=== PATIENT | male | born 1955 | race Two or more races ===

== ENCOUNTER 2020-02-12 15:06 | Emergency (ER) | payer MEDICAID, SELFPAY ==
[2020-02-12 15:34] VITALS: BP 163/100; PULSE 93; RESP 16; TEMP 37.1; O2SAT 95; BMI 31.6
[2020-02-12 16:14] VITALS: BP 134/88; PULSE 84; RESP 18; TEMP 36.9; O2SAT 94
--- NOTE | 2020-02-12 16:22 | PC.NURSE ---
pt alert and oriented, skin appropriate for ethnicity, pt reports about 4 days ago having this rash on his right side of head/face/eye since then reports feeling dizzy with a headache. blisters are dry no visible draining at this time
[2020-02-12] MEDS: Fluorescein Sodium STRIP 1 STRIP EYE-BOTH (16:25)
[2020-02-12] MEDS: Tetracaine HCl/PF 0.5% Oph Sol 4 ML DROPS 1 DROP EYE-BOTH (16:25)
--- NOTE | 2020-02-12 16:46 | ED_ITS ---
HPI - General Adult General Chief complaint: Dizziness Stated complaint: DIZZYNESS Source: patient Mode of arrival: ambulatory Limitations: no limitations History of Present Illness HPI narrative: patient presents to ED for right-sided headache/facial pain. Patient states 4 days ago he woke up with painful rash on the right side of his face. Patient describes pain as burning sensation. Patient denies any recent head trauma, nausea, vomiting, fever, or chills. Patient describes right-sided headache as burning sensation on face due to rash. Patient states never having this before. Onset (ago): day(s) (4 days) Related Data Previous Rx's Medication Instructions Recorded naproxen 500 mg PO BID PRN #20 tab 02/12/20 valacyclovir 1,000 mg PO TID #21 tab 02/12/20 Allergies Allergy/AdvReac Type Severity Reaction Status Date / Time blueberry [BLUEBERRY] Allergy Severe ANAPHYLAXIS Unverified 01/11/20 15:36 acetaminophen [Tylenol] Allergy Unknown Verified 12/11/15 00:00 hydrocodone [Vicodin] Allergy Unknown Verified 12/11/15 00:00 From VICODIN Allergy Unknown ANAPHYLAXIS Uncoded 01/11/20 15:36 Review of Systems Review of Systems: Right-sided facial rash Yes all other systems are reviewed and are negative Eyes: Eyes: Reports as per HPI, Reports no additional eye complaints, Denies blurry vision, Denies change in vision and Denies decreased night vision ENT: Reports system reviewed and no additional complaints, except as documented Cardiovascular: Cardiovascular: Reports as per HPI and Reports no additional cardiovascular complaints Respiratory: Respiratory: Reports as per HPI and Reports no additional respiratory complaints Gastrointestinal: Gastrointestinal: Reports as per HPI and Reports no additional gastrointestinal complaints Genitourinary: Genitourinary: Reports no additional male genitourinary complaints Musculoskeletal: Musculoskeletal: Reports no additional musculoskeletal complaints and Reports as per HPI Neurologic: Reports system reviewed and no additional complaints, except as documented and Reports as per HPI [facility] Social History Social History Alcohol intake: never Smoking Status: Light tobacco smoker Advance Directives: No Advance Directives Information Provided: Yes Physical Exam Vital Signs: Vital Signs: Vital Signs Temp Pulse Resp BP Pulse Ox 02/12/20 16:14 98.4 F 84 18 134/88 94 02/12/20 15:34 98.8 F 93 16 163/100 H 95 Body Mass Index 31.6 Const: General: cooperative, healthy appearing, comfortable and no acute distress Orientation/consciousness: oriented to person, oriented to place, oriented to time and patient oriented x3 HENMT: Other: positive for vesicular crusting erythematous rash on the right side of face. Rashes on right side forehead frontal, parietal, and right nares with vesicular lesions. ears bilaterally negative for any vesicular lesions to indicate Willett colon syndrome. Eyes: Other: Right eye negative for any dendrites to indicate herpes shingles in the eye. Negative for any corneal abrasion. Right eye to tonometry pressure is 10. Left eye 10 tonometry pressure is 10. Neck: Neck: Yes normal visual inspection, Yes full ROM, Yes no meningeal signs, Yes lymphadenopathy ( positive for right small cervical lymphadenopathy due to shingles on face), No positive Brudzinski's sign, No positive Kernig's sign, No tracheal deviation and No prominent dorsocervical fat pad Chest: Chest palpation & inspection: normal inspection of the chest and normal palpation of entire chest wall Resp: Effort & Inspection: normal respiratory effort, able to speak in complete sentences, no audible wheezes, no cough, no grunting, no nasal flaring, no paradoxical thoraco-abdom movements and no pursed lip breathing Auscultation: clear to auscultation bilaterally Percussion: percussion normal Cardio: Jugular venous distension: no JVD Heart sounds: S1 normal heart sound present and S2 normal heart sound present GI: Inspection: Yes normal to inspection, No abdominal wall ecchymosis, No Abdominal wall edema, No distended and No incision Palpation (GI): not soft, not firm, nontender, no guarding and not rigid Percussion: Yes normal to percussion Auscultation: normal bowel sounds : General: No CVA tenderness and Yes no CVA tenderness Back/Spine/Pelvis: Back: no CVA tenderness, No CVA tenderness and No back tenderness Skin: Other: Positive for shingles Neuro: General: oriented to person, oriented to place, oriented to time, patient oriented x3, gait normal, no meningeal signs and CN's II-XI intact bilaterally Cranial nerves: Yes CN's II-XII intact bilaterally Extrem: General: Yes normal to inspection and Yes full ROM Psych: Appearance: grossly normal and well ket Course Course Course Narrative: history physical exam indicate shingles. History and physical exam does not indicate ophthalmic shingles. Visual acuity in left eye is 20/30. Right visual acuity is 20/20. Patient had reading glasses on. Patient denies any eye pain, blurry vision, or eye itchiness. Reevaluation(s) Reevaluation #1: Patient will be discharged with antiviral medication to treat shingles. Patient informed to follow-up with PCP an [employer] [facility] [employer]. Time: 16:55 Medical Decision Making MDM Narrative Medical decision making narrative: Facial shingles. Negative for dendrites in eye with examination was lamp to indicate shingles in the eye. Visual acuity is intact. Patient denies any eye pain or blurry vision Discharge Plan Discharge Clinical Impression: Herpes zoster Patient Disposition: Home, Self-Care Instructions: Shingles (ED) Additional Instructions: return to the ED for eye pain, blurry vision, change in vision, loss of vision, severe headache, nausea, vomiting, fever, chills, neck stiffness, altered mental status, or any other concerning symptoms. Please follow up with your PCP Prescriptions: New valacyclovir 1 gram tablet 1,000 mg PO TID Qty: 21 RF: 0 naproxen 500 mg tablet 500 mg PO BID PRN (Reason: pain) Qty: 20 RF: 0 Referrals: Duglas Murphy [Physician] - 2 days (Right sided facial shingles. ED evaluation for negative dendrites in eye. Follow up for re-evaluation) Interventions: ED Discharge Assessment Last Done: 02/12/20 17:12 Discharge Date/Time: 02/12/20 17:20
== END 2020-02-12 17:20 | disposition home or self-care (01) ==
PROVIDERS: Emergency Provider Emergency Medicine
DX: B02.9 Zoster without complications (principal); R51.9 Headache, unspecified; F17.200 Nicotine dependence, unspecified, uncomplicated; Z71.6 Tobacco abuse counseling; Z79.899 Other long term (current) drug therapy
CPT/HCPCS: 99283; 99284

== ENCOUNTER 2020-03-22 06:32 | Outpatient (REF) | payer MEDICAID, SELFPAY | END 2020-03-22 06:33 | disposition home or self-care (01) | LOC: HO.LAB 06:32 | PROVIDERS: Visit Provider Internal Medicine | DX: Z20.828 Contact with and (suspected) exposure to other viral communicable diseases (principal) | CPT/HCPCS: C9803; U0003 ==

== ENCOUNTER 2020-04-25 13:54 | Outpatient (REF) | payer MEDICAID, SELFPAY | END 2020-04-25 13:55 | disposition home or self-care (01) | LOC: HO.LAB 13:54 | PROVIDERS: Visit Provider Internal Medicine | DX: Z20.828 Contact with and (suspected) exposure to other viral communicable diseases (principal) | CPT/HCPCS: C9803; U0003 ==

== ENCOUNTER 2020-08-06 07:36 | Outpatient (REF) | payer OTHER, SELFPAY ==
[2020-08-06 08:52] LABS: MANUAL DIFF FLAG NO
[2020-08-06 09:10] LABS: Basophils Percent Auto 0.7 % (0-2); Eosinophils Absolute Auto 0.2 X10*3/uL (0.0-0.4); Eosinophils Percent Auto 4.5 % (0-4); Hematocrit 40.6 % (42-52); Imm Gran Abs Auto 0.01 X10*3/uL (0.00-0.03); Imm Gran Pct Auto 0.2 % (0.0-0.4); Lymphocytes Absolute Auto 1.4 X10*3/uL (1.2-4.9); Lymphocytes Percent Auto 30.6 % (20-40); Mean Corpuscular Hemoglobin 26.2 pg (27.0-33.0); Mean Corpuscular Volume 81.9 fL (80-98); Mean Platelet Volume 12.6 fL (9.4-12.4); Monocytes Absolute Auto 0.3 X10*3/uL (0.1-1.2); Monocytes Percent Auto 7.4 % (2-11); Neutrophils Absolute Auto 2.5 X10*3/uL (2.0-8.3); Neutrophils Percent Auto 56.6 % (45-73); Platelet Count 104 X10*3/uL (160-400); Red Blood Count 4.96 X10*6/uL (4.60-5.80); White Blood Count 4.4 X10*3/uL (4.8-10.8)
[2020-08-06 09:15] LABS: Alanine Aminotransferase 30 U/L (0-40); Albumin Level 3.6 g/dL (3.5-5.0); Alkaline Phosphatase 74 U/L (39-117); Anion Gap 11 (12-20); Aspartate Amino Transferase 35 U/L (5-37); Bilirubin Total 0.4 mg/dL (0.0-1.0); Blood Urea Nitrogen 10 mg/dL (9-16); Calcium 8.5 mg/dL (8.4-10.2); Carbon Dioxide 29 mmol/L (22-29); Chloride 104 mmol/L (96-108); Cholesterol 130 mg/dL; Estimated Glomerular Filt Rate > 60; Glucose Fasting 103 mg/dL (60-99); HDL Cholesterol 39 mg/dL; LDL Cholesterol Calculated 77 mg/dl; Potassium 4.6 mmol/L (3.3-5.1); Sodium 139 mmol/L (135-145); Total Protein 7.7 g/dL (6.5-8.0); Triglycerides 74 mg/dL
== END 2020-08-06 07:37 | disposition home or self-care (01) ==
LOC: HO.LAB 07:36
PROVIDERS: PCP Internal Medicine; Visit Provider Internal Medicine
DX: Z00.00 Encounter for general adult medical examination without abnormal findings (principal); E03.9 Hypothyroidism, unspecified; E11.9 Type 2 diabetes mellitus without complications
CPT/HCPCS: 36415; 80053; 80061; 84443; 85025

== ENCOUNTER 2020-08-23 10:10 | Outpatient (REF) | payer OTHER, SELFPAY ==
--- NOTE | ~2020-08-23 | XR_ITS ---
EXAMINATION: BILATERAL KNEE X-RAY CLINICAL INFORMATION: Pain COMPARISON: Previous right knee x-ray July 2018 and left knee x-ray July 2015 TECHNIQUE: 2 views of each knee FINDINGS: Right: Bone alignment is normal. No fracture or dislocation is seen. There are postoperative changes from ACL repair. There is arthritis at the medial femoral tibial and patellofemoral joints with joint space narrowing and osteophyte formation. There is a osteophyte at the quadriceps tendon insertion to the patella and patellar tendon insertion to the tibial tubercle. There is a small joint effusion. Left knee: There is mild varus angulation at the knee joint. No fracture or dislocation is seen. There is marked joint space narrowing at the medial femoral tibial joint. There are small osteophytes at the patellofemoral joint. There is no joint effusion. XR/XR knee LT 2V IMPRESSION: Bilateral arthritis. Post right ACL repair.
--- NOTE | ~2020-08-23 | XR_ITS ---
EXAMINATION: BILATERAL KNEE X-RAY CLINICAL INFORMATION: Pain COMPARISON: Previous right knee x-ray July 2018 and left knee x-ray July 2015 TECHNIQUE: 2 views of each knee FINDINGS: Right: Bone alignment is normal. No fracture or dislocation is seen. There are postoperative changes from ACL repair. There is arthritis at the medial femoral tibial and patellofemoral joints with joint space narrowing and osteophyte formation. There is a osteophyte at the quadriceps tendon insertion to the patella and patellar tendon insertion to the tibial tubercle. There is a small joint effusion. Left knee: There is mild varus angulation at the knee joint. No fracture or dislocation is seen. There is marked joint space narrowing at the medial femoral tibial joint. There are small osteophytes at the patellofemoral joint. There is no joint effusion. XR/XR knee RT 2V IMPRESSION: Bilateral arthritis. Post right ACL repair.
== END 2020-08-23 10:11 | disposition home or self-care (01) ==
LOC: HO.XRAY 10:10
PROVIDERS: PCP Internal Medicine; Visit Provider Internal Medicine
DX: M25.561 Pain in right knee (principal); M25.562 Pain in left knee
CPT/HCPCS: 73560

== ENCOUNTER → 2020-08-28 10:43 | Outpatient (BNVA) | payer OTHER, SELFPAY | PROVIDERS: PCP Internal Medicine; Visit Provider Orthopaedic Surgery | DX: M17.0 Bilateral primary osteoarthritis of knee (principal) | CPT/HCPCS: 20610; 99202; J1040 ==

== ENCOUNTER 2020-09-16 20:06 | Inpatient (IN) | payer OTHER, SELFPAY ==
--- NOTE | ~2020-09-16 | XR_ITS ---
EXAMINATION: XR HAND, RIGHT CLINICAL INFORMATION: metal to right hand with swelling COMPARISON: None TECHNIQUE: PA, lateral, and oblique views of the right hand. FINDINGS: No radiopaque foreign bodies are seen. Mild degenerative changes present at the DIP joints. Evidence of an old healed fracture involving the fifth metacarpal. No acute fracture is seen. XR/XR hand RT 2V IMPRESSION: No evidence of an acute injury or foreign body.
--- NOTE | ~2020-09-16 | US_ITS ---
EXAMINATION: ULTRASOUND EXTREMITY NONVASCULAR CLINICAL INFORMATION: Question single versus multiple abscesses at the dorsal aspect of the right hand. Swelling. Injury. COMPARISON: None TECHNIQUE: Targeted sonographic evaluation of the dorsal right hand. FINDINGS: Diffuse edema is present. Increased Doppler vascularity noted. There is a focal area of low echogenicity in the soft tissues of the dorsal hand at the level of the metacarpals adjacent to the fourth ray. This measures 1.2 x 0.4 x 1.2 cm. This is somewhat heterogeneous. More proximally, at the dorsal interspace between the fourth and fifth metacarpals there is a second area of heterogeneously low echogenicity measuring 1.4 x 0.9 x 0.8 cm. There is surrounding increased vascularity. US/US extremity nonvascular IMPRESSION: Prominent soft tissue swelling of the hand with 2 separate small fluid collections identified in the dorsal hand at the level of the distal and mid metacarpals.
[2020-09-16 20:08] VITALS: BP 160/95; PULSE 100; RESP 18; TEMP 37.6; O2SAT 96; BMI 38.0
[2020-09-16 21:37] LABS: MANUAL DIFF FLAG NO
[2020-09-16 21:38] LABS: Basophils Percent Auto 0.3 % (0-2); Eosinophils Absolute Auto 0.1 X10*3/uL (0.0-0.4); Eosinophils Percent Auto 1.5 % (0-4); Hematocrit 37.2 % (42-52); Hemoglobin 12.2 g/dl (14.0-18.0); Imm Gran Abs Auto 0.01 X10*3/uL (0.00-0.03); Imm Gran Pct Auto 0.1 % (0.0-0.4); Lymphocytes Absolute Auto 1.8 X10*3/uL (1.2-4.9); Lymphocytes Percent Auto 24.1 % (20-40); Mean Corpuscular HGB Conc 32.8 g/dl (31.0-36.0); Mean Corpuscular Hemoglobin 26.2 pg (27.0-33.0); Mean Corpuscular Volume 79.8 fL (80-98); Mean Platelet Volume 11.9 fL (9.4-12.4); Monocytes Absolute Auto 0.7 X10*3/uL (0.1-1.2); Monocytes Percent Auto 9.9 % (2-11); Neutrophils Absolute Auto 4.8 X10*3/uL (2.0-8.3); Neutrophils Percent Auto 64.1 % (45-73); Platelet Count 114 X10*3/uL (160-400); Red Blood Count 4.66 X10*6/uL (4.60-5.80); Red Cell Distribution Width 15.6 % (11.0-16.0); White Blood Count 7.4 X10*3/uL (4.8-10.8)
[2020-09-16 21:57] LABS: Alanine Aminotransferase 32 U/L (0-40); Albumin Level 3.5 g/dL (3.5-5.0); Alkaline Phosphatase 77 U/L (39-117); Anion Gap 13 (12-20); Aspartate Amino Transferase 27 U/L (5-37); Bilirubin Total 0.7 mg/dL (0.0-1.0); Blood Urea Nitrogen 13 mg/dL (9-16); Calcium 8.3 mg/dL (8.4-10.2); Carbon Dioxide 24 mmol/L (22-29); Chloride 104 mmol/L (96-108); Creatinine Clr Calc Pharmacy 130.6; Estimated Glomerular Filt Rate > 60; Glucose Random 116 mg/dL (60-115); Potassium 3.7 mmol/L (3.3-5.1); Sodium 137 mmol/L (135-145); Total Protein 7.5 g/dL (6.5-8.0)
--- NOTE | 2020-09-16 22:15 | ED_ITS ---
HPI - Skin/Abscess/Foreign Bdy General Chief complaint: Skin/Abscess/Foreign Body Stated complaint: metal in arm Time Seen by Provider: 09/16/20 21:45 Source: patient Mode of arrival: ambulatory History of Present Illness HPI narrative: 65-year-old male presents with swollen dorsum of right hand after he states he got some metal lodged into his hand and removed it himself. He states that it was all fine until yesterday when it began becoming more red and swollen. Otherwise, he denies fever, chills and states he is able to fully range of motion his hand although it is uncomfortable. Related Data Previous Rx's Medication Instructions Recorded naproxen 500 mg PO BID PRN #20 tab 02/12/20 valacyclovir 1,000 mg PO TID #21 tab 02/12/20 Allergies Allergy/AdvReac Type Severity Reaction Status Date / Time blueberry [BLUEBERRY] Allergy Severe ANAPHYLAXIS Verified 08/28/20 10:53 acetaminophen [Tylenol] Allergy Unknown Unknown Verified 08/28/20 10:53 hydrocodone [Vicodin] Allergy Unknown Unknown Verified 08/28/20 10:53 From VICODIN Allergy Unknown ANAPHYLAXIS Uncoded 08/28/20 10:53 Review of Systems Review of Systems: Pertinent positives and negatives as stated in HPI 10 point review of systems is otherwise negative. [facility] Past Medical History Source: nursing notes reviewed Medical History Knee pain Seizure Surgical History History of right knee surgery History of right shoulder replacement Family History Family History Father No problems noted. Mother No problems noted. Social History Social History Alcohol intake: never Smoking Status: Light tobacco smoker Cigarettes Per Day: 4 Advance Directives: No Physical Exam Vital Signs: Vital Signs: Last Vital Signs Temp 99.6 F 09/16/20 20:08 Pulse 100 09/16/20 20:08 Resp 18 09/16/20 20:08 BP 160/95 H 09/16/20 20:08 Pulse Ox 96 09/16/20 20:08 Body Mass Index 38.0 VITAL SIGNS: Reviewed. GENERAL: Well developed, well nourished, in no acute distress. HEAD: Normocephalic/atraumatic EYES: PERRLA, EOMI NOSE: Nares patent bilateral OROPHARYNX: no oral lesions noted, posterior pharynx clear NECK: Supple, no adenopathy LUNGS: Normal breath sounds. No adventitious sounds or accessory muscle use. SpO2<96> CARDIOVASCULAR: Regular rate and rhythm without noted murmurs ABDOMEN: Obese, Soft, non-tender, non-distended with bowel sounds. RIGHT HAND: Significant swelling noted to the dorsum hand without appreciable fluctuance, capillary refill less than 3 seconds, sensation is intact, palpable radial and ulnar pulses and full range of motion noted at the wrist NEUROLOGIC: Alert and oriented x 4. Course Course Course Narrative: This is a 65-year-old male with history and clinical presentation consistent with right hand abscess versus cellulitis. Patient will receive Augmentin here but states his Tdap is current. Review of all investigations findings and formal ultrasound showing very small fluid collection but significant amount of hypervascularity of the soft tissue. Patient received initial antibiotics of Augmentin, however due to limited range of motion in appearance of hand decision was made to admit the patient. This was discussed with inpatient hospitalist who was agreeable for admission and will consult with Hand surgery in the morning. MDM - Skin/Abscess/Foreign Bdy Lab Data Result diagrams: 09/16/20 21:32 09/16/20 21:32 Labs: Lab Results 09/16/20 09/16/20 Range/Units 21:32 21:32 WBC 7.4 (4.8-10.8) X10*3/uL RBC 4.66 (4.60-5.80) X10*6/uL Hgb 12.2 L (14.0-18.0) g/dl Hct 37.2 L (42-52) % MCV 79.8 L (80-98) fL MCH 26.2 L (27.0-33.0) pg MCHC 32.8 (31.0-36.0) g/dl RDW 15.6 (11.0-16.0) % Plt Count 114 L (160-400) X10*3/uL MPV 11.9 (9.4-12.4) fL Immature Gran % (Auto) 0.1 (0.0-0.4) % Neut % (Auto) 64.1 (45-73) % Lymph % (Auto) 24.1 (20-40) % [place] % (Auto) 9.9 (2-11) % Eos % (Auto) 1.5 (0-4) % Baso % (Auto) 0.3 (0-2) % Lymph # (Auto) 1.8 (1.2-4.9) X10*3/uL [place] # (Auto) 0.7 (0.1-1.2) X10*3/uL Eos # (Auto) 0.1 (0.0-0.4) X10*3/uL Baso # (Auto) 0.0 (0.0-0.2) X10*3/uL Abs Immat Gran (auto) 0.01 (0.00-0.03) X10*3/uL Absolute Neuts (auto) 4.8 (2.0-8.3) X10*3/uL Absolute Nucleated RBC 0.000 (0.0-0.012) X10*3/uL Nucleated RBC % (auto) 0.0 (0.0-0.2) /100WBC Sodium 137 (135-145) mmol/L Potassium 3.7 (3.3-5.1) mmol/L Chloride 104 (96-108) mmol/L Carbon Dioxide 24 (22-29) mmol/L Anion Gap 13 (12-20) BUN 13 (9-16) mg/dL Creatinine 0.82 (0.5-1.4) mg/dL Estim Creat Clear Calc 130.6 Estimated GFR > 60 Random Glucose 116 H (60-115) mg/dL Calcium 8.3 L (8.4-10.2) mg/dL Total Bilirubin 0.7 (0.0-1.0) mg/dL AST 27 (5-37) U/L ALT 32 (0-40) U/L Alkaline Phosphatase 77 (39-117) U/L Total Protein 7.5 (6.5-8.0) g/dL Albumin 3.5 (3.5-5.0) g/dL Discharge Plan Discharge Clinical Impression: Cellulitis and abscess of hand Patient Disposition: Admitted As Inpatient Prescriptions: No Action valacyclovir 1 gram tablet 1,000 mg PO TID Qty: 21 RF: 0 naproxen 500 mg tablet 500 mg PO BID PRN (Reason: pain) Qty: 20 RF: 0
[2020-09-16] MEDS: Amoxicillin/Potassium Clav 875 MG TABLET PO (23:55)
[2020-09-17] VITALS (7 sets, daily range): BP systolic 140–170; BP diastolic 76–99; PULSE 66–73; RESP 17–18; TEMP 36.3–36.6; O2SAT 95–98
[2020-09-17] MEDS: Ketorolac Tromethamine 15 MG/ML VIAL IM (00:35)
[2020-09-17] MEDS: Lidocaine HCl 1 % MPF 5 ML VIAL SUBCUT (01:40)
--- NOTE | 2020-09-17 02:10 | P.HPHOSP_ITS ---
History of Present Illness Date of Service: 09/17/20 Chief Complaint: Right hand pain redness and swelling 65-year-old male with no significant past medical history presented to the hospital with a chief complaint of right hand pain redness and swelling. Patient mentioned that about 4 days ago he had metal stuck in his dorsum of his right hand and tried to remove it; finally got the metal piece out but later on noted to have increased pain redness and swelling on the dorsum of the hand and unable to extend the fingers. Denies any fever chills. Denies any cough. Denies any chest pain palpitations. Denies any lightheadedness dizziness. Review of all other systems is negative except mentioned above ER course: Per ER team patient noted to have any pain redness and swelling on the dorsum of the right hand and a unable to extend the fingers but able to flex partially. Ultrasound showed small abscess but unable to drain. Given antibiotics. Admitted to the hospital for further management. [facility] Medical History Knee pain Seizure Family History Father No problems noted. Mother No problems noted. Surgical History History of right knee surgery History of right shoulder replacement Social History Household Members: Family Housing: House Do you presently have visiting nurse or other home services: No Alcohol intake: never Smoking Status: Light tobacco smoker Tobacco Type: Cigarette Cigarettes Per Day: 3 Smoked in Last 30 Days: No Patient Interested in Nicotine Replacement: No Patient Given Instructions on How to Stop Smoking: No Second Hand Smoke Exposure: No Use of substances other than those prescribed or required for medical reasons: Yes Substance Use Type: Heroin Substance Use Frequency: Occasionally Last Used Substance: Days (ago) Last Used Substance Other:: 09/15/20 Currently Displaying Signs/Symptoms of Drug Intoxication Withdrawal: No Any prior treatment program specific to substance use: Yes (treatment in the past, suboxone program) Have you been hit, kicked, punched, or otherwise hurt by someone within the past year? If so, by whom?: No Do you feel safe in your current relationship?: Yes Is there a partner from a previous relationship who is making you feel unsafe now?: No Are you made to feel afraid or neglected: No Advance Directives: No Do you have thoughts of harming others: None Do you have a plan to hurt others: No Plan Recently lost weight without trying: No Nutrition Risks: No Nutritional Risk Poor oral hygiene: No service: No Current occupational status: disabled Meds Allergies Allergy/AdvReac Type Severity Reaction Status Date / Time blueberry [BLUEBERRY] Allergy Severe ANAPHYLAXIS Verified 09/17/20 03:37 hydrocodone [Vicodin] Allergy Severe Anaphylaxis Verified 09/17/20 03:37 acetaminophen [Tylenol] Allergy Intermediate Rash Verified 09/17/20 03:37 From VICODIN Allergy Severe ANAPHYLAXIS Uncoded 09/17/20 03:37 Active Medications: Current Medications Generic Name Dose Route Start Last Admin Trade Name Freq PRN Reason Stop Dose Admin Acetaminophen 650 mg 09/17/20 02:03 Acetaminophen 325 Mg Tablet PO Q6H PRN Pain, Mild (Pain Scale 1-3) Sodium Chloride 1,000 mls @ 100 mls/hr 09/17/20 02:15 Ns IVCONT .Q10H MARTIN Vancomycin HCl 1,000 mg/ 270 mls @ 270 mls/hr 09/17/20 02:15 Sodium Chloride IV Q12H MARTIN Piperacillin Sod/Tazobactam 50 mls @ 100 mls/hr 09/17/20 02:15 Sod 3.375 gm/ Sodium Chloride IV Q6H MARTIN Ketorolac Tromethamine 15 mg 09/17/20 02:08 Ketorolac Tromethamine 15 Mg/Ml Vial IVPUSH Q6H PRN [facility] Consult 1 each 09/17/20 02:03 Consult Rx Vancomycin Dosing MISCELLANE DAILY PRN Consult order Senna 17.2 mg 09/17/20 02:03 Sennosides 8.6 Mg Tablet PO BEDTIME PRN Constipation Sodium Chloride 3 ml 09/17/20 08:00 0.9 % Sodium Chloride Flush 3 Ml Syringe IVFLUSH QSHIFT [facility] Home Medications Medication Instructions Recorded Confirmed Last Taken Type No Known Home Meds 09/17/20 09/17/20 Unknown History Physical Exam Vital Signs and Narrative: Vital Signs: Last Vital Signs Temp 99.6 F 09/16/20 20:08 Pulse 100 09/16/20 20:08 Resp 18 09/16/20 20:08 BP 160/95 H 09/16/20 20:08 Pulse Ox 96 09/16/20 20:08 Body Mass Index 38.0 Gen: Appears be in no acute distress HEENT: NCAT, Moist mucosa. Pulmonary: Vesicular breath sounds, fair air entry CVS: Normal S1-S2 Abdomen: BS+, Soft, Nontender Extremities: Warm well perfused; right hand dorsum mom hyperemic and swollen; right hand fingers decreased range of extension, limited by pain. Neuro: Alert and awake. Results Labs CBC and Chem 7: 09/17/20 08:31 09/17/20 08:31 Labs: Laboratory Results - last 24 hr 09/16/20 09/16/20 21:32 21:32 MCV 79.8 L MCH 26.2 L MCHC 32.8 RDW 15.6 Plt Count 114 L MPV 11.9 Immature Gran % (Auto) 0.1 Neut % (Auto) 64.1 Lymph % (Auto) 24.1 [place] % (Auto) 9.9 Eos % (Auto) 1.5 Baso % (Auto) 0.3 Lymph # (Auto) 1.8 [place] # (Auto) 0.7 Eos # (Auto) 0.1 Baso # (Auto) 0.0 Abs Immat Gran (auto) 0.01 Absolute Neuts (auto) 4.8 Absolute Nucleated RBC 0.000 Nucleated RBC % (auto) 0.0 Anion Gap 13 Estim Creat Clear Calc 130.6 Estimated GFR > 60 Random Glucose 116 H Calcium 8.3 L Total Bilirubin 0.7 AST 27 ALT 32 Alkaline Phosphatase 77 Total Protein 7.5 Albumin 3.5 Imaging Radiologist's Impressions: Impressions Hand X-Ray 09/16/20 20:23 IMPRESSION: No evidence of an acute injury or foreign body. Extremity Ultrasound 09/17/20 00:00 IMPRESSION: Prominent soft tissue swelling of the hand with 2 separate small fluid collections identified in the dorsal hand at the level of the distal and mid metacarpals. Assessment and Plan (1) Cellulitis: Status: Acute 65-year-old male with no significant past medical history presented to the hospital with a chief complaint of right hand pain redness and swelling after having a metal stuck in the hand. Noted to have cellulitis. Admitted for further management. Right hand cellulitis: Question tenosynovitis. Will consult surgery for further recommendations. Will keep the patient on vanc and Zosyn. Blood cultures have been sent. Pain control Pt reports that he got tetanus shot 1yr ago. ID consult DVT prophylaxis: SCD boots Code status: Full code
[2020-09-17 03:33] LABS: Lactic Acid 0.7 mmol/L (0.5-2.0)
[2020-09-17] MEDS: 0.9 % Sodium Chloride 1,000 ML 100 ML IVCONT ×3 (03:36→22:12)
[2020-09-17] MEDS: Piperacillin Sodium/Tazobactam 3.375 GM in 0.9 % Sodium Chloride 50 ML IV ×4 (03:36→21:36)
[2020-09-17 03:53] LABS: COVID-19 Test Negative (Negative)
--- NOTE | 2020-09-17 05:06 | PC.NURSE ---
hospitalist called due to duplicate orders for vancomycin with 2 different doses. pharmacy called and pt should be on 2 grams not 1 gram. this was relayed onto the hospitalist and waiting correct order.
--- NOTE | 2020-09-17 05:58 | PC.NURSE ---
over night pharmacy called waiting for vancomycin order to be entered into the [facility].
--- NOTE | 2020-09-17 06:41 | PC.NURSE ---
called to give report and the rn will call back for report.
[2020-09-17 08:53] LABS: MANUAL DIFF FLAG NO
[2020-09-17] MEDS: 0.9 % Sodium Chloride Flush 3 ML SYRINGE IVFLUSH (08:57)
[2020-09-17 09:01] LABS: Basophils Percent Auto 0.2 % (0-2); Eosinophils Absolute Auto 0.2 X10*3/uL (0.0-0.4); Eosinophils Percent Auto 3.3 % (0-4); Hematocrit 36.3 % (42-52); Hemoglobin 11.6 g/dl (14.0-18.0); Imm Gran Abs Auto 0.01 X10*3/uL (0.00-0.03); Imm Gran Pct Auto 0.2 % (0.0-0.4); Lymphocytes Absolute Auto 1.5 X10*3/uL (1.2-4.9); Lymphocytes Percent Auto 28.3 % (20-40); Mean Corpuscular Hemoglobin 25.8 pg (27.0-33.0); Mean Corpuscular Volume 80.7 fL (80-98); Mean Platelet Volume 12.4 fL (9.4-12.4); Monocytes Absolute Auto 0.5 X10*3/uL (0.1-1.2); Monocytes Percent Auto 8.9 % (2-11); Neutrophils Absolute Auto 3.1 X10*3/uL (2.0-8.3); Neutrophils Percent Auto 59.1 % (45-73); Red Cell Distribution Width 15.6 % (11.0-16.0); White Blood Count 5.2 X10*3/uL (4.8-10.8)
[2020-09-17] MEDS: Ketorolac Tromethamine 15 MG/ML VIAL IVPUSH ×3 (09:02→21:45)
[2020-09-17 09:07] LABS: Platelet Count 99 X10*3/uL (160-400)
--- NOTE | 2020-09-17 09:19 | PM.EVENT ---
Event Note Date of Service: 09/18/20 Event Note: Patient seen and examined-came to the hospital because of right hand cellulitis. Patient says that his hand is little bit better movement patton otherwise still has pain Denies any chest pain or shortness of breath or abdominal pain or fever chills. Physical exam: Please see H&P accept right hand: dorsal area swelling /no drainage able to make soft fist Assessment and plan coordinated in H&P note Continue antibiotics Marilyn id eval Ortho Hand Surgeon evaluation?
[2020-09-17 09:24] LABS: Anion Gap 11 (12-20); Blood Urea Nitrogen 13 mg/dL (9-16); Carbon Dioxide 24 mmol/L (22-29); Chloride 105 mmol/L (96-108); Creatinine Clr Calc Pharmacy 133.9; Estimated Glomerular Filt Rate > 60; Glucose Random 149 mg/dL (60-115); Potassium 3.7 mmol/L (3.3-5.1); Sodium 136 mmol/L (135-145)
--- NOTE | 2020-09-17 12:12 | W.PM.IDCN ---
History of Present Illness Data of Consult Service Date: 09/17/20 Requesting physician: Valeri De Anda Primary Care Provider: Unknown Physician HPI Reason for consult: right hand cellulitis He presents to hospital with hand pain,right. He had car part slam on right hand and then metal pierced area through hand one week ago He has no fever or chills. He wrapped hand and few days later hand was itchy and he pulled metal shard out of it 3 days later he had pain and swelling 3 years ago he had fishing hook injury in same hand Review of Systems Review of Systems: Yes all other systems are reviewed and are negative FOR[facility]LY [facility], [facility] Past Medical History Medical History Knee pain Seizure Family History Family History Father No problems noted. Mother No problems noted. Surgical History Surgical History History of right knee surgery History of right shoulder replacement Social History Social History Household Members: Family Housing: House Do you presently have visiting nurse or other home services: No Alcohol intake: never Smoking Status: Light tobacco smoker Tobacco Type: Cigarette Cigarettes Per Day: 3 Smoked in Last 30 Days: No Patient Interested in Nicotine Replacement: No Patient Given Instructions on How to Stop Smoking: No Second Hand Smoke Exposure: No Use of substances other than those prescribed or required for medical reasons: Yes Substance Use Type: Heroin Substance Use Frequency: Occasionally Last Used Substance: Days (ago) Last Used Substance Other:: 09/15/20 Currently Displaying Signs/Symptoms of Drug Intoxication Withdrawal: No Any prior treatment program specific to substance use: Yes (treatment in the past, suboxone program) Have you been hit, kicked, punched, or otherwise hurt by someone within the past year? If so, by whom?: No Do you feel safe in your current relationship?: Yes Is there a partner from a previous relationship who is making you feel unsafe now?: No Are you made to feel afraid or neglected: No Advance Directives: No Do you have thoughts of harming others: None Recently lost weight without trying: No Nutrition Risks: No Nutritional Risk Poor oral hygiene: No Meds Allergies Allergy/AdvReac Type Severity Reaction Status Date / Time blueberry [BLUEBERRY] Allergy Severe ANAPHYLAXIS Verified 09/17/20 03:37 hydrocodone [Vicodin] Allergy Severe Anaphylaxis Verified 09/17/20 03:37 acetaminophen [Tylenol] Allergy Intermediate Rash Verified 09/17/20 03:37 From VICODIN Allergy Severe ANAPHYLAXIS Uncoded 09/17/20 03:37 Active Medications: Current Medications Generic Name Dose Route Start Last Admin Trade Name Freq PRN Reason Stop Dose Admin Sodium Chloride 1,000 mls @ 100 mls/hr 09/17/20 02:15 09/17/20 08:56 Ns IVCONT 100 mls/hr .Q10H MARTIN Administration Piperacillin Sod/Tazobactam 50 mls @ 100 mls/hr 09/17/20 03:00 09/17/20 09:40 Sod 3.375 gm/ Sodium Chloride IV Infused Q6H MARTIN Infusion Vancomycin HCl 1,500 mg/ 500 mls @ 333.333 mls/hr 09/17/20 18:00 Sodium Chloride IV Q12H MARTIN Ketorolac Tromethamine 15 mg 09/17/20 02:08 09/17/20 09:02 Ketorolac Tromethamine 15 Mg/Ml Vial IVPUSH 15 mg Q6H PRN Administration [facility] Consult 1 each 09/17/20 02:03 Consult Rx Vancomycin Dosing MISCELLANE DAILY PRN Consult order Pharmacy Consult 1 each 09/17/20 09:17 Consult Rx Vancomycin Dosing MISCELLANE DAILY PRN Consult order Senna 17.2 mg 09/17/20 02:03 Sennosides 8.6 Mg Tablet PO BEDTIME PRN Constipation Sodium Chloride 3 ml 09/17/20 08:00 09/17/20 08:57 0.9 % Sodium Chloride Flush 3 Ml Syringe IVFLUSH 3 ml QSHIFT MARTIN Administration Home Medications Medication Instructions Recorded Confirmed Last Taken Type No Known Home Meds 09/17/20 09/17/20 Unknown History Physical Exam Vital Signs: Vital Signs: Last Vital Signs Temp 97.6 F 09/17/20 11:35 Pulse 73 09/17/20 11:35 Resp 18 09/17/20 11:35 BP 149/77 H 09/17/20 11:35 Pulse Ox 97 09/17/20 11:35 Body Mass Index 38.0 Const: General: cooperative HENMT: Head: Yes normal to inspection Mouth: Normal oral and palatal mucosa present Resp: Effort & Inspection: normal respiratory effort Cardio: Rate: regular rate Rhythm: regular rhythm GI: Palpation (GI): Soft to palpation and nontender Skin: General skin exam: no rashes or lesions noted Extrem: Other: right hand swelling,can move fingers and strength and sensation intact Results Labs CBC & Chem 7: 09/17/20 08:31 09/17/20 08:31 Labs: Short CBC 09/16/20 09/17/20 Range/Units 21:32 08:31 WBC 7.4 5.2 (4.8-10.8) X10*3/uL Hgb 12.2 L 11.6 L (14.0-18.0) g/dl Hct 37.2 L 36.3 L (42-52) % Plt Count 114 L 99 L (160-400) X10*3/uL BMP 09/16/20 09/17/20 21:32 08:31 Sodium 137 136 Potassium 3.7 3.7 Chloride 104 105 Carbon Dioxide 24 24 BUN 13 13 Creatinine 0.82 0.80 Calcium 8.3 L 8.0 L Liver Function 09/16/20 Range/Units 21:32 Total Bilirubin 0.7 (0.0-1.0) mg/dL AST 27 (5-37) U/L ALT 32 (0-40) U/L Alkaline Phosphatase 77 (39-117) U/L Albumin 3.5 (3.5-5.0) g/dL Assessment and Plan (1) Cellulitis and abscess of hand: Status: Acute There are possible gram negative and gram positive infection such as staph or anerobes Less likely fungal infection (one of pieces of metal pulled out was dark in color) Zosyn and Vancomycin Would await Orthopedic evaluation (2) Cellulitis: Status: Acute
--- NOTE | 2020-09-17 13:15 | MHC.CM.PN ---
nurse health care / medical job titles note electronic medical RECORD REVIEWED ALONG WITH CASE DISCUSSED WITH STAFF NURSE AND ON MULTIPLE DISCIPLINARY ROUNDS MET WITH PATIENT HE REPORTED THAT HE IS ON DISABILITY, HE CARES FOR HIS BROTHER WHO IS BLIND, HE I ACTIVE ,INDEPENDENT IN HIS ADLS AND MOBILITY AND SOMETIME USES A cane , he has seen the orthopedic surgeon for bilaterAL OSTEO ARTHRITIS IN HIS KNEES AND HOPES TO HAVE KNEE REPLACEMENT , HE REPORTED THAT HE HAS A HISTORY OF SUBSTANCE ABUSE AND WAS FOLLOWED BY A SUBOXONE CLINIC , BUT WITH HIS FORMER JOB HE WAS [place] OF THE [place] FOR 5 YEARS , HE USES IV HEROIN WHEN HE CAN FOR PAIN MANAGEMENT FOR HIS KNEES , I INFORMED HIM THAT WE HAVE A SUBOXONE CLINIC HERE AT [facility] BUT HE IS NOT INTERESTED AT THIS TIME IN MEETING WITH ANYONE OR STARTING ON SUBOXONE . INFORMED HIM I WOULD DRIP OFF A WES ANMICHAEL PLAN RADIO ANNOUNCER TO CONTINUE TO FOLLOW FOR DISCHARGE NEEDS PCP AT [address] [place] [address] MANAGEEMNT OFFICE TO CHECK AND SEE WHO HE WILL BE SEEING
--- NOTE | 2020-09-17 15:43 | PM.CNOR ---
History of Present Illness HPI Consult date: 09/18/20 Chief complaint: Hand cellulitis Narrative: This is a 65-year-old gentleman who presented to the emergency department with increased pain and swelling of the right hand. He states about 4 days ago he had pieces of metal stuck in his hand from working on his car. He states he was able to get those pieces of metal out but noticed worsening symptoms which prompted him to come to the emergency department. While in the emergency department he was started on IV antibiotics and the hospitalist admitted him for further evaluation. Orthopedics was consulted for further recommendations. Review of Systems Review of Systems: Yes all other systems are reviewed and are negative PMFSH Past Medical History Medical History Knee pain Seizure Family History Family History Father No problems noted. Mother No problems noted. Surgical History Surgical History History of right knee surgery History of right shoulder replacement Social History Social History Household Members: Family Housing: House Do you presently have visiting nurse or other home services: No Alcohol intake: never Cigarettes Per Day: 3 Smoked in Last 30 Days: No Patient Interested in Nicotine Replacement: No Patient Given Instructions on How to Stop Smoking: No Second Hand Smoke Exposure: No Use of substances other than those prescribed or required for medical reasons: Yes Substance Use Type: Heroin Substance Use Frequency: Occasionally Last Used Substance: Days (ago) Last Used Substance Other:: 09/15/20 Currently Displaying Signs/Symptoms of Drug Intoxication Withdrawal: No Any prior treatment program specific to substance use: Yes (treatment in the past, suboxone program) Have you been hit, kicked, punched, or otherwise hurt by someone within the past year? If so, by whom?: No Do you feel safe in your current relationship?: Yes Is there a partner from a previous relationship who is making you feel unsafe now?: No Are you made to feel afraid or neglected: No Advance Directives: No Do you have thoughts of harming others: None Do you have a plan to hurt others: No Plan Recently lost weight without trying: No Nutrition Risks: No Nutritional Risk Poor oral hygiene: No service: No Current occupational status: disabled Meds Allergies Allergy/AdvReac Type Severity Reaction Status Date / Time blueberry [BLUEBERRY] Allergy Severe ANAPHYLAXIS Verified 09/17/20 03:37 hydrocodone [Vicodin] Allergy Severe Anaphylaxis Verified 09/17/20 03:37 acetaminophen [Tylenol] Allergy Intermediate Rash Verified 09/17/20 03:37 From VICODIN Allergy Severe ANAPHYLAXIS Uncoded 09/17/20 03:37 Active Medications: Current Medications Generic Name Dose Route Start Last Admin Trade Name Freq PRN Reason Stop Dose Admin Sodium Chloride 1,000 mls @ 100 mls/hr 09/17/20 02:15 09/17/20 08:56 Ns IVCONT 100 mls/hr .Q10H MARTIN Administration Piperacillin Sod/Tazobactam 50 mls @ 100 mls/hr 09/17/20 03:00 09/17/20 09:40 Sod 3.375 gm/ Sodium Chloride IV Infused Q6H MARTIN Infusion Vancomycin HCl 1,500 mg/ 500 mls @ 333.333 mls/hr 09/17/20 18:00 Sodium Chloride IV Q12H MARTIN Ketorolac Tromethamine 15 mg 09/17/20 02:08 09/17/20 09:02 Ketorolac Tromethamine 15 Mg/Ml Vial IVPUSH 15 mg Q6H PRN Administration [facility] Consult 1 each 09/17/20 02:03 Consult Rx Vancomycin Dosing MISCELLANE DAILY PRN Consult order Pharmacy Consult 1 each 09/17/20 09:17 Consult Rx Vancomycin Dosing MISCELLANE DAILY PRN Consult order Senna 17.2 mg 09/17/20 02:03 Sennosides 8.6 Mg Tablet PO BEDTIME PRN Constipation Sodium Chloride 3 ml 09/17/20 08:00 09/17/20 08:57 0.9 % Sodium Chloride Flush 3 Ml Syringe IVFLUSH 3 ml QSHIFT MARTIN Administration Home Medications Medication Instructions Recorded Confirmed Last Taken Type No Known Home Meds 09/17/20 09/17/20 Unknown History Physical Exam Vital Signs: Vital Signs: Last Vital Signs Temp 97.5 F 09/17/20 15:09 Pulse 68 09/17/20 15:09 Resp 18 09/17/20 15:09 BP 159/99 H 09/17/20 15:09 Pulse Ox 97 09/17/20 15:09 Body Mass Index 38.0 Const: General: cooperative, healthy appearing, comfortable and no acute distress Extrem: Other: Right hand skin intact. There are 2 pinpoint areas where he states he got metal out. The skin is tense. Swelling with fluctuance. Mild tenderness to palpation. He is able to flex and extend all digits without pain. No wrist pain with axial loading. Neurovascularly intact. xrays of the right hand: Negative for acute fracture or foreign bodies. Soft tissue swelling present. Results Labs Result Diagrams: 09/17/20 08:31 09/17/20 08:31 Labs: Abnormal lab results 09/16/20 09/16/20 09/17/20 Range/Units 21:32 21:32 08:31 RBC 4.50 L (4.60-5.80) X10*6/uL Hgb 12.2 L 11.6 L (14.0-18.0) g/dl Hct 37.2 L 36.3 L (42-52) % MCV 79.8 L (80-98) fL MCH 26.2 L 25.8 L (27.0-33.0) pg Plt Count 114 L 99 L (160-400) X10*3/uL Anion Gap (12-20) Random Glucose 116 H (60-115) mg/dL Calcium 8.3 L (8.4-10.2) mg/dL 09/17/20 Range/Units 08:31 RBC (4.60-5.80) X10*6/uL Hgb (14.0-18.0) g/dl Hct (42-52) % MCV (80-98) fL MCH (27.0-33.0) pg Plt Count (160-400) X10*3/uL Anion Gap 11 L (12-20) Random Glucose 149 H (60-115) mg/dL Calcium 8.0 L (8.4-10.2) mg/dL H & H 09/16/20 09/17/20 Range/Units 21:32 08:31 Hgb 12.2 L 11.6 L (14.0-18.0) g/dl Hct 37.2 L 36.3 L (42-52) % All other labs normal. Assessment and Plan (1) Abscess of right hand: Status: Acute Mr. Ayoub is a 65 yo male who was admitted to the hospital service and started on IV abx for right hand abscess. I would recommend at this time continuing the abx and perform warm compress q.i.d. We will re-eval him tomorrow to determine if surgical intervention warranted. Procedures Date of Service Date of Service: 09/18/20
[2020-09-17] MEDS: vancomycin HCL 1,500 MG in 0.9 % Sodium Chloride 500 ML 333.33 MG IV (18:29)
[2020-09-18] VITALS (15 sets, daily range): BP systolic 107–170; BP diastolic 63–90; PULSE 55–80; RESP 15–20; TEMP 35.6–36.9; O2SAT 94–97
[2020-09-18] MEDS: Piperacillin Sodium/Tazobactam 3.375 GM in 0.9 % Sodium Chloride 50 ML IV ×4 (04:14→22:20)
[2020-09-18] MEDS: vancomycin HCL 1,500 MG in 0.9 % Sodium Chloride 500 ML 333.3 MG IV ×2 (05:55→20:44)
--- NOTE | 2020-09-18 06:06 | PC.NURSE ---
patient refusing labwork this morning
--- NOTE | 2020-09-18 07:54 | PM.EVENT ---
Event Note Date of Service: 09/18/20 Event Note: Patient seen and examined with Dr Sood this morning. Plan is to take him to OR for I&D patient is NPO
[2020-09-18] MEDS: Ketorolac Tromethamine 15 MG/ML VIAL IVPUSH ×3 (08:28→22:09)
--- NOTE | 2020-09-18 10:15 | HO.ANESPROP2 ---
HPI - Anesthesia Eval Consult details Narrative: 65 yo male patient for I&D of right hand PMFSH Active Problems Active Problems: All Active Problems (Updated 09/18/20 @ 08:04 by Esperanza Velasquez PA-C) Abscess of right hand (Acute) Cellulitis and abscess of hand (Acute) Cellulitis (Acute) Primary osteoarthritis of knees, bilateral (Acute) Seizure (Acute) Knee pain (Acute) Past Medical History Medical History (Updated 09/18/20 @ 12:39 by Nitza Matthews) Hypertension Knee pain Seizure Family History Family History Father No problems noted. Mother No problems noted. Family history of problems with anesthesia: No Surgical History Surgical History History of right knee surgery History of right shoulder replacement History of Problems with Anesthesia: No Social History Social History Household Members: Family Housing: House Do you presently have visiting nurse or other home services: No Alcohol intake: never Patient Tobacco Use Status: Current someday Tobacco user Tobacco use type: Cigarette Cigarettes Per Day: 3 Smoked in Last 30 Days: Yes Patient Interested in Nicotine Replacement: No Patient Given Instructions on How to Stop Smoking: No Second Hand Smoke Exposure: No Use of substances other than those prescribed or required for medical reasons: No Substance Use Type: Heroin Substance Use Frequency: Occasionally Last Used Substance: Days (ago) Last Used Substance Other:: 09/15/20 Currently Displaying Signs/Symptoms of Drug Intoxication Withdrawal: No Any prior treatment program specific to substance use: Yes (treatment in the past, suboxone program) Have you been hit, kicked, punched, or otherwise hurt by someone within the past year? If so, by whom?: No Do you feel safe in your current relationship?: Yes Is there a partner from a previous relationship who is making you feel unsafe now?: No Are you made to feel afraid or neglected: No Are you DNR?: No Advance Directives: No Do you have thoughts of harming others: None Do you have a plan to hurt others: No Plan Recently lost weight without trying: No Nutrition Risks: No Nutritional Risk Poor oral hygiene: No service: No Current occupational status: disabled Meds Allergies Allergy/AdvReac Type Severity Reaction Status Date / Time blueberry [BLUEBERRY] Allergy Severe ANAPHYLAXIS Verified 09/17/20 03:37 hydrocodone [Vicodin] Allergy Severe Anaphylaxis Verified 09/17/20 03:37 acetaminophen [Tylenol] Allergy Intermediate Rash Verified 09/17/20 03:37 From VICODIN Allergy Severe ANAPHYLAXIS Uncoded 09/17/20 03:37 Active Medications: Current Medications Generic Name Dose Route Start Last Admin Trade Name Freq PRN Reason Stop Dose Admin Sodium Chloride 1,000 mls @ 100 mls/hr 09/17/20 02:15 09/17/20 22:12 Ns IVCONT 100 mls/hr .Q10H MARTIN Administration Piperacillin Sod/Tazobactam 50 mls @ 100 mls/hr 09/17/20 03:00 09/18/20 08:20 Sod 3.375 gm/ Sodium Chloride IV 100 mls/hr Q6H MARTIN Administration Vancomycin HCl 1,500 mg/ 500 mls @ 333.333 mls/hr 09/17/20 18:00 09/18/20 08:20 Sodium Chloride IV Infused Q12H MARTIN Infusion Ketorolac Tromethamine 15 mg 09/17/20 02:08 09/18/20 08:28 Ketorolac Tromethamine 15 Mg/Ml Vial IVPUSH 15 mg Q6H PRN Administration [facility] Consult 1 each 09/17/20 02:03 Consult Rx Vancomycin Dosing MISCELLANE DAILY PRN Consult order Pharmacy Consult 1 each 09/17/20 09:17 Consult Rx Vancomycin Dosing MISCELLANE DAILY PRN Consult order Senna 17.2 mg 09/17/20 02:03 Sennosides 8.6 Mg Tablet PO BEDTIME PRN Constipation Sodium Chloride 3 ml 09/17/20 08:00 09/18/20 08:20 0.9 % Sodium Chloride Flush 3 Ml Syringe IVFLUSH Not Given QSHIFT [facility] Home Medications Medication Instructions Recorded Confirmed Last Taken Type No Known Home Meds 09/17/20 09/17/20 Unknown History Exam Exam Date and Time: September 18, 2020 1015 Height,Weight and Vital Signs: Height 6 ft 1 in Weight 130.635 kg Vital Signs Temp Pulse Resp BP Pulse Ox 09/18/20 11:09 96.0 F L 62 18 170/87 H 97 09/18/20 07:55 97.1 F 65 15 168/90 H 97 09/18/20 01:40 80 145/80 H 09/18/20 00:00 98.0 F 61 18 157/85 H 97 09/17/20 19:15 97.8 F 69 18 150/81 H 98 09/17/20 15:09 97.5 F 68 18 159/99 H 97 Pertinent Lab Results Pertinent Lab Results: Laboratory Tests 09/16/20 09/16/20 09/17/20 21:32 21:32 03:07 WBC 7.4 RBC 4.66 Hgb 12.2 L Hct 37.2 L MCV 79.8 L MCH 26.2 L MCHC 32.8 RDW 15.6 Plt Count 114 L MPV 11.9 Immature Gran % (Auto) 0.1 Neut % (Auto) 64.1 Lymph % (Auto) 24.1 [place] % (Auto) 9.9 Eos % (Auto) 1.5 Baso % (Auto) 0.3 Lymph # (Auto) 1.8 [place] # (Auto) 0.7 Eos # (Auto) 0.1 Baso # (Auto) 0.0 Abs Immat Gran (auto) 0.01 Absolute Neuts (auto) 4.8 Absolute Nucleated RBC 0.000 Nucleated RBC % (auto) 0.0 Sodium 137 Potassium 3.7 Chloride 104 Carbon Dioxide 24 Anion Gap 13 BUN 13 Creatinine 0.82 Estim Creat Clear Calc 130.6 Estimated GFR > 60 Random Glucose 116 H Lactic Acid 0.7 Calcium 8.3 L Magnesium Total Bilirubin 0.7 AST 27 ALT 32 Alkaline Phosphatase 77 Total Protein 7.5 Albumin 3.5 COVID-19 ([facility]) COVID-19 Clin Com 09/17/20 09/17/20 09/17/20 03:20 08:31 08:31 WBC 5.2 RBC 4.50 L Hgb 11.6 L Hct 36.3 L MCV 80.7 MCH 25.8 L MCHC 32.0 RDW 15.6 Plt Count 99 L MPV 12.4 Immature Gran % (Auto) 0.2 Neut % (Auto) 59.1 Lymph % (Auto) 28.3 [place] % (Auto) 8.9 Eos % (Auto) 3.3 Baso % (Auto) 0.2 Lymph # (Auto) 1.5 [place] # (Auto) 0.5 Eos # (Auto) 0.2 Baso # (Auto) 0.0 Abs Immat Gran (auto) 0.01 Absolute Neuts (auto) 3.1 Absolute Nucleated RBC 0.000 Nucleated RBC % (auto) 0.0 Sodium 136 Potassium 3.7 Chloride 105 Carbon Dioxide 24 Anion Gap 11 L BUN 13 Creatinine 0.80 Estim Creat Clear Calc 133.9 Estimated GFR > 60 Random Glucose 149 H Lactic Acid Calcium 8.0 L Magnesium 2.0 Total Bilirubin AST ALT Alkaline Phosphatase Total Protein Albumin COVID-19 ([facility]) Negative COVID-19 Clin Com See Note Airway Mallampati Class: II TM Dist: >3cm Neck ROM: Full Loose/Missing/Broken Teeth: Yes (Some missing, some broken) Heart: RRR Lungs: CTAB Assessment and Plan Assessment Anesthesia Assessment: Anesthesia Plan Discussed and Chart Reviewed Final Anesthetic Review NPO: Yes ASA Class: III and Emergency Final Preanesthetic Review: No Changes in Pt Med Stat, Meds/Allgs Chart Reviewed, Consent Obtained/Reviewed and Anes Risks/Benef Reviewed Patient Risk: Intermediate Procedure Risk: Low Assessment/Block/Sedation in SS: Assess/Block/Sedation-SS Anesthetic Plan Anesthetic Plan: GA Disposition: Inp. Admit - Standard Bed
--- NOTE | 2020-09-18 11:36 | P.PNIM_ITS ---
Subjective Subjective Date of Service: 09/18/20 Interval History: hand cellulitis Review of Systems Still has had soreness and pain, swelling present. Denies any chest pain or shortness of breath or abdominal pain or fever chills or cough or phlegm Physical Exam Vital Signs: Vital Signs: Last Vital Signs Temp 96.0 F L 09/18/20 11:09 Pulse 62 09/18/20 11:09 Resp 18 09/18/20 11:09 BP 170/87 H 09/18/20 11:09 Pulse Ox 97 09/18/20 11:09 Body Mass Index 38.0 Objective Data Current Medications Generic Name Dose Route Start Last Admin Trade Name Freq PRN Reason Stop Dose Admin Piperacillin Sod/Tazobactam 50 mls @ 100 mls/hr 09/17/20 03:00 09/18/20 10:42 Sod 3.375 gm/ Sodium Chloride IV Infused Q6H MARTIN Infusion Vancomycin HCl 1,500 mg/ 500 mls @ 333.333 mls/hr 09/17/20 18:00 09/18/20 08:20 Sodium Chloride IV Infused Q12H MARTIN Infusion Lactated Ringer's 500 mls @ 80 mls/hr 09/18/20 11:45 Lr IV 09/18/20 17:59 .Q6H15M MARTIN Ketorolac Tromethamine 15 mg 09/17/20 02:08 09/18/20 08:28 Ketorolac Tromethamine 15 Mg/Ml Vial IVPUSH 15 mg Q6H PRN Administration [facility] Consult 1 each 09/17/20 02:03 Consult Rx Vancomycin Dosing MISCELLANE DAILY PRN Consult order Pharmacy Consult 1 each 09/17/20 09:17 Consult Rx Vancomycin Dosing MISCELLANE DAILY PRN Consult order Senna 17.2 mg 09/17/20 02:03 Sennosides 8.6 Mg Tablet PO BEDTIME PRN Constipation Sodium Chloride 3 ml 09/17/20 08:00 09/18/20 08:20 0.9 % Sodium Chloride Flush 3 Ml Syringe IVFLUSH Not Given QSHIFT [facility] Labs CBC & Chem 7: 09/17/20 08:31 09/17/20 08:31 Microbiology Microbiology Results: Microbiology 09/17/20 03:29 Blood - Venous Blood Culture - Preliminary No growth after 24 hours. 09/17/20 03:29 Blood - Venous Blood Culture - Preliminary No growth after 24 hours. Assessment and Plan (1) Abscess of right hand: Status: Acute (2) Cellulitis: Status: Acute Assessment and Plan: Hosptal day#2 65-year-old male with no significant past medical history presented to the hospital with a chief complaint of right hand pain redness and swelling after having a metal stuck in the hand. Noted to have cellulitis. Admitted for further management. 1.Right hand cellulitis: no fevers or leucocytosis on vanc and Zosyn.,Blood cultures pending Pain control Pt reports that he got tetanus shot 1yr ago. ID consult-continue antibiotics , going for I&D today. 2. Mild hyperglycemia: will check Hba1c levels 3. dvt prophaylx : on scd due to thrombocytopenia
--- NOTE | 2020-09-18 11:37 | MHC.SHP ---
Pre-Procedural Eval Section A The patient is an INPATIENT: Yes Changes since office visit: Yes Patient answered all questions; No Cold of Flu in the past 2 weeks, No New Medical Problems and No Changes in Medication The History & Physical has been completed within 30 days and I have reviewed it.: Yes Section B Chief Complaint: Hand cellulitis Allergies: Allergies Allergy/AdvReac Type Severity Reaction Status Date / Time blueberry [BLUEBERRY] Allergy Severe ANAPHYLAXIS Verified 09/17/20 03:37 hydrocodone [Vicodin] Allergy Severe Anaphylaxis Verified 09/17/20 03:37 acetaminophen [Tylenol] Allergy Intermediate Rash Verified 09/17/20 03:37 From VICODIN Allergy Severe ANAPHYLAXIS Uncoded 09/17/20 03:37 Plan I have reviewed the history and physical and performed a pertinent physical examination on my patient. No changes have occurred unless specified.
--- NOTE | 2020-09-18 11:38 | PM.OP ---
Brief Operative Note Date of Service: 09/18/20 Pre-op diagnosis: right hand abcess Post-op diagnosis: same Procedure: I&D right hand Implants: none Surgeon: Edmar Sood MD Anesthesia: GETA Was an Medical Practice Assistant used for this Procedure?: Yes Medical Practice Assistant: Pauly Mohr Estimated blood loss (mL): 5 Tourniquet time (min): 10 IV fluids (mL): 500 Pathology: none sent Condition: stable Disposition: PACU
--- NOTE | 2020-09-18 13:03 | MHC.CM.PN ---
NURSE VETERINARIAN HELPER NOTE PATIENT IS SCHEDULED TO GO TO THE OR TODAY FOR UINCISION AND DRAINAGE OF HIS HAND CELLULITIS, . I SPOKE WITH THE HOSPITLAIST AND HE WANTED ME TO PLAN ON PATIENT NEEDEING VNA AT DISCHARGE , BUT WILL BE HERE FOR TWO MORE DAYS ON IV ABX AND THEN TRANSITIONED TO ORAL . I METW ITH PATIENT AND HE REPORTED HE DID NOT WANT TGHE VNA and that he was capable of doing his dressing, also follow up with discussion of yesterday regarding suboxon clinic information this was given to him case sealer to continue to follow for discharge needs
[2020-09-18] MEDS: Lactated Ringers 500 ML 80 ML IV (15:25)
[2020-09-18 19:17] LABS: Hematocrit 35.8 % (42-52); Hemoglobin 11.5 g/dl (14.0-18.0); Mean Corpuscular HGB Conc 32.1 g/dl (31.0-36.0); Mean Corpuscular Hemoglobin 26.1 pg (27.0-33.0); Mean Corpuscular Volume 81.2 fL (80-98); Mean Platelet Volume 12.2 fL (9.4-12.4); Red Blood Count 4.41 X10*6/uL (4.60-5.80); Red Cell Distribution Width 15.5 % (11.0-16.0); White Blood Count 3.6 X10*3/uL (4.8-10.8)
[2020-09-18 19:20] LABS: Platelet Count 93 X10*3/uL (160-400)
[2020-09-18 20:03] LABS: Anion Gap 14 (12-20); Blood Urea Nitrogen 18 mg/dL (9-16); Calcium 8.1 mg/dL (8.4-10.2); Carbon Dioxide 20 mmol/L (22-29); Chloride 111 mmol/L (96-108); Creatinine Clr Calc Pharmacy 135.6; Estimated Glomerular Filt Rate > 60; Glucose Random 91 mg/dL (60-115); Sodium 141 mmol/L (135-145)
[2020-09-19] VITALS (7 sets, daily range): BP systolic 133–187; BP diastolic 70–103; PULSE 58–74; RESP 12–20; TEMP 36–36.8; O2SAT 93–97
[2020-09-19] MEDS: Piperacillin Sodium/Tazobactam 3.375 GM in 0.9 % Sodium Chloride 50 ML IV ×4 (02:48→22:03)
[2020-09-19] MEDS: vancomycin HCL 1,500 MG in 0.9 % Sodium Chloride 500 ML 333.3 MG IV ×2 (05:57→18:04)
--- NOTE | 2020-09-19 08:21 | MHC.CM.NN ---
NURSE SERVICE SUPERVISOR NOTE ELECTRONIC MEDICAL RECORD REVIEWED ., CONSULTED WITH ORTHOPEDIC SURGICAL PA TYREL WILL BE DISCHARGED HOME TODAY AND WILL HAVE THE [facility] FOR HOME PT TO START TOMORROW AND GO TO HIS DAUGHTERS ADDRESS STATED IN PREVIOUS NOTE TRANSPORTATION FAMILY PCP DR HERNANDEZ
--- NOTE | 2020-09-19 08:39 | PM.PNORT ---
Subjective Subjective Date of Service: 09/19/20 Interval history: POD1 s/p right hand I+D with Dr. Sood. Packing removed at bedside. Splint is clean, dry, and intact. Pain is less since yesterday. No overnight events. No additional complaints. Physical Exam Vital Signs: Vital Signs: Last Vital Signs Temp 98.3 F 09/19/20 07:00 Pulse 65 09/19/20 07:00 Resp 17 09/19/20 07:00 BP 187/91 H 09/19/20 07:00 Pulse Ox 94 09/19/20 07:00 Body Mass Index 38.0 Const: General: cooperative, healthy appearing and no acute distress Resp: Effort & Inspection: normal respiratory effort and able to speak in complete sentences Cardio: Rate: regular rate Peripheral pulses: Peripheral pulses 2+ throughout GI: Palpation (GI): Soft to palpation Skin: Lesions: no lesions Rashes: no rashes Extrem: Other: Right hand packing removed at bedside. Edema has decreased since yesterday. Patient is able to flex and extend all digits without pain. Splint and bandages clean, dry, and intact. Sutures intact. Radial pulse intact. Sensation intact. Progress Note: A&P Assessment and plan (1) Abscess of right hand: Status: Acute Assessment and Plan: Right hand POD1 s/p I+D with Dr. Sood Packing removed at bedside Bandages changed Splint reapplied - Keep clean, dry, and intact Work on gentle finger ROM Abx per ID recommendation Dispo planning pending medicine and ID evaluation for D/C (2) Cellulitis and abscess of hand: Status: Acute (3) Cellulitis: Status: Acute Fall Risk Details Current Medications: Current Medications Generic Name Dose Route Start Last Admin Trade Name Freq PRN Reason Stop Dose Admin Piperacillin Sod/Tazobactam 50 mls @ 100 mls/hr 09/17/20 03:00 09/19/20 03:41 Sod 3.375 gm/ Sodium Chloride IV Infused Q6H MARTIN Infusion Vancomycin HCl 1,500 mg/ 500 mls @ 333.333 mls/hr 09/17/20 18:00 09/19/20 08:28 Sodium Chloride IV Infused Q12H MARTIN Infusion Lactated Ringer's 500 mls @ 80 mls/hr 09/19/20 07:30 Lr IV 09/19/20 13:44 .Q6H15M MARTIN Omeprazole 20 mg 09/19/20 08:15 Omeprazole 20 Mg Capsule. PO DAILY@0630 [facility] Pharmacy Consult 1 each 09/17/20 02:03 Consult Rx Vancomycin Dosing MISCELLANE DAILY PRN Consult order Pharmacy Consult 1 each 09/17/20 09:17 Consult Rx Vancomycin Dosing MISCELLANE DAILY PRN Consult order Senna 17.2 mg 09/17/20 02:03 Sennosides 8.6 Mg Tablet PO BEDTIME PRN Constipation Sodium Chloride 3 ml 09/17/20 08:00 09/18/20 22:33 0.9 % Sodium Chloride Flush 3 Ml Syringe IVFLUSH Not Given QSHIFT [facility] Time Spent With Patient Time: Total time spent is greater than 50% in coordination of care (as documented) at patient's floor/unit and/or counseling patient: Time with patient: less than 15 minutes Procedures Date of Service Date of Service: 09/19/20
[2020-09-19] MEDS: 0.9 % Sodium Chloride Flush 3 ML SYRINGE IVFLUSH (09:05)
[2020-09-19] MEDS: Omeprazole 20 MG CAPSULE.DR PO (09:05)
[2020-09-19 10:44] LABS: Estimated Average Glucose 108 mg/dL; Hemoglobin A1c % 5.4 %
[2020-09-19 10:58] LABS: Anion Gap 10 (12-20); Blood Urea Nitrogen 15 mg/dL (9-16); Calcium 7.9 mg/dL (8.4-10.2); Carbon Dioxide 25 mmol/L (22-29); Chloride 110 mmol/L (96-108); Creatinine Clr Calc Pharmacy 120.3; Estimated Glomerular Filt Rate > 60; Glucose Random 133 mg/dL (60-115); Potassium 4.1 mmol/L (3.3-5.1); Sodium 141 mmol/L (135-145)
[2020-09-19] MEDS: Lactated Ringers 1,000 ML 80 ML IV (12:47)
--- NOTE | 2020-09-19 12:55 | HO.POSTANES ---
Post Anesthesia Evaluation Post Anesthesia Evaluation Vital Signs: Vital Signs Temp Pulse Resp BP Pulse Ox 09/19/20 12:26 94 09/19/20 11:00 97.2 F 66 17 151/74 H 94 09/19/20 07:00 98.3 F 65 17 187/91 H 94 09/19/20 03:00 97.1 F 74 16 133/70 97 Anesthesia: General Mental Status: Awake Pain Control: Satisfactory Nausea/Vomiting: None Hydration: Adequate Anesthesia-Related Issues: No Anes. Related Issues
--- NOTE | 2020-09-19 13:32 | HO.PM.IMPN ---
Subjective Subjective Date of Service: 09/20/20 Interval History: hand clelulitis Review of Systems Patient had I&D done yesterday-his hand seems to be improving, and movement is also improving slowly. Denies any chest pain or abdominal pain or fever or chills or nausea or vomiting or any new weakness or numbness. Physical Exam Vital Signs: Vital Signs: Last Vital Signs Temp 97.2 F 09/19/20 11:00 Pulse 66 09/19/20 11:00 Resp 17 09/19/20 11:00 BP 151/74 H 09/19/20 11:00 Pulse Ox 94 09/19/20 12:26 Body Mass Index 38.0 Physical exam: Cvs: rrr, [id number] , no murmur res: clear to auscultation ,no rhonchii or wheezing abd: no rebound or guarding ,nt, bs present. ext pulses present , no cyanosis right hand -seems wrapped but swelling seems to be better, and movement is also better. neuro: axo3 , nonfocal. Objective Data Current Medications Generic Name Dose Route Start Last Admin Trade Name Freq PRN Reason Stop Dose Admin Piperacillin Sod/Tazobactam 50 mls @ 100 mls/hr 09/17/20 03:00 09/19/20 10:27 Sod 3.375 gm/ Sodium Chloride IV Infused Q6H MARTIN Infusion Vancomycin HCl 1,500 mg/ 500 mls @ 333.333 mls/hr 09/17/20 18:00 09/19/20 08:28 Sodium Chloride IV Infused Q12H MARTIN Infusion Lactated Ringer's 1,000 mls @ 80 mls/hr 09/19/20 12:30 09/19/20 12:47 Lr IV 09/20/20 00:59 80 mls/hr .[id number] MARTIN Administration Omeprazole 20 mg 09/19/20 08:15 09/19/20 09:05 Omeprazole 20 Mg Capsule. PO 20 mg DAILY@0630 [facility] Administration Pharmacy Consult 1 each 09/17/20 02:03 Consult Rx Vancomycin Dosing MISCELLANE DAILY PRN Consult order Pharmacy Consult 1 each 09/17/20 09:17 Consult Rx Vancomycin Dosing MISCELLANE DAILY PRN Consult order Senna 17.2 mg 09/17/20 02:03 Sennosides 8.6 Mg Tablet PO BEDTIME PRN Constipation Sodium Chloride 3 ml 09/17/20 08:00 09/19/20 09:05 0.9 % Sodium Chloride Flush 3 Ml Syringe IVFLUSH 3 ml QSHIFT [facility] Administration Labs CBC & Chem 7: 09/18/20 19:04 09/19/20 10:09 Microbiology Microbiology Results: Microbiology 09/17/20 03:29 Blood - Venous Blood Culture - Preliminary No growth after 48 hours. 09/17/20 03:29 Blood - Venous Blood Culture - Preliminary No growth after 48 hours. Assessment and Plan (1) Abscess of right hand: Status: Acute (2) Cellulitis: Status: Acute Assessment and Plan: Hosptal day#2 65-year-old male with no significant past medical history presented to the hospital with a chief complaint of right hand pain redness and swelling after having a metal stuck in the hand. Noted to have cellulitis. Admitted for further management. 1.Right hand cellulitis: no fevers or leucocytosis on vanc and Zosyn.,Blood cultures pending Pain control Pt reports that he got tetanus shot 1yr ago. ID consult-continue antibiotics , going for I&D yesterday -seems improving. 2. Mild hyperglycemia: Hba1c levels : 5.4 no dm 3. dvt prophaylx : on scd due to thrombocytopenia
[2020-09-19] MEDS: Ketorolac Tromethamine 15 MG/ML VIAL IVPUSH (18:05)
--- NOTE | 2020-09-19 22:03 | PM.EVENT ---
Event Note Date of Service: 09/19/20 Event Note: would give po Doxycycline and Augmentin for a week
[2020-09-20] MEDS: Piperacillin Sodium/Tazobactam 3.375 GM in 0.9 % Sodium Chloride 50 ML IV (02:33)
[2020-09-20 03:00] VITALS: BP 174/99; PULSE 66; RESP 17; TEMP 36.8; O2SAT 94
[2020-09-20 06:54] LABS: Vancomycin Trough 16.3 mcg/mL (10.0-20.0)
[2020-09-20] MEDS: Ketorolac Tromethamine 15 MG/ML VIAL IVPUSH (07:57)
[2020-09-20] MEDS: vancomycin HCL 1,500 MG in 0.9 % Sodium Chloride 500 ML 333.3 MG IV (07:57)
[2020-09-20] MEDS: amLODIPine Besylate 2.5 MG TABLET PO (07:58)
[2020-09-20] MEDS: 0.9 % Sodium Chloride Flush 3 ML SYRINGE IVFLUSH (07:58)
[2020-09-20] MEDS: Omeprazole 20 MG CAPSULE.DR PO (07:58)
[2020-09-20 08:27] VITALS: BP 189/96; PULSE 63; RESP 18; TEMP 36.5; O2SAT 96
--- NOTE | 2020-09-20 09:13 | P.DS_ITS ---
DS: Providers Provider Date of Service: 09/20/20 Date of admission: 09/17/20 02:04 Primary care physician: Cristian Cardoza MD Consults: 09/17/20 02:03 Consult to General Surgery Routine Consulting Provider: Selvin Lake Reason for consultation: Hand cellulitis/?Tenosinuvitis 09/17/20 03:03 Consult to Infectious Diseases Routine Consulting Provider: Tamara Garcia Reason for consultation: hand cellulitis; hx Metal injury 09/17/20 09:14 Consult to Orthopedics Routine Consulting Provider: Karyn Lemos Reason for consultation: HAND CELLULITIS/tynosynvitis/fluid collections after metal injury to right DS: Diagnosis Discharge Diagnosis (1) Abscess of right hand: Status: Acute (2) Cellulitis: Status: Acute DS: Medications Discharge Medications Home Medications: Home Medications Medication Instructions Recorded Confirmed No Known Home Meds 09/17/20 09/17/20 DS: Summary Hospital Course Hospital Course: 65-year-old male with no significant past medical history presented to the hospital with a chief complaint of right hand pain redness and swelling. Patient mentioned that about 4 days ago he had metal stuck in his dorsum of his right hand and tried to remove it; finally got the metal piece out but later on noted to have increased pain redness and swelling on the dorsum of the hand and unable to extend the fingers. Denies any fever chills. Denies any cough. Denies any chest pain palpitations. Denies any lightheadedness dizziness. Review of all other systems is negative except mentioned above ER course: Per ER team patient noted to have any pain redness and swelling on the dorsum of the right hand and a unable to extend the fingers but able to flex partially. Ultrasound showed small abscess but unable to drain. Given antibiotics. Admitted to the hospital for further management. Hospital Course problem patton section: 65-year-old male with no significant past medical history presented to the hospital with a chief complaint of right hand pain redness and swelling after having a metal stuck in the hand. Noted to have cellulitis. Admitted for further management. 1.Right hand cellulitis: Started on IV antibiotic including Vanco and Zosyn in the beginning subsequently blood cultures were sent which is negative so far. Patient does not have any leukocytosis or fever Patient already had an I&D done, and range of motion of all fingers of the hands are intact now. Swelling around the hand is also improving. Patient has limited options of pain medications since is allergic to most of them, we will add ibuprofen limited supply and advised to the patient to take it were with meals as well as hydrate himself well. Further management outpatient as per PCP. daily dressing 2. Mild hyperglycemia: Hba1c levels : 5.4 less likely dm. 3. htn: was on htn medication 1 year back, he stopped on his own. The blood pressure is also slightly elevated because of the pain. We will give him amlodipine upon discharge, patient was advised lifestyle modification, diet modification. Follow-up with PCP for further management. Above management discussed with the patient in detail length he understand and in agreement with the above plan, time spent 50 minutes and 50% time spent on counseling. Significant findings: As above. Procedures performed: None. Treatment and response: As above. Complications: None. Time Spent with Patient Time attestation: Total time spent providing and/or coordinating discharge services: Discharge coordination time: Greater than 30 minutes Quality: Stroke Does the patient have a stroke diagnosis?: No Physical Exam Vital Signs: Vital Signs: Last Vital Signs Temp 97.7 F 09/20/20 08:27 Pulse 63 09/20/20 08:27 Resp 18 09/20/20 08:27 BP 189/96 H 09/20/20 08:27 Pulse Ox 96 09/20/20 08:27 Body Mass Index 38.0 Physical exam: Cvs: rrr, [id number] , no murmur res: clear to auscultation ,no rhonchii or wheezing abd: no rebound or guarding ,nt, bs present. ext -pulses present , no cyanosis right hand -seems wrapped but swelling seems to improved , and movement is also better neuro: axo3 , nonfocal. DS: Data Data Completed and Pending Labs on day of discharge: Laboratory Results - last 24 hr 09/19/20 09/19/20 09/20/20 10:09 10:09 06:00 Sodium 141 Potassium 4.1 Chloride 110 H Carbon Dioxide 25 Anion Gap 10 L BUN 15 Creatinine 0.89 Estim Creat Clear Calc 120.3 Estimated GFR > 60 Random Glucose 133 H D Estimat Average Glucose 108 Hemoglobin A1c % 5.4 Calcium 7.9 L Vancomycin Trough 16.3 Preliminary micro results at discharge 09/17/20 03:29 Blood Culture - Preliminary Blood - Venous No growth after 48 hours. 09/17/20 03:29 Blood Culture - Preliminary Blood - Venous No growth after 48 hours. Discharge Plan Discharge Patient Disposition: Home, Self-Care Discharge Diagnosis: hand cellulitis /abcess Referrals: Cristian Cardoza MD [Primary Care Provider] - 1 Week (follow up with your pcp , call the office and make an appointment.) Esperanza Velasquez PA-C [Physician Dispensing Optician] - 2 Weeks (WednesdayOctober 02, @ 11:30 am) Discharge Medications: New doxycycline hyclate 100 mg tablet 100 mg PO BID 7 Days Qty: 14 RF: 0 amoxicillin-pot clavulanate [Augmentin] 500-125 mg tablet 1 tab PO BID 7 Days Qty: 14 RF: 0 ibuprofen 400 mg tablet 400 mg PO Q8H PRN (Reason: pain) Qty: 7 RF: 0 omeprazole 20 mg capsule,delayed release(DR/EC) 20 mg PO DAILY Qty: 10 RF: 0 amlodipine 5 mg tablet 5 mg PO DAILY Qty: 30 RF: 0 Discharge Orders: Discharge Order (Routine); Ordered 09/20/20 Ordered By: Valeri De Anda Diet: advance to usual diet, low fat, low cholesterol, low salt diet and regular diet Activity on Discharge: As tolerated Stand Alone Forms: Patient Portal Discharge page Care Plan Goals: Restore function of joint Health Concerns: none Plan of Treatment: Antibiotics and wound healing Assessment: Doxycycline and Augmentin for a week
[2020-09-20] MEDS: Amoxicillin/Potassium Clav 875 MG TABLET PO (10:15)
[2020-09-20 10:17] VITALS: BP 176/98
--- NOTE | 2020-09-20 10:19 | MHC.CM.PN ---
NURSE ASSISTANT CLINICAL NURSE MANAGER NOTE ELECTRONIC MEDICAL RECORD REVIEWED ALONG WITH CASE DISCUSSED WITH STAFF NURSE AND HOSPITALIST AND PATIENT HE WILL BE DISCHAGRE [facility] TODAY . NO SERVICES (OFFERED [facility] AND HE DECLINED) DISCHARGED HOME NO SERVICES PCP PATIENT TO CALL FOR APPOINTMENT WITH HIS PHYSICIANS TRANSPORTATION FAMILY
--- NOTE | 2020-09-27 13:29 | P.OP_ITS ---
Operative Note Operative Note Date of Service: 09/18/20 Narrative: Date of Service: 09/18/20 Pre-op diagnosis: right hand abcess Post-op diagnosis: same Procedure: I&D right hand Implants: none Surgeon: Edmar Sood MD Anesthesia: STEVIEA Was an Electrification Adviser used for this Procedure?: Yes Electrification Adviser: Pauly Mohr Estimated blood loss (mL): 5 Tourniquet time (min): 10 IV fluids (mL): 500 Pathology: none sent Condition: stable Disposition: PACU Procedure in detail: Patient was brought to the operating room and placed supine on the surgical table. He was prepped and draped in standard sterile fashion and a time out was called to indentify proper site, proper procedure and IV antibiotics per weight were administered. I began by making a dorsal based 1 cm incision over the area of induration and erythema. This was over the 3/4 intermetacarpal space. There was scant serous fluid and thick fibrous tissue without any obvious pocket of purulence. Care was taken to avoid the tendons and I used a mosquito clamp to spread and subcutaneous fibrous tissue. Once I felt confident that there was no unexpressed purulence I irrigiated copiously and placed one nylon stitch and packed with 1/4 packing strips. Sterile dressing and a volar based splint was applied and the patient was awakened from anesthesia and brought top the recovery room in stable condition. There were no known complications.
== END 2020-09-20 12:08 | disposition home or self-care (01) | DRG 364 ==
LOC: HO.ED 09-17 02:15 → HO.EDOVER 09-17 02:20 → HO.S3 09-17 06:11
PROVIDERS: Orthopaedic Surgery; Admitting Provider Hospitalist; Emergency Provider Student in an Organized Health Care Education/Training Program; PCP Internal Medicine; Visit Provider Internal Medicine
PROC: 0J9J0ZZ Drainage of Right Hand Subcutaneous Tissue and Fascia, Open Approach (ICD-10-PCS; principal; 2020-09-18 11:50)
DX: L03.113 Cellulitis of right upper limb (principal); D69.6 Thrombocytopenia, unspecified; F17.210 Nicotine dependence, cigarettes, uncomplicated; R73.9 Hyperglycemia, unspecified; L02.511 Cutaneous abscess of right hand; Z20.822 Contact with and (suspected) exposure to COVID-19; Z71.6 Tobacco abuse counseling; Z96.611 Presence of right artificial shoulder joint; Z88.0 Allergy status to penicillin
CPT/HCPCS: 36415; 73120; 76882; 80048; 80053; 80202; 83036; 83605; 83735; 85025; 85027; 87040; 87635; 96372; 99285; J1885; J2250; J2405; J2543; J3010; J3370

== ENCOUNTER → 2020-10-02 11:20 | Outpatient (BNVA) | payer OTHER, SELFPAY | PROVIDERS: PCP Internal Medicine; Visit Provider Physician Assistant | DX: L02.511 Cutaneous abscess of right hand (principal) | CPT/HCPCS: 99202 ==

== ENCOUNTER → 2020-11-27 11:07 | Outpatient (BNVA) | payer OTHER, SELFPAY | PROVIDERS: Visit Provider Orthopaedic Surgery | DX: M17.0 Bilateral primary osteoarthritis of knee (principal) | CPT/HCPCS: 99212 ==

== ENCOUNTER 2021-03-17 12:25 | Outpatient (REF) | payer OTHER, SELFPAY ==
--- NOTE | ~2021-03-17 | XR_ITS ---
EXAMINATION: XR knee standing BI CLINICAL INFORMATION: Reason for Exam M25.569 - Pain in unspecified knee COMPARISON: July 2020 TECHNIQUE: frontal, lateral, tunnel and patella sunrise views FINDINGS: BONES: No fracture or dislocation is present. There is a screw in the proximal tibia unchanged. JOINTS: Narrowing of joint spaces and developed osteophytes from the edges of articular surfaces suggest degenerative osteoarthritis. SOFT TISSUE: Normal XR/XR knee standing BI IMPRESSION: Redemonstration of moderate degenerative osteoarthritis involving medial more than lateral compartments. Postsurgical changes ACL repair. Hardware in place unchanged.
== END 2021-03-17 12:26 | disposition home or self-care (01) ==
LOC: HO.HOSX 12:25
PROVIDERS: Visit Provider Orthopaedic Surgery
DX: M17.31 Unilateral post-traumatic osteoarthritis, right knee (principal); M17.12 Unilateral primary osteoarthritis, left knee; F17.210 Nicotine dependence, cigarettes, uncomplicated; F11.90 Opioid use, unspecified, uncomplicated
CPT/HCPCS: 73565; 99212

== ENCOUNTER → 2021-05-27 13:46 | Outpatient (BNVA) | payer OTHER, SELFPAY | PROVIDERS: Visit Provider Orthopaedic Surgery ==

== ENCOUNTER → 2021-06-19 09:38 | Outpatient (BNVA) | payer OTHER, MEDICAID, SELFPAY | PROVIDERS: Visit Provider Physician Assistant | DX: Z01.818 Encounter for other preprocedural examination (principal); M17.11 Unilateral primary osteoarthritis, right knee | CPT/HCPCS: 99212 ==

== ENCOUNTER 2021-06-25 | Outpatient (REF) | payer OTHER, MEDICAID, SELFPAY ==
[2021-05-29 08:38] LABS: MANUAL DIFF FLAG NO
[2021-05-29 09:01] LABS: Basophils Percent Auto 0.5 % (0-2); Eosinophils Absolute Auto 0.2 X10*3/uL (0.0-0.4); Eosinophils Percent Auto 4.3 % (0-4); Hematocrit 40.1 % (42.0-52.0); Hemoglobin 12.8 g/dl (14.0-18.0); Imm Gran Abs Auto 0.01 X10*3/uL (0.00-0.03); Imm Gran Pct Auto 0.3 % (0.0-0.4); Lymphocytes Absolute Auto 1.3 X10*3/uL (1.2-4.9); Lymphocytes Percent Auto 31.9 % (20-40); Mean Corpuscular HGB Conc 31.9 g/dl (31.0-36.0); Mean Corpuscular Hemoglobin 25.8 pg (27.0-33.0); Mean Corpuscular Volume 80.7 fL (80.0-98.0); Mean Platelet Volume 11.7 fL (9.4-12.4); Monocytes Absolute Auto 0.3 X10*3/uL (0.1-1.2); Monocytes Percent Auto 8.2 % (2-11); Neutrophils Absolute Auto 2.2 x10*3/uL (2.0-8.3); Neutrophils Percent Auto 54.8 % (45-73); Platelet Count 100 X10*3/uL (160-400); Red Blood Count 4.97 X10*6/uL (4.60-5.80); Red Cell Distribution Width 16.6 % (11.0-16.0); White Blood Count 3.9 X10*3/uL (4.8-10.8)
[2021-05-29 09:23] LABS: Anion Gap 9 (12-20); Blood Urea Nitrogen 18 mg/dL (9-16); Carbon Dioxide 26 mmol/L (22-29); Chloride 110 mmol/L (96-108); Estimated Glomerular Filt Rate > 60; Glucose Random 128 mg/dL (60-115); Potassium 4.3 mmol/L (3.3-5.1); Sodium 141 mmol/L (135-145)
[2021-06-17 11:51] VITALS: BP 166/84; PULSE 72; RESP 16; O2SAT 97; BMI 41.3
--- NOTE | 2021-06-17 12:35 | P.CONAN_ITS ---
HPI - Anesthesia Eval Consult details Narrative: Cx'd 06/24/21 DOS d/t +COVID 65yo M for Right Knee Replacement Total PCP cleared after BP recheck and review of EKG Heme cleared (referred for chronic, mild pancytopenia) PMFSH Active Problems Active Problems: All Active Problems (Updated 06/17/21 @ 12:24 by Ling Ascencio, DANA) Primary osteoarthritis of knees, bilateral (Acute) Abscess of right hand (Acute) Post-traumatic osteoarthritis of right knee (Acute) Preop exam for internal medicine (Acute) Morbid obesity (Acute) Hypertension (Acute) Seizure (Acute) Knee pain (Acute) Past Medical History Medical History (Updated 06/29/21 @ 17:33 by Reta Jain MD) Cellulitis and abscess of hand Convulsion, non-epileptic Hx MRSA infection Hx of hepatitis C Hypertension Knee pain Morbid obesity Osteoarthritis of left knee Pancytopenia Family History Family History Father No problems noted. Mother No problems noted. Family history of problems with anesthesia: No Surgical History Surgical History History of right knee surgery History of right shoulder replacement History of surgery History of Problems with Anesthesia: No Social History Social History (Updated 06/19/21 @ 14:31 by Shruti Cardenas RN) Household Members: Family Housing: House Are you a primary patient care associate to a significant other at home: No Do you presently have visiting nurse or other home services: No Alcohol intake: never Patient Tobacco Use Status: Current everyday Tobacco user Tobacco use type: Cigarette Years Smoked: 20 Smoked in Last 30 Days: Yes e-Cigarette/Vaping Use: Never Used Patient Interested in Nicotine Replacement: No Patient Given Instructions on How to Stop Smoking: No Second Hand Smoke Exposure: No Use of substances other than those prescribed or required for medical reasons: No Substance Use Type: Heroin Have you been hit, kicked, punched, or otherwise hurt by someone within the past year? If so, by whom?: No Spiritual Healthcare Practices: none Anabaptist Healthcare Practices: none Cultural Healthcare Practices: none Are you DNR?: No Advance Directives: No Advance Directives Information Provided: Yes Advance Directives on File: No Recently lost weight without trying: No Nutrition Risks: No Nutritional Risk Poor oral hygiene: Yes (cracked teeth, nothing loose) service: No Current occupational status: disabled Cognitive needs: No Hearing needs: No Vision needs: No Narrative Narrative: No recent illness No CP/SOB. Activity limited to pain Meds Allergies Allergy/AdvReac Type Severity Reaction Status Date / Time blueberry [BLUEBERRY] Allergy Severe ANAPHYLAXIS Verified 06/24/21 12:45 hydrocodone [Vicodin] Allergy Severe Anaphylaxis Verified 06/24/21 12:45 acetaminophen [Tylenol] Allergy Intermediate told to Verified 06/24/21 12:45 avoid Home Medications Medication Instructions Recorded Confirmed Last Taken Type amlodipine 10 mg tablet 20 mg PO DAILY 06/19/21 06/19/21 Unknown History Exam Exam Date and Time: June 17, 2021 1235 Height,Weight and Vital Signs: Height 6 ft 1.5 in Weight 144.242 kg Last Vital Signs Pulse 72 06/17/21 11:51 Resp 16 06/17/21 11:51 BP 166/84 H 06/17/21 11:51 Pulse Ox 97 06/17/21 11:51 Pertinent Lab Results Pertinent Lab Results: Laboratory Tests 05/29/21 05/29/21 08:36 08:36 WBC 3.9 L RBC 4.97 Hgb 12.8 L Hct 40.1 L MCV 80.7 MCH 25.8 L MCHC 31.9 RDW 16.6 H Plt Count 100 L MPV 11.7 Immature Gran % (Auto) 0.3 Neut % (Auto) 54.8 Lymph % (Auto) 31.9 [place] % (Auto) 8.2 Eos % (Auto) 4.3 H Baso % (Auto) 0.5 Lymph # (Auto) 1.3 [place] # (Auto) 0.3 Eos # (Auto) 0.2 Baso # (Auto) 0.0 Abs Immat Gran (auto) 0.01 Absolute Neuts (auto) 2.2 Absolute Nucleated RBC 0.000 Nucleated RBC % (auto) 0.0 Sodium 141 Potassium 4.3 Chloride 110 H Carbon Dioxide 26 Anion Gap 9 L BUN 18 H Creatinine 0.83 Estim Creat Clear Calc TNP Estimated GFR > 60 Random Glucose 128 H Calcium 9.0 D Narrative Narrative: EKG 05/2021 Vent. Rate : 068 BPM ? ? Atrial Rate : 068 BPM ?? P-R Int : 152 ms? QRS Dur : 106 ms ? ? QT Int : 442 ms ? ? ? P-R-T Axes : 050 -57 024 degrees ?? QTc Int : 469 ms ? Normal sinus rhythm Left anterior fascicular block Minimal voltage criteria for LVH, may be normal variant ( Luis Felipe product ) Abnormal ECG When compared with ECG of 18-NOV-2018 07:59, T wave inversion no longer evident in Inferior leads Airway Mallampati Class: II TM Dist: >3cm Neck ROM: Full Loose/Missing/Broken Teeth: Yes (Multiple missing/broken. Kicked in jaw by horse as teen. No loose presently) Heart: RRR Lungs: CTAB Assessment and Plan Assessment Anesthesia Assessment: Anesthesia Plan Discussed, Smoking Cess. Discussed and PAT Visit Final Anesthetic Review Family History of Problems with Anesthesia: No History of Problems with Anesthesia: No
--- NOTE | 2021-06-17 12:59 | ECG_ITS ---
Test Reason : PREOP Blood Pressure : / mmHG Vent. Rate : 068 BPM Atrial Rate : 068 BPM P-R Int : 152 ms QRS Dur : 106 ms QT Int : 442 ms P-R-T Axes : 050 -57 024 degrees QTc Int : 469 ms Normal sinus rhythm Left anterior fascicular block Minimal voltage criteria for LVH, may be normal variant ( Luis Felipe product ) Abnormal ECG When compared with ECG of 18-NOV-2018 07:59, T wave inversion no longer evident in Inferior leads Referred By: Edmar Sood Electronically Signed By:JOHN CORREIA
[2021-06-17 14:00] LABS: Hematocrit 41.7 % (42.0-52.0); Hemoglobin 13.2 g/dl (14.0-18.0); Mean Corpuscular HGB Conc 31.7 g/dl (31.0-36.0); Mean Corpuscular Hemoglobin 25.6 pg (27.0-33.0); Mean Platelet Volume 12.7 fL (9.4-12.4); Platelet Count 91 X10*3/uL (160-400); Red Blood Count 5.15 X10*6/uL (4.60-5.80); Red Cell Distribution Width 16.2 % (11.0-16.0); White Blood Count 5.1 X10*3/uL (4.8-10.8)
[2021-06-17 14:11] LABS: MRSA Nasal PCR NEGATIVE (Negative); SA Nasal PCR POSITIVE (Negative)
--- NOTE | 2021-06-24 07:50 | MHC.SHP ---
Pre-Procedural Eval Section A Date of Service: 06/24/21 The patient is an INPATIENT: No Changes since office visit: Yes Patient answered all questions; No Cold of Flu in the past 2 weeks, No New Medical Problems and No Changes in Medication The History & Physical has been completed within 30 days and I have reviewed it.: Yes Section B Chief Complaint: Osteoarthritis Right Knee Allergies: Allergies Allergy/AdvReac Type Severity Reaction Status Date / Time blueberry [BLUEBERRY] Allergy Severe ANAPHYLAXIS Verified 06/17/21 12:19 hydrocodone [Vicodin] Allergy Severe Anaphylaxis Verified 06/17/21 12:19 acetaminophen [Tylenol] Allergy Intermediate told to Verified 06/17/21 12:19 avoid Plan I have reviewed the history and physical and performed a pertinent physical examination on my patient. No changes have occurred unless specified.
[2021-06-24 12:53] LABS: COVID-19 Test Positive (Negative); IDNOW Serial# 16C4AD1C
== END 2021-06-25 00:01 ==
LOC: HO.PAT
PROVIDERS: Nurse Practitioner; Physician Assistant; Visit Provider Orthopaedic Surgery
DX: Z01.818 Encounter for other preprocedural examination (principal); M17.11 Unilateral primary osteoarthritis, right knee; Z20.822 Contact with and (suspected) exposure to COVID-19
CPT/HCPCS: 36415; 80048; 85025; 85027; 86850; 86900; 86901; 87635; 87640; 87641; 93005

== ENCOUNTER → 2021-07-24 11:08 | Outpatient (BNVA) | payer OTHER, MEDICAID, SELFPAY | PROVIDERS: PCP Internal Medicine; Visit Provider Physician Assistant | DX: M17.11 Unilateral primary osteoarthritis, right knee (principal) | CPT/HCPCS: 99212 ==

== ENCOUNTER → 2021-08-07 11:16 | Outpatient (BNVA) | payer OTHER, MEDICAID, SELFPAY | PROVIDERS: PCP Internal Medicine; Visit Provider Physician Assistant | DX: M17.11 Unilateral primary osteoarthritis, right knee (principal) | CPT/HCPCS: 99212 ==

== ENCOUNTER 2021-08-12 07:24 | Inpatient (IN) | payer OTHER, SELFPAY ==
[2021-07-25 11:46] LABS: MANUAL DIFF FLAG NO
[2021-07-25 11:57] LABS: Basophils Percent Auto 0.4 % (0-2); Eosinophils Absolute Auto 0.1 X10*3/uL (0.0-0.4); Eosinophils Percent Auto 1.1 % (0-4); Hematocrit 42.4 % (42.0-52.0); Hemoglobin 13.5 g/dl (14.0-18.0); Imm Gran Abs Auto 0.01 X10*3/uL (0.00-0.03); Imm Gran Pct Auto 0.2 % (0.0-0.4); Lymphocytes Percent Auto 19.3 % (20-40); Mean Corpuscular HGB Conc 31.8 g/dl (31.0-36.0); Mean Corpuscular Hemoglobin 26.4 pg (27.0-33.0); Mean Platelet Volume 11.6 fL (9.4-12.4); Monocytes Absolute Auto 0.3 X10*3/uL (0.1-1.2); Monocytes Percent Auto 5.9 % (2-11); Neutrophils Absolute Auto 3.8 x10*3/uL (2.0-8.3); Neutrophils Percent Auto 73.1 % (45-73); Platelet Count 114 X10*3/uL (160-400); Red Blood Count 5.11 X10*6/uL (4.60-5.80); Red Cell Distribution Width 15.9 % (11.0-16.0); White Blood Count 5.2 X10*3/uL (4.8-10.8)
[2021-07-25 12:20] LABS: Anion Gap 13 (12-20); Blood Urea Nitrogen 12 mg/dL (9-16); Calcium 9.3 mg/dL (8.4-10.2); Carbon Dioxide 29 mmol/L (22-29); Chloride 105 mmol/L (96-108); Estimated Glomerular Filt Rate > 60; Glucose Random 124 mg/dL (60-115); Potassium 4.4 mmol/L (3.3-5.1); Sodium 143 mmol/L (135-145)
--- NOTE | 2021-07-28 09:04 | HO.ANESPROP2 ---
Documented by User: Olena Anguiano NP 08/08/21 08:34 HPI - Anesthesia Eval Consult details Narrative: 66yo M for Right Knee Replacement Total PCP cleared after BP recheck and review of EKG Heme cleared (referred for chronic, mild pancytopenia) (Previously cx'd DOS for Covid + result) PMFSH Active Problems Active Problems: All Active Problems (Updated 06/29/21 @ 17:33 by Reta Jain MD) Osteoarthritis of right knee (Acute) Osteoarthritis of left knee (Acute) Pancytopenia (Acute) Primary osteoarthritis of knees, bilateral (Acute) Abscess of right hand (Acute) Post-traumatic osteoarthritis of right knee (Acute) Preop exam for internal medicine (Acute) Morbid obesity (Acute) Hypertension (Acute) Seizure (Acute) Knee pain (Acute) Past Medical History Medical History Cellulitis and abscess of hand Convulsion, non-epileptic Hx MRSA infection Hx of hepatitis C Hypertension Knee pain Morbid obesity Osteoarthritis of left knee Pancytopenia Family History Family History Father No problems noted. Mother No problems noted. Family history of problems with anesthesia: No Surgical History Surgical History History of right knee surgery History of right shoulder replacement History of surgery History of Problems with Anesthesia: No Social History Social History Household Members: Family Housing: House Are you a primary physician primary care sports medicine to a significant other at home: No Do you presently have visiting nurse or other home services: No Alcohol intake: never Patient Tobacco Use Status: Current someday Tobacco user Tobacco use type: Cigarette Cigarettes Per Day: 2 Years Smoked: 20 e-Cigarette/Vaping Use: Never Used Second Hand Smoke Exposure: No Use of substances other than those prescribed or required for medical reasons: No Substance Use Type: Heroin Are you DNR?: No Advance Directives: No Advance Directives Information Provided: No service: No Current occupational status: disabled Cognitive needs: No Hearing needs: No Vision needs: No Meds Allergies Allergy/AdvReac Type Severity Reaction Status Date / Time blueberry [BLUEBERRY] Allergy Severe ANAPHYLAXIS Verified 08/07/21 11:25 hydrocodone [Vicodin] Allergy Severe Anaphylaxis Verified 08/07/21 11:25 acetaminophen [Tylenol] Allergy Intermediate told to Verified 08/07/21 11:25 avoid Home Medications Medication Instructions Recorded Confirmed Last Taken Type amlodipine 10 mg tablet 20 mg PO DAILY 06/19/21 08/07/21 08/12/21 History Exam Exam Date and Time: July 28, 2021 0904 Pertinent Lab Results Pertinent Lab Results: Laboratory Tests 07/25/21 07/25/21 07/25/21 11:42 11:44 11:44 WBC 5.2 RBC 5.11 Hgb 13.5 L Hct 42.4 MCV 83.0 MCH 26.4 L MCHC 31.8 RDW 15.9 Plt Count 114 L MPV 11.6 Immature Gran % (Auto) 0.2 Neut % (Auto) 73.1 H Lymph % (Auto) 19.3 L [place] % (Auto) 5.9 Eos % (Auto) 1.1 Baso % (Auto) 0.4 Lymph # (Auto) 1.0 L [place] # (Auto) 0.3 Eos # (Auto) 0.1 Baso # (Auto) 0.0 Abs Immat Gran (auto) 0.01 Absolute Neuts (auto) 3.8 Absolute Nucleated RBC 0.000 Nucleated RBC % (auto) 0.0 Sodium 143 Potassium 4.4 Chloride 105 Carbon Dioxide 29 Anion Gap 13 BUN 12 Creatinine 0.99 Estim Creat Clear Calc TNP Estimated GFR > 60 Random Glucose 124 H Calcium 9.3 Blood Type B Positive Antibody Screen NEGATIVE Narrative Narrative: EKG 05/2021 Vent. Rate : 068 BPM ? ? Atrial Rate : 068 BPM ?? P-R Int : 152 ms? QRS Dur : 106 ms ? ? QT Int : 442 ms ? ? ? P-R-T Axes : 050 -57 024 degrees ?? QTc Int : 469 ms ? Normal sinus rhythm Left anterior fascicular block Minimal voltage criteria for LVH, may be normal variant ( Luis Felipe product ) Abnormal ECG When compared with ECG of 18-NOV-2018 07:59, T wave inversion no longer evident in Inferior leads Airway Mallampati Class: II TM Dist: >3cm Neck ROM: Full Loose/Missing/Broken Teeth: Yes (Multiple missing/broken. Kicked in jaw by horse as teen. No loose presently) Heart: RRR Lungs: CTAB Assessment and Plan Assessment Anesthesia Assessment: Anesthesia Plan Discussed, Smoking Cess. Discussed and PAT Visit (06/17/21) Final Anesthetic Review Family History of Problems with Anesthesia: No History of Problems with Anesthesia: No Documented by User: Levon Huang MD 08/12/21 14:10 HPI - Anesthesia Eval Consult details Narrative: 66yo M for Right Knee Replacement Total PCP cleared after BP recheck and review of EKG Heme cleared (referred for chronic, mild pancytopenia) As per patient while at work he had a metal sheet hit left forearm on inspection it appears swollen , discussed with the surgeon, inspected by surgeon , surgeon would like to proceed with surgery . (Previously cx'd DOS for Covid + result) PMFSH Past Medical History Medical History Cellulitis and abscess of hand Convulsion, non-epileptic Hx MRSA infection Hx of hepatitis C Hypertension Knee pain Morbid obesity Osteoarthritis of left knee Pancytopenia Family History Family History Father No problems noted. Mother No problems noted. Surgical History Surgical History History of right knee surgery History of right shoulder replacement History of surgery Social History Social History Household Members: Family Housing: House Are you a primary physician primary care sports medicine to a significant other at home: No Do you presently have visiting nurse or other home services: No Alcohol intake: never Patient Tobacco Use Status: Current someday Tobacco user Tobacco use type: Cigarette Cigarettes Per Day: 2 Years Smoked: 20 e-Cigarette/Vaping Use: Never Used Second Hand Smoke Exposure: No Use of substances other than those prescribed or required for medical reasons: No Substance Use Type: Heroin Are you DNR?: No Advance Directives: No Advance Directives Information Provided: No service: No Current occupational status: disabled Cognitive needs: No Hearing needs: No Vision needs: No Meds Allergies Allergy/AdvReac Type Severity Reaction Status Date / Time blueberry [BLUEBERRY] Allergy Severe ANAPHYLAXIS Verified 08/07/21 11:25 hydrocodone [Vicodin] Allergy Severe Anaphylaxis Verified 08/07/21 11:25 acetaminophen [Tylenol] Allergy Intermediate told to Verified 08/07/21 11:25 avoid Home Medications Medication Instructions Recorded Confirmed Last Taken Type amlodipine 10 mg tablet 20 mg PO DAILY 06/19/21 08/07/21 08/12/21 History Exam Airway Mallampati Class: III Loose/Missing/Broken Teeth: Yes (Multiple missing/broken. Kicked in jaw by horse as teen.Poor dentition overall ) Assessment and Plan Final Anesthetic Review NPO: Yes ASA Class: III Final Preanesthetic Review: No Changes in Pt Med Stat, Meds/Allgs Chart Reviewed, Consent Obtained/Reviewed and Anes Risks/Benef Reviewed Patient Risk: Intermediate Procedure Risk: Intermediate Anesthetic Plan Anesthetic Plan: GA and Regional Block Disposition: Inp. Admit - Standard Bed
[2021-08-12] VITALS (31 sets, daily range): BP systolic 120–234; BP diastolic 66–121; PULSE 76–95; RESP 11–28; TEMP 36.3–36.8; O2SAT 94–98; BMI 37.7
--- NOTE | ~2021-08-12 | XR_ITS ---
EXAMINATION: XR KNEE, RIGHT CLINICAL INFORMATION: Status post right knee arthroplasty. COMPARISON: Radiographs right knee 03/17/2021, 08/23/2020 TECHNIQUE: Three views of the right knee. FINDINGS: Status post total knee arthroplasty. Hardware intact. No acute fracture or dislocation. No destructive process or osteolysis. There is subcutaneous emphysema and inferior capsular gas as expected. Overlying skin madie present. Corticated ossicle at the anterior tibial tuberosity again seen is chronic finding. There is old screw in the proximal tibia and small metallic disc distal anterior femur, related to prior ACL repair. XR/XR knee RT 2V IMPRESSION: Status post right total knee arthroplasty. Hardware intact and normal alignment.
[2021-08-12 08:19] LABS: COVID-19 Test Negative (Negative); IDNOW Serial# 16C4AD1C
--- NOTE | 2021-08-12 08:22 | PC.NURSE ---
Left arm warmed or IV insertion, RN observed mass on left forearm. Mass approx quarter sized, raised, hard, red & warm. Patient states that happened last week when I was working, I picked up some metal and a bolt imbedded in there Dr Sood notified through [employer] to DANA Coleman in room. Per Epsetin, can proceed forward.
[2021-08-12] MEDS: Lactated Ringers 1,000 ML 100 ML IVCONT (08:45)
--- NOTE | 2021-08-12 09:18 | PC.NURSE ---
Dr Indigo romero arm at bedside, officially okay to proceed with R TKA
--- NOTE | 2021-08-12 09:25 | MHC.SHP ---
Pre-Procedural Eval Section A Date of Service: 08/12/21 The patient is an INPATIENT: No Changes since office visit: Yes Patient answered all questions; No Cold of Flu in the past 2 weeks, No New Medical Problems and No Changes in Medication The History & Physical has been completed within 30 days and I have reviewed it.: Yes Section B Chief Complaint: RT TKA Allergies: Allergies Allergy/AdvReac Type Severity Reaction Status Date / Time blueberry [BLUEBERRY] Allergy Severe ANAPHYLAXIS Verified 08/07/21 11:25 hydrocodone [Vicodin] Allergy Severe Anaphylaxis Verified 08/07/21 11:25 acetaminophen [Tylenol] Allergy Intermediate told to Verified 08/07/21 11:25 avoid Plan I have reviewed the history and physical and performed a pertinent physical examination on my patient. No changes have occurred unless specified.
--- NOTE | 2021-08-12 12:00 | P.BOP_ITS ---
Brief Operative Note Date of Service: 08/12/21 Pre-op diagnosis: Right knee OA Post-op diagnosis: same Procedure: Right TKA Implants: [place] Tri[employer]on cruciate retaining press fit 08/28/12/ Surgeon: Edmar Sood MD Anesthesia: GETA and regional Was an Digital Account Supervisor used for this Procedure?: Yes Digital Account Supervisor: Pauly Mohr Estimated blood loss (mL): 200 IV fluids (mL): 1,000 Pathology: other Condition: stable Disposition: PACU
--- NOTE | 2021-08-12 12:05 | P.OP_ITS ---
Operative Note Operative Note Date of Service: 08/12/21 Narrative: Date of Service: 08/12/21 Pre-op diagnosis: Right knee OA Post-op diagnosis: same Procedure: Right TKA Implants: [place] Triathalon cruciate retaining press fit 08/28/13CR/38a Surgeon: Edmar Sood MD Anesthesia: GETA and regional Was an Product Introduction Manager used for this Procedure?: Yes Product Introduction Manager: Pauly Mohr Estimated blood loss (mL): 200 IV fluids (mL): 1,000 Pathology: other Condition: stable Disposition: PACU Procedure in detail: The patient was brought to the operating room and prepped and draped in standard sterile fashion. A time-out was called to identify proper site proper procedure proper surgeon and IV antibiotics were administered. 1 g of IV tranexamic acid was administered. I began by making a midline incision to the retinaculum and performed a medial parapatellar arthrotomy. The patella was translated laterally and the knee was flexed up. The medial compartment was eburnated . I performed a small medial peel and resected the infrapatellar fat pad. [place]'s line was used to drill my intramedullary femoral guide and my distal femur cut of 12mm (10deg flexion contracture) was made in 5 degrees of valgus while protecting the soft tissues. I then measured a # 5 femur and placed my cutting guide and made my anterior posterior and chamfer cuts protecting the soft tissues at all times. The Iintramedullary drill hole was plugged and once I was satisfied with my cuts, I turned my attention to the tibia. I removed the meniscus medially and laterally and , using an external cutting guide, in line with the tibial crest and the third ray, I made my distal tibial cut in 3 deg slope of while protecting the PCL the posterior soft tissues at all times. An extension block was used to confirm appropriate amount of bony resection. I then sized a #5 tibia and once I was satisfied that there was complete tibial coverage I placed my trial and with the trial femur in place took the knee through range of motion. I was satisfied with the extension and flexion as well as the stability at 0, 30 and 90 degrees when using a 13 mm spacer. I then turned my attention to the patella where I removed 1 cm from the undersurface of the patella and then trialed a 38a patellar button. Again the knee was taken through range of motion I was satisfied with the tracking. I then returned to the femur and drilled my femoral lug holes and prepared the tibia. A femoral bone plug was placed and the knee was irrigated copiously. I then press fit the patella, tibia and femur in standard fashion. I trialed different inserts until I selected a #13 insert. The final insert was placed and a 3 minutes iodine soak with local TXA was performed. A Werewolf cautery wand was used to maintain hemostasis over the capsule and meniscal beds, the gutters and peripatellar soft tissues. The knee was then closed with a running Quill suture, a 3 0 Vicryl and madie on the skin. Patient was then placed in sterile dressing and brought to recovery room in stable condition there were no known complications.
[2021-08-12] MEDS: fentaNYL citrate/PF 100 MCG/2 ML VIAL 50 MCG IVPUSH ×4 (12:27→13:00)
[2021-08-12] MEDS: hydrALAZINE HCl 20 MG/ML VIAL 5 MG IVPUSH ×2 (13:07→13:55)
[2021-08-12] MEDS: Labetalol HCL 100 MG/20 ML VIAL 10 MG IVPUSH ×5 (13:53→15:00)
[2021-08-12] MEDS: LORazepam 2 MG/ML VIAL 1 MG IVPUSH (14:12)
[2021-08-12] MEDS: Morphine Sulfate 10 MG/ML CARTRIDGE 6 MG IVPUSH (15:32)
[2021-08-12] MEDS: Morphine Sulfate 4 MG/ML CARTRIDGE IVPUSH (16:25)
--- NOTE | 2021-08-12 16:28 | P.CONCC_ITS ---
History of Present Illness Data of Consult Service Date: 08/12/21 Requesting physician: Levon Huang Primary Care Provider: Edmar GARCIA Reason for consult: Accelerated uncontrolled HTN Dr. Huang called me to the PACU to see Mr. Ayoub because of accelerated hypertension and uncontrolled pain. The patient is a 66-year-old male with a past medical history of hypertension, on amlodipine 20 mg daily, which he took this morning.? The patient presented today to the operating room for elective right total knee replacement w Dr. Sood.? Preop BP was 150?s systolic.? Preop he had a block, and intraoperatively he was given general anesthesia, with fentanyl and ketamine for analgesia. Postop in the PACU he had severe pain.? Was treated with fentanyl and small doses of morphine.? BP in PACU was running 210-230/90-120. I went to see the patient in the PACU.? On my first exam, the patient was breathing easy, with sat 97% on room air.? Respiratory rate was mid 20s-30.? ETCO2 was about 37.? The patient was easily arousable and complaining of severe pain. IMPRESSION: 1. Severe acute post op pain. 2. ?Accelerated uncontrolled hypertension, with no end-organ manifestations.? Likely 2? uncontrolled pain on top of baseline HTN that is not well controlled.? Given lack of end-organ manifestations, the management of accelerated/uncontrolled hypertension in this setting is similar to ED management of same.? I.e. avoid intravenous medications and use only oral meds. My initial rec was for 10 mg morphine IVP and 10 mg ketamine IVP The patient was given three 2 mg doses of morphine, and no ketamine.? Blood pressure when I went back to see the patient was still > 210 systolic.? Respiratory rate was about 30, with sat of 94% on room air.? The patient was breathing easy with a non obstructed airway, and seemed to be sleeping.? End-tid al CO2 was still about 37. I recommended 1.25 mg enalapril IVP q5min x 2 doses.? Half hour after that, the BP was still elevated. Recommendation now is labetolol 20mg IVP and labetolol 200mg po bora.? The patient needs a hospitalist consult for medical mx.? I put the order in. ADDENDUM at 18:00: After the oral and IV labetalol in the PACU, blood pressure is down to 140s. But I am not satisfied with the patient's pain control and I am not confident that adequate, safe pain control will be possible on the floors. Therefore we'll admit him to ICU overnight for pain management. Discussed with Dr. Huang and PACU nurses and pharmacy. Plan morphine SOFTWARE INSTALLER and ketamine drip. Time: 80+ min (including at least 5 visits to PACU, mult d/w Dr. Huang, Reece, PACU nurses, and pharmacy). [facility] Past Medical History Medical History Cellulitis and abscess of hand Convulsion, non-epileptic Hx MRSA infection Hx of hepatitis C Hypertension Knee pain Morbid obesity Osteoarthritis of left knee Pancytopenia Family History Family History Father No problems noted. Mother No problems noted. Surgical History Surgical History History of right knee surgery History of right shoulder replacement History of surgery Social History Social History Household Members: Family Housing: House Are you a primary health care sanitary technician to a significant other at home: No Do you presently have visiting nurse or other home services: No Alcohol intake: never Patient Tobacco Use Status: Current someday Tobacco user Tobacco use type: Cigarette Cigarettes Per Day: 2 Years Smoked: 20 e-Cigarette/Vaping Use: Never Used Second Hand Smoke Exposure: No Use of substances other than those prescribed or required for medical reasons: No Substance Use Type: Heroin Are you DNR?: No Advance Directives: No Advance Directives Information Provided: No service: No Current occupational status: disabled Cognitive needs: No Hearing needs: No Vision needs: No Meds Allergies Allergy/AdvReac Type Severity Reaction Status Date / Time blueberry [BLUEBERRY] Allergy Severe ANAPHYLAXIS Verified 08/07/21 11:25 hydrocodone [Vicodin] Allergy Severe Anaphylaxis Verified 08/07/21 11:25 acetaminophen [Tylenol] Allergy Intermediate told to Verified 08/07/21 11:25 avoid Active Medications: Current Medications Lactated Ringer's (Lr) 1,000 mls @ 100 mls/hr IVCONT .Q10H MARTIN Last Admin: 08/12/21 08:45 Dose: 100 mls/hr Documented by: Labetalol HCl (Labetalol Hcl 100 Mg/20 Ml Vial) 10 mg IVPUSH Q20M PRN PRN Reason: Sbp greater than 180 Last Admin: 08/12/21 15:00 Dose: 10 mg Documented by: Home Medications Medication Instructions Recorded Confirmed Last Taken Type amlodipine 10 mg tablet 20 mg PO DAILY 06/19/21 08/07/21 08/12/21 History Physical Exam Vital Signs: Vital Signs: Last Vital Signs Temp 97.4 F 08/12/21 12:18 Pulse 77 08/12/21 15:51 Resp 20 08/12/21 15:51 BP 214/120 H 08/12/21 15:51 Pulse Ox 95 08/12/21 15:51 BMI result Body Mass Index 37.7 Results Labs CBC & Chem 7: 07/25/21 11:44 07/25/21 11:44
[2021-08-12] MEDS: ceFAZolin Sodium/Dextrose,Iso 2 GM/50 ML PIGGYBACK IV ×2 (17:07→17:15)
[2021-08-12] MEDS: Labetalol HCL 100 MG/20 ML VIAL 20 MG IVPUSH ×2 (17:16→18:13)
[2021-08-12] MEDS: Labetalol HCL 200 MG TABLET PO (17:21)
--- NOTE | 2021-08-12 18:03 | PM.EVENT ---
Event Note Date of Service: 08/12/21 Event Note: 66 y/o male with h/o HTN , s/p right total knee replacement . Patient is on amlodipine 20 mg daily which he took this AM . Preop BP was 150?s systolic.? Postop in the PACU patient was severely hypertensive with systolic BP in 180-200s and also elevated diastolic BP . For post-op pain control patient was treated with IV fentanyl and IV morphine . For hypertension we treated with multiple doses of IV labetelol and IV hydralazine . As we were unable to control his BP with multiple medications , I consulted Dr Sesay the trouble dispatcher for uncontrolled hypertension . As per his recommendation we gave him IV Enalaprit follwed by oral labetalol and a dose of IV labetelol . I discussed the case with him and he will be transferred to ICU for pain control with a STEAMER OPERATOR and better blood pressure control .
[2021-08-12] MEDS: Morphine Sulfate/NS 100 MG/100 ML PLAST..BAG 10 MG IVCONT (19:03)
--- NOTE | 2021-08-12 20:34 | PHA.MEDREC ---
Pharmacy Consult ? Medication Reconciliation Pharmacy has completed the medication reconciliation. Pt states that he takes his blood pressure medication from [facility] hows its written every day. I called [facility] in [place] ([phone]) and spoke to Robb Quan, she states he has not picked up his amlodipine 5mg tablet since August 2020, and also told me that he was written a prescription for amlodipine 10mg QD in May of 2021 but he never picked it up. Nina Reich, TonD
[2021-08-13] VITALS (17 sets, daily range): BP systolic 129–195; BP diastolic 70–105; PULSE 73–85; RESP 9–30; TEMP 36.3–37.2; O2SAT 90–97; BMI 40.4
[2021-08-13] MEDS: Labetalol HCL 100 MG/20 ML VIAL 20 MG IVPUSH (03:01)
[2021-08-13] MEDS: Lactated Ringers 1,000 ML 100 ML IVCONT (04:09)
[2021-08-13] MEDS: oxyCODONE HCl Immed Release 5 MG TABLET PO ×4 (07:30→23:22)
[2021-08-13] MEDS: Labetalol HCL 100 MG TABLET PO (07:30)
[2021-08-13] MEDS: oxyCODONE HCl ER 10 MG TAB.ER.12H PO ×2 (07:31→19:34)
[2021-08-13] MEDS: amLODIPine Besylate 10 MG TABLET PO (07:31)
--- NOTE | 2021-08-13 07:33 | PM.PNORT ---
Subjective Subjective Date of Service: 08/13/21 Interval history: POD1 s/p RTKA. Patient was transferred to ICU after surgery for hypertension. Patient states that his pain is well controlled. Felling dizzy this morning. No additional complaints. Physical Exam Vital Signs: Vital Signs: Last Vital Signs Temp 99.0 F 08/13/21 03:00 Pulse 75 08/13/21 07:00 Resp 19 08/13/21 07:04 BP 169/93 H 08/13/21 07:00 Pulse Ox 93 08/13/21 07:00 BMI result Body Mass Index 40.4 Const: General: cooperative, healthy appearing and no acute distress Resp: Effort & Inspection: normal respiratory effort and able to speak in complete sentences Cardio: Rate: regular rate Peripheral pulses: Peripheral pulses 2+ throughout GI: Palpation (GI): Soft to palpation Skin: Lesions: no lesions Rashes: no rashes Extrem: Other: Right knee aquacel is clean, dry, and intact. NVI. Procedures Date of Service Date of Service: 08/13/21 Progress Note: A&P Assessment and plan (1) S/P total knee arthroplasty: Status: Acute Assessment and Plan: Continue pain mgmnt Transfer to med surg Begin ASA for dvt ppx begin PT for RTKA Dispo planning-Pending PT eval, pain mgmnt Fall Risk Details Current Medications: Current Medications Amlodipine Besylate (Amlodipine Besylate 10 Mg Tablet) 10 mg PO DAILY MARTIN; Protocol Last Admin: 08/13/21 07:31 Dose: 10 mg Documented by: Lactated Ringer's (Lr) 1,000 mls @ 100 mls/hr IVCONT .Q10H MARTIN Last Admin: 08/13/21 04:09 Dose: 100 mls/hr Documented by: Cefazolin Sodium/Dextrose (Ancef) 2 gm in 50 mls @ 100 mls/hr IV POSTOP MARTIN Last Infusion: 08/12/21 18:40 Dose: Infused Documented by: Morphine Sulfate (Morphine Sulfate 4 Mg/Ml Cartridge) 4 mg IVPUSH Q2H PRN PRN Reason: Pain, Severe (Pain Scale 7-10) Naloxone HCl (Naloxone Hcl 0.4 Mg/Ml Vial) 0.2 mg IVPUSH Q2M PRN PRN Reason: Excessive sedation or RR < 8 Oxycodone HCl (Oxycodone Hcl Er 10 Mg Tab.Er.12h) 10 mg PO Q12H MARTIN Last Admin: 08/13/21 07:31 Dose: 10 mg Documented by: Oxycodone HCl (Oxycodone Hcl Immed Release 5 Mg Tablet) 5 mg PO Q4H PRN PRN Reason: Pain, Moderate (Pain Scale 4-6 Last Admin: 08/13/21 07:30 Dose: 5 mg Documented by: Time Spent With Patient Time: Total time spent is greater than 50% in coordination of care (as documented) at patient's floor/unit and/or counseling patient: Quality Stroke Does the patient have a stroke diagnosis?: No VTE Prior VTE?: No VTE Risk Level:: Surgical - very high VTE Device Contraindication: N/A - Device Ordered VTE Drug Contraindication: N/A - Med Ordered
[2021-08-13 07:42] LABS: Basophils Percent Auto 0.2 % (0-2); Hemoglobin 12.7 g/dl (14.0-18.0); Imm Gran Abs Auto 0.05 X10*3/uL (0.00-0.03); Imm Gran Pct Auto 0.4 % (0.0-0.4); Lymphocytes Percent Auto 16.9 % (20-40); MANUAL DIFF FLAG SCAN; Mean Corpuscular HGB Conc 33.4 g/dl (31.0-36.0); Mean Corpuscular Hemoglobin 26.1 pg (27.0-33.0); Monocytes Percent Auto 8.6 % (2-11); Neutrophils Absolute Auto 8.6 x10*3/uL (2.0-8.3); Neutrophils Percent Auto 73.9 % (45-73); PLT CLUMP 1; Red Blood Count 4.87 X10*6/uL (4.60-5.80); Red Cell Distribution Width 15.4 % (11.0-16.0); SCAN SMEAR FLAG 1
[2021-08-13 07:54] LABS: Alanine Aminotransferase 42 U/L (0-40); Albumin Level 3.2 g/dL (3.5-5.0); Alkaline Phosphatase 87 U/L (39-117); Anion Gap 14 (12-20); Aspartate Amino Transferase 45 U/L (5-37); Bilirubin Total 0.8 mg/dL (0.0-1.0); Blood Urea Nitrogen 12 mg/dL (9-16); Calcium 8.7 mg/dL (8.4-10.2); Carbon Dioxide 20 mmol/L (22-29); Chloride 103 mmol/L (96-108); Creatinine Clr Calc Pharmacy 148.2; Estimated Glomerular Filt Rate > 60; Glucose Random 133 mg/dL (60-115); Potassium 4.9 mmol/L (3.3-5.1); Sodium 132 mmol/L (135-145); Total Protein 7.2 g/dL (6.5-8.0)
[2021-08-13 08:25] LABS: White Blood Count 11.7 X10*3/uL (4.8-10.8)
[2021-08-13 08:26] LABS: Platelet Count 84 X10*3/uL (160-400); SLIDE REVIEW VERIFIED
--- NOTE | 2021-08-13 09:20 | HO.POSTANES ---
Post Anesthesia Evaluation Post Anesthesia Evaluation Vital Signs: Vital Signs Temp Pulse Resp BP Pulse Ox 08/13/21 09:00 83 16 140/76 H 93 08/13/21 08:00 74 26 H 172/88 H 91 L 08/13/21 07:04 19 08/13/21 07:00 75 9 L 169/93 H 93 08/13/21 06:00 85 23 H 176/99 H 97 08/13/21 05:00 74 23 H 155/70 H 95 08/13/21 04:00 77 24 H 172/85 H 95 08/13/21 03:00 99.0 F 78 23 H 145/72 H 93 08/13/21 02:00 81 23 H 195/100 H 93 08/13/21 01:00 83 30 H 186/105 H 95 08/13/21 00:00 98.3 F 81 27 H 93 08/12/21 23:00 98.3 F 19 184/100 H 08/12/21 21:49 83 11 L 167/102 H 96 Anesthesia: Nerve Block and General Mental Status: Awake Pain Control: Satisfactory Nausea/Vomiting: None Hydration: Adequate Anesthesia-Related Issues: No Anes. Related Issues
--- NOTE | 2021-08-13 09:44 | MHC.CM.PN ---
Addendum entered by Diane Woodall 08/13/21 14:22: Pt [facility] by [facility]. Added [facility] to D/C instructions Addendum entered by Diane Woodall 08/13/21 10:06: Call placed to Rahel who confirmed that pt resides with her after he was evicted from his previous address. Pt's PCP is Dr. Cardoza and he was seen 5 weeks ago. Rahel will transport pt to home and is requesting skilled RN and PT visits for pt. Will refer to area agencies. Rahel acknowledges the personality difficulties with pt and states she can assist with further d/c planning needs. Will arrange VNA services Original Note: Met with pt to review d/c planning: pt very uncooperative with assessment, opting not to answer questions and choosing offensive language to respond. Pt cannot recall his new address, phone number or the name of his PCP. He states the (expletive) lady I live with knows all this (expletive) information Pt would not give the name of this person: CM asked if the call or contact centre team leader listed in the EMR, Rahel was the lady but he refused to answer. Pt states he has no services or adaptive equipment, declined a HCP and referred to the lady as his transportation home. Pt stated he received 3 COVID vaccines. No services are anticipated at this time. CM to call his next of contact Rahel to assist with assessment.
--- NOTE | 2021-08-13 11:14 | PC.NURSE ---
TRANSPORTATION MODELER TURNED OFF AT 0721. CHANGED TO PO PAIN MEDICATION - SEE EMAR.
[2021-08-13] MEDS: Celecoxib 200 MG CAPSULE PO ×2 (12:23→19:35)
[2021-08-13] MEDS: Enoxaparin Sodium 40 MG/0.4 ML SYRINGE SUBCUT (12:24)
--- NOTE | 2021-08-13 13:55 | PM.EVENT ---
Event Note Date of Service: 08/13/21 Event Note: 66-year-old male with history of hypertension, status post right knee replacement yesterday-afterwards blood pressure was in 200 range consistently for which patient received multiple hypertension medication doses(IV labetalol, hydralazine) and also received IV pain medications for pain control: Subsequently his blood pressure improved to 150s range. So ICU transfer the patient to the floor. Patient seen and examined. Denies any new complaint except has knee pain. Physical exam: Appearance: Alert.? Oriented X3.? not in distress.? cvs: [id number], [id number] , no murmur res: clear to auscultation ,no rhonchii or wheezing abd: no rebound or guarding ,nt, bs present. ext pulses present , no cyanosis. MS: right knee -Right knee aquacel is clean, dry, and intact. neuro: axo3 , nonfocal. Assessment and plan: Hypertension: Blood pressure is seems to be better controlled now mostly in 130-140 range. Continue patient's home amlodipine Osteoarthritis, status post right knee replacement: Pain controlled as per patient Continue oxycodone, celecoxib, morphine Bowel regimen Incentive spirometry, chest physio DVT prophylaxis: SCD as per primary team.
[2021-08-13] MEDS: polyethylene glycoL 3350 17 GM POWD.PACK PO (15:42)
[2021-08-13] MEDS: Omeprazole 20 MG CAPSULE.DR PO (17:29)
[2021-08-13] MEDS: Morphine Sulfate 4 MG/ML CARTRIDGE IVPUSH (19:34)
[2021-08-14] VITALS (7 sets, daily range): BP systolic 113–150; BP diastolic 61–81; PULSE 84–108; RESP 14–18; TEMP 36.1–37.1; O2SAT 94–98
[2021-08-14] MEDS: Morphine Sulfate 4 MG/ML CARTRIDGE IVPUSH ×5 (02:56→21:24)
[2021-08-14] MEDS: oxyCODONE HCl Immed Release 5 MG TABLET PO ×6 (03:50→23:34)
[2021-08-14] MEDS: Omeprazole 20 MG CAPSULE.DR PO (06:26)
[2021-08-14] MEDS: oxyCODONE HCl ER 10 MG TAB.ER.12H PO ×2 (06:26→18:15)
[2021-08-14] MEDS: Celecoxib 200 MG CAPSULE PO ×2 (07:46→19:42)
[2021-08-14] MEDS: amLODIPine Besylate 10 MG TABLET PO (07:47)
[2021-08-14] MEDS: polyethylene glycoL 3350 17 GM POWD.PACK PO (07:47)
--- NOTE | 2021-08-14 08:13 | P.DS_ITS ---
DS: Providers Provider Date of Service: 08/15/21 Date of admission: 08/12/21 07:24 Primary care physician: Unknown Physician DS: Diagnosis Discharge Diagnosis (1) S/P total knee arthroplasty: Status: Acute DS: Summary Hospital Course Hospital Course: The patient underwent a successful right total knee arthroplasty, they were transferred to ICU due to HTN and then to the floor to recover the following day after blood pressure stqabilized. During their stay, their vitals were stable, afebrile at 97.4. Labs were unremarkable, H/H 11.4/35.7. POD 1 they were started on Lovenox for DVT ppx, they also received Physical Therapy services twice a day. Prior to discharge, their dressing was changed, incision clean dry and intact, new Aquacel dressing applied and the plan was to be discharged home with VNA services. Time Spent with Patient Time attestation: Total time spent providing and/or coordinating discharge services: Discharge coordination time: Less than 30 minutes Quality: Safe Use of Opioids Does Pt have an Active Cancer Diagnosis on the Problem List?: No Quality: Stroke Does the patient have a stroke diagnosis?: No Physical Exam Vital Signs: Vital Signs: Last Vital Signs Temp 97.4 F 08/14/21 07:39 Pulse 92 08/14/21 07:39 Resp 16 08/14/21 07:39 BP 148/72 H 08/14/21 07:39 Pulse Ox 98 08/14/21 07:39 BMI result Body Mass Index 40.4 Const: General: cooperative, healthy appearing and no acute distress Resp: Effort & Inspection: normal respiratory effort and able to speak in complete sentences Cardio: Rate: regular rate Peripheral pulses: Peripheral pulses 2+ throughout GI: Palpation (GI): Soft to palpation Skin: Lesions: no lesions Rashes: no rashes Extrem: Other: Right knee incision is clean, dry, and intact. Eleazar intact. No erythema or drainage. New Aquacel applied. NVI. DS: Data Data Completed and Pending Completed studies during hospitalization [Text1]: Procedures Drainage of Right Hand Subcutaneous Tissue and Fascia, Open Approach (09/17/20) Pending studies at discharge: Pending at discharge 08/12/21 11:27 Surgical [PTH] Routine Labs on day of discharge: Laboratory Results - last 24 hr 08/13/21 07:22 WBC 11.7 H RBC 4.87 Hgb 12.7 L Hct 38.0 L MCV 78.0 L MCH 26.1 L MCHC 33.4 RDW 15.4 Plt Count 84 L D Immature Gran % (Auto) 0.4 Neut % (Auto) 73.9 H Lymph % (Auto) 16.9 L [place] % (Auto) 8.6 Eos % (Auto) 0.0 Baso % (Auto) 0.2 Lymph # (Auto) 2.0 [place] # (Auto) 1.0 Eos # (Auto) 0.0 Baso # (Auto) 0.0 Abs Immat Gran (auto) 0.05 H Absolute Neuts (auto) 8.6 H Absolute Nucleated RBC 0.000 Nucleated RBC % (auto) 0.0 Smear Tech's Comments VERIFIED Discharge Plan Discharge Patient Disposition: Home Health Service Discharge Diagnosis: s/p RTKA Referrals: Lisandra RODRIGUEZ [Other] - 1 Week Cristian Cardoza MD [Primary Care Provider] - 1 Week Esperanza Velasquez PA-C [Physician Hematologist Oncologist] - 08/28/21 11:30 am Discharge Medications: New celecoxib 200 mg Capsule 200 mg PO BID 30 Days Qty: 60 0RF docusate sodium 100 mg Capsule 100 mg PO BID PRN (Reason: Constipation) 30 Days Qty: 60 0RF oxycodone 5 mg Tablet 5 mg PO Q4H PRN (Reason: Pain, Moderate (Pain Scale 4-6) 7 Days Qty: 42 0RF enoxaparin 40 mg/0.4 mL Syringe 40 mg subcut Q24H 42 Days Qty: 16.8 0RF [facility]ued [facility] See Rx Instructions .MEDSUPPLY Qty: 1 0RF Rx Instructions: Folding Front wheeled walker -extra large Changed amlodipine 5 mg tablet 10 mg PO DAILY Qty: 60 0RF Discharge Orders: Discharge Order (Routine); Ordered 08/15/21 Ordered By: Pauly Mohr Diet: regular diet Activity on Discharge: Use cane or walker Stand Alone Forms: Patient Portal Discharge page Care Plan Goals: restore fxn to right knee Health Concerns: HTN and mild elevated lft's - please f/u with PCP in 1 week. Plan of Treatment: Physical Therapy for ROM 0-120, quad strength, gait training. Use walker for ambulation Limit stair climbing, No shower, No tub bath, No driving Continue anticoagulant Keep Aquacel dressing clean, dry and intact. Follow up with orthopedics in 2 weeks Assessment: stable for d/c
--- NOTE | 2021-08-14 08:17 | P.F2F_ITS ---
Service Date Service Date: 08/14/21 Encounter Date of encounter: 08/14/21 Reasons for Services Signs and symptoms assessed: Pt. is considered homebound due to recent surgery. Unable to drive, poor balance, poor gait mechanics. Reason for senior living: administration of IV, SQ, or IM injection Reason for physical therapy: home safety and mobility, therapeutic exercises, restore joint function, gait/transfer training, assess need for DME and ADL training Reason for occupational therapy: home safety and mobility, therapeutic exercises, restore joint function, gait/transfer training, assess need for DME and ADL training Homebound: Leaving the home is medically contraindicated at this time without the asist of a device and/or another person due th the listed conditions above and below. Reason homebound: unsteady gait / fall risk, leg weakness, pain with ambulation, pain with transfers, poor balance / fall risk and unable to drive Homebound supporting statement: Pt. is considered homebound due to recent surgery. Unable to drive, poor balance, poor gait mechanics. Certification: Based on the above findings, I certify that this patient is confined to the home and needs intermittent senior living care, physical therapy and/or speech therapy, or continues to need occupational therapy. The patient is under my care, and I have initiated the establishment of the plan of care. The patient will be followed by a physician who will periodically review the plan of care.
--- NOTE | 2021-08-14 08:30 | P.PNIM_ITS ---
Subjective Subjective Date of Service: 08/14/21 Interval History: htn,right knee surgery Review of Systems Denies any new complaint of chest pain or shortness of breath or abdominal pain or fever or chills or nausea or vomiting Denies any cough Denies any weakness or numbness. has right knee soreness Physical Exam Vital Signs: Vital Signs: Last Vital Signs Temp 97.4 F 08/14/21 07:39 Pulse 92 08/14/21 07:39 Resp 16 08/14/21 07:39 BP 148/72 H 08/14/21 07:39 Pulse Ox 98 08/14/21 07:39 BMI result Body Mass Index 40.4 Appearance: Alert.? Oriented X3.? not in distress.? cvs: [id number], [id number] , no murmur res: clear to auscultation ,no rhonchii or wheezing abd: no rebound or guarding ,nt, bs present. ext pulses present , no cyanosis. MS: right knee -Right knee aquacel is clean, dry, and intact. neuro: axo3 , nonfocal. Objective Data Active Medications Amlodipine Besylate (Amlodipine Besylate 10 Mg Tablet) 10 mg PO DAILY [facility]; Protocol Last Admin: 08/14/21 07:47 Dose: 10 mg Documented by: RAY Celecoxib (Celecoxib 200 Mg Capsule) 200 mg PO BID [facility] Last Admin: 08/14/21 07:46 Dose: 200 mg Documented by: RAY Docusate Sodium (Docusate Sodium 100 Mg Capsule) 100 mg PO BID PRN PRN Reason: Constipation Enoxaparin Sodium (Enoxaparin Sodium 40 Mg/0.4 Ml Syringe) 40 mg SUBCUT Q24H [facility] Last Admin: 08/13/21 12:24 Dose: 40 mg Documented by: RAY Morphine Sulfate (Morphine Sulfate 4 Mg/Ml Cartridge) 4 mg IVPUSH Q4H PRN; Protocol PRN Reason: Pain, Severe (Pain Scale 7-10) Last Admin: 08/14/21 02:56 Dose: 4 mg Documented by: KEANU Naloxone HCl (Naloxone Hcl 0.4 Mg/Ml Vial) 0.2 mg IVPUSH Q2M PRN PRN Reason: Excessive sedation or RR < 8 Omeprazole (Omeprazole 20 Mg Alexander.) 20 mg PO DAILY@0630 [facility] Last Admin: 08/14/21 06:26 Dose: 20 mg Documented by: KEANU Oxycodone HCl (Oxycodone Hcl Er 10 Mg Tab.Er.12h) 10 mg PO Q12H [facility] Last Admin: 08/14/21 06:26 Dose: 10 mg Documented by: KEANU Oxycodone HCl (Oxycodone Hcl Immed Release 5 Mg Tablet) 5 mg PO Q4H PRN PRN Reason: Pain, Moderate (Pain Scale 4-6 Last Admin: 08/14/21 07:47 Dose: 5 mg Documented by: RAY Polyethylene Glycol (Polyethylene Glycol 3350 17 Gm Powd.Pack) 17 gm PO DAILY [facility] Last Admin: 08/14/21 07:47 Dose: 17 gm Documented by: RAY Labs CBC & Chem 7: 08/13/21 07:22 08/13/21 07:22 Assessment and Plan (1) Hypertension: Status: Acute Plan 1.Hypertension:? Blood pressure is seems to be better controlled now mostly in 130-140 range. Continue patient's home amlodipine 2.Osteoarthritis, status post right knee replacement: Pain controlled as per patient Continue oxycodone, celecoxib, morphine Bowel regimen Incentive spirometry, chest physio 3. mild elevated lfts's : mild elevation,hx of haptitis C which is treated as per patient. Monitor LFTs outpatient with PCP, further workup out patiently with PCP. 4. Leukocytosis: Reactive Patient denies any shortness of breath cough or phlegm or any urinary complaints or any new symptoms. Above management discussed with the patient and primary team in detail. Quality Stroke Does the patient have a stroke diagnosis?: No VTE Prior VTE?: No VTE Risk Level:: Surgical - very high VTE Device Contraindication: N/A - Device Ordered VTE Drug Contraindication: N/A - Med Ordered
[2021-08-14] MEDS: Enoxaparin Sodium 40 MG/0.4 ML SYRINGE SUBCUT (12:55)
[2021-08-15 03:16] VITALS: BP 136/68; PULSE 88; RESP 16; TEMP 36.1; O2SAT 95
[2021-08-15] MEDS: oxyCODONE HCl Immed Release 5 MG TABLET PO ×2 (06:26→11:54)
[2021-08-15] MEDS: oxyCODONE HCl ER 10 MG TAB.ER.12H PO (06:26)
[2021-08-15] MEDS: Omeprazole 20 MG CAPSULE.DR PO (06:26)
--- NOTE | 2021-08-15 07:43 | PM.PNORT ---
Subjective Subjective Date of Service: 08/15/21 Interval history: POD3 status post right TKA. Patient is resting in the bed comfortably. No overnight events. Pain is well managed. Patient would like to go home today. No additional complaints. Physical Exam Vital Signs: Vital Signs: Last Vital Signs Temp 97.0 F 08/15/21 03:16 Pulse 88 08/15/21 03:16 Resp 16 08/15/21 03:16 BP 136/68 08/15/21 03:16 Pulse Ox 95 08/15/21 03:16 BMI result Body Mass Index 40.4 Extrem: Other: Right knee incision intact. Eleazar intact. No erythema or drainage. New Aquacel dressing applied. NVI. Procedures Date of Service Date of Service: 08/15/21 Progress Note: A&P Assessment and plan (1) S/P total knee arthroplasty: Status: Acute Plan Continue pain mgmnt Continue Lovenox for dvt ppx Continue PT for right TKA- WBAT Dispo planning-Pending PT this morning, pain mgmnt. Discharge likely later today Fall Risk Details Current Medications: Current Medications Amlodipine Besylate (Amlodipine Besylate 10 Mg Tablet) 10 mg PO DAILY [facility]; Protocol Last Admin: 08/14/21 07:47 Dose: 10 mg Documented by: Celecoxib (Celecoxib 200 Mg Capsule) 200 mg PO BID [facility] Last Admin: 08/14/21 19:42 Dose: 200 mg Documented by: Docusate Sodium (Docusate Sodium 100 Mg Capsule) 100 mg PO BID PRN PRN Reason: Constipation Enoxaparin Sodium (Enoxaparin Sodium 40 Mg/0.4 Ml Syringe) 40 mg SUBCUT Q24H [facility] Last Admin: 08/14/21 12:55 Dose: 40 mg Documented by: Morphine Sulfate (Morphine Sulfate 4 Mg/Ml Cartridge) 4 mg IVPUSH Q4H PRN; Protocol PRN Reason: Pain, Severe (Pain Scale 7-10) Last Admin: 08/14/21 21:24 Dose: 4 mg Documented by: Naloxone HCl (Naloxone Hcl 0.4 Mg/Ml Vial) 0.2 mg IVPUSH Q2M PRN PRN Reason: Excessive sedation or RR < 8 Omeprazole (Omeprazole 20 Mg Capsule.) 20 mg PO DAILY@0630 [facility] Last Admin: 08/15/21 06:26 Dose: 20 mg Documented by: Oxycodone HCl (Oxycodone Hcl Er 10 Mg Tab.Er.12h) 10 mg PO Q12H [facility] Last Admin: 08/15/21 06:26 Dose: 10 mg Documented by: Oxycodone HCl (Oxycodone Hcl Immed Release 5 Mg Tablet) 5 mg PO Q4H PRN PRN Reason: Pain, Moderate (Pain Scale 4-6 Last Admin: 08/15/21 06:26 Dose: 5 mg Documented by: Polyethylene Glycol (Polyethylene Glycol 3350 17 Gm Powd.Pack) 17 gm PO DAILY [facility] Last Admin: 08/14/21 07:47 Dose: 17 gm Documented by: Time Spent With Patient Time: Total time spent is greater than 50% in coordination of care (as documented) at patient's floor/unit and/or counseling patient: Quality Stroke Does the patient have a stroke diagnosis?: No VTE Prior VTE?: No VTE Risk Level:: Surgical - very high VTE Device Contraindication: N/A - Device Ordered VTE Drug Contraindication: N/A - Med Ordered
[2021-08-15 08:00] VITALS: BP 143/72; PULSE 86; RESP 18; TEMP 36.1; O2SAT 97
--- NOTE | 2021-08-15 08:03 | HO.PM.IMPN ---
Subjective Subjective Date of Service: 08/15/21 Interval History: htn ,elevated lft's Physical Exam Vital Signs: Vital Signs: Last Vital Signs Temp 97.0 F 08/15/21 03:16 Pulse 88 08/15/21 03:16 Resp 16 08/15/21 03:16 BP 136/68 08/15/21 03:16 Pulse Ox 95 08/15/21 03:16 BMI result Body Mass Index 40.4 Objective Data Active Medications Amlodipine Besylate (Amlodipine Besylate 10 Mg Tablet) 10 mg PO DAILY [facility]; Protocol Last Admin: 08/14/21 07:47 Dose: 10 mg Documented by: RAY Celecoxib (Celecoxib 200 Mg Capsule) 200 mg PO BID [facility] Last Admin: 08/14/21 19:42 Dose: 200 mg Documented by: KEANU Docusate Sodium (Docusate Sodium 100 Mg Capsule) 100 mg PO BID PRN PRN Reason: Constipation Enoxaparin Sodium (Enoxaparin Sodium 40 Mg/0.4 Ml Syringe) 40 mg SUBCUT Q24H [facility] Last Admin: 08/14/21 12:55 Dose: 40 mg Documented by: RAY Morphine Sulfate (Morphine Sulfate 4 Mg/Ml Cartridge) 4 mg IVPUSH Q4H PRN; Protocol PRN Reason: Pain, Severe (Pain Scale 7-10) Last Admin: 08/14/21 21:24 Dose: 4 mg Documented by: KEANU Naloxone HCl (Naloxone Hcl 0.4 Mg/Ml Vial) 0.2 mg IVPUSH Q2M PRN PRN Reason: Excessive sedation or RR < 8 Omeprazole (Omeprazole 20 Mg Capsule.) 20 mg PO DAILY@0630 [facility] Last Admin: 08/15/21 06:26 Dose: 20 mg Documented by: KEANU Oxycodone HCl (Oxycodone Hcl Er 10 Mg Tab.Er.12h) 10 mg PO Q12H [facility] Last Admin: 08/15/21 06:26 Dose: 10 mg Documented by: KEANU Oxycodone HCl (Oxycodone Hcl Immed Release 5 Mg Tablet) 5 mg PO Q4H PRN PRN Reason: Pain, Moderate (Pain Scale 4-6 Last Admin: 08/15/21 06:26 Dose: 5 mg Documented by: HO.BOURQC Polyethylene Glycol (Polyethylene Glycol 3350 17 Gm Powd.Pack) 17 gm PO DAILY [facility] Last Admin: 08/14/21 07:47 Dose: 17 gm Documented by: RAY Labs CBC & Chem 7: 08/15/21 10:26 08/15/21 10:26 Assessment and Plan (1) Hypertension: Status: Acute Plan 1.Hypertension:? Blood pressure is seems to be better controlled now mostly in 130-140 range. Continue patient's home amlodipine 2.Osteoarthritis, status post right knee replacement: Pain controlled as per patient Continue oxycodone, celecoxib, morphine Bowel regimen Incentive spirometry, chest physio 3. mild elevated lfts's : mild elevation,hx of haptitis C which is treated as per patient,also obesity. Monitor LFTs outpatient with PCP, further workup out patiently with PCP. 4. Leukocytosis: Reactive Patient denies any shortness of breath cough or phlegm or any urinary complaints or any new symptoms. 5. Morbid obesity: Encouraged to cut down calories and encouraged for weight loss. Above management discussed with the patient and primary team in detail. Will sign off now, please call us for any questions. Quality Stroke Does the patient have a stroke diagnosis?: No VTE Prior VTE?: No VTE Risk Level:: Surgical - very high VTE Device Contraindication: N/A - Device Ordered VTE Drug Contraindication: N/A - Med Ordered
[2021-08-15 09:54] VITALS: BP 143/72; PULSE 86; O2SAT 97
[2021-08-15] MEDS: Morphine Sulfate 4 MG/ML CARTRIDGE IVPUSH (09:59)
[2021-08-15] MEDS: Celecoxib 200 MG CAPSULE PO (09:59)
[2021-08-15] MEDS: amLODIPine Besylate 10 MG TABLET PO (09:59)
[2021-08-15 10:31] LABS: MANUAL DIFF FLAG NO
[2021-08-15 10:39] LABS: Basophils Percent Auto 0.4 % (0-2); Eosinophils Absolute Auto 0.1 X10*3/uL (0.0-0.4); Eosinophils Percent Auto 1.8 % (0-4); Hematocrit 35.7 % (42.0-52.0); Hemoglobin 11.4 g/dl (14.0-18.0); Imm Gran Abs Auto 0.02 X10*3/uL (0.00-0.03); Imm Gran Pct Auto 0.3 % (0.0-0.4); Lymphocytes Absolute Auto 1.7 X10*3/uL (1.2-4.9); Lymphocytes Percent Auto 22.7 % (20-40); Mean Corpuscular HGB Conc 31.9 g/dl (31.0-36.0); Mean Corpuscular Hemoglobin 25.7 pg (27.0-33.0); Mean Corpuscular Volume 80.6 fL (80.0-98.0); Mean Platelet Volume 12.1 fL (9.4-12.4); Monocytes Absolute Auto 0.7 X10*3/uL (0.1-1.2); Monocytes Percent Auto 8.6 % (2-11); Neutrophils Percent Auto 66.2 % (45-73); Platelet Count 150 X10*3/uL (160-400); Red Blood Count 4.43 X10*6/uL (4.60-5.80); Red Cell Distribution Width 15.4 % (11.0-16.0); White Blood Count 7.6 X10*3/uL (4.8-10.8)
[2021-08-15 10:57] LABS: Anion Gap 9 (12-20); Blood Urea Nitrogen 16 mg/dL (9-16); Calcium 8.7 mg/dL (8.4-10.2); Carbon Dioxide 27 mmol/L (22-29); Chloride 105 mmol/L (96-108); Estimated Glomerular Filt Rate > 60; Glucose Random 152 mg/dL (60-115); Potassium 4.1 mmol/L (3.3-5.1); Sodium 137 mmol/L (135-145)
--- NOTE | 2021-08-15 11:20 | MHC.CM.PN ---
PATIENT TO RETURN HOME TODAY WITH [facility] P.T. RN AWARE OF PLAN.
[2021-08-15] MEDS: Enoxaparin Sodium 40 MG/0.4 ML SYRINGE SUBCUT (11:54)
== END 2021-08-15 14:06 | disposition home health service (06) | DRG 326 ==
LOC: HO.SSSA 07:36 → HO.S3 14:42 → HO.ICU 18:06 → HO.S3 08-13 11:03
PROVIDERS: Physician Assistant; Physician Assistant Medical; Admitting Provider Orthopaedic Surgery; PCP Internal Medicine; Visit Provider Orthopaedic Surgery
PROC: 0SRC0JA Replacement of Right Knee Joint with Synthetic Substitute, Uncemented, Open Approach (ICD-10-PCS; CPT 27447; principal; 2021-08-12 09:40)
DX: M17.11 Unilateral primary osteoarthritis, right knee (principal); D69.6 Thrombocytopenia, unspecified; E87.1 Hypo-osmolality and hyponatremia; F17.210 Nicotine dependence, cigarettes, uncomplicated; G89.18 Other acute postprocedural pain; I97.3 Postprocedural hypertension; Z86.14 Personal history of Methicillin resistant Staphylococcus aureus infection; D64.9 Anemia, unspecified; E66.01 Morbid (severe) obesity due to excess calories; D72.829 Elevated white blood cell count, unspecified; Z68.41 Body mass index [BMI] 40.0-44.9, adult; Z96.611 Presence of right artificial shoulder joint; Z20.822 Contact with and (suspected) exposure to COVID-19; Z86.19 Personal history of other infectious and parasitic diseases; Z71.6 Tobacco abuse counseling; Z88.5 Allergy status to narcotic agent; Z88.6 Allergy status to analgesic agent; Z79.899 Other long term (current) drug therapy
CPT/HCPCS: 36415; 73560; 80048; 80053; 85025; 86850; 86900; 86901; 87635; 88305; 88311; 97110; 97116; 97162; 97530; 99499; C1776; J0690; J1100; J1170; J1650; J2060; J2250; J2270; J2405; J2550; J2795; J3010

== ENCOUNTER → 2021-08-18 09:01 | Outpatient (BNVA) | payer OTHER, SELFPAY | PROVIDERS: PCP Internal Medicine; Visit Provider Physician Assistant | DX: Z47.1 Aftercare following joint replacement surgery (principal); Z48.01 Encounter for change or removal of surgical wound dressing; Z96.651 Presence of right artificial knee joint | CPT/HCPCS: 99212 ==

== ENCOUNTER → 2021-08-28 11:16 | Outpatient (BNVA) | payer OTHER, SELFPAY | PROVIDERS: PCP Internal Medicine; Visit Provider Physician Assistant | DX: Z47.1 Aftercare following joint replacement surgery (principal); Z96.651 Presence of right artificial knee joint | CPT/HCPCS: 99212 ==

== ENCOUNTER 2021-09-02 07:00 | Outpatient (RCR) | payer OTHER, SELFPAY ==
--- NOTE | 2021-09-02 10:03 | MHC.PT.EP ---
[facility] [place] Office [place] Office [place] Office [address] Garfield Aguirre [address] [phone] F: [phone] F: [phone] F: [phone] F: [phone] Physical Therapy Plan of Care Date of Evaluation: Date of Surgery: 08/12/21 Diagnosis: S/P Rt TKR Assessment: 66 YO MALE REF TO PT S/P Rt TKA 08/12/21- HE IS CURRENTLY BEING TREATED W ANTIBIOTICS AND DRESSING CHANGES Rt KNEE, (+) DRAINAGE. Pt IS AMB W A CANE, ALTERED MECHANICS W DECR STANCE Rt LE AND ABSENT TOE OFF Rt. Pt HAS DECR ROM Rt KNEE, TIGHT CALF AND PSOAS MM, HEALING AND DRAINING Rt ANT KNEE INCISION, (+) EDEMA IN Rt DISTAL LE, RESIDUAL WEAKNESS IN Rt LE, AND FLUCTUATING PAIN. FUNCTIONALLY, Pt HAS DIFFIC W STAIR MGMT, INCR GAIT/ STANDING, AND BENDING. Pt IS A GREAT PT CANDIDATE TO MONITOR Rt ANT KNEE INCISION, PAIN MGMT, ROM/ STRENGTH, FUNCTIONAL INDEPENDENCE ,AND GUIDE HIM IN HIS POST OP COURSE. Frequency and Duration: The patient will be seen 2 x WK x 10 WKS Short Term Goals: Pt DEMON PROPER QUAD SET IN 1 WK Pt'S Rt KNEE PAIN DECREASED TO 2-3/10 IN 2 WKS Pt DEMON WFL AROM HIP EXT AND ANKLE DF/PF AND AROM RIGHT KNEE 0* TO 120* IN 3 WKS Pt DEMO IMPROVED GAIT MECH W LEAST RESTRICTIVE AD ON LEVEL GROUND AND STAIRS IN 2 WKS ONCE HIS INCISION IS HEALED, Pt INDEP W SCAR MOBILITY Rt ANT KNEE IN 3 WKS [facility] Goals: Pt INDEP W HEP PROGRESSION AND SELF-SX MGMT STRATEGIES IN 10 WKS Pt RESUME REG ADLs EVIDENT W IMPROVED LEFI SCORE BY 8-10 POINTS IN 10 WKS Pt INCR LE STRENGTH BY 1 GRADE IN 10 WKS Treatment Plan: Modalities to reduce pain, spasms and effusion. Manual therapy to restore motion and function. Therapeutic exercise to improve strength and flexibility. Neuromuscular re-education for posture and balance. Therapeutic activities to return to functional activities of daily living. Electronically signed by: Ana Maria Sanchez PT Please sign and return to therapist. Thank you for your referral.
--- NOTE | 2021-09-12 10:50 | MHC.PT.DC ---
[facility] [place] Office [place] Office [place] Office [address] Garfield Aguirre [address] [phone] F: [phone] F: [phone] F: [phone] F: [phone] Physical Therapy Discharge Report Diagnosis: S/P Rt TKR Date of Surgery: 08/12/21 Date of Evaluation: 09/02/21 Date of Discharge: 09/12/21 Treatments to Date: 1 Cancellations to Date: 2 No Shows to Date: Discharge Status: Physician Discontinued Tx Discharge Summary: Pt IS DISCHARGED FROM OUT-Pt DUE TO HOSPITAL ADM FOR MEDICAL MANAGEMENT. HE HAS NOT MET HIS PT GOALS AT THIS TIME. Electronically signed by: Ana Maria Sanchez,PT Please sign and return to therapist. Thank you for your referral.
== END 2021-09-12 10:50 | disposition home or self-care (01) ==
LOC: HO.PT 07:00
PROVIDERS: Visit Provider Physician Assistant
DX: Z96.652 Presence of left artificial knee joint (principal)
CPT/HCPCS: 97162; 97530

== ENCOUNTER → 2021-09-02 08:13 | Outpatient (BNVA) | payer OTHER, SELFPAY | PROVIDERS: PCP Internal Medicine; Visit Provider Physician Assistant | DX: Z13.89 Encounter for screening for other disorder (principal) ==

== ENCOUNTER → 2021-09-04 09:06 | Outpatient (BNVA) | payer OTHER, SELFPAY | PROVIDERS: PCP Internal Medicine; Visit Provider Orthopaedic Surgery | DX: Z47.1 Aftercare following joint replacement surgery (principal); Z96.651 Presence of right artificial knee joint | CPT/HCPCS: 99212 ==

== ENCOUNTER 2021-09-04 11:57 | Inpatient (IN) | payer OTHER, SELFPAY ==
[2021-09-04 13:12] LABS: COVID-19 Test Negative (Negative); IDNOW Serial# 16C4AD1C
--- NOTE | 2021-09-04 14:14 | PHA.MEDREC ---
Pharmacy Consult ? Medication Reconciliation Pharmacy has completed the medication reconciliation. There are no remarkable issues for provider's attention. Stefania Browning, TonD
[2021-09-04] MEDS: Lactated Ringers 1,000 ML 100 ML IVCONT (14:40)
[2021-09-04 14:44] VITALS: BP 133/81; PULSE 103; RESP 18; TEMP 36.2; O2SAT 98
--- NOTE | 2021-09-04 15:08 | HO.PM.IMCN ---
History of Present Illness Data of Consult Service Date: 09/04/21 Primary Care Provider: Cristian Cardoza MD HPI Reason for consult: medical evaluation 66-year-old male with hypertension, obesity the, who underwent right knee arthroplasty back in July of this year. He was seen in follow-up in the clinic today and there was concern that he may have infection of the operated knee and therefore was sent to the hospital to given IV antibiotics and the possible exploration of the knee. He reports no fever at this time and no other medical complaint at this time. Review of Systems Review of Systems: No fever no shortness of no chest some pain and drainage from the right knee all other system review and negative. [facility] Medical History (Updated 09/05/21 @ 11:41 by Alfredo Cifuentes MD) Cellulitis and abscess of hand Convulsion, non-epileptic Hx MRSA infection Hx of hepatitis C Hypertension Knee pain Morbid obesity Osteoarthritis of left knee Pancytopenia Family History Father No problems noted. Mother No problems noted. Surgical History History of right knee surgery History of right shoulder replacement History of surgery Social History Household Members: Significant Other [facility] Are you a primary career services director to a significant other at home: No Do you presently have visiting nurse or other home services: Yes Unable to assess alcohol history related to: Unknown Alcohol intake: never Patient Tobacco Use Status: Tobacco use Unknown Tobacco use type: Cigarette Cigarettes Per Day: 2 Years Smoked: 20 Smoked in Last 30 Days: No e-Cigarette/Vaping Use: Currently Using Patient Interested in Nicotine Replacement: No Patient Given Instructions on How to Stop Smoking: No Second Hand Smoke Exposure: No Use of substances other than those prescribed or required for medical reasons: No Substance Use Type: Heroin Currently Displaying Signs/Symptoms of Drug Intoxication Withdrawal: No Do you feel safe in your current relationship?: Yes Is there a partner from a previous relationship who is making you feel unsafe now?: No Are you made to feel afraid or neglected: No Advance Directives: No Advance Directives Information Provided: No Do you have thoughts of harming others: None Do you have a plan to hurt others: No Plan Recently lost weight without trying: No Nutrition Risks: No Nutritional Risk Poor oral hygiene: No service: No Current occupational status: disabled Cognitive needs: No Hearing needs: No Vision needs: No Meds Allergies Allergy/AdvReac Type Severity Reaction Status Date / Time blueberry [BLUEBERRY] Allergy Severe ANAPHYLAXIS Verified 09/04/21 09:18 hydrocodone [Vicodin] Allergy Severe Anaphylaxis Verified 09/04/21 09:18 acetaminophen [Tylenol] Allergy Intermediate told to Verified 09/04/21 09:18 avoid Active Medications: Current Medications Docusate Sodium (Docusate Sodium 100 Mg Capsule) 100 mg PO BID [facility] Lactated Ringer's (Lr) 1,000 mls @ 100 mls/hr IVCONT .Q10H [facility] Last Admin: 09/04/21 14:40 Dose: 100 mls/hr Documented by: Vancomycin HCl 2,000 mg/ (Sodium Chloride) 540 mls @ 270 mls/hr IV ONCE ONE Stop: 09/04/21 15:59 Last Admin: 09/04/21 14:40 Dose: 270 mls/hr Documented by: Oxycodone HCl (Oxycodone Hcl Immed Release 5 Mg Tablet) 5 mg PO Q4H PRN PRN Reason: Pain, Moderate (Pain Scale 4-6 Pharmacy Consult (Consult Rx Vancomycin Dosing) 1 each MISCELLANE DAILY PRN PRN Reason: Consult order Pharmacy Consult (Consult Rx Perform Med Rec) 1 each MISCELLANE ONCE PRN PRN Reason: Consult order Sodium Chloride (0.9 % Sodium Chloride Flush 3 Ml Syringe) 3 ml IVFLUSH QSHIFT [facility] Last Admin: 09/04/21 14:40 Dose: Not Given Documented by: Physical Exam Vital Signs and Narrative: Vital Signs: Last Vital Signs Temp 97.2 F 09/04/21 14:44 Pulse 103 H 09/04/21 14:44 Resp 18 09/04/21 14:44 BP 133/81 09/04/21 14:44 Pulse Ox 98 09/04/21 14:44 Const: Other: Constitutional: Alert, in no distress, overweight. Mental Status: Oriented to person, place and time. Eyes: Pupils are equal, round and reactive to light. Ear, Nose and Throat: Oropharynx clear, mucous membranes moist. Ears and nose without eformities. Trachea midline. Respiratory: Clear to auscultation. No wheezing, rales or rhonchi. Cardiovascular: S1 S2 regular. No murmurs, rubs or gallops. Gastrointestinal: Abdomen soft, non-tender, non-distended. Normal bowel sounds.? Neurologic: Cranial nerves II-XII grossly intact. No focal neurological deficits. Moves all extremities spontaneously.? Skin: No rashes or lesions.? Musculoskeletal: No cyanosis or clubbing. Psychiatric: Normal mood and affect? Results Labs CBC and Chem 7: 09/05/21 05:15 09/05/21 05:15 Labs: Laboratory Results - last 24 hr 09/04/21 12:52 COVID-19 ([facility]) Negative COVID-19 Clin Com See Note Assessment and Plan (1) Hypertension: Status: Acute Plan Possiple infected--IV Vanco, culture, and exploration by surgery 1.Hypertension: Continue home med, amlodipine 2. Obese weight loss advised
[2021-09-04 15:20] LABS: Anion Gap 14 (12-20); Blood Urea Nitrogen 15 mg/dL (9-16); Calcium 9.3 mg/dL (8.4-10.2); Carbon Dioxide 21 mmol/L (22-29); Chloride 105 mmol/L (96-108); Creatinine Clr Calc Pharmacy 111.8; Estimated Glomerular Filt Rate > 60; Glucose Random 162 mg/dL (60-115); Potassium 4.2 mmol/L (3.3-5.1); Sodium 136 mmol/L (135-145)
[2021-09-04 15:40] LABS: Vancomycin Trough < 3.0 mcg/mL (10.0-20.0)
[2021-09-04 16:00] VITALS: BP 160/79; PULSE 87; RESP 14; TEMP 36.9; O2SAT 100
--- NOTE | 2021-09-04 16:32 | PHA.PROG ---
Admission Date/Time: September 04, 2021 11:57 Indication: Cellulitis Weight in k.15 kg Adjusted body weight in K kg Susan body weight in Kg: Obesity Dosing Indication % IBW: Serum Creatinine - Last 168 Hours 09/04/21 14:48 Creatinine 1.00 Estimated CrCl and GFR - Last 168 Hours 09/04/21 14:48 Estim Creat Clear Calc 111.8 Estimated GFR > 60 Vancomycin Loading Dose: 2000 mg Current Vancomycin Dosing Regimen: 1000 mg q12 Vancomycin Monitoring using AUC goal of 400 - 600 range with trough as surrogate marker: predicted trough 13.5, auc 477 Date and Time for next Vancomycin Level to be drawn:09/06@0100 Vancomycin Trough < 3.0 mcg/mL (10.0-20.0) L 09/04/21 14:48 Pharmacist Comments on Vancomycin Plan: Vancomycin dosing will take advantage of [employer] as a clinical decision support tool that uses Bayesian modeling to calculate individual patient's pharmacokinetic parameters and forecast the patient's drug concentration time course with the target goal AUC 24 range of 400 - 600 mg/L/hr.
[2021-09-04] MEDS: oxyCODONE HCl Immed Release 5 MG TABLET PO (18:07)
[2021-09-04 18:42] VITALS: BP 139/68; PULSE 92; RESP 16; TEMP 37.9; O2SAT 95
[2021-09-04 20:46] VITALS: TEMP 37.3
[2021-09-04] MEDS: Docusate Sodium 100 MG CAPSULE PO (20:46)
[2021-09-04 23:44] VITALS: BP 157/68; PULSE 88; RESP 17; TEMP 36.4; O2SAT 95
[2021-09-05] VITALS (13 sets, daily range): BP systolic 126–152; BP diastolic 62–86; PULSE 70–85; RESP 16–18; TEMP 36.1–37.2; O2SAT 93–100
[2021-09-05] MEDS: Lactated Ringers 1,000 ML 100 ML IVCONT ×4 (00:19→22:02)
[2021-09-05] MEDS: oxyCODONE HCl Immed Release 5 MG TABLET PO ×4 (00:19→22:01)
[2021-09-05] MEDS: vancomycin HCL 1,000 MG in 0.9 % Sodium Chloride 250 ML 270 MG IV ×2 (02:54→14:22)
[2021-09-05 05:27] LABS: MANUAL DIFF FLAG NO
[2021-09-05 05:34] LABS: Basophils Percent Auto 0.4 % (0-2); Eosinophils Absolute Auto 0.1 X10*3/uL (0.0-0.4); Eosinophils Percent Auto 2.4 % (0-4); Hematocrit 32.1 % (42.0-52.0); Hemoglobin 10.2 g/dl (14.0-18.0); Imm Gran Abs Auto 0.02 X10*3/uL (0.00-0.03); Imm Gran Pct Auto 0.4 % (0.0-0.4); Lymphocytes Absolute Auto 1.5 X10*3/uL (1.2-4.9); Mean Corpuscular HGB Conc 31.8 g/dl (31.0-36.0); Mean Corpuscular Volume 78.7 fL (80.0-98.0); Mean Platelet Volume 12.6 fL (9.4-12.4); Monocytes Absolute Auto 0.6 X10*3/uL (0.1-1.2); Monocytes Percent Auto 11.9 % (2-11); Neutrophils Absolute Auto 3.1 x10*3/uL (2.0-8.3); Neutrophils Percent Auto 57.9 % (45-73); Platelet Count 149 X10*3/uL (160-400); Red Blood Count 4.08 X10*6/uL (4.60-5.80); White Blood Count 5.4 X10*3/uL (4.8-10.8)
[2021-09-05 06:12] LABS: Anion Gap 14 (12-20); Blood Urea Nitrogen 12 mg/dL (9-16); Calcium 8.4 mg/dL (8.4-10.2); Carbon Dioxide 21 mmol/L (22-29); Chloride 105 mmol/L (96-108); Creatinine Clr Calc Pharmacy 141.6; Estimated Glomerular Filt Rate > 60; Glucose Fasting 106 mg/dL (60-99); Potassium 4.3 mmol/L (3.3-5.1); Sodium 136 mmol/L (135-145)
[2021-09-05] MEDS: amLODIPine Besylate 10 MG TABLET PO (08:34)
--- NOTE | 2021-09-05 09:52 | HE.PHANOTE ---
RE SHABANA CONTINUE CURREN DOSE, NEXT TROUGH 0100 ON 09/06
--- NOTE | 2021-09-05 11:50 | P.CONAN_ITS ---
[facility] Active Problems Active Problems: All Active Problems (Updated 09/05/21 @ 11:41 by Alfredo Cifuentes MD) Hypertension (Acute) S/P total knee arthroplasty (Acute) Osteoarthritis of right knee (Acute) Osteoarthritis of left knee (Acute) Pancytopenia (Acute) Primary osteoarthritis of knees, bilateral (Acute) Abscess of right hand (Acute) Post-traumatic osteoarthritis of right knee (Acute) Preop exam for internal medicine (Acute) Morbid obesity (Acute) Seizure (Acute) Knee pain (Acute) Past Medical History Medical History (Updated 09/05/21 @ 11:41 by Alfredo Cifuentes MD) Cellulitis and abscess of hand Convulsion, non-epileptic Hx MRSA infection Hx of hepatitis C Hypertension Knee pain Morbid obesity Osteoarthritis of left knee Pancytopenia Family History Family History Father No problems noted. Mother No problems noted. Family history of problems with anesthesia: No Surgical History Surgical History History of right knee surgery History of right shoulder replacement History of surgery History of Problems with Anesthesia: No Social History Social History Household Members: Significant [facility] Are you a primary critical care cns to a significant other at home: No Do you presently have visiting nurse or other home services: Yes Unable to assess alcohol history related to: Unknown Alcohol intake: never Patient Tobacco Use Status: Current someday Tobacco user Tobacco use type: Cigarette Cigarettes Per Day: 4 Years Smoked: 20 Smoked in Last 30 Days: No e-Cigarette/Vaping Use: Currently Using Patient Interested in Nicotine Replacement: No Patient Given Instructions on How to Stop Smoking: No Second Hand Smoke Exposure: No Use of substances other than those prescribed or required for medical reasons: No Substance Use Type: Heroin Currently Displaying Signs/Symptoms of Drug Intoxication Withdrawal: No Do you feel safe in your current relationship?: Yes Is there a partner from a previous relationship who is making you feel unsafe now?: No Are you made to feel afraid or neglected: No Are you DNR?: No Advance Directives: No Advance Directives Information Provided: No Do you have thoughts of harming others: None Do you have a plan to hurt others: No Plan Recently lost weight without trying: No Nutrition Risks: No Nutritional Risk Poor oral hygiene: No service: No Current occupational status: disabled Cognitive needs: No Hearing needs: No Vision needs: No Meds Allergies Allergy/AdvReac Type Severity Reaction Status Date / Time blueberry [BLUEBERRY] Allergy Severe ANAPHYLAXIS Verified 09/04/21 09:18 hydrocodone [Vicodin] Allergy Severe Anaphylaxis Verified 09/04/21 09:18 acetaminophen [Tylenol] Allergy Intermediate told to Verified 09/04/21 09:18 avoid Active Medications: Current Medications Amlodipine Besylate (Amlodipine Besylate 10 Mg Tablet) 10 mg PO DAILY [facility]; Protocol Last Admin: 09/05/21 08:34 Dose: 10 mg Documented by: Docusate Sodium (Docusate Sodium 100 Mg Capsule) 100 mg PO BID [facility] Last Admin: 09/05/21 08:39 Dose: Not Given Documented by: Lactated Ringer's (Lr) 1,000 mls @ 100 mls/hr IVCONT .Q10H [facility] Last Admin: 09/05/21 11:02 Dose: 100 mls/hr Documented by: Vancomycin HCl 1,000 mg/ (Sodium Chloride) 270 mls @ 270 mls/hr IV Q12H [facility] Last Infusion: 09/05/21 04:04 Dose: Infused Documented by: Oxycodone HCl (Oxycodone Hcl Immed Release 5 Mg Tablet) 5 mg PO Q4H PRN PRN Reason: Pain, Moderate (Pain Scale 4-6 Last Admin: 09/05/21 08:34 Dose: 5 mg Documented by: Pharmacy Consult (Consult Rx Vancomycin Dosing) 1 each MISCELLANE DAILY PRN PRN Reason: Consult order Pharmacy Consult (Consult Rx Perform Med Rec) 1 each MISCELLANE ONCE PRN PRN Reason: Consult order Sodium Chloride (0.9 % Sodium Chloride Flush 3 Ml Syringe) 3 ml IVFLUSH QSHIFT [facility] Last Admin: 09/05/21 08:31 Dose: Not Given Documented by: Exam Exam Date and Time: September 05, 2021 1150 Height,Weight and Vital Signs: Height 6 ft 1 in Weight 145.15 kg Last Vital Signs Temp 98.2 F 09/05/21 11:13 Pulse 70 09/05/21 11:13 Resp 18 09/05/21 11:13 BP 137/67 09/05/21 11:13 Pulse Ox 94 09/05/21 11:13 Pertinent Lab Results Pertinent Lab Results: Laboratory Tests 09/04/21 09/04/21 09/04/21 12:52 14:48 14:48 WBC RBC Hgb Hct MCV MCH MCHC RDW Plt Count MPV Immature Gran % (Auto) Neut % (Auto) Lymph % (Auto) Robeson % (Auto) Eos % (Auto) Baso % (Auto) Lymph # (Auto) Robeson # (Auto) Eos # (Auto) Baso # (Auto) Abs Immat Gran (auto) Absolute Neuts (auto) Absolute Nucleated RBC Nucleated RBC % (auto) Sodium 136 Potassium 4.2 Chloride 105 Carbon Dioxide 21 L Anion Gap 14 BUN 15 Creatinine 1.00 Estim Creat Clear Calc 111.8 Estimated GFR > 60 Random Glucose 162 H Fasting Glucose Calcium 9.3 D Vancomycin Trough < 3.0 L COVID-19 ([facility]) Negative COVID-19 Clin Com See Note 09/05/21 09/05/21 05:15 05:15 WBC 5.4 RBC 4.08 L Hgb 10.2 L Hct 32.1 L MCV 78.7 L MCH 25.0 L MCHC 31.8 RDW 15.0 Plt Count 149 L MPV 12.6 H Immature Gran % (Auto) 0.4 Neut % (Auto) 57.9 Lymph % (Auto) 27.0 Robeson % (Auto) 11.9 H Eos % (Auto) 2.4 Baso % (Auto) 0.4 Lymph # (Auto) 1.5 Robeson # (Auto) 0.6 Eos # (Auto) 0.1 Baso # (Auto) 0.0 Abs Immat Gran (auto) 0.02 Absolute Neuts (auto) 3.1 Absolute Nucleated RBC 0.000 Nucleated RBC % (auto) 0.0 Sodium 136 Potassium 4.3 Chloride 105 Carbon Dioxide 21 L Anion Gap 14 BUN 12 Creatinine 0.79 Estim Creat Clear Calc 141.6 Estimated GFR > 60 Random Glucose Fasting Glucose 106 H Calcium 8.4 D Vancomycin Trough COVID-19 ([facility]) COVID-19 Clin Com Airway Mallampati Class: III TM Dist: >3cm Neck ROM: Full Loose/Missing/Broken Teeth: Upper Assessment and Plan Assessment Anesthesia Assessment: Anesthesia Plan Discussed and Chart Reviewed Final Anesthetic Review Family History of Problems with Anesthesia: No History of Problems with Anesthesia: No NPO: Yes ASA Class: III Final Preanesthetic Review: No Changes in Pt Med Stat, Meds/Allgs Chart Reviewed, Consent Obtained/Reviewed and Anes Risks/Benef Reviewed Patient Risk: Intermediate Procedure Risk: Low Anesthetic Plan Anesthetic Plan: GA Disposition: Standard PACU
--- NOTE | 2021-09-05 13:04 | P.CNID_ITS ---
History of Present Illness Data of Consult Service Date: 09/05/21 Requesting physician: Edmar Sood Primary Care Provider: Cristian Cardoza MD HPI Reason for consult: knee swelling He presents with right knee swelling for postop check at orthopedic office. He noted being very active with knee postop with TKR done 08/12/2021. He also had some serous drainage from area. He has temperature to 100.3 and no elevated WBC. Culture is negative so far from wound Review of Systems Review of Systems: Yes all other systems are reviewed and are negative [facility] Past Medical History Medical History (Updated 09/05/21 @ 13:10 by Tamara Garcia MD) Cellulitis and abscess of hand Convulsion, non-epileptic Hx MRSA infection Hx of hepatitis C Hypertension Knee pain Morbid obesity Osteoarthritis of left knee Pancytopenia Family History Family History Father No problems noted. Mother No problems noted. Family history: reviewed and not pertinent Surgical History Surgical History History of right knee surgery History of right shoulder replacement History of surgery Social History Social History Household Members: Significant Other Housing: [facility] Are you a primary acute care registered nurse to a significant other at home: No Do you presently have visiting nurse or other home services: Yes Unable to assess alcohol history related to: Unknown Alcohol intake: never Patient Tobacco Use Status: Current someday Tobacco user Tobacco use type: Cigarette Cigarettes Per Day: 4 Years Smoked: 20 Smoked in Last 30 Days: No e-Cigarette/Vaping Use: Currently Using Patient Interested in Nicotine Replacement: No Patient Given Instructions on How to Stop Smoking: No Second Hand Smoke Exposure: No Use of substances other than those prescribed or required for medical reasons: No Substance Use Type: Heroin Currently Displaying Signs/Symptoms of Drug Intoxication Withdrawal: No Do you feel safe in your current relationship?: Yes Is there a partner from a previous relationship who is making you feel unsafe now?: No Are you made to feel afraid or neglected: No Are you DNR?: No Advance Directives: No Advance Directives Information Provided: No Do you have thoughts of harming others: None Do you have a plan to hurt others: No Plan Recently lost weight without trying: No Nutrition Risks: No Nutritional Risk Poor oral hygiene: No service: No Current occupational status: disabled Cognitive needs: No Hearing needs: No Vision needs: No Meds Allergies Allergy/AdvReac Type Severity Reaction Status Date / Time blueberry [BLUEBERRY] Allergy Severe ANAPHYLAXIS Verified 09/04/21 09:18 hydrocodone [Vicodin] Allergy Severe Anaphylaxis Verified 09/04/21 09:18 acetaminophen [Tylenol] Allergy Intermediate told to Verified 09/04/21 09:18 avoid Active Medications: Current Medications Amlodipine Besylate (Amlodipine Besylate 10 Mg Tablet) 10 mg PO DAILY [facility]; Protocol Last Admin: 09/05/21 08:34 Dose: 10 mg Documented by: Docusate Sodium (Docusate Sodium 100 Mg Capsule) 100 mg PO BID [facility] Last Admin: 09/05/21 08:39 Dose: Not Given Documented by: Fentanyl (Fentanyl Citrate/Pf 100 Mcg/2 Ml Vial) 50 mcg IVPUSH Q5M PRN; Protocol PRN Reason: Pain, Severe (Pain Scale 7-10) Lactated Ringer's (Lr) 1,000 mls @ 100 mls/hr IVCONT .Q10H [facility] Last Admin: 09/05/21 11:02 Dose: 100 mls/hr Documented by: Vancomycin HCl 1,000 mg/ (Sodium Chloride) 270 mls @ 270 mls/hr IV Q12H [facility] Last Infusion: 09/05/21 04:04 Dose: Infused Documented by: Lactated Ringer's (Lr) 1,000 mls @ 100 mls/hr IVCONT .Q10H [facility] Last Admin: 09/05/21 11:52 Dose: 100 mls/hr Documented by: Ondansetron HCl (Ondansetron Hcl 4 Mg/2 Ml Vial) 4 mg IVPUSH ONCE PRN PRN Reason: Nausea and Vomiting Oxycodone HCl (Oxycodone Hcl Immed Release 5 Mg Tablet) 5 mg PO Q4H PRN PRN Reason: Pain, Moderate (Pain Scale 4-6 Last Admin: 09/05/21 08:34 Dose: 5 mg Documented by: Oxycodone HCl (Oxycodone Hcl Immed Release 5 Mg Tablet) 10 mg PO ONCE PRN PRN Reason: Pain, Severe (Pain Scale 7-10) Pharmacy Consult (Consult Rx Vancomycin Dosing) 1 each MISCELLANE DAILY PRN PRN Reason: Consult order Pharmacy Consult (Consult Rx Perform Med Rec) 1 each MISCELLANE ONCE PRN PRN Reason: Consult order Sodium Chloride (0.9 % Sodium Chloride Flush 3 Ml Syringe) 3 ml IVFLUSH QSHIFT [facility] Last Admin: 09/05/21 08:31 Dose: Not Given Documented by: Physical Exam Vital Signs: Vital Signs: Last Vital Signs Temp 99.0 F 09/05/21 12:57 Pulse 71 09/05/21 13:02 Resp 16 09/05/21 13:02 BP 142/80 H 09/05/21 13:02 Pulse Ox 100 09/05/21 13:02 Const: General: cooperative HEENT: Head: Yes normal to inspection Mouth: Normal oral and palatal mucosa present Resp: Effort & Inspection: normal respiratory effort Cardio: Rate: regular rate Rhythm: regular rhythm GI: Palpation (GI): Soft to palpation and nontender Skin: Other: extensive scarring upper legs for which patient [place] and seeing blisters on legs after Wounds: no wounds (right knee slight swelling) Results Labs CBC & Chem 7: 09/05/21 05:15 09/05/21 05:15 Labs: Short CBC 09/05/21 Range/Units 05:15 WBC 5.4 (4.8-10.8) X10*3/uL Hgb 10.2 L (14.0-18.0) g/dl Hct 32.1 L (42.0-52.0) % Plt Count 149 L (160-400) X10*3/uL BMP 09/04/21 09/05/21 14:48 05:15 Sodium 136 136 Potassium 4.2 4.3 Chloride 105 105 Carbon Dioxide 21 L 21 L BUN 15 12 Creatinine 1.00 0.79 Calcium 9.3 D 8.4 D Assessment and Plan (1) S/P total knee arthroplasty: Status: Acute Dont see any signs of infection with normal WBC and only slight elevated temperature. Possible hematoma On Vancomycin now Can give po Doxycycline for superficial skin complaints of erythema/drainage for a week (2) Osteoarthritis of right knee: Status: Acute (3) Hx of hepatitis C: Status: Acute HIV negative Slight elevated LFT Check Hepatitis C viral load
[2021-09-05] MEDS: fentaNYL citrate/PF 100 MCG/2 ML VIAL 50 MCG IVPUSH (13:10)
[2021-09-05] MEDS: oxyCODONE HCl Immed Release 5 MG TABLET 10 MG PO (13:11)
[2021-09-05] MEDS: Enoxaparin Sodium 40 MG/0.4 ML SYRINGE SUBCUT (14:21)
--- NOTE | 2021-09-05 15:14 | PC.NURSE ---
Pt returned from I+D right knee. Has wound vac in place, draining serosanguinous. Pt denies pain at this time.Voided in urinal
[2021-09-05 15:45] LABS: C Reactive Protein 7.03 mg/dL (< or = 0.50)
--- NOTE | 2021-09-05 16:39 | MHC.CM.PN ---
IMM 09/05/21, EMR REVIEWED, PT ADMITTED W/POST=-OP INFECTION OF R TK, CM MET W/PT WHO REPORTS HE LIVES W/S.O., PT IS INDEP W/CARE, HAS A [facility] AND [facility] FOR HOME PT/OT SINCE SURGERY, PT REPORTS HE WILL RESUME W/THEM UPON D/C, PCP ON FILE VERIFIED, PT EDUCATED ON HCP'S AND CURRENTLY DECLINES, COVID VACCINE X3 AND DOESN'T RECALL WHICH ONE. D/C PLAN: HOME W/[facility]UMP OF [facility] [address] TRANSPORT
[2021-09-05 16:54] LABS: Erythrocyte Sedimentation Rate 58 MM/HR (0-15)
--- NOTE | 2021-09-05 17:45 | P.BOP_ITS ---
Brief Operative Note Date of Service: 09/05/21 Pre-op diagnosis: right knee hematoma with wound dehiscence Post-op diagnosis: same Procedure: irrigation and drainage with wound vac placement Surgeon: Edmar Sood MD Anesthesia: GETA Was an [employer] used for this Procedure?: Yes [employer]: Pauly Mohr Estimated blood loss (mL): 100 IV fluids (mL): 300 Pathology: none sent Condition: stable Disposition: PACU
[2021-09-05] MEDS: Docusate Sodium 100 MG CAPSULE PO (20:14)
[2021-09-05] MEDS: Celecoxib 200 MG CAPSULE PO (20:14)
[2021-09-06] MEDS: vancomycin HCL 1,000 MG in 0.9 % Sodium Chloride 250 ML 270 MG IV (03:45)
[2021-09-06 06:11] LABS: MANUAL DIFF FLAG NO
[2021-09-06 06:21] LABS: Basophils Percent Auto 0.1 % (0-2); Hematocrit 32.3 % (42.0-52.0); Hemoglobin 10.3 g/dl (14.0-18.0); Imm Gran Abs Auto 0.03 X10*3/uL (0.00-0.03); Imm Gran Pct Auto 0.4 % (0.0-0.4); Lymphocytes Absolute Auto 1.2 X10*3/uL (1.2-4.9); Lymphocytes Percent Auto 17.7 % (20-40); Mean Corpuscular HGB Conc 31.9 g/dl (31.0-36.0); Mean Corpuscular Hemoglobin 25.1 pg (27.0-33.0); Mean Corpuscular Volume 78.8 fL (80.0-98.0); Mean Platelet Volume 12.1 fL (9.4-12.4); Monocytes Absolute Auto 0.4 X10*3/uL (0.1-1.2); Monocytes Percent Auto 6.1 % (2-11); Neutrophils Absolute Auto 5.2 x10*3/uL (2.0-8.3); Neutrophils Percent Auto 75.7 % (45-73); Platelet Count 194 X10*3/uL (160-400); Red Cell Distribution Width 14.8 % (11.0-16.0); White Blood Count 6.9 X10*3/uL (4.8-10.8)
[2021-09-06 06:30] LABS: Anion Gap 14 (12-20); Blood Urea Nitrogen 15 mg/dL (9-16); Calcium 8.6 mg/dL (8.4-10.2); Carbon Dioxide 24 mmol/L (22-29); Chloride 106 mmol/L (96-108); Creatinine Clr Calc Pharmacy 139.8; Estimated Glomerular Filt Rate > 60; Glucose Fasting 136 mg/dL (60-99); Potassium 4.8 mmol/L (3.3-5.1); Sodium 139 mmol/L (135-145)
[2021-09-06 08:00] VITALS: BP 158/83; PULSE 67; RESP 19; TEMP 36.7; O2SAT 99
[2021-09-06] MEDS: oxyCODONE HCl Immed Release 5 MG TABLET PO ×3 (08:43→20:47)
[2021-09-06] MEDS: Docusate Sodium 100 MG CAPSULE PO ×2 (08:43→19:44)
[2021-09-06] MEDS: amLODIPine Besylate 10 MG TABLET PO (08:43)
[2021-09-06] MEDS: Celecoxib 200 MG CAPSULE PO ×2 (08:43→19:44)
[2021-09-06] MEDS: Lactated Ringers 1,000 ML 100 ML IVCONT (08:44)
--- NOTE | 2021-09-06 09:15 | P.PNOP_ITS ---
Subjective Subjective Date of Service: 09/06/21 Interval history: POD1 s/p right knee I+D s/p TKA with Dr. Sood. Patient is resting in bed comfortably. No overnight evetns. Patient appears to be in minimal-no pain. No additional complaints. Physical Exam Vital Signs: Vital Signs: Last Vital Signs Temp 97.0 F 09/05/21 20:24 Pulse 84 09/05/21 20:24 Resp 17 09/05/21 20:24 BP 152/62 H 09/05/21 20:24 Pulse Ox 96 09/05/21 20:24 Const: General: cooperative, healthy appearing and no acute distress Resp: Effort & Inspection: normal respiratory effort and able to speak in comp lete sentences Cardio: Rate: regular rate Peripheral pulses: Peripheral pulses 2+ throughout GI: Palpation (GI): Soft to palpation Skin: Lesions: no lesions Rashes: no rashes Extrem: Other: Right knee wound vac is intact and functioning. Erythema is decreasing since prior to surgery. Patient is able to dorsiflex and plantarflex. Sensation is intact. Pedal pulse intact. Procedures Date of Service Date of Service: 09/06/21 Progress Note: A&P Assessment and plan (1) S/P total knee arthroplasty: Status: Acute Assessment and Plan: Continue pain mgmnt Plan to reassess for likely second I+D on Wednesday in the OR Dispo planning-Pain mgmnt Time Spent With Patient Time: Total time spent is greater than 50% in coordination of care (as documented) at patient's floor/unit and/or counseling patient: Quality Stroke Does the patient have a stroke diagnosis?: No VTE Prior VTE?: No VTE Risk Level:: Surgical - very high VTE Device Contraindication: N/A - Device Ordered VTE Drug Contraindication: N/A - Med Ordered
--- NOTE | 2021-09-06 09:39 | P.PNIM_ITS ---
Subjective Subjective Date of Service: 09/06/21 Review of Systems f/u on HTN management, in for right knee hematoma with wound dehiscence Interval history: had surgery yesterday, pain in the knee. BP slighty high Physical Exam Vital Signs: Vital Signs: Last Vital Signs Temp 97.0 F 09/05/21 20:24 Pulse 84 09/05/21 20:24 Resp 17 09/05/21 20:24 BP 152/62 H 09/05/21 20:24 Pulse Ox 96 09/05/21 20:24 Const: Other: General: AO X 3, no acute distress Resp: CTA bilateral CVS: S1,S2,RRR GI: +BS, NT, no distention Skin: No rash Neuro: motor grossly intact right lower ex generally swollen wound vac on knee Psych: appropriate affect Objective Data Active Medications Amlodipine Besylate (Amlodipine Besylate 10 Mg Tablet) 10 mg PO DAILY [facility]; Protocol Last Admin: 09/06/21 08:43 Dose: 10 mg Documented by: YOVANNY Celecoxib (Celecoxib 200 Mg Capsule) 200 mg PO BID [facility] Last Admin: 09/06/21 08:43 Dose: 200 mg Documented by: YOVANNY Docusate Sodium (Docusate Sodium 100 Mg Capsule) 100 mg PO BID [facility] Last Admin: 09/06/21 08:43 Dose: 100 mg Documented by: YOVANNY Enoxaparin Sodium (Enoxaparin Sodium 40 Mg/0.4 Ml Syringe) 40 mg SUBCUT Q24H [facility] Last Admin: 09/05/21 14:21 Dose: 40 mg Documented by: RENATE Lactated Ringer's (Lr) 1,000 mls @ 100 mls/hr IVCONT .Q10H [facility] Last Admin: 09/06/21 08:44 Dose: 100 mls/hr Documented by: YOVANNY Vancomycin HCl 1,000 mg/ (Sodium Chloride) 270 mls @ 270 mls/hr IV Q12H [facility] Last Infusion: 09/06/21 05:35 Dose: 0 mls/hr Documented by: REINALDO Oxycodone HCl (Oxycodone Hcl Immed Release 5 Mg Tablet) 5 mg PO Q4H PRN PRN Reason: Pain, Moderate (Pain Scale 4-6 Last Admin: 09/06/21 08:43 Dose: 5 mg Documented by: YOVANNY Pharmacy Consult (Consult Rx Vancomycin Dosing) 1 each MISCELLANE DAILY PRN PRN Reason: Consult order Pharmacy Consult (Consult Rx Perform Med Rec) 1 each MISCELLANE ONCE PRN PRN Reason: Consult order Sodium Chloride (0.9 % Sodium Chloride Flush 3 Ml Syringe) 3 ml IVFLUSH QSHIFT [facility] Last Admin: 09/06/21 08:43 Dose: Not Given Documented by: YOVANNY Non-Admin Reason: IV Running Labs CBC & Chem 7: 09/06/21 05:50 09/06/21 05:51 Labs: Laboratory Results - last 24 hr 09/05/21 09/05/21 09/06/21 15:22 15:22 05:50 MCV 78.8 L MCH 25.1 L MCHC 31.9 RDW 14.8 Plt Count 194 D MPV 12.1 Immature Gran % (Auto) 0.4 Neut % (Auto) 75.7 H Lymph % (Auto) 17.7 L [place] % (Auto) 6.1 Eos % (Auto) 0.0 Baso % (Auto) 0.1 Lymph # (Auto) 1.2 [place] # (Auto) 0.4 Eos # (Auto) 0.0 Baso # (Auto) 0.0 Abs Immat Gran (auto) 0.03 Absolute Neuts (auto) 5.2 Absolute Nucleated RBC 0.000 Nucleated RBC % (auto) 0.0 ESR 58 H Anion Gap Estim Creat Clear Calc Estimated GFR Fasting Glucose Calcium C-Reactive Protein 7.03 H 09/06/21 05:51 MCV MCH MCHC RDW Plt Count MPV Immature Gran % (Auto) Neut % (Auto) Lymph % (Auto) [place] % (Auto) Eos % (Auto) Baso % (Auto) Lymph # (Auto) [place] # (Auto) Eos # (Auto) Baso # (Auto) Abs Immat Gran (auto) Absolute Neuts (auto) Absolute Nucleated RBC Nucleated RBC % (auto) ESR Anion Gap 14 Estim Creat Clear Calc 139.8 Estimated GFR > 60 Fasting Glucose 136 H Calcium 8.6 C-Reactive Protein Assessment and Plan (1) Hypertension: Status: Acute Plan Possiple infected--IV Vanco, culture, and exploration by surgery 1.Hypertension: Continue amlodipine 2. Obese weight loss advised 3. right knee hematoma with wound dehiscence--management by ortho 4. Anemia--monitor h/h, no indication for transfusion a this time DVT prophylaxis lovenox Quality Stroke Does the patient have a stroke diagnosis?: No VTE Prior VTE?: No VTE Risk Level:: Surgical - very high VTE Device Contraindication: N/A - Device Ordered VTE Drug Contraindication: N/A - Med Ordered
[2021-09-06 13:57] LABS: Vancomycin Trough 8.4 mcg/mL (10.0-20.0)
[2021-09-06 14:40] VITALS: BP 150/80; PULSE 68; RESP 18; TEMP 36.1; O2SAT 97
[2021-09-06 15:02] VITALS: BP 119/60; PULSE 65; RESP 18; TEMP 21.2; O2SAT 96
[2021-09-06] MEDS: vancomycin HCL 1,250 MG in 0.9 % Sodium Chloride 250 ML 166.67 MG IV (15:06)
[2021-09-06] MEDS: Enoxaparin Sodium 40 MG/0.4 ML SYRINGE SUBCUT (15:07)
[2021-09-06 19:08] VITALS: BP 114/61; PULSE 71; RESP 18; TEMP 36.2; O2SAT 96
[2021-09-06] MEDS: 0.9 % Sodium Chloride Flush 3 ML SYRINGE IVFLUSH (19:44)
[2021-09-07] VITALS (7 sets, daily range): BP systolic 118–147; BP diastolic 56–80; PULSE 61–77; RESP 14–18; TEMP 36.1–36.8; O2SAT 93–98
[2021-09-07] MEDS: vancomycin HCL 1,250 MG in 0.9 % Sodium Chloride 250 ML 166.67 MG IV (02:51)
[2021-09-07 06:43] LABS: MANUAL DIFF FLAG NO
[2021-09-07 06:59] LABS: Basophils Percent Auto 0.9 % (0-2); Eosinophils Absolute Auto 0.1 X10*3/uL (0.0-0.4); Eosinophils Percent Auto 2.1 % (0-4); Hematocrit 31.4 % (42.0-52.0); Imm Gran Abs Auto 0.01 X10*3/uL (0.00-0.03); Imm Gran Pct Auto 0.2 % (0.0-0.4); Lymphocytes Absolute Auto 1.5 X10*3/uL (1.2-4.9); Lymphocytes Percent Auto 32.4 % (20-40); Mean Corpuscular HGB Conc 31.8 g/dl (31.0-36.0); Mean Corpuscular Hemoglobin 25.2 pg (27.0-33.0); Mean Corpuscular Volume 79.1 fL (80.0-98.0); Monocytes Absolute Auto 0.4 X10*3/uL (0.1-1.2); Monocytes Percent Auto 7.7 % (2-11); Neutrophils Absolute Auto 2.7 x10*3/uL (2.0-8.3); Neutrophils Percent Auto 56.7 % (45-73); Platelet Count 175 X10*3/uL (160-400); Red Blood Count 3.97 X10*6/uL (4.60-5.80); White Blood Count 4.7 X10*3/uL (4.8-10.8)
[2021-09-07 07:19] LABS: Anion Gap 9 (12-20); Blood Urea Nitrogen 15 mg/dL (9-16); Calcium 8.5 mg/dL (8.4-10.2); Carbon Dioxide 27 mmol/L (22-29); Chloride 107 mmol/L (96-108); Creatinine Clr Calc Pharmacy 145.3; Estimated Glomerular Filt Rate > 60; Glucose Fasting 107 mg/dL (60-99); Potassium 4.2 mmol/L (3.3-5.1); Sodium 139 mmol/L (135-145)
--- NOTE | 2021-09-07 09:18 | PM.PNORT ---
Subjective Subjective Date of Service: 09/07/21 Interval history: POD2 s/p right knee I+D s/p TKA with Dr. Sood. Patient is resting in bed comfortably. No overnight evetns. Patient appears to be in minimal-no pain. No additional complaints Physical Exam Vital Signs: Vital Signs: Last Vital Signs Temp 98.2 F 09/07/21 08:00 Pulse 67 09/07/21 08:00 Resp 17 09/07/21 08:00 BP 132/71 09/07/21 08:00 Pulse Ox 95 09/07/21 08:00 Const: General: cooperative, healthy appearing and no acute distress Resp: Effort & Inspection: normal respiratory effort and able to speak in complete sentences Cardio: Rate: regular rate Peripheral pulses: Peripheral pulses 2+ throughout GI: Palpation (GI): Soft to palpation Skin: Lesions: no lesions Rashes: no rashes Extrem: Other: Right knee wound vac is intact and functioning. Erythema is decreasing since prior to surgery. Patient is able to dorsiflex and plantarflex. Sensation is intact. Pedal pulse intact. Procedures Date of Service Date of Service: 09/07/21 Progress Note: A&P Assessment and plan (1) S/P total knee arthroplasty: Status: Acute Plan Continue pain mgmnt Plan to reassess for likely second I+D on Wednesday in the OR Dispo planning-Pain mgmnt Time Spent With Patient Time: Total time spent is greater than 50% in coordination of care (as documented) at patient's floor/unit and/or counseling patient: Quality Stroke Does the patient have a stroke diagnosis?: No VTE Prior VTE?: No VTE Risk Level:: Surgical - very high VTE Device Contraindication: N/A - Device Ordered VTE Drug Contraindication: N/A - Med Ordered
--- NOTE | 2021-09-07 09:47 | HO.PM.IMPN ---
Subjective Subjective Date of Service: 09/07/21 Review of Systems f/u on HTN management, in for right knee hematoma with wound dehiscence Interval history: had surgery yesterday, pain in the knee. BP is well controlled. Physical Exam Vital Signs: Vital Signs: Last Vital Signs Temp 98.2 F 09/07/21 08:00 Pulse 67 09/07/21 08:00 Resp 17 09/07/21 08:00 BP 132/71 09/07/21 08:00 Pulse Ox 95 09/07/21 08:00 Const: Other: General: AO X 3, no acute distress Resp: CTA bilateral CVS: S1,S2,RRR GI: +BS, NT, no distention Skin: No rash Neuro: motor grossly intact right lower ex generally swollen wound vac on knee Psych: appropriate affect Objective Data Active Medications Amlodipine Besylate (Amlodipine Besylate 10 Mg Tablet) 10 mg PO DAILY [facility]; Protocol Last Admin: 09/06/21 08:43 Dose: 10 mg Documented by: YOVANNY Celecoxib (Celecoxib 200 Mg Capsule) 200 mg PO BID [facility] Last Admin: 09/06/21 19:44 Dose: 200 mg Documented by: BERENICE Docusate Sodium (Docusate Sodium 100 Mg Capsule) 100 mg PO BID [facility] Last Admin: 09/06/21 19:44 Dose: 100 mg Documented by: BERENICE Enoxaparin Sodium (Enoxaparin Sodium 40 Mg/0.4 Ml Syringe) 40 mg SUBCUT Q24H [facility] Last Admin: 09/06/21 15:07 Dose: 40 mg Documented by: YOVANNY Vancomycin HCl 1,250 mg/ (Sodium Chloride) 250 mls @ 166.667 mls/hr IV Q12H [facility] Last Infusion: 09/07/21 04:39 Dose: 0 mls/hr Documented by: BERENICE Oxycodone HCl (Oxycodone Hcl Immed Release 5 Mg Tablet) 5 mg PO Q4H PRN PRN Reason: Pain, Moderate (Pain Scale 4-6 Last Admin: 09/06/21 20:47 Dose: 5 mg Documented by: BERENICE Pharmacy Consult (Consult Rx Vancomycin Dosing) 1 each MISCELLANE DAILY PRN PRN Reason: Consult order Pharmacy Consult (Consult Rx Perform Med Rec) 1 each MISCELLANE ONCE PRN PRN Reason: Consult order Sodium Chloride (0.9 % Sodium Chloride Flush 3 Ml Syringe) 3 ml IVFLUSH QSHIFT [facility] Last Admin: 09/06/21 19:44 Dose: 3 ml Documented by: BERENICE Labs CBC & Chem 7: 09/07/21 06:24 09/07/21 06:24 Labs: Laboratory Results - last 24 hr 09/06/21 09/07/21 09/07/21 13:25 06:24 06:24 MCV 79.1 L MCH 25.2 L MCHC 31.8 RDW 15.0 Plt Count 175 MPV 12.0 Immature Gran % (Auto) 0.2 Neut % (Auto) 56.7 Lymph % (Auto) 32.4 [place] % (Auto) 7.7 Eos % (Auto) 2.1 Baso % (Auto) 0.9 Lymph # (Auto) 1.5 [place] # (Auto) 0.4 Eos # (Auto) 0.1 Baso # (Auto) 0.0 Abs Immat Gran (auto) 0.01 Absolute Neuts (auto) 2.7 Absolute Nucleated RBC 0.000 Nucleated RBC % (auto) 0.0 Anion Gap 9 L Estim Creat Clear Calc 145.3 Estimated GFR > 60 Fasting Glucose 107 H Calcium 8.5 Vancomycin Trough 8.4 L Assessment and Plan (1) S/P total knee arthroplasty: Status: Acute Plan 1.Hypertension: Continue amlodipine 2. Obese weight loss advised 3. right knee hematoma with wound dehiscence s/p surgery and now ith wound vac--management by ortho 4. Anemia--monitor h/h, no indication for transfusion a this time DVT prophylaxis lovenox Quality Stroke Does the patient have a stroke diagnosis?: No VTE Prior VTE?: No VTE Risk Level:: Surgical - very high VTE Device Contraindication: N/A - Device Ordered VTE Drug Contraindication: N/A - Med Ordered
[2021-09-07] MEDS: Docusate Sodium 100 MG CAPSULE PO ×2 (11:12→20:22)
[2021-09-07] MEDS: amLODIPine Besylate 10 MG TABLET PO (11:12)
[2021-09-07] MEDS: Celecoxib 200 MG CAPSULE PO ×2 (11:12→20:22)
[2021-09-07 15:49] LABS: Vancomycin Trough 5.3 mcg/mL (10.0-20.0)
--- NOTE | 2021-09-07 15:58 | HE.PHANOTE ---
VANCOMYCIN DOSING: Trough came back at 5.3. Based on obese model, the current regimen of 1250 mg q12h predicts a therapeutic AUC of 580 with a trough of 6.0. Will continue to monitor renal function and adjust regimen as needed. Next trough is set for 09/09 @ 0100.
[2021-09-07] MEDS: oxyCODONE HCl Immed Release 5 MG TABLET PO (17:22)
[2021-09-07] MEDS: vancomycin HCL 1,250 MG in 0.9 % Sodium Chloride 250 ML 166.66 MG IV (17:22)
[2021-09-07] MEDS: Enoxaparin Sodium 40 MG/0.4 ML SYRINGE SUBCUT (17:23)
[2021-09-07] MEDS: 0.9 % Sodium Chloride Flush 3 ML SYRINGE IVFLUSH ×2 (17:24→20:23)
[2021-09-07] MEDS: HYDROmorphone HCl 2 MG TABLET 1 MG PO (21:02)
[2021-09-08] VITALS (13 sets, daily range): BP systolic 139–179; BP diastolic 78–93; PULSE 71–84; RESP 15–20; TEMP 36.1–36.8; O2SAT 94–99
[2021-09-08] MEDS: vancomycin HCL 1,250 MG in 0.9 % Sodium Chloride 250 ML 166.67 MG IV ×2 (02:20→17:29)
[2021-09-08] MEDS: oxyCODONE HCl Immed Release 5 MG TABLET PO ×2 (03:25→20:49)
[2021-09-08 08:41] LABS: Creatinine Clr Calc Pharmacy 145.3; Estimated Glomerular Filt Rate > 60
--- NOTE | 2021-09-08 09:20 | HO.PM.IMPN ---
Subjective Subjective Date of Service: 09/08/21 Review of Systems f/u on HTN management, in for right knee hematoma with wound dehiscence Interval history: Pain is control, for surgical exploration today/ Physical Exam Vital Signs: Vital Signs: Last Vital Signs Temp 97.0 F 09/08/21 08:00 Pulse 83 09/08/21 08:00 Resp 18 09/08/21 08:00 BP 179/93 H 09/08/21 08:00 Pulse Ox 97 09/08/21 08:00 Const: Other: General: AO X 3, no acute distress Resp: CTA bilateral CVS: S1,S2,RRR GI: +BS, NT, no distention Skin: No rash Neuro: motor grossly intact right lower ex generally swollen wound vac on knee Psych: appropriate affect Objective Data Active Medications Amlodipine Besylate (Amlodipine Besylate 10 Mg Tablet) 10 mg PO DAILY [facility]; Protocol Last Admin: 09/07/21 11:12 Dose: 10 mg Documented by: YOVANNY Celecoxib (Celecoxib 200 Mg Capsule) 200 mg PO BID [facility] Last Admin: 09/07/21 20:22 Dose: 200 mg Documented by: CARLITOS Docusate Sodium (Docusate Sodium 100 Mg Capsule) 100 mg PO BID [facility] Last Admin: 09/07/21 20:22 Dose: 100 mg Documented by: CARLITOS Enoxaparin Sodium (Enoxaparin Sodium 40 Mg/0.4 Ml Syringe) 40 mg SUBCUT Q24H [facility] Last Admin: 09/07/21 17:23 Dose: 40 mg Documented by: YOVANNY Vancomycin HCl 1,250 mg/ (Sodium Chloride) 250 mls @ 166.667 mls/hr IV Q12H [facility] Oxycodone HCl (Oxycodone Hcl Immed Release 5 Mg Tablet) 5 mg PO Q4H PRN PRN Reason: Pain, Moderate (Pain Scale 4-6 Last Admin: 09/08/21 03:25 Dose: 5 mg Documented by: CARLITOS Pharmacy Consult (Consult Rx Vancomycin Dosing) 1 each MISCELLANE DAILY PRN PRN Reason: Consult order Pharmacy Consult (Consult Rx Perform Med Rec) 1 each MISCELLANE ONCE PRN PRN Reason: Consult order Sodium Chloride (0.9 % Sodium Chloride Flush 3 Ml Syringe) 3 ml IVFLUSH QSHIFT [facility] Last Admin: 09/07/21 20:23 Dose: 3 ml Documented by: CARLITOS Labs CBC & Chem 7: 09/07/21 06:24 09/08/21 08:09 Labs: Laboratory Results - last 24 hr 09/07/21 09/08/21 14:50 08:09 Estim Creat Clear Calc 145.3 Estimated GFR > 60 Vancomycin Trough 5.3 L Assessment and Plan (1) S/P total knee arthroplasty: Status: Acute (2) Osteoarthritis of right knee: Status: Acute (3) Hypertension: Status: Acute Plan 1.Hypertension: BP is high this morning, but mostly have been on lower side. continue Norvasc 10 and if persistently high add Lisinopril 2. Obese weight loss advised 3. right knee hematoma with wound dehiscence s/p surgery and now ith wound vac, for I and D today --further management by ortho.. No further testing needed 4. Anemia--monitor h/h, no indication for transfusion a this time DVT prophylaxis to be determned after surgey Quality Stroke Does the patient have a stroke diagnosis?: No VTE Prior VTE?: No VTE Risk Level:: Surgical - very high VTE Device Contraindication: N/A - Device Ordered VTE Drug Contraindication: N/A - Med Ordered
[2021-09-08] MEDS: 0.9 % Sodium Chloride Flush 3 ML SYRINGE IVFLUSH ×3 (10:43→20:52)
--- NOTE | 2021-09-08 12:15 | HO.ANESPROP2 ---
HPI - Anesthesia Eval Consult details Narrative: 66 yo male patient for I&D with liner exchange s/p Right TKR PMFSH Active Problems Active Problems: All Active Problems (Updated 09/05/21 @ 13:10 by Tamara Garcia MD) S/P total knee arthroplasty (Acute) Osteoarthritis of right knee (Acute) Hx of hepatitis C (Acute) Hypertension (Acute) Osteoarthritis of left knee (Acute) Pancytopenia (Acute) Primary osteoarthritis of knees, bilateral (Acute) Abscess of right hand (Acute) Post-traumatic osteoarthritis of right knee (Acute) Preop exam for internal medicine (Acute) Morbid obesity (Acute) Seizure (Acute) Knee pain (Acute) Denies heroin use for at least 6 months Denies LIONEL States 'light smoker'. No cigarettes since admission Past Medical History Medical History (Updated 09/05/21 @ 13:10 by Tmaara Garcia MD) Cellulitis and abscess of hand Convulsion, non-epileptic Hx MRSA infection Hx of hepatitis C Hypertension Knee pain Morbid obesity Osteoarthritis of left knee Pancytopenia Family History Family History Father No problems noted. Mother No problems noted. Family history of problems with anesthesia: No Surgical History Surgical History History of right knee surgery History of right shoulder replacement History of surgery History of Problems with Anesthesia: No Social History Social History Household Members: Significant Other [facility]: [facility] Are you a primary client care representative to a significant other at home: No Do you presently have visiting nurse or other home services: Yes Unable to assess alcohol history related to: Unknown Alcohol intake: never Patient Tobacco Use Status: Current someday Tobacco user Tobacco use type: Cigarette Cigarettes Per Day: 4 Years Smoked: 20 Smoked in Last 30 Days: No e-Cigarette/Vaping Use: Currently Using Patient Interested in Nicotine Replacement: No Patient Given Instructions on How to Stop Smoking: No Second Hand Smoke Exposure: No Use of substances other than those prescribed or required for medical reasons: No Substance Use Type: Heroin Currently Displaying Signs/Symptoms of Drug Intoxication Withdrawal: No Do you feel safe in your current relationship?: Yes Is there a partner from a previous relationship who is making you feel unsafe now?: No Are you made to feel afraid or neglected: No Are you DNR?: No Advance Directives: No Advance Directives Information Provided: No Do you have thoughts of harming others: None Do you have a plan to hurt others: No Plan Recently lost weight without trying: No Nutrition Risks: No Nutritional Risk Poor oral hygiene: No service: No Current occupational status: disabled Cognitive needs: No Hearing needs: No Vision needs: No Meds Allergies Allergy/AdvReac Type Severity Reaction Status Date / Time blueberry [BLUEBERRY] Allergy Severe ANAPHYLAXIS Verified 09/04/21 09:18 hydrocodone [Vicodin] Allergy Severe Anaphylaxis Verified 09/04/21 09:18 acetaminophen [Tylenol] Allergy Intermediate told to Verified 09/04/21 09:18 avoid Active Medications: Current Medications Amlodipine Besylate (Amlodipine Besylate 10 Mg Tablet) 10 mg PO DAILY [facility]; Protocol Last Admin: 09/07/21 11:12 Dose: 10 mg Documented by: Celecoxib (Celecoxib 200 Mg Capsule) 200 mg PO BID [facility] Last Admin: 09/07/21 20:22 Dose: 200 mg Documented by: Docusate Sodium (Docusate Sodium 100 Mg Capsule) 100 mg PO BID [facility] Last Admin: 09/07/21 20:22 Dose: 100 mg Documented by: Enoxaparin Sodium (Enoxaparin Sodium 40 Mg/0.4 Ml Syringe) 40 mg SUBCUT Q24H [facility] Last Admin: 09/07/21 17:23 Dose: 40 mg Documented by: Vancomycin HCl 1,250 mg/ (Sodium Chloride) 250 mls @ 166.667 mls/hr IV Q12H [facility] Lactated Ringer's (Lr) 1,000 mls @ 100 mls/hr IVCONT .Q10H [facility] Oxycodone HCl (Oxycodone Hcl Immed Release 5 Mg Tablet) 5 mg PO Q4H PRN PRN Reason: Pain, Moderate (Pain Scale 4-6 Last Admin: 09/08/21 03:25 Dose: 5 mg Documented by: Pharmacy Consult (Consult Rx Vancomycin Dosing) 1 each MISCELLANE DAILY PRN PRN Reason: Consult order Pharmacy Consult (Consult Rx Perform Med Rec) 1 each MISCELLANE ONCE PRN PRN Reason: Consult order Sodium Chloride (0.9 % Sodium Chloride Flush 3 Ml Syringe) 3 ml IVFLUSH QSHIFT [facility] Last Admin: 09/08/21 10:43 Dose: 3 ml Documented by: Exam Exam Date and Time: September 08, 2021 1215 Height,Weight and Vital Signs: Height 6 ft 1 in Weight 145.15 kg Last Vital Signs Temp 97.7 F 09/08/21 11:38 Pulse 84 09/08/21 11:38 Resp 20 09/08/21 11:38 BP 175/88 H 09/08/21 11:38 Pulse Ox 98 09/08/21 11:38 Pertinent Lab Results Pertinent Lab Results: Laboratory Tests 09/04/21 09/04/21 09/04/21 12:52 14:48 14:48 WBC RBC Hgb Hct MCV MCH MCHC RDW Plt Count MPV Immature Gran % (Auto) Neut % (Auto) Lymph % (Auto) [place] % (Auto) Eos % (Auto) Baso % (Auto) Lymph # (Auto) [place] # (Auto) Eos # (Auto) Baso # (Auto) Abs Immat Gran (auto) Absolute Neuts (auto) Absolute Nucleated RBC Nucleated RBC % (auto) ESR Sodium 136 Potassium 4.2 Chloride 105 Carbon Dioxide 21 L Anion Gap 14 BUN 15 Creatinine 1.00 Estim Creat Clear Calc 111.8 Estimated GFR > 60 Random Glucose 162 H Fasting Glucose Calcium 9.3 D C-Reactive Protein Vancomycin Trough < 3.0 L COVID-19 ([facility]) Negative COVID-19 Clin Com See Note 09/05/21 09/05/21 09/05/21 05:15 05:15 15:22 WBC 5.4 RBC 4.08 L Hgb 10.2 L Hct 32.1 L MCV 78.7 L MCH 25.0 L MCHC 31.8 RDW 15.0 Plt Count 149 L MPV 12.6 H Immature Gran % (Auto) 0.4 Neut % (Auto) 57.9 Lymph % (Auto) 27.0 [place] % (Auto) 11.9 H Eos % (Auto) 2.4 Baso % (Auto) 0.4 Lymph # (Auto) 1.5 [place] # (Auto) 0.6 Eos # (Auto) 0.1 Baso # (Auto) 0.0 Abs Immat Gran (auto) 0.02 Absolute Neuts (auto) 3.1 Absolute Nucleated RBC 0.000 Nucleated RBC % (auto) 0.0 ESR 58 H Sodium 136 Potassium 4.3 Chloride 105 Carbon Dioxide 21 L Anion Gap 14 BUN 12 Creatinine 0.79 Estim Creat Clear Calc 141.6 Estimated GFR > 60 Random Glucose Fasting Glucose 106 H Calcium 8.4 D C-Reactive Protein Vancomycin Trough COVID-19 ([facility]) COVID-19 [employer] 09/05/21 09/06/21 09/06/21 15:22 05:50 05:51 WBC 6.9 RBC 4.10 L Hgb 10.3 L Hct 32.3 L MCV 78.8 L MCH 25.1 L MCHC 31.9 RDW 14.8 Plt Count 194 D MPV 12.1 Immature Gran % (Auto) 0.4 Neut % (Auto) 75.7 H Lymph % (Auto) 17.7 L [place] % (Auto) 6.1 Eos % (Auto) 0.0 Baso % (Auto) 0.1 Lymph # (Auto) 1.2 [place] # (Auto) 0.4 Eos # (Auto) 0.0 Baso # (Auto) 0.0 Abs Immat Gran (auto) 0.03 Absolute Neuts (auto) 5.2 Absolute Nucleated RBC 0.000 Nucleated RBC % (auto) 0.0 ESR Sodium 139 Potassium 4.8 Chloride 106 Carbon Dioxide 24 Anion Gap 14 BUN 15 Creatinine 0.80 Estim Creat Clear Calc 139.8 Estimated GFR > 60 Random Glucose Fasting Glucose 136 H Calcium 8.6 C-Reactive Protein 7.03 H Vancomycin Trough COVID-19 ([facility]) COVID-19 [facility] 09/06/21 09/07/21 09/07/21 13:25 06:24 06:24 WBC 4.7 L RBC 3.97 L Hgb 10.0 L Hct 31.4 L MCV 79.1 L MCH 25.2 L MCHC 31.8 RDW 15.0 Plt Count 175 MPV 12.0 Immature Gran % (Auto) 0.2 Neut % (Auto) 56.7 Lymph % (Auto) 32.4 [place] % (Auto) 7.7 Eos % (Auto) 2.1 Baso % (Auto) 0.9 Lymph # (Auto) 1.5 [place] # (Auto) 0.4 Eos # (Auto) 0.1 Baso # (Auto) 0.0 Abs Immat Gran (auto) 0.01 Absolute Neuts (auto) 2.7 Absolute Nucleated RBC 0.000 Nucleated RBC % (auto) 0.0 ESR Sodium 139 Potassium 4.2 Chloride 107 Carbon Dioxide 27 Anion Gap 9 L BUN 15 Creatinine 0.77 Estim Creat Clear Calc 145.3 Estimated GFR > 60 Random Glucose Fasting Glucose 107 H Calcium 8.5 C-Reactive Protein Vancomycin Trough 8.4 L COVID-19 ([facility]) COVID-19 Clin Com 09/07/21 09/08/21 14:50 08:09 WBC RBC Hgb Hct MCV MCH MCHC RDW Plt Count MPV Immature Gran % (Auto) Neut % (Auto) Lymph % (Auto) [place] % (Auto) Eos % (Auto) Baso % (Auto) Lymph # (Auto) [place] # (Auto) Eos # (Auto) Baso # (Auto) Abs Immat Gran (auto) Absolute Neuts (auto) Absolute Nucleated RBC Nucleated RBC % (auto) ESR Sodium Potassium Chloride Carbon Dioxide Anion Gap BUN Creatinine 0.77 Estim Creat Clear Calc 145.3 Estimated GFR > 60 Random Glucose Fasting Glucose Calcium C-Reactive Protein Vancomycin Trough 5.3 L COVID-19 ([facility]) COVID-19 Clin Com Airway Mallampati Class: III TM Dist: >3cm Neck ROM: Full Loose/Missing/Broken Teeth: Yes (Poor-Many broken, many missing) Heart: RRR Lungs: CTAB Assessment and Plan Assessment Anesthesia Assessment: Anesthesia Plan Discussed and Chart Reviewed Final Anesthetic Review Family History of Problems with Anesthesia: No History of Problems with Anesthesia: No NPO: Yes ASA Class: III Final Preanesthetic Review: No Changes in Pt Med Stat, Meds/Allgs Chart Reviewed, Consent Obtained/Reviewed and Anes Risks/Benef Reviewed Patient Risk: Intermediate Procedure Risk: Intermediate Assessment/Block/Sedation in SS: Assess/Block/Sedation-SS Anesthetic Plan Anesthetic Plan: GA Disposition: Standard PACU and Inp. Admit - Standard Bed
--- NOTE | 2021-09-08 12:19 | MHC.CM.PN ---
EMR REVIEWED, PT /P I&D 09/05 W/PLAN TO RETURN TO OR TODAY FOR 2ND I&D, PLAN REMAINS TO BE HOME W/RESUMP OF [facility] & PT ARRANGING HIS OWN TRANSPORT. [facility] UPDATED AND CM WILL CONT TO FOLLOW D/C NEEDS.
--- NOTE | 2021-09-08 13:46 | HE.PHANOTE ---
Spoke to julian Porrasinally we discussed a trough today @1300 to ensure pt would be within range of auc, patient is currently in surgery and surgeon wants patient to get abx, I let Chiquita know and scheduled a level for 09/09@0100
[2021-09-08] MEDS: HYDROmorphone HCl 0.5 MG/0.5 ML SYRINGE IVPUSH (15:11)
--- NOTE | 2021-09-08 15:23 | PM.OP ---
Brief Operative Note Date of Service: 09/08/21 Pre-op diagnosis: right knee hematoma and wound breakdown s/p TKA Procedure: Right knee irrigation and deridement with polyethylene liner exchange and partial DPC with placement of wound vac Surgeon: Edmar Sood MD Anesthesia: GETA Was an Safety And Security Manager used for this Procedure?: No Estimated blood loss (mL): 150 Pathology: other Condition: stable Disposition: PACU
[2021-09-08] MEDS: Enoxaparin Sodium 40 MG/0.4 ML SYRINGE SUBCUT (17:29)
[2021-09-08] MEDS: Docusate Sodium 100 MG CAPSULE PO (20:50)
[2021-09-08] MEDS: Celecoxib 200 MG CAPSULE PO (20:50)
[2021-09-09] MEDS: oxyCODONE HCl Immed Release 5 MG TABLET PO ×3 (01:27→08:50)
[2021-09-09 03:31] VITALS: BP 160/78; PULSE 82; RESP 17; TEMP 36.7; O2SAT 94
--- NOTE | 2021-09-09 05:19 | PC.NURSE ---
pt refuse blood drawn vanco through before his 3 am dose he was explained importance of this test and before antibiotic is given but didnt want to listen he said he wants to sleep leave him alone. dr Raymond asked the agency appointments supervisor to talk to pt but he told her to get out of the room and he didnt get his 3 am vanomycin.
--- NOTE | 2021-09-09 06:54 | HO.POSTANES ---
Post Anesthesia Evaluation Post Anesthesia Evaluation Vital Signs: Vital Signs Temp Pulse Resp BP Pulse Ox 09/09/21 03:31 98.0 F 82 17 160/78 H 94 09/08/21 23:39 97.0 F 83 17 139/82 95 Anesthesia: General Mental Status: Awake Pain Control: Satisfactory (pain not controlled throughout the night ) Nausea/Vomiting: Mild Hydration: Adequate Anesthesia-Related Issues: No Anes. Related Issues
--- NOTE | 2021-09-09 07:33 | PM.PNORT ---
Subjective Subjective Date of Service: 09/09/21 Interval history: POD1 s/p second I+D right total knee arthroplasty. Patient is resting in bed. No overnight events. Patient complains of pain. No additional complaints. Physical Exam Vital Signs: Vital Signs: Last Vital Signs Temp 98.0 F 09/09/21 03:31 Pulse 82 09/09/21 03:31 Resp 17 09/09/21 03:31 BP 160/78 H 09/09/21 03:31 Pulse Ox 94 09/09/21 03:31 Const: General: cooperative, healthy appearing and no acute distress Resp: Effort & Inspection: normal respiratory effort and able to speak in complete sentences Cardio: Rate: regular rate Peripheral pulses: Peripheral pulses 2+ throughout GI: Palpation (GI): Soft to palpation Skin: Lesions: no lesions Rashes: no rashes Extrem: Other: Right knee wound vac is intact and functioning. Patient is able to dorsiflex and plantarflex. Sensation is intact. Pedal pulse intact. Procedures Date of Service Date of Service: 09/09/21 Progress Note: A&P Assessment and plan (1) S/P total knee arthroplasty: Status: Acute Assessment and Plan: Continue pain mgmnt continue wound vac PICC line to be placed today - Important to note that the patient is not a current IVDA. Patient has a history if IVDA. Dispo planning-Pending PT eval, pain mgmnt Time Spent With Patient Time: Total time spent is greater than 50% in coordination of care (as documented) at patient's floor/unit and/or counseling patient: Quality Stroke Does the patient have a stroke diagnosis?: No VTE Prior VTE?: No VTE Risk Level:: Surgical - very high VTE Device Contraindication: N/A - Device Ordered VTE Drug Contraindication: N/A - Med Ordered
[2021-09-09 08:37] VITALS: BP 158/80; PULSE 84; RESP 17; TEMP 36.4; O2SAT 95
--- NOTE | 2021-09-09 08:43 | HO.PM.IMPN ---
Subjective Subjective Date of Service: 09/09/21 Review of Systems f/u on HTN management, in for right knee hematoma with wound dehiscence Interval history: Pain is control, s/p Right knee irrigation and deridement with polyethylene liner exchange and partial DPC with placement of wound vac 09/18, doing well this morning Physical Exam Vital Signs: Vital Signs: Last Vital Signs Temp 97.5 F 09/09/21 08:37 Pulse 84 09/09/21 08:37 Resp 17 09/09/21 08:37 BP 158/80 H 09/09/21 08:37 Pulse Ox 95 09/09/21 08:37 Const: Other: General: AO X 3, no acute distress Resp: CTA bilateral CVS: S1,S2,RRR GI: +BS, NT, no distention Skin: No rash Neuro: motor grossly intact right lower ex generally swollen wound vac on knee Psych: appropriate affect Objective Data Active Medications Amlodipine Besylate (Amlodipine Besylate 10 Mg Tablet) 10 mg PO DAILY [facility]; Protocol Last Admin: 09/08/21 15:04 Dose: Not Given Documented by: LIANG Non-Admin Reason: NPO Celecoxib (Celecoxib 200 Mg Capsule) 200 mg PO BID [facility] Last Admin: 09/08/21 20:50 Dose: 200 mg Documented by: PRESLEY Docusate Sodium (Docusate Sodium 100 Mg Capsule) 100 mg PO BID [facility] Last Admin: 09/08/21 20:50 Dose: 100 mg Documented by: PRESLEY Enoxaparin Sodium (Enoxaparin Sodium 40 Mg/0.4 Ml Syringe) 40 mg SUBCUT Q24H [facility] Last Admin: 09/08/21 17:29 Dose: 40 mg Documented by: BRUNO Vancomycin HCl 1,250 mg/ (Sodium Chloride) 250 mls @ 166.667 mls/hr IV Q12H [facility] Last Admin: 09/09/21 07:43 Dose: Not Given Documented by: RENATE Non-Admin Reason: previous shift Oxycodone HCl (Oxycodone Hcl Immed Release 5 Mg Tablet) 5 mg PO Q4H PRN PRN Reason: Pain, Moderate (Pain Scale 4-6 Last Admin: 09/09/21 05:13 Dose: 5 mg Documented by: PRESLEY Pharmacy Consult (Consult Rx Vancomycin Dosing) 1 each MISCELLANE DAILY PRN PRN Reason: Consult order Pharmacy Consult (Consult Rx Perform Med Rec) 1 each MISCELLANE ONCE PRN PRN Reason: Consult order Sodium Chloride (0.9 % Sodium Chloride Flush 3 Ml Syringe) 3 ml IVFLUSH QSHIFT [facility] Last Admin: 09/08/21 20:52 Dose: 3 ml Documented by: PRESLEY Labs CBC & Chem 7: 09/07/21 06:24 09/08/21 08:09 Microbiology Microbiology Results: Microbiology 09/08/21 Unknown Gram Stain - Final Knee,Right Assessment and Plan (1) S/P total knee arthroplasty: Status: Acute (2) Hypertension: Status: Acute (3) Osteoarthritis of right knee: Status: Acute Plan 1.Hypertension: BP is high this morning, but mostly have been on lower side. continue Norvasc 10 and is persistently high add Lisinopril 5 2. Obese weight loss advised 3. right knee hematoma with wound dehiscence s/p surgery and now ith wound vac, for I and D today --further management by ortho.. No further testing needed 4. Anemia--monitor h/h, no indication for transfusion a this time DVT prophylaxis to be determned after surgey Quality Stroke Does the patient have a stroke diagnosis?: No VTE Prior VTE?: No VTE Risk Level:: Surgical - very high VTE Device Contraindication: N/A - Device Ordered VTE Drug Contraindication: N/A - Med Ordered
[2021-09-09] MEDS: amLODIPine Besylate 10 MG TABLET PO (08:50)
[2021-09-09] MEDS: Celecoxib 200 MG CAPSULE PO ×2 (08:50→22:00)
[2021-09-09] MEDS: Docusate Sodium 100 MG CAPSULE PO ×2 (08:50→22:00)
--- NOTE | 2021-09-09 13:05 | P.PICC_ITS ---
PICC Line Insertion NPICC Diagnosis: [right knee infection] Indication: [bed bug exterminator antibiotics needed] Pertinent Labs: [reviewed] Technique: Following informed consent including risks, benefits and alternatives and using sterile technique including cap and mask, sterile gown, glove and drape, the [right] arm was prepped and draped in the usual sterile fashion of full barrier technique with CHG. Following completion of Rice Protocol the skin and soft tissues were anesthetized with 1% Lidocaine plain. Using ultrasound guidance, [right basilic] vein access was obtained twice by Margareth Thapa RN, but unable to advance guidewire. The right basilic vein was then attempted once by Francesca Robertson RN, but patient had a cramp in his right elbow and broke the sterile field when he bent his right arm. Entire sterile field was broken down and disposed of (including gown and gloves) and we started over using the left arm. Skin and soft tissues of left arm were anesthetized with 1% Lidocaine plain. Using ultrasound guidance, left basilic vein access was obtained on first attempt by Francesca Robertson RN. Over an 0.018 wire through peel-away sheath, a [5FR] PICC line was positioned. Catheter length is [46 CM] internal length, [0 CM] external length, for a total trimmed length of [46 CM]. The procedure was performed in [S272]. Tip verification was performed by Stanton Vuong with Jerson 3CG. Tip located in SVC. Ultrasound was used to document vein patency and for needle entry. A formal ultrasound picture and cardiac rhythm strip was recorded. Vascular Wildlife Technician has released the line for use and it is currently dressed with a StatLock, Tegaderm, and CHG disc. Verification has been performed for blood return and line patency. Arm Circumference: [39.5 CM] Equipment: [[employer] Power PICC SOLO] Catheter Type: [5FR Double lumen PICC] Lot #: [[id number]]
[2021-09-09] MEDS: oxyCODONE HCl Immed Release 5 MG TABLET 10 MG PO ×3 (13:08→22:00)
[2021-09-09] MEDS: lisinopriL 5 MG TABLET PO (13:08)
--- NOTE | 2021-09-09 14:16 | HE.PHANOTE ---
Pt refused lab draws as well as 09/09/21 0300 dose of vancomycin; reached out to phlebotomy multiple times for a follow up to establish renal function today. Reached out to Dr. Cifuentes who referred me to ortho on how to proceed; Dr. Sood did not respond. Contacted patient's nurse Zuly to see if patient is still refusing draws or if phlebotomy had been up to try but was told no idea. Will see if patient refuses today's dose at 1500 and will continue to monitor. May need to find alternative therapy.
[2021-09-09 14:57] LABS: Creatinine Clr Calc Pharmacy 128.6; Estimated Glomerular Filt Rate > 60
[2021-09-09 15:30] LABS: Delay - Chemistry DELAY
[2021-09-09 16:05] VITALS: BP 138/78; PULSE 103; RESP 18; TEMP 35.9; O2SAT 96
--- NOTE | 2021-09-09 16:17 | MHC.CM.PN ---
CM MET W/PT TO DISCUSS DCP, PT AWARE HE WILL NEED 6WKS IV ABX AT HOME VS AT SNF, PT REPORTS HE HAS NO PREFERENCE OF VNA/HI AND PT PREFERS TO GO HOME HOWEVER THAT WILL BE DETERMINED AFTER HIS 3RD I&D THAT IS PLANNED FOR TOMORROW AND PT EVAL IS COMPLETED, PT REPORTS HE HAS NO PREFERENCE ON SNF HOWEVER PREFERS TO STAY IN OR CLOSE TO [place], REFERRALS TO BE PLACED.
[2021-09-09] MEDS: vancomycin HCL 1,250 MG in 0.9 % Sodium Chloride 250 ML 166.67 MG IV ×2 (16:26→22:07)
[2021-09-09] MEDS: Enoxaparin Sodium 40 MG/0.4 ML SYRINGE SUBCUT (16:26)
[2021-09-09] MEDS: 0.9 % Sodium Chloride Flush 10 ML SYRINGE 5 ML IVFLUSH (16:30)
[2021-09-09 19:52] VITALS: BP 155/88; PULSE 112; RESP 18; TEMP 36.9; O2SAT 97
--- NOTE | 2021-09-09 20:41 | HE.PHANOTE ---
vanco trough delayed at time 15:00 dose was due, decision was made to cont current dose. Result called in from [facility] @20:30, dose re adjusted to 1250 q8h
[2021-09-10] VITALS (13 sets, daily range): BP systolic 104–181; BP diastolic 57–98; PULSE 78–93; RESP 14–18; TEMP 36.1–37.1; O2SAT 92–100
[2021-09-10] MEDS: oxyCODONE HCl Immed Release 5 MG TABLET 10 MG PO ×3 (02:18→20:56)
[2021-09-10 05:41] LABS: Vancomycin Trough 6.5 mcg/mL (10.0-20.0)
[2021-09-10 06:25] LABS: MANUAL DIFF FLAG NO
[2021-09-10] MEDS: vancomycin HCL 1,250 MG in 0.9 % Sodium Chloride 250 ML 166.67 MG IV (06:36)
[2021-09-10 06:38] LABS: Basophils Percent Auto 0.5 % (0-2); Eosinophils Absolute Auto 0.3 X10*3/uL (0.0-0.4); Eosinophils Percent Auto 3.5 % (0-4); Hematocrit 31.8 % (42.0-52.0); Hemoglobin 10.1 g/dl (14.0-18.0); Imm Gran Abs Auto 0.03 X10*3/uL (0.00-0.03); Imm Gran Pct Auto 0.4 % (0.0-0.4); Lymphocytes Absolute Auto 1.7 X10*3/uL (1.2-4.9); Lymphocytes Percent Auto 22.8 % (20-40); Mean Corpuscular HGB Conc 31.8 g/dl (31.0-36.0); Mean Corpuscular Hemoglobin 25.1 pg (27.0-33.0); Mean Corpuscular Volume 78.9 fL (80.0-98.0); Mean Platelet Volume 12.8 fL (9.4-12.4); Monocytes Absolute Auto 0.7 X10*3/uL (0.1-1.2); Neutrophils Absolute Auto 4.6 x10*3/uL (2.0-8.3); Neutrophils Percent Auto 62.8 % (45-73); Platelet Count 177 X10*3/uL (160-400); Red Blood Count 4.03 X10*6/uL (4.60-5.80); Red Cell Distribution Width 14.9 % (11.0-16.0); White Blood Count 7.4 X10*3/uL (4.8-10.8)
[2021-09-10 07:03] LABS: Alanine Aminotransferase 30 U/L (0-40); Albumin Level 2.8 g/dL (3.5-5.0); Alkaline Phosphatase 111 U/L (39-117); Anion Gap 10 (12-20); Aspartate Amino Transferase 28 U/L (5-37); Bilirubin Total 0.5 mg/dL (0.0-1.0); Blood Urea Nitrogen 18 mg/dL (9-16); Calcium 8.6 mg/dL (8.4-10.2); Carbon Dioxide 25 mmol/L (22-29); Chloride 105 mmol/L (96-108); Creatinine Clr Calc Pharmacy 136.4; Estimated Glomerular Filt Rate > 60; Glucose Random 113 mg/dL (60-115); Sodium 136 mmol/L (135-145); Total Protein 6.5 g/dL (6.5-8.0)
--- NOTE | 2021-09-10 07:32 | HO.ANESPROP2 ---
HPI - Anesthesia Eval Consult details Narrative: 66 M for I and D of right knee Patient with h/o of right knee hematoma and wound breakdown s/p right TKA PMFSH Active Problems Active Problems: All Active Problems (Updated 09/05/21 @ 13:10 by Tamara Garcia MD) S/P total knee arthroplasty (Acute) Osteoarthritis of right knee (Acute) Hx of hepatitis C (Acute) Hypertension (Acute) Osteoarthritis of left knee (Acute) Pancytopenia (Acute) Primary osteoarthritis of knees, bilateral (Acute) Abscess of right hand (Acute) Post-traumatic osteoarthritis of right knee (Acute) Preop exam for internal medicine (Acute) Morbid obesity (Acute) Seizure (Acute) Knee pain (Acute) Past Medical History Medical History (Updated 09/05/21 @ 13:10 by Tamara Garcia MD) Cellulitis and abscess of hand Convulsion, non-epileptic Hx MRSA infection Hx of hepatitis C Hypertension Knee pain Morbid obesity Osteoarthritis of left knee Pancytopenia Family History Family History Father No problems noted. Mother No problems noted. Family history of problems with anesthesia: No Surgical History Surgical History History of right knee surgery History of right shoulder replacement History of surgery History of Problems with Anesthesia: No Social History Social History Household Members: Significant Other [facility]: [facility] Are you a primary career services coordinator to a significant other at home: No Do you presently have visiting nurse or other home services: Yes Unable to assess alcohol history related to: Unknown Alcohol intake: never Patient Tobacco Use Status: Current someday Tobacco user Tobacco use type: Cigarette Cigarettes Per Day: 4 Years Smoked: 20 Smoked in Last 30 Days: No e-Cigarette/Vaping Use: Currently Using Patient Interested in Nicotine Replacement: No Patient Given Instructions on How to Stop Smoking: No Second Hand Smoke Exposure: No Use of substances other than those prescribed or required for medical reasons: No Substance Use Type: Heroin Currently Displaying Signs/Symptoms of Drug Intoxication Withdrawal: No Do you feel safe in your current relationship?: Yes Is there a partner from a previous relationship who is making you feel unsafe now?: No Are you made to feel afraid or neglected: No Are you DNR?: No Advance Directives: No Advance Directives Information Provided: No Do you have thoughts of harming others: None Do you have a plan to hurt others: No Plan Recently lost weight without trying: No Nutrition Risks: No Nutritional Risk Poor oral hygiene: No service: No Current occupational status: disabled Cognitive needs: No Hearing needs: No Vision needs: No Meds Allergies Allergy/AdvReac Type Severity Reaction Status Date / Time blueberry [BLUEBERRY] Allergy Severe ANAPHYLAXIS Verified 09/04/21 09:18 hydrocodone [Vicodin] Allergy Severe Anaphylaxis Verified 09/04/21 09:18 acetaminophen [Tylenol] Allergy Intermediate told to Verified 09/04/21 09:18 avoid Active Medications: Current Medications Amlodipine Besylate (Amlodipine Besylate 10 Mg Tablet) 10 mg PO DAILY [facility]; Protocol Last Admin: 09/09/21 08:50 Dose: 10 mg Documented by: Celecoxib (Celecoxib 200 Mg Capsule) 200 mg PO BID [facility] Last Admin: 09/09/21 22:00 Dose: 200 mg Documented by: Docusate Sodium (Docusate Sodium 100 Mg Capsule) 100 mg PO BID [facility] Last Admin: 09/09/21 22:00 Dose: 100 mg Documented by: Enoxaparin Sodium (Enoxaparin Sodium 40 Mg/0.4 Ml Syringe) 40 mg SUBCUT Q24H [facility] Last Admin: 09/09/21 16:26 Dose: 40 mg Documented by: Vancomycin HCl 1,250 mg/ (Sodium Chloride) 250 mls @ 166.667 mls/hr IV Q8H [facility] Last Admin: 09/10/21 06:36 Dose: 166.67 mls/hr Documented by: Lisinopril (Lisinopril 5 Mg Tablet) 5 mg PO DAILY [facility]; Protocol Last Admin: 09/09/21 13:08 Dose: 5 mg Documented by: Oxycodone HCl (Oxycodone Hcl Immed Release 5 Mg Tablet) 10 mg PO Q4H PRN PRN Reason: Pain, Moderate (Pain Scale 4-6 Last Admin: 09/10/21 02:18 Dose: 10 mg Documented by: Pharmacy Consult (Consult Rx Vancomycin Dosing) 1 each MISCELLANE DAILY PRN PRN Reason: Consult order Pharmacy Consult (Consult Rx Perform Med Rec) 1 each MISCELLANE ONCE PRN PRN Reason: Consult order Sodium Chloride (0.9 % Sodium Chloride Flush 3 Ml Syringe) 3 ml IVFLUSH QSHIFT MARTIN Last Admin: 09/10/21 07:19 Dose: Not Given Documented by: Exam Exam Date and Time: September 10, 2021 0732 Height,Weight and Vital Signs: Height 6 ft 1 in Weight 145.15 kg Last Vital Signs Temp 98.5 F 09/09/21 19:52 Pulse 112 H 09/09/21 19:52 Resp 18 09/09/21 19:52 BP 155/88 H 09/09/21 19:52 Pulse Ox 97 09/09/21 19:52 Pertinent Lab Results Pertinent Lab Results: Laboratory Tests 09/04/21 09/04/21 09/04/21 12:52 14:48 14:48 WBC RBC Hgb Hct MCV MCH MCHC RDW Plt Count MPV Immature Gran % (Auto) Neut % (Auto) Lymph % (Auto) Lee % (Auto) Eos % (Auto) Baso % (Auto) Lymph # (Auto) Lee # (Auto) Eos # (Auto) Baso # (Auto) Abs Immat Gran (auto) Absolute Neuts (auto) Absolute Nucleated RBC Nucleated RBC % (auto) ESR Sodium 136 Potassium 4.2 Chloride 105 Carbon Dioxide 21 L Anion Gap 14 BUN 15 Creatinine 1.00 Estim Creat Clear Calc 111.8 Estimated GFR > 60 Random Glucose 162 H Fasting Glucose Calcium 9.3 D Total Bilirubin AST ALT Alkaline Phosphatase C-Reactive Protein Total Protein Albumin Specimen Comment Vancomycin Trough < 3.0 L COVID-19 ([facility]) Negative COVID-19 Clin Com See Note 09/05/21 09/05/21 09/05/21 05:15 05:15 15:22 WBC 5.4 RBC 4.08 L Hgb 10.2 L Hct 32.1 L MCV 78.7 L MCH 25.0 L MCHC 31.8 RDW 15.0 Plt Count 149 L MPV 12.6 H Immature Gran % (Auto) 0.4 Neut % (Auto) 57.9 Lymph % (Auto) 27.0 Lee % (Auto) 11.9 H Eos % (Auto) 2.4 Baso % (Auto) 0.4 Lymph # (Auto) 1.5 Lee # (Auto) 0.6 Eos # (Auto) 0.1 Baso # (Auto) 0.0 Abs Immat Gran (auto) 0.02 Absolute Neuts (auto) 3.1 Absolute Nucleated RBC 0.000 Nucleated RBC % (auto) 0.0 ESR 58 H Sodium 136 Potassium 4.3 Chloride 105 Carbon Dioxide 21 L Anion Gap 14 BUN 12 Creatinine 0.79 Estim Creat Clear Calc 141.6 Estimated GFR > 60 Random Glucose Fasting Glucose 106 H Calcium 8.4 D Total Bilirubin AST ALT Alkaline Phosphatase C-Reactive Protein Total Protein Albumin Specimen Comment Vancomycin Trough COVID-19 ([facility]) COVID-19 [facility] Referrals Com 09/05/21 09/06/21 09/06/21 15:22 05:50 05:51 WBC 6.9 RBC 4.10 L Hgb 10.3 L Hct 32.3 L MCV 78.8 L MCH 25.1 L MCHC 31.9 RDW 14.8 Plt Count 194 D MPV 12.1 Immature Gran % (Auto) 0.4 Neut % (Auto) 75.7 H Lymph % (Auto) 17.7 L Lee % (Auto) 6.1 Eos % (Auto) 0.0 Baso % (Auto) 0.1 Lymph # (Auto) 1.2 Lee # (Auto) 0.4 Eos # (Auto) 0.0 Baso # (Auto) 0.0 Abs Immat Gran (auto) 0.03 Absolute Neuts (auto) 5.2 Absolute Nucleated RBC 0.000 Nucleated RBC % (auto) 0.0 ESR Sodium 139 Potassium 4.8 Chloride 106 Carbon Dioxide 24 Anion Gap 14 BUN 15 Creatinine 0.80 Estim Creat Clear Calc 139.8 Estimated GFR > 60 Random Glucose Fasting Glucose 136 H Calcium 8.6 Total Bilirubin AST ALT Alkaline Phosphatase C-Reactive Protein 7.03 H Total Protein Albumin Specimen Comment Vancomycin Trough COVID-19 ([facility]) COVID-19 Fluid 09/06/21 09/07/21 09/07/21 13:25 06:24 06:24 WBC 4.7 L RBC 3.97 L Hgb 10.0 L Hct 31.4 L MCV 79.1 L MCH 25.2 L MCHC 31.8 RDW 15.0 Plt Count 175 MPV 12.0 Immature Gran % (Auto) 0.2 Neut % (Auto) 56.7 Lymph % (Auto) 32.4 Lee % (Auto) 7.7 Eos % (Auto) 2.1 Baso % (Auto) 0.9 Lymph # (Auto) 1.5 Lee # (Auto) 0.4 Eos # (Auto) 0.1 Baso # (Auto) 0.0 Abs Immat Gran (auto) 0.01 Absolute Neuts (auto) 2.7 Absolute Nucleated RBC 0.000 Nucleated RBC % (auto) 0.0 ESR Sodium 139 Potassium 4.2 Chloride 107 Carbon Dioxide 27 Anion Gap 9 L BUN 15 Creatinine 0.77 Estim Creat Clear Calc 145.3 Estimated GFR > 60 Random Glucose Fasting Glucose 107 H Calcium 8.5 Total Bilirubin AST ALT Alkaline Phosphatase C-Reactive Protein Total Protein Albumin Specimen Comment Vancomycin Trough 8.4 L COVID-19 ([facility]) [employer] 09/07/21 09/08/21 09/09/21 14:50 08:09 14:30 WBC RBC Hgb Hct MCV MCH MCHC RDW Plt Count MPV Immature Gran % (Auto) Neut % (Auto) Lymph % (Auto) Lee % (Auto) Eos % (Auto) Baso % (Auto) Lymph # (Auto) Lee # (Auto) Eos # (Auto) Baso # (Auto) Abs Immat Gran (auto) Absolute Neuts (auto) Absolute Nucleated RBC Nucleated RBC % (auto) ESR Sodium Potassium Chloride Carbon Dioxide Anion Gap BUN Creatinine 0.77 0.87 Estim Creat Clear Calc 145.3 128.6 Estimated GFR > 60 > 60 Random Glucose Fasting Glucose Calcium Total Bilirubin AST ALT Alkaline Phosphatase C-Reactive Protein Total Protein Albumin Specimen Comment Vancomycin Trough 5.3 L COVID-19 ([facility]) [employer] 09/09/21 09/09/21 09/10/21 14:30 15:29 05:47 WBC RBC Hgb Hct MCV MCH MCHC RDW Plt Count MPV Immature Gran % (Auto) Neut % (Auto) Lymph % (Auto) Lee % (Auto) Eos % (Auto) Baso % (Auto) Lymph # (Auto) Lee # (Auto) Eos # (Auto) Baso # (Auto) Abs Immat Gran (auto) Absolute Neuts (auto) Absolute Nucleated RBC Nucleated RBC % (auto) ESR Sodium 136 Potassium 4.0 Chloride 105 Carbon Dioxide 25 Anion Gap 10 L BUN 18 H Creatinine 0.82 Estim Creat Clear Calc 136.4 Estimated GFR > 60 Random Glucose 113 Fasting Glucose Calcium 8.6 Total Bilirubin 0.5 AST 28 ALT 30 Alkaline Phosphatase 111 D C-Reactive Protein Total Protein 6.5 Albumin 2.8 L Specimen Comment DELAY Vancomycin Trough 6.5 L COVID-19 ([facility]) COVID-19 Clin Com 09/10/21 05:47 WBC 7.4 RBC 4.03 L Hgb 10.1 L Hct 31.8 L MCV 78.9 L MCH 25.1 L MCHC 31.8 RDW 14.9 Plt Count 177 MPV 12.8 H Immature Gran % (Auto) 0.4 Neut % (Auto) 62.8 Lymph % (Auto) 22.8 Lee % (Auto) 10.0 Eos % (Auto) 3.5 Baso % (Auto) 0.5 Lymph # (Auto) 1.7 Lee # (Auto) 0.7 Eos # (Auto) 0.3 Baso # (Auto) 0.0 Abs Immat Gran (auto) 0.03 Absolute Neuts (auto) 4.6 Absolute Nucleated RBC 0.000 Nucleated RBC % (auto) 0.0 ESR Sodium Potassium Chloride Carbon Dioxide Anion Gap BUN Creatinine Estim Creat Clear Calc Estimated GFR Random Glucose Fasting Glucose Calcium Total Bilirubin AST ALT Alkaline Phosphatase C-Reactive Protein Total Protein Albumin Specimen Comment Vancomycin Trough COVID-19 ([facility]) COVID-19 Clin Com Airway Mallampati Class: III TM Dist: >3cm Neck ROM: Full Loose/Missing/Broken Teeth: Yes (chipped teeth , poor dentition . h/o of trauma to teeth ) Heart: S1, S2 Lungs: b/l breath sounds Assessment and Plan Assessment Anesthesia Assessment: Anesthesia Plan Discussed and Chart Reviewed Final Anesthetic Review Family History of Problems with Anesthesia: No History of Problems with Anesthesia: No NPO: Yes ASA Class: III Final Preanesthetic Review: Meds/Allgs Chart Reviewed, Consent Obtained/Reviewed and Anes Risks/Benef Reviewed Patient Risk: High Procedure Risk: Intermediate Anesthetic Plan Anesthetic Plan: GA Disposition: Inp. Admit - Standard Bed
--- NOTE | 2021-09-10 07:58 | P.HPSUR_ITS ---
Pre-Procedural Eval Section A Date of Service: 09/10/21 Section B Chief Complaint: post-op Rt TK infection Details of Present Illness: wound vac present right knee Relevant Family History (Specify if Yes): No Relevant Social History: None Present Medications: see Short Stay Collaborative assessment Medical History: Significant History (Right TKA) History of Previous Operations: Relevant previous surgery/procedure and date(s) (09/08/21 right knee I&D and wound vac placement) Allergies: Allergies Allergy/AdvReac Type Severity Reaction Status Date / Time blueberry [BLUEBERRY] Allergy Severe ANAPHYLAXIS Verified 09/04/21 09:18 hydrocodone [Vicodin] Allergy Severe Anaphylaxis Verified 09/04/21 09:18 acetaminophen [Tylenol] Allergy Intermediate told to Verified 09/04/21 09:18 avoid Review of Systems Sugical H&P ROS: Negative: Constitution, Cardiovascular, Respiratory, Neurological, Psychiatric, Hem-Onc, Allergic/Immunologic, Gastrointestinal, Genitourinary, Musculoskeletal, Integumentary, Endocrine and Eyes/Ears/Nose/T hroat Exam Surgical H&P Exam: Normal: HEENT, Normal: Heart, Normal: Lungs, Normal: Abdomen, Normal: Skin and Normal: Neurological and Significant Findings: Extremities (right knee wound vac in place) Plan Diagnosis/Plan: Unchanged I have reviewed the history and physical and performed a pertinent physical examination on my patient. No changes have occurred unless specified. Proceed with right knee delayed primary closure.
--- NOTE | 2021-09-10 09:02 | P.BOP_ITS ---
Brief Operative Note Date of Service: 09/10/21 Pre-op diagnosis: open wound Post-op diagnosis: same Procedure: Delayed primary closure right knee and placement of vacuum assisted dressing Surgeon: Edmar Sood MD Was an Hospital Internship used for this Procedure?: Yes Hospital Internship: [facility] Estimated blood loss (mL): 25 IV fluids (mL): 500 Pathology: none sent Condition: stable Disposition: PACU
--- NOTE | 2021-09-10 09:17 | P.PNIM_ITS ---
Subjective Subjective Date of Service: 09/10/21 Review of Systems f/u on HTN management, in for right knee hematoma with wound dehiscence Interval history: Pain is control, s/p Right knee irrigation and deridement with polyethylene liner exchange and partial DPC with placement of wound vac 09/18, doing well this morning Physical Exam Vital Signs: Vital Signs: Last Vital Signs Temp 98.8 F 09/10/21 09:10 Pulse 93 09/10/21 09:10 Resp 18 09/10/21 09:10 BP 175/92 H 09/10/21 09:10 Pulse Ox 100 09/10/21 09:10 Const: Other: General: AO X 3, no acute distress Resp: CTA bilateral CVS: S1,S2,RRR GI: +BS, NT, no distention Skin: No rash Neuro: motor grossly intact right lower ex generally swollen wound vac on knee Psych: appropriate affect Objective Data Active Medications Amlodipine Besylate (Amlodipine Besylate 10 Mg Tablet) 10 mg PO DAILY [facility]; Protocol Last Admin: 09/09/21 08:50 Dose: 10 mg Documented by: RENATE Celecoxib (Celecoxib 200 Mg Capsule) 200 mg PO BID [facility] Last Admin: 09/09/21 22:00 Dose: 200 mg Documented by: PRESLEY Docusate Sodium (Docusate Sodium 100 Mg Capsule) 100 mg PO BID [facility] Last Admin: 09/09/21 22:00 Dose: 100 mg Documented by: PRESLEY Enoxaparin Sodium (Enoxaparin Sodium 40 Mg/0.4 Ml Syringe) 40 mg SUBCUT Q24H [facility] Last Admin: 09/09/21 16:26 Dose: 40 mg Documented by: RENATE Fentanyl (Fentanyl Citrate/Pf 100 Mcg/2 Ml Vial) 50 mcg IVPUSH Q5M PRN; Protocol PRN Reason: Pain, Severe (Pain Scale 7-10) Hydromorphone HCl (Hydromorphone Hcl 0.5 Mg/0.5 Ml Syringe) 0.5 mg IVPUSH Q5M PRN; Protocol PRN Reason: Pain, Severe (Pain Scale 7-10) Vancomycin HCl 1,250 mg/ (Sodium Chloride) 250 mls @ 166.667 mls/hr IV Q8H [facility] Last Admin: 09/10/21 06:36 Dose: 166.67 mls/hr Documented by: PRESLEY Promethazine HCl 12.5 mg/ (Sodium Chloride) 50.5 mls @ 202 mls/hr IV ONCE PRN PRN Reason: Nausea and Vomiting Lisinopril (Lisinopril 5 Mg Tablet) 5 mg PO DAILY [facility]; Protocol Last Admin: 09/09/21 13:08 Dose: 5 mg Documented by: RENATE Oxycodone HCl (Oxycodone Hcl Immed Release 5 Mg Tablet) 10 mg PO Q4H PRN PRN Reason: Pain, Moderate (Pain Scale 4-6 Last Admin: 09/10/21 02:18 Dose: 10 mg Documented by: PRESLEY Pharmacy Consult (Consult Rx Vancomycin Dosing) 1 each MISCELLANE DAILY PRN PRN Reason: Consult order Pharmacy Consult (Consult Rx Perform Med Rec) 1 each MISCELLANE ONCE PRN PRN Reason: Consult order Sodium Chloride (0.9 % Sodium Chloride Flush 3 Ml Syringe) 3 ml IVFLUSH QSHIFT [facility] Last Admin: 09/10/21 07:19 Dose: Not Given Documented by: RENATE Non-Admin Reason: PICC Labs CBC & Chem 7: 09/10/21 05:47 09/10/21 05:47 Labs: Laboratory Results - last 24 hr 09/09/21 09/09/21 09/09/21 14:30 14:30 15:29 MCV MCH MCHC RDW Plt Count MPV Immature Gran % (Auto) Neut % (Auto) Lymph % (Auto) Bertie % (Auto) Eos % (Auto) Baso % (Auto) Lymph # (Auto) Bertie # (Auto) Eos # (Auto) Baso # (Auto) Abs Immat Gran (auto) Absolute Neuts (auto) Absolute Nucleated RBC Nucleated RBC % (auto) Anion Gap Estim Creat Clear Calc 128.6 Estimated GFR > 60 Random Glucose Calcium Total Bilirubin AST ALT Alkaline Phosphatase Total Protein Albumin Specimen Comment DELAY Vancomycin Trough 6.5 L 09/10/21 09/10/21 05:47 05:47 MCV 78.9 L MCH 25.1 L MCHC 31.8 RDW 14.9 Plt Count 177 MPV 12.8 H Immature Gran % (Auto) 0.4 Neut % (Auto) 62.8 Lymph % (Auto) 22.8 Bertie % (Auto) 10.0 Eos % (Auto) 3.5 Baso % (Auto) 0.5 Lymph # (Auto) 1.7 Bertie # (Auto) 0.7 Eos # (Auto) 0.3 Baso # (Auto) 0.0 Abs Immat Gran (auto) 0.03 Absolute Neuts (auto) 4.6 Absolute Nucleated RBC 0.000 Nucleated RBC % (auto) 0.0 Anion Gap 10 L Estim Creat Clear Calc 136.4 Estimated GFR > 60 Random Glucose 113 Calcium 8.6 Total Bilirubin 0.5 AST 28 ALT 30 Alkaline Phosphatase 111 D Total Protein 6.5 Albumin 2.8 L Specimen Comment Vancomycin Trough Microbiology Microbiology Results: Microbiology 09/08/21 Unknown Gram Stain - Final Knee,Right Routine Culture - Final Staphylococcus aureus Anaerobic Culture - Preliminary Culture in progress. Assessment and Plan (1) S/P total knee arthroplasty: Status: Acute (2) Hypertension: Status: Acute (3) Osteoarthritis of right knee: Status: Acute Plan 66/m with HTN 1. right knee hematoma with wound dehiscence s/p surgery and now ith wound vac, for I and D today --further management by ortho.. No further testing needed 2.Hypertension: BP is high this morning, but mostly have been on lower side. continue Norvasc 10 and is persistently high add Lisinopril 5 3. Obese weight loss advised 4. Anemia--monitor h/h, no indication for transfusion a this time DVT prophylaxis to be determned after surgey Quality Stroke Does the patient have a stroke diagnosis?: No VTE Prior VTE?: No VTE Risk Level:: Surgical - very high VTE Device Contraindication: N/A - Device Ordered VTE Drug Contraindication: N/A - Med Ordered
[2021-09-10] MEDS: fentaNYL citrate/PF 100 MCG/2 ML VIAL 50 MCG IVPUSH (09:29)
[2021-09-10] MEDS: Celecoxib 200 MG CAPSULE PO ×2 (10:45→20:56)
[2021-09-10] MEDS: lisinopriL 5 MG TABLET PO (10:45)
[2021-09-10] MEDS: amLODIPine Besylate 10 MG TABLET PO (10:45)
[2021-09-10] MEDS: Docusate Sodium 100 MG CAPSULE PO ×2 (10:45→20:56)
[2021-09-10 15:10] LABS: Vancomycin Trough 19.1 mcg/mL (10.0-20.0)
--- NOTE | 2021-09-10 15:25 | HE.PHANOTE ---
Patients trough came back at 19.1. Decreasing dose to 1500 mg q12, starting at 2200, next level 09/11@ 1999, predicted auc is 475, trough 12.8
[2021-09-10 19:20] LABS: HCV Log PCR <1.18 NOT DETECTED Log IU/mL (NOT DETECTED); HepC Viral Load <15 NOT DETECTED IU/mL (NOT DETECTED)
[2021-09-10] MEDS: vancomycin HCL 1,500 MG in 0.9 % Sodium Chloride 500 ML 333.33 MG IV (20:56)
[2021-09-10] MEDS: 0.9 % Sodium Chloride Flush 3 ML SYRINGE IVFLUSH (20:57)
[2021-09-11 03:27] VITALS: BP 105/54; PULSE 77; RESP 16; TEMP 36.6; O2SAT 93
[2021-09-11 06:45] LABS: MANUAL DIFF FLAG NO
[2021-09-11 07:14] LABS: Basophils Percent Auto 0.5 % (0-2); Eosinophils Absolute Auto 0.4 X10*3/uL (0.0-0.4); Eosinophils Percent Auto 4.4 % (0-4); Hematocrit 32.2 % (42.0-52.0); Hemoglobin 10.1 g/dl (14.0-18.0); Imm Gran Abs Auto 0.03 X10*3/uL (0.00-0.03); Imm Gran Pct Auto 0.3 % (0.0-0.4); Lymphocytes Absolute Auto 2.4 X10*3/uL (1.2-4.9); Lymphocytes Percent Auto 27.3 % (20-40); Mean Corpuscular HGB Conc 31.4 g/dl (31.0-36.0); Mean Corpuscular Hemoglobin 25.3 pg (27.0-33.0); Mean Corpuscular Volume 80.7 fL (80.0-98.0); Mean Platelet Volume 12.2 fL (9.4-12.4); Monocytes Absolute Auto 0.8 X10*3/uL (0.1-1.2); Monocytes Percent Auto 8.8 % (2-11); Neutrophils Absolute Auto 5.1 x10*3/uL (2.0-8.3); Neutrophils Percent Auto 58.7 % (45-73); Platelet Count 226 X10*3/uL (160-400); Red Blood Count 3.99 X10*6/uL (4.60-5.80); Red Cell Distribution Width 15.1 % (11.0-16.0); White Blood Count 8.7 X10*3/uL (4.8-10.8)
[2021-09-11 07:22] LABS: Alanine Aminotransferase 28 U/L (0-40); Alkaline Phosphatase 118 U/L (39-117); Anion Gap 11 (12-20); Aspartate Amino Transferase 28 U/L (5-37); Bilirubin Total 0.4 mg/dL (0.0-1.0); Blood Urea Nitrogen 30 mg/dL (9-16); Calcium 8.7 mg/dL (8.4-10.2); Carbon Dioxide 26 mmol/L (22-29); Chloride 104 mmol/L (96-108); Estimated Glomerular Filt Rate 52; Glucose Random 104 mg/dL (60-115); Potassium 4.3 mmol/L (3.3-5.1); Sodium 137 mmol/L (135-145); Total Protein 6.9 g/dL (6.5-8.0)
[2021-09-11 08:00] VITALS: BP 135/70; PULSE 75; RESP 17; TEMP 36.4; O2SAT 95
--- NOTE | 2021-09-11 08:13 | HE.PHANOTE ---
VANCOMYCIN ADDENDUM: PATIENTS SCR NOW 1.38, PATIENT IN [place], HELD MORNING DOSE, WILL RECHECK A LEVEL 09/11/211999
--- NOTE | 2021-09-11 08:33 | PC.NURSE ---
On 09/09/21 This RN spoke with FARRAH Meehan who stated that the patient is not an active heroin user and he needs a PICC placed. Spoke with Shiva Bose, Director of periop services who stated ok to place the PICC.
[2021-09-11] MEDS: amLODIPine Besylate 10 MG TABLET PO (08:44)
[2021-09-11] MEDS: Celecoxib 200 MG CAPSULE PO ×2 (08:44→19:35)
[2021-09-11] MEDS: oxyCODONE HCl Immed Release 5 MG TABLET 10 MG PO ×2 (08:44→18:40)
[2021-09-11] MEDS: Docusate Sodium 100 MG CAPSULE PO ×2 (08:44→19:35)
--- NOTE | 2021-09-11 09:00 | PM.PNORT ---
Subjective Subjective Date of Service: 09/11/21 Interval history: POD1 s/p operative wound closure. Patient is resting comfortably in bed. No overnight events. Pain is well managed. Physical Exam Vital Signs: Vital Signs: Last Vital Signs Temp 97.6 F 09/11/21 08:00 Pulse 75 09/11/21 08:00 Resp 17 09/11/21 08:00 BP 135/70 09/11/21 08:00 Pulse Ox 95 09/11/21 08:00 Const: General: cooperative, healthy appearing and no acute distress Resp: Effort & Inspection: normal respiratory effort and able to speak in complete sentences Cardio: Rate: regular rate Peripheral pulses: Peripheral pulses 2+ throughout GI: Palpation (GI): Soft to palpation Skin: Lesions: no lesions Rashes: no rashes Extrem: Other: Right knee wound vac intact. NVI. Procedures Date of Service Date of Service: 09/11/21 Progress Note: A&P Assessment and plan (1) S/P total knee arthroplasty: Status: Acute Assessment and Plan: Continue pain mgmnt Continue Lovenox for dvt ppx Continue PT for RTKA Dispo planning-Pending ID recommendations for home abx, pain mgmnt Time Spent With Patient Time: Total time spent is greater than 50% in coordination of care (as documented) at patient's floor/unit and/or counseling patient: Quality Stroke Does the patient have a stroke diagnosis?: No VTE Prior VTE?: No VTE Risk Level:: Surgical - very high VTE Device Contraindication: N/A - Device Ordered VTE Drug Contraindication: N/A - Med Ordered
--- NOTE | 2021-09-11 09:45 | HO.POSTANES ---
Post Anesthesia Evaluation Post Anesthesia Evaluation Vital Signs: Vital Signs Temp Pulse Resp BP Pulse Ox 09/11/21 08:00 97.6 F 75 17 135/70 95 09/11/21 03:27 98 F 77 16 105/54 L 93 09/10/21 23:22 98 F 89 14 104/57 L 94 Anesthesia: General Endotracheal-GETA Mental Status: Awake Pain Control: Satisfactory Nausea/Vomiting: None Hydration: Adequate Anesthesia-Related Issues: No Anes. Related Issues
--- NOTE | 2021-09-11 11:27 | P.PNIM_ITS ---
Subjective Subjective Date of Service: 09/11/21 Interval History: offers no acute complaints this morning, noted to soft blood pressures this morning, as per patient he gets high and low blood pressures with any change in medical condition he denies chest pain, no headache, no dizziness, no overnight events Review of Systems [employer]END[employer] no headache no dizziness CVS no chest pain, no palpitation GI no nausea, no vomiting Review of Systems: Yes all other systems are reviewed and are negative Physical Exam Vital Signs: Vital Signs: Last Vital Signs Temp 97.6 F 09/11/21 08:00 Pulse 75 09/11/21 08:00 Resp 17 09/11/21 08:00 BP 135/70 09/11/21 08:00 Pulse Ox 95 09/11/21 08:00 Const: Other: General: Ax O X 3, no acute distress neck no JVD Resp:? CTA bilateral CVS: S1,S2,RRR GI: +BS, NT, no distention Skin: No rash Neuro:? motor grossly intact right lower ex swollen wound vac on knee Psych: appropriate affect Objective Data Active Medications Amlodipine Besylate (Amlodipine Besylate 10 Mg Tablet) 10 mg PO DAILY [facility]; Protocol Last Admin: 09/11/21 08:44 Dose: 10 mg Documented by: YOVANNY Celecoxib (Celecoxib 200 Mg Capsule) 200 mg PO BID [facility] Last Admin: 09/11/21 08:44 Dose: 200 mg Documented by: YOVANNY Docusate Sodium (Docusate Sodium 100 Mg Capsule) 100 mg PO BID [facility] Last Admin: 09/11/21 08:44 Dose: 100 mg Documented by: YOVANNY Enoxaparin Sodium (Enoxaparin Sodium 40 Mg/0.4 Ml Syringe) 40 mg SUBCUT Q24H [facility] Last Admin: 09/09/21 16:26 Dose: 40 mg Documented by: RENATE Oxycodone HCl (Oxycodone Hcl Immed Release 5 Mg Tablet) 10 mg PO Q4H PRN PRN Reason: Pain, Moderate (Pain Scale 4-6 Last Admin: 09/11/21 08:44 Dose: 10 mg Documented by: YOVANNY Pharmacy Consult (Consult Rx Perform Med Rec) 1 each MISCELLANE ONCE PRN PRN Reason: Consult order Sodium Chloride (0.9 % Sodium Chloride Flush 3 Ml Syringe) 3 ml IVFLUSH QSHIFT [facility] Last Admin: 09/11/21 08:45 Dose: Not Given Documented by: YOVANNY Non-Admin Reason: PICC Labs CBC & Chem 7: 09/11/21 06:13 09/11/21 06:13 Labs: Laboratory Results - last 24 hr 09/05/21 09/10/21 09/11/21 16:15 14:17 06:13 MCV MCH MCHC RDW Plt Count MPV Immature Gran % (Auto) Neut % (Auto) Lymph % (Auto) [place] % (Auto) Eos % (Auto) Baso % (Auto) Lymph # (Auto) [place] # (Auto) Eos # (Auto) Baso # (Auto) Abs Immat Gran (auto) Absolute Neuts (auto) Absolute Nucleated RBC Nucleated RBC % (auto) Anion Gap 11 L Estim Creat Clear Calc 81.0 Estimated GFR 52 Random Glucose 104 Calcium 8.7 Total Bilirubin 0.4 AST 28 ALT 28 Alkaline Phosphatase 118 H Total Protein 6.9 Albumin 3.0 L Vancomycin Trough 19.1 Hep C Viral Load <15 NOT DETECTED Hep C Viral Load Log <1.18 NOT DETECTED 09/11/21 06:13 MCV 80.7 MCH 25.3 L MCHC 31.4 RDW 15.1 Plt Count 226 D MPV 12.2 Immature Gran % (Auto) 0.3 Neut % (Auto) 58.7 Lymph % (Auto) 27.3 [place] % (Auto) 8.8 Eos % (Auto) 4.4 H Baso % (Auto) 0.5 Lymph # (Auto) 2.4 [place] # (Auto) 0.8 Eos # (Auto) 0.4 Baso # (Auto) 0.0 Abs Immat Gran (auto) 0.03 Absolute Neuts (auto) 5.1 Absolute Nucleated RBC 0.000 Nucleated RBC % (auto) 0.0 Anion Gap Estim Creat Clear Calc Estimated GFR Random Glucose Calcium Total Bilirubin AST ALT Alkaline Phosphatase Total Protein Albumin Vancomycin Trough Hep C Viral Load Hep C Viral Load Log Microbiology Microbiology Results: Microbiology 09/08/21 Unknown Gram Stain - Final Knee,Right Routine Culture - Final Staphylococcus aureus Anaerobic Culture - Preliminary Culture in progress. Assessment and Plan (1) S/P total knee arthroplasty: Status: Acute (2) Hypertension: Status: Acute (3) Osteoarthritis of right knee: Status: Acute Plan 66/m with HTN admitted under Orthopedic surgery. 1. right knee hematoma with wound dehiscence s/p surgery and now with wound vac, s/p I and D 09/10, further treatment plan as per Orthopedic surgery, patient denies pain, no fevers no chills. 2.Hypertension: Noted to have high blood pressures yesterday therefore lisinopril 5 mg was added to Norvasc 10 mg now with low blood pressures therefore will DC lisinopril and continue Norvasc, recommend close outpatient blood pressure follow-up 3. Obese weight loss advised, continue low-calorie diet. 4. Anemia-- Stable hematocrit,no indication for transfusion a this time DVT prophylaxis on Lovenox Quality Stroke Does the patient have a stroke diagnosis?: No VTE Prior VTE?: No VTE Risk Level:: Surgical - very high VTE Device Contraindication: N/A - Device Ordered VTE Drug Contraindication: N/A - Med Ordered
[2021-09-11 11:58] VITALS: BP 135/61; PULSE 86; RESP 18; TEMP 37.1; O2SAT 97
--- NOTE | 2021-09-11 13:31 | MHC.CM.PN ---
EMR REVIEWED, PER SURGICAL PT TO D/C TOMORROW AFTER TAKE HOME PREVEENA WOUND VAC PLACED, CM HAS REQUESTED [facility] COME IN TO DO TEACH W/PT WHO WILL D/C HOME ON 6WKS IV ABX W/PO KEFLEX X2WKS, FINAL ABX DEPENDENT ON VANCO TROUGH AND MAY BE ABLE TO SWITCH TO A DAILY, [facility] FOLLOWING AND UPDATED ON PLAN.
[2021-09-11] MEDS: Enoxaparin Sodium 40 MG/0.4 ML SYRINGE SUBCUT (15:23)
[2021-09-11 15:52] VITALS: BP 142/74; PULSE 93; RESP 18; TEMP 36.3; O2SAT 94
[2021-09-11] MEDS: cephALEXin 500 MG CAPSULE PO ×2 (18:40→23:43)
[2021-09-11 19:43] VITALS: BP 132/64; PULSE 110; RESP 18; TEMP 36.4; O2SAT 94
[2021-09-11 20:42] LABS: Vancomycin Random 10.5 mcg/mL (15-20)
[2021-09-11 21:11] LABS: Creatinine Clr Calc Pharmacy 87.4; Estimated Glomerular Filt Rate 57
--- NOTE | 2021-09-11 21:27 | HE.PHANOTE ---
Vancomycin Dosing Addendum Vancomycin level 10.5. Reentering order for 1000 mg q12h for predicted AUC of 437. Cr down to 1.28. Next trough 09/12/21 @1999.
[2021-09-11] MEDS: 0.9 % Sodium Chloride Flush 3 ML SYRINGE IVFLUSH (22:35)
[2021-09-11] MEDS: vancomycin HCL 1,000 MG in 0.9 % Sodium Chloride 250 ML 270 MG IV (22:35)
[2021-09-11 23:40] VITALS: BP 132/60; PULSE 96; RESP 14; TEMP 36.3; O2SAT 92
[2021-09-12] VITALS (7 sets, daily range): BP systolic 109–159; BP diastolic 61–79; PULSE 80–101; RESP 16–18; TEMP 36.3–36.4; O2SAT 93–97
[2021-09-12] MEDS: oxyCODONE HCl Immed Release 5 MG TABLET 10 MG PO (03:22)
[2021-09-12 05:00] LABS: MANUAL DIFF FLAG NO
[2021-09-12 05:06] LABS: Basophils Percent Auto 0.7 % (0-2); Eosinophils Absolute Auto 0.3 X10*3/uL (0.0-0.4); Eosinophils Percent Auto 4.6 % (0-4); Hemoglobin 9.2 g/dl (14.0-18.0); Imm Gran Abs Auto 0.02 X10*3/uL (0.00-0.03); Imm Gran Pct Auto 0.3 % (0.0-0.4); Lymphocytes Absolute Auto 1.4 X10*3/uL (1.2-4.9); Lymphocytes Percent Auto 24.2 % (20-40); Mean Corpuscular HGB Conc 31.7 g/dl (31.0-36.0); Mean Corpuscular Hemoglobin 25.3 pg (27.0-33.0); Mean Corpuscular Volume 79.9 fL (80.0-98.0); Mean Platelet Volume 12.3 fL (9.4-12.4); Monocytes Absolute Auto 0.6 X10*3/uL (0.1-1.2); Monocytes Percent Auto 10.1 % (2-11); Neutrophils Absolute Auto 3.6 x10*3/uL (2.0-8.3); Neutrophils Percent Auto 60.1 % (45-73); Platelet Count 170 X10*3/uL (160-400); Red Blood Count 3.63 X10*6/uL (4.60-5.80); White Blood Count 5.9 X10*3/uL (4.8-10.8)
[2021-09-12 05:34] LABS: Alanine Aminotransferase 27 U/L (0-40); Albumin Level 2.7 g/dL (3.5-5.0); Alkaline Phosphatase 115 U/L (39-117); Anion Gap 9 (12-20); Aspartate Amino Transferase 31 U/L (5-37); Bilirubin Total 0.2 mg/dL (0.0-1.0); Blood Urea Nitrogen 24 mg/dL (9-16); Calcium 8.3 mg/dL (8.4-10.2); Carbon Dioxide 23 mmol/L (22-29); Chloride 109 mmol/L (96-108); Creatinine Clr Calc Pharmacy 102.6; Estimated Glomerular Filt Rate > 60; Glucose Random 123 mg/dL (60-115); Potassium 4.1 mmol/L (3.3-5.1); Sodium 137 mmol/L (135-145); Total Protein 6.7 g/dL (6.5-8.0)
[2021-09-12] MEDS: cephALEXin 500 MG CAPSULE PO ×3 (05:46→17:23)
--- NOTE | 2021-09-12 08:22 | MHC.CM.PN ---
Addendum entered by Alisson Garnett RN 09/12/21 13:40: PER [facility] THEY CANNOT SEE PT UNTIL WEDNESDAY, [facility] WILL DELIVER IV ABX BY NOON WEDNESDAY 09/13 AND [facility] WILL SEE PT SAT AFTERNOON. PER ORTHO PT NEEDS BID VANCO D/T KIDNEY FX, IV ABX FORM SENT TO [facility] VIA [employer]. Original Note: PT WILL BE MEDICALLY CLEARED FOR D/C TODAY, PT WILL BE ON 6 WKS IV VANCOMYCIN & HOME PT W. [facility] AND [facility] W/START OF CARE TOMORROW 09/13/21, PT WILL ARRANGE TRANSPORT W/FAMILY. [facility] WILL BE IN THIS MORNING TO DO A TEACH W/PT.
--- NOTE | 2021-09-12 08:32 | P.DS_ITS ---
DS: Providers Provider Date of Service: 09/12/21 Date of admission: 09/04/21 11:57 Primary care physician: Cristian Cardoza MD Consults: 09/04/21 11:18 Consult to Hospitalist Routine Consulting Provider: Hospitalist Reason For Exam: rt tka wound -pre op clearance 09/04/21 11:23 Consult to Infectious Diseases Routine Consulting Provider: Tamara Garcia Reason for consultation: rt tka wound infection DS: Diagnosis Discharge Diagnosis (1) S/P total knee arthroplasty: Status: Acute DS: Summary Hospital Course Hospital Course: The patient underwent a successful I&D of the right knee s/p RT TKA 08/12/21 was transferred to PACU and then to the floor to recover. Intraop, cultures were taken of the wound which grew staph aureus. ID was consulted who recommend Keflex 500mg qid x2 weeks. He was also given a PICC line for continuous vanco infusion x6 weeks. During their stay, their vitals were stable, afebrile at 97.4 . Labs were unremarkable, H/H9.2/29.0, BUN 24, Cr 1.09 . POD 1 he was started on Lovenox for DVT ppx, they also received PT services twice a day. Prior to discharge, his Prevena was changed to the home unit, this is to remain on and intact at all times. If there are any concerns as far as leaking or blockage, etc, the office should be contacted immediately. Patient was discharged home with VNA and home infusion services. Time Spent with Patient Time attestation: Total time spent providing and/or coordinating discharge services: Discharge coordination time: Greater than 30 minutes Quality: Safe Use of Opioids Does Pt have an Active Cancer Diagnosis on the Problem List?: No Quality: Stroke Does the patient have a stroke diagnosis?: No Physical Exam Vital Signs: Vital Signs: Last Vital Signs Temp 97.4 F 09/12/21 08:00 Pulse 87 09/12/21 08:00 Resp 17 09/12/21 08:00 BP 155/79 H 09/12/21 08:00 Pulse Ox 95 09/12/21 08:00 Const: General: cooperative, healthy appearing and no acute distress Resp: Effort & Inspection: normal respiratory effort and able to speak in complete sentences Cardio: Rate: regular rate Peripheral pulses: Peripheral pulses 2+ throughout GI: Palpation (GI): Soft to palpation Skin: General skin exam: no rashes or lesions noted Extrem: Other: Prevena intact. No erythema or joint effusion. Calf supple nontender. Neurovascularly intact. DS: Data Data Completed and Pending Completed studies during hospitalization [Text1]: Procedures Drainage of Right Hand Subcutaneous Tissue and Fascia, Open Approach (09/17/20) Replacement of Right Knee Joint with Synthetic Substitute, Uncemented, Open Approach (08/12/21) Labs on day of discharge: Laboratory Results - last 24 hr 09/11/21 09/11/21 09/11/21 20:06 20:06 20:06 WBC RBC Hgb Hct MCV MCH MCHC RDW Plt Count MPV Immature Gran % (Auto) Neut % (Auto) Lymph % (Auto) [place] % (Auto) Eos % (Auto) Baso % (Auto) Lymph # (Auto) [place] # (Auto) Eos # (Auto) Baso # (Auto) Abs Immat Gran (auto) Absolute Neuts (auto) Absolute Nucleated RBC Nucleated RBC % (auto) Sodium Potassium Chloride Carbon Dioxide Anion Gap BUN Creatinine 1.28 Estim Creat Clear Calc 87.4 Estimated GFR 57 Random Glucose Calcium Total Bilirubin AST ALT Alkaline Phosphatase Total Protein Albumin Vancomycin Trough Cancelled Random Vancomycin 10.5 L 09/12/21 09/12/21 04:38 04:38 WBC 5.9 RBC 3.63 L Hgb 9.2 L Hct 29.0 L MCV 79.9 L MCH 25.3 L MCHC 31.7 RDW 15.0 Plt Count 170 MPV 12.3 Immature Gran % (Auto) 0.3 Neut % (Auto) 60.1 Lymph % (Auto) 24.2 [place] % (Auto) 10.1 Eos % (Auto) 4.6 H Baso % (Auto) 0.7 Lymph # (Auto) 1.4 [place] # (Auto) 0.6 Eos # (Auto) 0.3 Baso # (Auto) 0.0 Abs Immat Gran (auto) 0.02 Absolute Neuts (auto) 3.6 Absolute Nucleated RBC 0.000 Nucleated RBC % (auto) 0.0 Sodium 137 Potassium 4.1 Chloride 109 H Carbon Dioxide 23 Anion Gap 9 L BUN 24 H Creatinine 1.09 Estim Creat Clear Calc 102.6 Estimated GFR > 60 Random Glucose 123 H Calcium 8.3 L Total Bilirubin 0.2 AST 31 ALT 27 Alkaline Phosphatase 115 Total Protein 6.7 Albumin 2.7 L Vancomycin Trough Random Vancomycin Preliminary micro results at discharge 09/08/21 Unknown Anaerobic Culture - Preliminary Knee,Right Culture in progress. Discharge Plan Discharge Patient Disposition: Home Health Service Discharge Diagnosis: Rt knee tka Referrals: [facility] [Other] - 1 Week ([facility] WILL DELIVER YOUR IV ANTIBIOTIC TO YOUR HOME, IT DOES NOT GO THROUGH YOUR REGULAR PHARMACY. PLEASE CALL [phone] WITH ANY QUESTIONS.) [facility] [Outside] - 1 Day ([facility] FOR IV ANTIBIOTICS AND HOME PHYICAL THERAPY, START OF CARE WILL BE WEDNESDAY 09/13 FOR FIRST DOSE OF IV ANTIBIOTICS.) Edmar Sood MD [Physician] - 1 Week (09/18/21 12:15 [facility] Edmar Sood MD) Discharge Medications: New docusate sodium 100 mg Capsule 100 mg PO BID 30 Days Qty: 60 0RF enoxaparin 40 mg/0.4 mL Syringe 40 mg subcut Q24H 42 Days Qty: 16.8 0RF oxycodone 10 mg tablet 10 mg PO Q4H PRN (Reason: Pain, Moderate (Pain Scale 4-6) 7 Days Qty: 42 0RF cephalexin 500 mg Capsule 500 mg PO Q6H 14 Days Qty: 56 0RF vancomycin in 0.9 % sodium chl 1 gram/200 mL piggyback 1 g IV Q12H 42 Days Qty: 60836 0RF Rx Instructions: vanco torugh to be drawn prior to 4th dose Continued celecoxib 200 mg Capsule 200 mg PO BID 30 Days Qty: 60 0RF docusate sodium 100 mg Capsule 100 mg PO BID PRN (Reason: Constipation) 30 Days Qty: 60 0RF enoxaparin 40 mg/0.4 mL Syringe 40 mg subcut Q24H 42 Days Qty: 16.8 0RF amlodipine 5 mg tablet 10 mg PO DAILY Qty: 60 0RF (DME) walker Misc See Rx Instructions .MEDSUPPLY Qty: 1 0RF Rx Instructions: Folding Front wheeled walker -extra large Discontinued sulfamethoxazole-trimethoprim [Bactrim DS] 800-160 mg tablet 1 tab PO BID 10 Days Qty: 20 0RF oxycodone 5 mg tablet 5 mg PO Q4H PRN (Reason: Pain, Moderate (Pain Scale 4-6) 7 Days Qty: 42 0RF Discharge Orders: Discharge Order (Routine); Ordered 09/12/21 Ordered By: Esperanza Velasquez Diet: regular diet Activity on Discharge: Use cane or walker Stand Alone Forms: Patient Portal Discharge page Care Plan Goals: Restore function of joint Health Concerns: none Plan of Treatment: Vancomycin IV x6 weeks ( start date 09/04/21) Keflex 500mg tabs - 1 tab twice a day x 2 weeks ( start date 09/11/21) BMP/CBC w diff/ BUN, Cr. Assessment: Physical Therapy for Total knee arthroplasty: WBAT, gait training, ROM 0-12, quad strength * Limit stair climbing * No showering, no tub bath-keep dressing clean, dry and intact * No driving x6 weeks * ContinueLovenox x6 weeks * Follow up with [facility] on 09/18/21 12:15
[2021-09-12] MEDS: amLODIPine Besylate 10 MG TABLET PO (10:10)
[2021-09-12] MEDS: Celecoxib 200 MG CAPSULE PO ×2 (10:10→22:03)
[2021-09-12] MEDS: 0.9 % Sodium Chloride Flush 3 ML SYRINGE IVFLUSH ×2 (10:10→17:24)
[2021-09-12] MEDS: vancomycin HCL 1,250 MG in 0.9 % Sodium Chloride 250 ML 166.67 MG IV ×2 (10:10→22:03)
[2021-09-12] MEDS: Docusate Sodium 100 MG CAPSULE PO ×2 (10:10→22:03)
--- NOTE | 2021-09-12 11:12 | P.PNIM_ITS ---
Subjective Subjective Date of Service: 09/12/21 Interval History: offers no acute complaints resting comfortably, denies nausea , vomiting, abdominal pain, no constipation, no shortness of breath, no chest pain, no lightheadedness, no dizziness,, no fevers, no chills, no overnight acute issues. Review of Systems Review of Systems: Yes all other systems are reviewed and are negative Physical Exam Vital Signs: Vital Signs: Last Vital Signs Temp 97.4 F 09/12/21 08:00 Pulse 87 09/12/21 08:00 Resp 17 09/12/21 08:00 BP 155/79 H 09/12/21 08:00 Pulse Ox 95 09/12/21 08:00 Const: Other: General: Ax O X 3, no acute distress neck no JVD Resp:? CTA bilateral CVS: S1,S2,RRR GI: +BS, NT, no distention Skin: No rash Neuro:? motor grossly intact right lower ex swollen wound vac on knee Psych: appropriate affect Objective Data Active Medications Amlodipine Besylate (Amlodipine Besylate 10 Mg Tablet) 10 mg PO DAILY [facility]; Protocol Last Admin: 09/12/21 10:10 Dose: 10 mg Documented by: ROBERT Celecoxib (Celecoxib 200 Mg Capsule) 200 mg PO BID [facility] Last Admin: 09/12/21 10:10 Dose: 200 mg Documented by: ROBERT Cephalexin HCl (Cephalexin 500 Mg Capsule) 500 mg PO Q6H [facility] Last Admin: 09/12/21 05:46 Dose: 500 mg Documented by: CASTILM Docusate Sodium (Docusate Sodium 100 Mg Capsule) 100 mg PO BID [facility] Last Admin: 09/12/21 10:10 Dose: 100 mg Documented by: ROBERT Enoxaparin Sodium (Enoxaparin Sodium 40 Mg/0.4 Ml Syringe) 40 mg SUBCUT Q24H [facility] Last Admin: 09/11/21 15:23 Dose: 40 mg Documented by: LYSZ Vancomycin HCl 1,250 mg/ (Sodium Chloride) 250 mls @ 166.667 mls/hr IV Q12H [facility] Last Admin: 09/12/21 10:10 Dose: 166.67 mls/hr Documented by: ROBERT Oxycodone HCl (Oxycodone Hcl Immed Release 5 Mg Tablet) 10 mg PO Q4H PRN PRN Reason: Pain, Moderate (Pain Scale 4-6 Last Admin: 09/12/21 03:22 Dose: 10 mg Documented by: BENIGNO Pharmacy Consult (Consult Rx Perform Med Rec) 1 each MISCELLANE ONCE PRN PRN Reason: Consult order Pharmacy Consult (Consult Rx Vancomycin Dosing) 1 each MISCELLANE DAILY PRN PRN Reason: Consult order Pharmacy Consult (Consult Rx Vancomycin Dosing) 1 each MISCELLANE DAILY PRN PRN Reason: Consult order Sodium Chloride (0.9 % Sodium Chloride Flush 3 Ml Syringe) 3 ml IVFLUSH QSHIFT [facility] Last Admin: 09/12/21 10:10 Dose: 3 ml Documented by: ROBERT Labs CBC & Chem 7: 09/12/21 04:38 09/12/21 04:38 Labs: Laboratory Results - last 24 hr 09/11/21 09/11/21 09/11/21 20:06 20:06 20:06 MCV MCH MCHC RDW Plt Count MPV Immature Gran % (Auto) Neut % (Auto) Lymph % (Auto) [place] % (Auto) Eos % (Auto) Baso % (Auto) Lymph # (Auto) [place] # (Auto) Eos # (Auto) Baso # (Auto) Abs Immat Gran (auto) Absolute Neuts (auto) Absolute Nucleated RBC Nucleated RBC % (auto) Anion Gap Estim Creat Clear Calc 87.4 Estimated GFR 57 Random Glucose Calcium Total Bilirubin AST ALT Alkaline Phosphatase Total Protein Albumin Vancomycin Trough Cancelled Random Vancomycin 10.5 L 09/12/21 09/12/21 04:38 04:38 MCV 79.9 L MCH 25.3 L MCHC 31.7 RDW 15.0 Plt Count 170 MPV 12.3 Immature Gran % (Auto) 0.3 Neut % (Auto) 60.1 Lymph % (Auto) 24.2 [place] % (Auto) 10.1 Eos % (Auto) 4.6 H Baso % (Auto) 0.7 Lymph # (Auto) 1.4 [place] # (Auto) 0.6 Eos # (Auto) 0.3 Baso # (Auto) 0.0 Abs Immat Gran (auto) 0.02 Absolute Neuts (auto) 3.6 Absolute Nucleated RBC 0.000 Nucleated RBC % (auto) 0.0 Anion Gap 9 L Estim Creat Clear Calc 102.6 Estimated GFR > 60 Random Glucose 123 H Calcium 8.3 L Total Bilirubin 0.2 AST 31 ALT 27 Alkaline Phosphatase 115 Total Protein 6.7 Albumin 2.7 L Vancomycin Trough Random Vancomycin Microbiology Microbiology Results: Microbiology 09/08/21 Unknown Gram Stain - Final Knee,Right Routine Culture - Final Staphylococcus aureus Anaerobic Culture - Preliminary Culture in progress. Assessment and Plan (1) S/P total knee arthroplasty: Status: Acute (2) Hypertension: Status: Acute (3) Osteoarthritis of right knee: Status: Acute Plan 66/m with HTN admitted under Orthopedic surgery. 1. Right knee hematoma with wound dehiscence s/p surgery and now with wound vac, s/p I and D 09/10, further treatment plan as per Orthopedic surgery, patient denies pain, no fevers, no chills. recommend to use incentive spirometry continue bowel regimen to avoid constipation continue IV antibiotics as per ID recommendation. 2.Hypertension: is stable blood pressures in last 24 hours continue Norvasc 10 mg 3.Obese weight loss advised, continue low-calorie diet. 4. Anemia-- Stable hematocrit,no indication for transfusion a this time DVT prophylaxis on Lovenox patient medically stable will sign of common dispo plan as per orthopedic surgeon Quality Stroke Does the patient have a stroke diagnosis?: No VTE Prior VTE?: No VTE Risk Level:: Surgical - very high VTE Device Contraindication: N/A - Device Ordered VTE Drug Contraindication: N/A - Med Ordered
[2021-09-12] MEDS: Enoxaparin Sodium 40 MG/0.4 ML SYRINGE SUBCUT (13:24)
--- NOTE | 2021-09-12 13:47 | W.MHC.F2F ---
Service Date Service Date: 09/12/21 Encounter Date of encounter: 09/12/21 Reasons for Services Signs and symptoms assessed: right knee pain with ambulation. poor balance and quad control. Reason for intermediate: administration of IV, SQ, or IM injection, medication management and other (picc line care) Reason for physical therapy: home safety and mobility, therapeutic exercises, restore joint function, gait/transfer training, ADL training and energy conservation Reason for occupational therapy: home safety and mobility, therapeutic exercises, restore joint function, gait/transfer training, ADL training and energy conservation Overseeing Care: Edmar Sood Homebound: Leaving the home is medically contraindicated at this time without the asist of a device and/or another person due th the listed conditions above and below. Reason homebound: unsteady gait / fall risk, leg weakness, pain with ambulation, poor balance / fall risk, immunosuppression / infection risk, weakness related to hospital stay and unable to drive Homebound supporting statement: Pt. is considered home bound due to recent surgery. Unable to drive, poor balance, poor gait mechanics. Certification: Based on the above findings, I certify that this patient is confined to the home and needs intermittent intermediate care, physical therapy and/or speech therapy, or continues to need occupational therapy. The patient is under my care, and I have initiated the establishment of the plan of care. The patient will be followed by a physician who will periodically review the plan of care.
[2021-09-12 20:44] LABS: Vancomycin Trough 15.3 mcg/mL (10.0-20.0)
[2021-09-13] MEDS: 0.9 % Sodium Chloride Flush 3 ML SYRINGE IVFLUSH ×2 (00:06→10:10)
[2021-09-13] MEDS: cephALEXin 500 MG CAPSULE PO ×3 (00:08→11:56)
[2021-09-13 03:08] VITALS: BP 135/69; PULSE 75; RESP 16; TEMP 36.1; O2SAT 95
[2021-09-13 06:55] LABS: MANUAL DIFF FLAG NO
[2021-09-13 07:07] VITALS: BP 129/75; PULSE 73; RESP 18; TEMP 36.9; O2SAT 99
[2021-09-13 07:12] LABS: Basophils Percent Auto 0.8 % (0-2); Eosinophils Absolute Auto 0.2 X10*3/uL (0.0-0.4); Hematocrit 27.5 % (42.0-52.0); Hemoglobin 8.6 g/dl (14.0-18.0); Imm Gran Abs Auto 0.01 X10*3/uL (0.00-0.03); Imm Gran Pct Auto 0.2 % (0.0-0.4); Lymphocytes Absolute Auto 1.3 X10*3/uL (1.2-4.9); Lymphocytes Percent Auto 26.2 % (20-40); Mean Corpuscular HGB Conc 31.3 g/dl (31.0-36.0); Mean Corpuscular Hemoglobin 25.5 pg (27.0-33.0); Mean Corpuscular Volume 81.6 fL (80.0-98.0); Mean Platelet Volume 12.3 fL (9.4-12.4); Monocytes Absolute Auto 0.6 X10*3/uL (0.1-1.2); Monocytes Percent Auto 11.3 % (2-11); Neutrophils Absolute Auto 2.9 x10*3/uL (2.0-8.3); Neutrophils Percent Auto 57.5 % (45-73); Platelet Count 161 X10*3/uL (160-400); Red Blood Count 3.37 X10*6/uL (4.60-5.80); Red Cell Distribution Width 15.1 % (11.0-16.0)
[2021-09-13 07:28] LABS: Alanine Aminotransferase 25 U/L (0-40); Albumin Level 2.7 g/dL (3.5-5.0); Alkaline Phosphatase 112 U/L (39-117); Anion Gap 13 (12-20); Aspartate Amino Transferase 29 U/L (5-37); Bilirubin Total 0.2 mg/dL (0.0-1.0); Blood Urea Nitrogen 23 mg/dL (9-16); Calcium 8.6 mg/dL (8.4-10.2); Carbon Dioxide 23 mmol/L (22-29); Chloride 107 mmol/L (96-108); Creatinine Clr Calc Pharmacy 111.8; Estimated Glomerular Filt Rate > 60; Glucose Random 118 mg/dL (60-115); Potassium 4.8 mmol/L (3.3-5.1); Sodium 138 mmol/L (135-145); Total Protein 6.4 g/dL (6.5-8.0)
--- NOTE | 2021-09-13 08:43 | MHC.CM.PN ---
Addendum entered by Neelam Holder 09/13/21 11:58: [facility]OTH [facility] AND [facility] HAVE CONFIRMED SOC FOR TODAY. PT WILL DC HOME VIA FAMILY TRANSPORT Addendum entered by Neelam Holder 09/13/21 10:23: [facility] CONFIRMED THEY ARE SCHEDULED TO SEE PT EARLY THIS EVENING. DC SUMMARY AND FACE TO FACE WERE SENT TO THEM VIA [facility]. [facility] HAS NOT YET RESPONDED Original Note: PATIENT TO BE DISCHARGED TODAY FOLLOWING HIS 1000 HOUR DOSE OF VANCO. [facility] TO DELIVER MEDS AND SUPPLIES TO PTS HOME AROUND 1200 HOURS AND [facility] TO SEE PT AT HOME EARLY THIS EVENING. MESSAGES HAVE BEEN LEFT FOR [facility] AND [facility] TO CONFIRM DC AND PLAN. AWAITING RESPONSES.
[2021-09-13] MEDS: amLODIPine Besylate 10 MG TABLET PO (10:10)
[2021-09-13] MEDS: Docusate Sodium 100 MG CAPSULE PO (10:10)
[2021-09-13] MEDS: vancomycin HCL 1,250 MG in 0.9 % Sodium Chloride 250 ML 166.67 MG IV (10:10)
[2021-09-13] MEDS: Celecoxib 200 MG CAPSULE PO (10:10)
--- NOTE | 2021-09-19 15:41 | W.PM.OPN ---
Operative Note Operative Note Date of Service: 09/05/21 Narrative: Date of Service: 09/05/21 Pre-op diagnosis: right knee hematoma with wound dehiscence Post-op diagnosis: same Procedure: irrigation and drainage with wound vac placement Surgeon: Edmar Sood MD Anesthesia: GETA Was an Pediatric Oncologist used for this Procedure?: Yes Pediatric Oncologist: Pauly Mohr Estimated blood loss (mL): 100 IV fluids (mL): 300 Pathology: none sent Condition: stable Disposition: PACU Procedure in detail: Patient was brought to the upper and placed supine on the operative table and prepped and draped in standard sterile fashion. A time-out was called to identify proper site and proper procedure and IV antibiotics per weight were administered. I began by opening up the dehisced wound and there was abundant hematoma. There was no obvious purulence or evidence of infection. I removed the hematoma and debrided any necrotic tissue and irrigated copiously with 6 L of warm saline. There was no obvious penetration of the deep fascia. He did however have significant soft tissue swelling and I was unable to completely close the wound. Therefore a wound VAC dressing was applied to approximately 5 cm of the wound that was 2 tight to close. Once the wound VAC was confirmed to be holding suction the patient was awakened from anesthesia and brought to recovery room stable condition. There were no known complications.
--- NOTE | 2021-09-19 15:44 | P.OP_ITS ---
Operative Note Operative Note Date of Service: 09/08/21 Narrative: Date of Service: 09/08/21 Pre-op diagnosis: right knee hematoma and wound breakdown s/p TKA Procedure: Right knee irrigation and debridement with polyethylene liner exchange and partial DPC with placement of wound vac Surgeon: Edmar Sood MD Anesthesia: GETA Was an Drug And Alcohol Counselor used for this Procedure?: No Estimated blood loss (mL): 150 Pathology: other Condition: stable Disposition: PACU Procedure in detail: Patient was brought to the operating room and placed supine on the surgical table. She was prepped and draped in standard sterile fashion and a time out was called to indentify proper site, proper procedure and IV antibiotics per weight were administered. I began by removing the wound VAC dressing. The incision was then opened and I irrigated copiously. I then removed the arthrotomy suture and flexed the knee up. There was no evidence of deep infection. The liner was removed and a identical liner was replaced after an additional 9 L of copious irrigation. I then closed the medial parapatellar arthrotomy with a running Quill suture. I then irrigated copiously and closed approximately 80% of the incision. The remaining 2-3 cm was too tight to close and a wound VAC was reapplied.
--- NOTE | 2021-09-19 15:47 | P.OP_ITS ---
Operative Note Operative Note Date of Service: 09/19/21 Narrative: Date of Service: 09/10/21 Pre-op diagnosis: open wound Post-op diagnosis: same Procedure: Delayed primary closure right knee and placement of vacuum assisted dressing Surgeon: Edmar Sood MD Was an Public Address Systems Mechanic used for this Procedure?: Yes Public Address Systems Mechanic: Pauly Mohr Estimated blood loss (mL): 25 IV fluids (mL): 500 Pathology: none sent Condition: stable Disposition: PACU Procedure in detail: Patient was brought to the operating room and placed supine on the surgical table. She was prepped and draped in standard sterile fashion and a time out was called to identify proper site, proper procedure and IV antibiotics per weight were administered. I began by removing the wound VAC dressing and copious irrigation was performed. There was no evidence of deep infection. As the remaining 2-3 in city cm of open incision was then closed with nylon suture. I then placed a Prevena vacuum assisted dressing. Patient was then extubated brought to recovery room in stable condition. There were no known complications .
== END 2021-09-13 12:45 | disposition home health service (06) | DRG 792 ==
PROVIDERS: Internal Medicine; Physician Assistant; Admitting Provider Orthopaedic Surgery; PCP Internal Medicine; Visit Provider Orthopaedic Surgery
PROC: 0JBN0ZZ Excision of Right Lower Leg Subcutaneous Tissue and Fascia, Open Approach (ICD-10-PCS; principal; 2021-09-05 12:00)
PROC: 0SPC09Z Removal of Liner from Right Knee Joint, Open Approach (ICD-10-PCS; CPT 27487; principal; 2021-09-08 13:00)
PROC: 0JQN0ZZ Repair Right Lower Leg Subcutaneous Tissue and Fascia, Open Approach (ICD-10-PCS; principal; 2021-09-10 08:30)
DX: T81.31XA Disruption of external operation (surgical) wound, not elsewhere classified, initial encounter (principal); M96.840 Postprocedural hematoma of a musculoskeletal structure following a musculoskeletal system procedure; D64.9 Anemia, unspecified; E66.01 Morbid (severe) obesity due to excess calories; F17.210 Nicotine dependence, cigarettes, uncomplicated; I10 Essential (primary) hypertension; Z20.822 Contact with and (suspected) exposure to COVID-19; Z68.41 Body mass index [BMI] 40.0-44.9, adult; Z86.19 Personal history of other infectious and parasitic diseases; Z86.14 Personal history of Methicillin resistant Staphylococcus aureus infection; Z71.3 Dietary counseling and surveillance; Z88.5 Allergy status to narcotic agent; Z88.6 Allergy status to analgesic agent; Z79.899 Other long term (current) drug therapy
CPT/HCPCS: 10160; 36415; 36573; 80048; 80053; 80202; 82565; 85025; 85652; 86140; 87071; 87073; 87077; 87186; 87205; 87522; 87635; 97110; 97116; 97161; 97530; 99218; C1751; C1776; J1100; J1170; J1650; J2250; J2370; J2405; J2550; J3010; J3370

== ENCOUNTER → 2021-09-18 11:52 | Outpatient (BNVA) | payer OTHER, SELFPAY | PROVIDERS: PCP Internal Medicine; Visit Provider Orthopaedic Surgery | DX: Z47.1 Aftercare following joint replacement surgery (principal); Z96.659 Presence of unspecified artificial knee joint | CPT/HCPCS: 99212 ==

== ENCOUNTER 2021-09-23 12:05 | Outpatient (RCR) | payer OTHER, SELFPAY | END 2021-10-06 11:50 | disposition home or self-care (01) | LOC: HO.WCC 12:05 | PROVIDERS: PCP Internal Medicine; Visit Provider Surgery | DX: L97.212 Non-pressure chronic ulcer of right calf with fat layer exposed (principal); I87.2 Venous insufficiency (chronic) (peripheral); R60.0 Localized edema; F17.210 Nicotine dependence, cigarettes, uncomplicated; I10 Essential (primary) hypertension; Z86.19 Personal history of other infectious and parasitic diseases; Z96.651 Presence of right artificial knee joint | CPT/HCPCS: 11042; 11045; 87071; 87073; 87186; 87205 ==

== ENCOUNTER 2021-09-24 08:49 | Outpatient (REF) | payer OTHER, SELFPAY ==
[2021-09-24 09:42] LABS: MANUAL DIFF FLAG NO
[2021-09-24 10:10] LABS: Basophils Percent Auto 0.5 % (0-2); Eosinophils Absolute Auto 0.1 X10*3/uL (0.0-0.4); Eosinophils Percent Auto 2.8 % (0-4); Hematocrit 30.1 % (42.0-52.0); Hemoglobin 9.3 g/dl (14.0-18.0); Imm Gran Abs Auto 0.01 X10*3/uL (0.00-0.03); Imm Gran Pct Auto 0.3 % (0.0-0.4); Lymphocytes Percent Auto 25.9 % (20-40); Mean Corpuscular HGB Conc 30.9 g/dl (31.0-36.0); Mean Corpuscular Hemoglobin 24.6 pg (27.0-33.0); Mean Corpuscular Volume 79.6 fL (80.0-98.0); Mean Platelet Volume 12.3 fL (9.4-12.4); Monocytes Absolute Auto 0.4 X10*3/uL (0.1-1.2); Monocytes Percent Auto 9.3 % (2-11); Neutrophils Absolute Auto 2.4 x10*3/uL (2.0-8.3); Neutrophils Percent Auto 61.2 % (45-73); Platelet Count 139 X10*3/uL (160-400); Red Blood Count 3.78 X10*6/uL (4.60-5.80); White Blood Count 3.9 X10*3/uL (4.8-10.8)
[2021-09-24 10:41] LABS: Anion Gap 11 (12-20); Blood Urea Nitrogen 11 mg/dL (9-16); Calcium 8.8 mg/dL (8.4-10.2); Carbon Dioxide 26 mmol/L (22-29); Chloride 107 mmol/L (96-108); Estimated Glomerular Filt Rate > 60; Glucose Random 112 mg/dL (60-115); Potassium 4.1 mmol/L (3.3-5.1); Sodium 140 mmol/L (135-145)
[2021-09-24 11:05] LABS: Vancomycin Trough 8.8 mcg/mL (10.0-20.0)
== END 2021-09-24 08:50 | disposition home or self-care (01) ==
LOC: HO.LAB 08:49
PROVIDERS: PCP Internal Medicine; Visit Provider Internal Medicine
DX: T84.53XA Infection and inflammatory reaction due to internal right knee prosthesis, initial encounter (principal)
CPT/HCPCS: 36415; 80048; 80202; 85025

== ENCOUNTER → 2021-09-25 11:24 | Outpatient (BNVA) | payer OTHER, SELFPAY | PROVIDERS: PCP Internal Medicine; Visit Provider Physician Assistant | DX: Z13.89 Encounter for screening for other disorder (principal) ==

== ENCOUNTER → 2021-09-29 13:28 | Outpatient (BNVA) | payer OTHER, SELFPAY | PROVIDERS: PCP Internal Medicine; Visit Provider Internal Medicine | DX: Z96.659 Presence of unspecified artificial knee joint (principal) | CPT/HCPCS: 99212 ==

== ENCOUNTER 2021-11-07 09:05 | Outpatient (REF) | payer OTHER, SELFPAY ==
--- NOTE | ~2021-11-07 | XR_ITS ---
EXAMINATION: XR KNEE, RIGHT XR KNEE AP STANDING CLINICAL INFORMATION: Right knee pain. COMPARISON: None TECHNIQUE: Lateral and axial views of the right knee were obtained. AP bilateral standing view of the knees was obtained. FINDINGS: Prosthetic components of the right total knee arthroplasty are appropriately aligned without periprosthetic fracture or lucency. No component migration. No joint effusion. There is intact orthopedic hardware related to a prior right ACL repair. There is marked asymmetric narrowing of the medial joint space compartment the left knee, with a secondary varus configuration. XR/XR knee RT 2V IMPRESSION: 1. Appropriate alignment of the right total knee arthroplasty without evidence of complications. 2. There is marked degenerative change of the medial joint space compartment of the left knee. There is a secondary varus configuration.
--- NOTE | ~2021-11-07 | XR_ITS ---
EXAMINATION: XR KNEE, RIGHT XR KNEE AP STANDING CLINICAL INFORMATION: Right knee pain. COMPARISON: None TECHNIQUE: Lateral and axial views of the right knee were obtained. AP bilateral standing view of the knees was obtained. FINDINGS: Prosthetic components of the right total knee arthroplasty are appropriately aligned without periprosthetic fracture or lucency. No component migration. No joint effusion. There is intact orthopedic hardware related to a prior right ACL repair. There is marked asymmetric narrowing of the medial joint space compartment the left knee, with a secondary varus configuration. XR/XR knee standing BI IMPRESSION: 1. Appropriate alignment of the right total knee arthroplasty without evidence of complications. 2. There is marked degenerative change of the medial joint space compartment of the left knee. There is a secondary varus configuration.
== END 2021-11-07 09:06 | disposition home or self-care (01) ==
LOC: HO.HOSX 09:05
PROVIDERS: Visit Provider Physician Assistant
DX: M25.561 Pain in right knee (principal); M25.562 Pain in left knee
CPT/HCPCS: 73560; 73565

== ENCOUNTER 2021-11-11 12:51 | Outpatient (REF) | payer OTHER, SELFPAY | END 2021-11-11 12:52 | disposition home or self-care (01) | LOC: HO.HOSX 12:51 | PROVIDERS: Visit Provider Physician Assistant | DX: Z13.89 Encounter for screening for other disorder (principal) ==

== ENCOUNTER 2021-11-14 11:32 | Outpatient (REF) | payer OTHER, SELFPAY ==
[2021-11-14 11:54] LABS: MANUAL DIFF FLAG NO
[2021-11-14 12:16] LABS: Basophils Percent Auto 0.4 % (0-2); Eosinophils Absolute Auto 0.1 X10*3/uL (0.0-0.4); Hematocrit 36.3 % (42.0-52.0); Hemoglobin 11.1 g/dl (14.0-18.0); Imm Gran Abs Auto 0.02 X10*3/uL (0.00-0.03); Imm Gran Pct Auto 0.3 % (0.0-0.4); Lymphocytes Absolute Auto 1.5 X10*3/uL (1.2-4.9); Lymphocytes Percent Auto 21.3 % (20-40); Mean Corpuscular HGB Conc 30.6 g/dl (31.0-36.0); Mean Platelet Volume 11.3 fL (9.4-12.4); Monocytes Absolute Auto 0.6 X10*3/uL (0.1-1.2); Monocytes Percent Auto 8.3 % (2-11); Neutrophils Absolute Auto 4.7 x10*3/uL (2.0-8.3); Neutrophils Percent Auto 68.7 % (45-73); Platelet Count 245 X10*3/uL (160-400); Red Blood Count 5.04 X10*6/uL (4.60-5.80); Red Cell Distribution Width 15.9 % (11.0-16.0); White Blood Count 6.9 X10*3/uL (4.8-10.8)
[2021-11-14 12:43] LABS: Anion Gap 15 (12-20); Blood Urea Nitrogen 19 mg/dL (9-16); Calcium 8.7 mg/dL (8.4-10.2); Carbon Dioxide 26 mmol/L (22-29); Chloride 102 mmol/L (96-108); Estimated Glomerular Filt Rate 33; Glucose Random 117 mg/dL (60-115); Potassium 4.8 mmol/L (3.3-5.1); Sodium 138 mmol/L (135-145)
== END 2021-11-14 11:33 | disposition home or self-care (01) ==
LOC: HO.LAB 11:32
PROVIDERS: PCP Internal Medicine; Visit Provider Internal Medicine
DX: Z13.0 Encounter for screening for diseases of the blood and blood-forming organs and certain disorders involving the immune mechanism (principal); R51.9 Headache, unspecified
CPT/HCPCS: 36415; 80048; 85025

== ENCOUNTER 2021-11-20 10:00 | Outpatient (RCR) | payer OTHER, SELFPAY ==
[2021-11-05 08:18] VITALS: BP 159/79; PULSE 92
--- NOTE | 2021-11-05 09:21 | MHC.PT.EP ---
[facility] [place] Office [place] Office [place] Office [address] Garfield Aguirre [address] [phone] F: [phone] F: [phone] F: [phone] F: [phone] Physical Therapy Plan of Care Date of Evaluation: Date of Surgery: 09/10/21 Diagnosis: R TKA Assessment: Cristobal is a 66 year old male who is referred to PT status post R TKA. He is 8 weeks post op. He was doing well with home PT and after that until last week when he injured his knee. Per pt he felt sudden onset of increased pain and swelling in R knee after he attempted to move his tool box. His pain and swelling is less but still present. On PT examination he presents with significant swelling, 6/10 pain at rest and 8/10 with activity, decreased knee ROM, decreased hip and knee muscle strength, altered posture, balance and gait. He is independent with ADLS and but has pain with them and modifies them to avoid pain. 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 He is currently out of work. He would benefit from skilled PT to address the aforementioned impairments and improve tolerance to functional activities. Frequency and Duration: The patient will be seen 2/week for 5 weeks Short Term Goals: 1. Pt will have 50% decrease in swelling which will improve his knee flexion ROM in 2 weeks. 2. Pt will have 50% decrease in pain which will help him ambulate without AD in 3 weeks. Field Human Resources Manager Goals: 1. Pt will have all knee ROM WNL which will enable him to negotiate stairs in alternate pattern and with min UE support in 4 weeks. 2. Pt will be independent with all HEPs for symptom management and maintenance following d/c in 5 weeks. Treatment Plan: Modalities to reduce pain, spasms and effusion. Manual therapy to restore motion and function. Therapeutic exercise to improve strength and flexibility. Neuromuscular re-education for posture and balance. Therapeutic activities to return to functional activities of daily living. Electronically signed by: Tere Fregoso PT DPT Please sign and return to therapist. Thank you for your referral.
--- NOTE | 2022-01-05 09:41 | MHC.PT.DC ---
[facility] [place] Office [place] Office [place] Office [address] Garfield Aguirre [address] [phone] F: [phone] F: [phone] F: [phone] F: [phone] Physical Therapy Discharge Report Diagnosis: R TKA Date of Surgery: 08/12/21 Date of Evaluation: 11/05/21 Date of Discharge: 01/05/22 Treatments to Date: 4 Cancellations to Date: No Shows to Date: 6 Discharge Status: Visit Non-compliance Discharge Summary: Cristobal missed several appointments of PT due to infection/abscess in knee. He did not return to therapy after resolution of infection. Attempted to call pt however he did not return calls. He is therefore being d/c from PT. Electronically signed by: Tere Fregoso PT DPT Please sign and return to therapist. Thank you for your referral.
== END 2022-01-05 09:42 | disposition home or self-care (01) ==
LOC: HO.PT 10:00
PROVIDERS: Visit Provider Orthopaedic Surgery
DX: Z96.651 Presence of right artificial knee joint (principal)
CPT/HCPCS: 97110; 97161

== ENCOUNTER 2021-11-24 16:53 | Outpatient (REF) | payer OTHER, SELFPAY | END 2021-11-24 16:54 | disposition home or self-care (01) | LOC: HO.LNP 16:53 | PROVIDERS: Visit Provider Physician Assistant | DX: L02.415 Cutaneous abscess of right lower limb (principal); Z96.651 Presence of right artificial knee joint | CPT/HCPCS: 87071; 87073; 87077; 87185; 87186; 87205; 89060 ==

== ENCOUNTER 2021-12-15 09:18 | Outpatient (REF) | payer OTHER, SELFPAY ==
--- NOTE | ~2021-12-15 | XR_ITS ---
EXAMINATION: XR KNEE STANDING, BILATERAL XR KNEE, RIGHT CLINICAL INFORMATION: Pain in right knee. COMPARISON: None TECHNIQUE: AP bilateral knees standing. Right knee 2 views. FINDINGS: AP Bilateral Knee: There is a total right knee arthroplasty. The prosthetic components are in satisfactory alignment. There is severe loss of medial compartment joint space left knee with periarticular spurring. No visible acute fracture or dislocation seen. The soft tissues are normal. Right Knee: There is a total right knee arthroplasty with prosthetic components in satisfactory alignment. There is no periprosthetic fracture. The soft tissues are normal. XR/XR knee standing BI IMPRESSION: Total right knee arthroplasty in satisfactory alignment. No loosening. No periprosthetic fracture. Severe degenerative arthritic changes, medial compartment left knee.
--- NOTE | ~2021-12-15 | XR_ITS ---
EXAMINATION: XR KNEE STANDING, BILATERAL XR KNEE, RIGHT CLINICAL INFORMATION: Pain in right knee. COMPARISON: None TECHNIQUE: AP bilateral knees standing. Right knee 2 views. FINDINGS: AP Bilateral Knee: There is a total right knee arthroplasty. The prosthetic components are in satisfactory alignment. There is severe loss of medial compartment joint space left knee with periarticular spurring. No visible acute fracture or dislocation seen. The soft tissues are normal. Right Knee: There is a total right knee arthroplasty with prosthetic components in satisfactory alignment. There is no periprosthetic fracture. The soft tissues are normal. XR/XR knee RT 2V IMPRESSION: Total right knee arthroplasty in satisfactory alignment. No loosening. No periprosthetic fracture. Severe degenerative arthritic changes, medial compartment left knee.
== END 2021-12-15 09:19 | disposition home or self-care (01) ==
LOC: HO.HOSX 09:18
PROVIDERS: Visit Provider Physician Assistant
DX: M25.561 Pain in right knee (principal); M25.562 Pain in left knee
CPT/HCPCS: 73560; 73565

== ENCOUNTER → 2021-12-25 14:09 | Outpatient (BNVA) | payer OTHER, SELFPAY | PROVIDERS: Visit Provider Orthopaedic Surgery | DX: L02.415 Cutaneous abscess of right lower limb (principal); Z96.651 Presence of right artificial knee joint | CPT/HCPCS: 99212 ==

== ENCOUNTER → 2021-12-26 09:03 | Outpatient (BNVA) | payer OTHER, SELFPAY | PROVIDERS: Visit Provider Orthopaedic Surgery | DX: L02.415 Cutaneous abscess of right lower limb (principal); Z96.651 Presence of right artificial knee joint | CPT/HCPCS: 99212 ==

== ENCOUNTER → 2021-12-31 08:20 | Outpatient (BNVA) | payer OTHER, SELFPAY | PROVIDERS: Visit Provider Physician Assistant | DX: L02.415 Cutaneous abscess of right lower limb (principal); Z96.659 Presence of unspecified artificial knee joint | CPT/HCPCS: 99212 ==

== ENCOUNTER → 2022-01-02 08:44 | Outpatient (BNVA) | payer OTHER, SELFPAY | PROVIDERS: Visit Provider Physician Assistant | DX: Z48.817 Encounter for surgical aftercare following surgery on the skin and subcutaneous tissue (principal); Z87.2 Personal history of diseases of the skin and subcutaneous tissue; Z96.659 Presence of unspecified artificial knee joint; Z79.2 Long term (current) use of antibiotics | CPT/HCPCS: 99212 ==

== ENCOUNTER 2022-01-05 08:02 | Outpatient (REF) | payer OTHER, SELFPAY ==
--- NOTE | ~2022-01-05 | US_ITS ---
EXAMINATION: US ABDOMEN COMPLETE CLINICAL INFORMATION: Unspecified abdominal pain. COMPARISON: Ultrasound abdomen complete 11/18/2018. TECHNIQUE: Real-time imaging of the abdominal viscera. FINDINGS: PANCREAS: Limited evaluation secondary to shadowing from overlying bowel gas. ABDOMINAL AORTA: Limited evaluation secondary to shadowing from overlying bowel gas. INFERIOR VENA CAVA: Visualized portions are normal. LIVER: Heterogeneous liver parenchyma with a questionable nodular contour suggesting underlying cirrhosis. No intrahepatic biliary ductal dilatation. No discrete focal lesion. GALLBLADDER: The gallbladder is physiologically distended without evidence of stones, sludge, polyps, wall thickening or pericholecystic fluid. COMMON BILE DUCT: Dilated common bile duct measuring up to 2.1 cm. Although there is dilatation of the cystic duct. RIGHT KIDNEY: Mild pelvocaliectasis. No hydronephrosis. No renal calculi or focal parenchymal lesions. The kidney measures 12.2 cm in maximum dimension. LEFT KIDNEY: Mild pelvocaliectasis. No hydronephrosis. No renal calculi or focal parenchymal lesions. The kidney measures 13.2 cm in maximum dimension. SPLEEN: Enlarged. The spleen measures 15.3 cm in maximum dimension. FREE FLUID: None. US/US abdomen complete IMPRESSION: 1. Heterogeneous and possible nodular liver suggesting hepatocellular disease and cirrhosis. 2. Nonspecific extrahepatic biliary ductal dilatation. If choledocholithiasis or other obstructive abnormality suspected, recommend correlation with MRCP/ERCP. 3. Mild splenomegaly. 4. Subtle nonspecific bilateral renal pelvocaliectasis.
== END 2022-01-05 08:03 | disposition home or self-care (01) ==
LOC: HO.US 08:02
PROVIDERS: Visit Provider Internal Medicine
DX: R10.9 Unspecified abdominal pain (principal); L02.415 Cutaneous abscess of right lower limb
CPT/HCPCS: 76700; 99212

== ENCOUNTER → 2022-01-08 09:22 | Outpatient (BNVA) | payer OTHER, SELFPAY | PROVIDERS: Visit Provider Physician Assistant | DX: Z48.817 Encounter for surgical aftercare following surgery on the skin and subcutaneous tissue (principal); Z96.659 Presence of unspecified artificial knee joint | CPT/HCPCS: 99212 ==

== ENCOUNTER → 2022-01-15 08:51 | Outpatient (BNVA) | payer OTHER, SELFPAY | PROVIDERS: Visit Provider Physician Assistant | DX: Z48.01 Encounter for change or removal of surgical wound dressing (principal); Z87.2 Personal history of diseases of the skin and subcutaneous tissue; Z96.659 Presence of unspecified artificial knee joint; Z79.2 Long term (current) use of antibiotics | CPT/HCPCS: 99212 ==

== ENCOUNTER → 2022-03-12 12:12 | Outpatient (BNVA) | payer OTHER, SELFPAY | PROVIDERS: Visit Provider Physician Assistant | DX: Z47.89 Encounter for other orthopedic aftercare (principal); L02.415 Cutaneous abscess of right lower limb | CPT/HCPCS: 10060; 99212 ==

== ENCOUNTER → 2022-03-13 10:26 | Outpatient (BNVA) | payer OTHER, SELFPAY | PROVIDERS: Visit Provider Physician Assistant | DX: Z48.817 Encounter for surgical aftercare following surgery on the skin and subcutaneous tissue (principal); Z87.2 Personal history of diseases of the skin and subcutaneous tissue | CPT/HCPCS: 99212 ==

== ENCOUNTER → 2022-03-16 10:27 | Outpatient (BNVA) | payer OTHER, SELFPAY | PROVIDERS: Visit Provider Physician Assistant | DX: Z48.817 Encounter for surgical aftercare following surgery on the skin and subcutaneous tissue (principal); Z47.89 Encounter for other orthopedic aftercare; L02.415 Cutaneous abscess of right lower limb | CPT/HCPCS: 99212 ==

== ENCOUNTER → 2022-03-18 08:09 | Outpatient (BNVA) | payer OTHER, SELFPAY | PROVIDERS: Visit Provider Physician Assistant | DX: L02.415 Cutaneous abscess of right lower limb (principal) | CPT/HCPCS: 99212 ==

== ENCOUNTER → 2022-03-30 08:23 | Outpatient (BNVA) | payer OTHER, SELFPAY | PROVIDERS: Visit Provider Physician Assistant | DX: L02.415 Cutaneous abscess of right lower limb (principal); Z96.651 Presence of right artificial knee joint | CPT/HCPCS: 99212 ==

== ENCOUNTER → 2022-08-20 14:14 | Outpatient (BNVA) | payer OTHER, SELFPAY | PROVIDERS: Visit Provider Orthopaedic Surgery ==

== ENCOUNTER 2022-08-20 14:53 | Outpatient (REF) | payer MEDICARE, MEDICAID, SELFPAY ==
--- NOTE | 2022-08-20 15:01 | ECG_ITS ---
Test Reason : PREOP Blood Pressure : / mmHG Vent. Rate : 084 BPM Atrial Rate : 084 BPM P-R Int : 148 ms QRS Dur : 108 ms QT Int : 382 ms P-R-T Axes : 059 -55 091 degrees QTc Int : 451 ms Normal sinus rhythm Left anterior fascicular block Moderate voltage criteria for LVH, may be normal variant ( R in aVL , Dalton product ) Abnormal QRS-T angle, consider primary T wave abnormality Abnormal ECG When compared with ECG of 17-JUN-2021 13:01, T wave amplitude has increased in Inferior leads Referred By: Edmar Sood Electronically Signed By:Christian Joseph
[2022-08-20 15:13] LABS: MANUAL DIFF FLAG NO
[2022-08-20 15:26] LABS: Basophils Absolute Auto 0.1 X10*3/uL (0.0-0.2); Basophils Percent Auto 0.8 % (0-2); Eosinophils Absolute Auto 0.3 X10*3/uL (0.0-0.4); Eosinophils Percent Auto 4.2 % (0-4); Imm Gran Abs Auto 0.05 X10*3/uL (0.00-0.03); Imm Gran Pct Auto 0.6 % (0.0-0.4); Lymphocytes Percent Auto 24.8 % (20-40); Mean Corpuscular HGB Conc 30.3 g/dl (31.0-36.0); Mean Corpuscular Hemoglobin 23.6 pg (27.0-33.0); Mean Corpuscular Volume 77.8 fL (80.0-98.0); Mean Platelet Volume 11.8 fL (9.4-12.4); Monocytes Absolute Auto 0.4 X10*3/uL (0.1-1.2); Monocytes Percent Auto 5.3 % (2-11); Neutrophils Absolute Auto 5.1 x10*3/uL (2.0-8.3); Neutrophils Percent Auto 64.3 % (45-73); Platelet Count 289 X10*3/uL (160-400); Red Blood Count 4.24 X10*6/uL (4.60-5.80); Red Cell Distribution Width 15.9 % (11.0-16.0); White Blood Count 7.9 X10*3/uL (4.8-10.8)
[2022-08-20 15:50] LABS: Anion Gap 13 (12-20); Blood Urea Nitrogen 47 mg/dL (9-16); Calcium 8.6 mg/dL (8.4-10.2); Carbon Dioxide 19 mmol/L (22-29); Chloride 111 mmol/L (96-108); Estimated Glomerular Filt Rate 26; Glucose Random 103 mg/dL (60-115); Sodium 138 mmol/L (135-145)
== END 2022-08-20 14:54 | disposition home or self-care (01) ==
LOC: HO.LAB 14:53
PROVIDERS: Visit Provider Orthopaedic Surgery
DX: Z01.812 Encounter for preprocedural laboratory examination (principal); L02.415 Cutaneous abscess of right lower limb
CPT/HCPCS: 36415; 80048; 85025; 93005; 99212

== ENCOUNTER 2022-08-26 06:41 | Inpatient (IN) | payer MEDICARE, MEDICAID, SELFPAY ==
[2022-08-26] VITALS (18 sets, daily range): BP systolic 121–168; BP diastolic 66–90; PULSE 72–88; RESP 16–20; TEMP 36.2–36.8; O2SAT 96–99; BMI 32.5
[2022-08-26 07:14] LABS: Hematocrit 30.3 % (42.0-52.0); Hemoglobin 9.3 g/dl (14.0-18.0)
[2022-08-26] MEDS: Lactated Ringers 1,000 ML 50 ML IVCONT (07:26)
--- NOTE | 2022-08-26 07:58 | P.CONAN_ITS ---
HPI - Anesthesia Eval Consult details Narrative: 67 yroldwith renal insuff : i fected knee implant for removal and spacerinsertion PMFSH Active Problems Active Problems: All Active Problems (Updated 11/24/21 @ 10:18 by Pauly Mohr PA-C) Seizure (Acute) Primary osteoarthritis of knees, bilateral (Acute) Abscess of right hand (Acute) Post-traumatic osteoarthritis of right knee (Acute) Preop exam for internal medicine (Acute) S/P total knee arthroplasty (Acute) Abdominal pain (Acute) Abscess of right knee (Acute) Osteoarthritis of left knee (Acute) Pancytopenia (Acute) Morbid obesity (Acute) Knee pain (Acute) Past Medical History Medical History Cellulitis and abscess of hand Convulsion, non-epileptic Hx MRSA infection Hx of hepatitis C Hypertension Knee pain Morbid obesity Osteoarthritis of left knee Osteoarthritis of right knee Pancytopenia Family History Family History Father No problems noted. Mother No problems noted. Family history of problems with anesthesia: No Surgical History Surgical History (Updated 08/26/22 @ 06:48 by Yolanda Lee RN) History of right knee surgery History of right shoulder replacement History of surgery History of total right knee replacement History of Problems with Anesthesia: No Social History Social History Household Members: Significant Other Housing: [facility] Are you a primary healthcare consulting manager to a significant other at home: No Do you presently have visiting nurse or other home services: Yes Unable to assess alcohol history related to: Unknown Alcohol intake: never Patient Tobacco Use Status: Former Tobacco user Quit Date: 6 months ago Tobacco use type: Cigarette Cigarettes Per Day: 4 Years Smoked: 20 e-Cigarette/Vaping Use: Currently Using Second Hand Smoke Exposure: No Use of substances other than those prescribed or required for medical reasons: No Substance Use Type: Heroin Are you DNR?: No Advance Directives: No Advance Directives Information Provided: No service: No Current occupational status: disabled Cognitive needs: No Hearing needs: No Vision needs: No Meds Allergies Allergy/AdvReac Type Severity Reaction Status Date / Time blueberry [BLUEBERRY] Allergy Severe ANAPHYLAXIS Verified 08/26/22 06:47 hydrocodone [Vicodin] Allergy Severe Anaphylaxis Verified 08/26/22 06:47 acetaminophen [Tylenol] Allergy Intermediate told to Verified 08/26/22 06:47 avoid Active Medications: Current Medications Lactated Ringer's (Lr) 1,000 mls @ 50 mls/hr IVCONT .Q20H MARTIN Last Admin: 08/26/22 07:26 Dose: 50 mls/hr Exam Exam Date and Time: August 26, 2022 0758 Height,Weight and Vital Signs: Height 6 ft 1.5 in Weight 113.398 kg Last Vital Signs Temp 97.7 F 08/26/22 07:07 Pulse 80 08/26/22 07:07 Resp 16 08/26/22 07:07 BP 161/89 H 08/26/22 07:07 Pulse Ox 96 08/26/22 07:07 O2 Del Method Room Air 08/26/22 07:07 Pertinent Lab Results Pertinent Lab Results: Laboratory Tests 08/26/22 06:56 Hgb 9.3 L Hct 30.3 L Airway Mallampati Class: II TM Dist: >3cm Neck ROM: Full Loose/Missing/Broken Teeth: Yes, Upper and Lower Heart: rrr Lungs: cta Assessment and Plan Assessment Anesthesia Assessment: Anesthesia Plan Discussed and Chart Reviewed Final Anesthetic Review Family History of Problems with Anesthesia: No History of Problems with Anesthesia: No NPO: Yes ASA Class: III Final Preanesthetic Review: No Changes in Pt Med Stat, Meds/Allgs Chart Reviewed, Consent Obtained/Reviewed and Anes Risks/Benef Reviewed Patient Risk: Intermediate Procedure Risk: Intermediate Assessment/Block/Sedation in SS: Assess/Block/Sedation- Anesthetic Plan Anesthetic Plan: GA and Regional Block Disposition: Standard PACU
--- NOTE | 2022-08-26 08:32 | MHC.SHP ---
Pre-Procedural Eval Section A Date of Service: 08/26/22 The patient is an INPATIENT: No Changes since office visit: No Cold of Flu in the past 2 weeks, No New Medical Problems, No Changes in Medication and No Patient answered all questions The History & Physical has been completed within 30 days and I have reviewed it.: Yes Section B Chief Complaint: S/P Revision Right TKA w/ abx Spacer Allergies: Allergies Allergy/AdvReac Type Severity Reaction Status Date / Time blueberry [BLUEBERRY] Allergy Severe ANAPHYLAXIS Verified 08/26/22 06:47 hydrocodone [Vicodin] Allergy Severe Anaphylaxis Verified 08/26/22 06:47 acetaminophen [Tylenol] Allergy Intermediate told to Verified 08/26/22 06:47 avoid Plan I have reviewed the history and physical and performed a pertinent physical examination on my patient. No changes have occurred unless specified. Time Spent With Patient Time: Total time managing care of this patient today ____ minutes.
[2022-08-26] MEDS: HYDROmorphone HCl 0.5 MG/0.5 ML SYRINGE 0.25 MG IVPUSH ×5 (12:26→16:43)
[2022-08-26] MEDS: oxyCODONE HCl Immed Release 5 MG TABLET PO (12:27)
--- NOTE | 2022-08-26 14:02 | PM.OP ---
Brief Operative Note Date of Service: 08/26/22 Pre-op diagnosis: Infected right knee prosthesis Post-op diagnosis: same Procedure: 1) resection arhtroplasty 2) removal of hardware 3) placement of antibiotic spacer Implants: Biomet antibiotic spacer Surgeon: Edmar Sood MD Anesthesia: GETA and regional Was an Concrete Paving Supervisor used for this Procedure?: Yes Concrete Paving Supervisor: Pauly Mohr Estimated blood loss (mL): 200 Tourniquet time (min): 95 IV fluids (mL): 1,200 Pathology: other Condition: stable Disposition: PACU
[2022-08-26 15:35] LABS: Creatinine Clr Calc Pharmacy 46.2; Estimated Glomerular Filt Rate 32
[2022-08-26] MEDS: oxyCODONE HCl ER 10 MG TAB.ER.12H PO ×2 (15:54→22:13)
[2022-08-26] MEDS: Lactated Ringers 1,000 ML 100 ML IVCONT (15:54)
[2022-08-26] MEDS: Celecoxib 200 MG CAPSULE PO ×2 (15:54→22:13)
[2022-08-26 17:27] LABS: Blood Urea Nitrogen 44 mg/dL (9-16)
[2022-08-26] MEDS: oxyCODONE HCl Immed Release 5 MG TABLET 10 MG PO (17:59)
[2022-08-26 18:41] LABS: Vancomycin Trough < 2.0 mcg/mL (10.0-20.0)
[2022-08-26] MEDS: vancomycin HCL 1,500 MG in 0.9 % Sodium Chloride 500 ML 333.33 MG IV (20:07)
[2022-08-26] MEDS: 0.9 % Sodium Chloride Flush 3 ML SYRINGE IVFLUSH (20:11)
[2022-08-27] VITALS (9 sets, daily range): BP systolic 118–156; BP diastolic 61–76; PULSE 65–80; RESP 16–72; TEMP 36.2–36.5; O2SAT 95–98
--- NOTE | 2022-08-27 | ECG_ITS ---
Test Reason : hyperkalemia Blood Pressure : / mmHG Vent. Rate : 071 BPM Atrial Rate : 071 BPM P-R Int : 150 ms QRS Dur : 112 ms QT Int : 412 ms P-R-T Axes : 034 -48 006 degrees QTc Int : 447 ms Normal sinus rhythm Left anterior fascicular block Moderate voltage criteria for LVH, may be normal variant ( R in aVL , Luis Felipe product ) Abnormal ECG When compared with ECG of 20-AUG-2022 15:01, Nonspecific T wave abnormality now evident in Inferior leads Referred By: Tushar Austin Electronically Signed By:IVELISSE GERMAN MD
[2022-08-27] MEDS: oxyCODONE HCl Immed Release 5 MG TABLET 10 MG PO ×4 (02:21→15:58)
[2022-08-27] MEDS: Lactated Ringers 1,000 ML 100 ML IVCONT (02:23)
[2022-08-27 06:22] LABS: Anion Gap 12 (12-20); Blood Urea Nitrogen 45 mg/dL (9-16); Calcium 7.8 mg/dL (8.4-10.2); Carbon Dioxide 17 mmol/L (22-29); Chloride 111 mmol/L (96-108); Creatinine Clr Calc Pharmacy 41.5; Estimated Glomerular Filt Rate 28; Glucose Fasting 117 mg/dL (60-99); Potassium 5.7 mmol/L (3.3-5.1); Sodium 134 mmol/L (135-145)
--- NOTE | 2022-08-27 06:29 | PC.NURSE ---
Potassium level of 5.7 this morning is reported to Dr. Austin. David agustin.
--- NOTE | 2022-08-27 06:29 | PM.EVENT ---
Event Note Date of Service: 08/27/22 Event Note: Patient potassium is 5.7 this morning, will give Lokelma, obtain EKG Time Spent With Patient Time: Total time managing care of this patient today ____ minutes.
[2022-08-27] MEDS: Sodium Zirconium Cyclosilicate 5 GM POWD.PACK PO (06:37)
[2022-08-27] MEDS: oxyCODONE HCl ER 10 MG TAB.ER.12H PO ×2 (07:41→20:13)
[2022-08-27] MEDS: Celecoxib 200 MG CAPSULE PO (07:41)
--- NOTE | 2022-08-27 08:24 | PM.PNORT ---
Subjective Subjective Date of Service: 08/27/22 Interval history: POD1 s/p revision RTKA with abx spacer. No overnight events. Pain is manged. No additional complaints. Resting comfortably in the recliner. Physical Exam Vital Signs: Vital Signs: Last Vital Signs Temp 97.4 F 08/27/22 07:53 Pulse 68 08/27/22 08:06 Resp 18 08/27/22 07:53 BP 131/76 08/27/22 08:06 Pulse Ox 98 08/27/22 08:06 O2 Del Method Room Air 08/27/22 07:53 O2 Flow Rate 2 08/26/22 14:52 BMI result Body Mass Index 32.5 Const: General: cooperative, healthy appearing and no acute distress Resp: Effort & Inspection: normal respiratory effort and able to speak in complete sentences Cardio: Rate: regular rate Peripheral pulses: Peripheral pulses 2+ throughout GI: Palpation (GI): Soft to palpation Skin: Lesions: no lesions Rashes: no rashes Extrem: Other: Right knee Prevena intact and working appropriately. Able to dorsi/plantar flex. NVI. Procedures Date of Service Date of Service: 08/27/22 Progress Note: A&P Assessment and plan (1) Status post revision of total replacement of right knee: Status: Acute Plan Continue pain mgmnt ID consult placed PICC line placement Begin dvt ppx Lovenox begin PT for revision rt TKA with abx spacer - WBAT - Ambulate in the brace unlocked. Dispo planning-Pending PT eval, pain mgmnt Time Spent With Patient Time: Total time managing care of this patient today ____ minutes. Quality Stroke Does the patient have a stroke diagnosis?: No VTE Prior VTE?: No VTE Risk Level:: Medical - moderate - high VTE Device Contraindication: N/A - Device Ordered VTE Drug Contraindication: N/A - Med Ordered
[2022-08-27 08:49] LABS: Basophils Absolute Auto 0.1 X10*3/uL (0.0-0.2); Basophils Percent Auto 0.5 % (0-2); Eosinophils Absolute Auto 0.1 X10*3/uL (0.0-0.4); Eosinophils Percent Auto 1.4 % (0-4); Hematocrit 26.4 % (42.0-52.0); Imm Gran Abs Auto 0.06 X10*3/uL (0.00-0.03); Imm Gran Pct Auto 0.7 % (0.0-0.4); Lymphocytes Percent Auto 21.9 % (20-40); Mean Corpuscular HGB Conc 30.3 g/dl (31.0-36.0); Mean Corpuscular Hemoglobin 23.6 pg (27.0-33.0); Mean Corpuscular Volume 77.9 fL (80.0-98.0); Mean Platelet Volume 10.9 fL (9.4-12.4); Monocytes Absolute Auto 0.7 X10*3/uL (0.1-1.2); Monocytes Percent Auto 7.5 % (2-11); Neutrophils Absolute Auto 6.3 x10*3/uL (2.0-8.3); Platelet Count 223 X10*3/uL (160-400); Red Blood Count 3.39 X10*6/uL (4.60-5.80); White Blood Count 9.2 X10*3/uL (4.8-10.8)
--- NOTE | 2022-08-27 09:19 | PHA.PROG ---
Admission Date/Time: August 26, 2022 06:41 Indication: Surgical Prophylaxis Weight in k.398 kg Adjusted body weight in K.98 kg [place] body weight in K.05 kg Obesity Dosing Indication % IBW: 139% Serum Creatinine - Last 168 Hours 08/26/22 08/27/22 15:09 05:33 Creatinine 2.10 H 2.34 H Estimated CrCl and GFR - Last 168 Hours 08/26/22 08/27/22 15:09 05:33 Estim Creat Clear Calc 46.2 41.5 Estimated GFR 32 28 Vancomycin Loading Dose: 1500 mg Current Vancomycin Dosing Regimen: 1250 mg Q24H Date and Time for next Vancomycin Level to be drawn: 5/4 @ 1800 Vancomycin Trough < 2.0 mcg/mL (10.0-20.0) L 08/26/22 18:08 Pharmacist Comments on Vancomycin Plan: patient is obese therefore needs carefully monitor due to high volume of distribution Patient did not receive an adequate loading dose but surgical dosing was used Since patient did no receive a load dose ill be slightly more agressive and start patient on 1250 mg Q24H to be patient in therapeutic levels. Will give one dose then get a level 5/5 @ 1800. Dose may need to be decrease after one dose of 1250 mg. Stefania vicente PharmD Vancomycin dosing will take advantage of [employer] as a clinical decision support tool that uses Bayesian modeling to calculate individual patient's pharmacokinetic parameters and forecast the patient's drug concentration time course with the target goal AUC 24 range of 400 - 600 mg/L/hr.
[2022-08-27 09:21] LABS: Vancomycin Trough 11.7 mcg/mL (10.0-20.0)
[2022-08-27 09:33] LABS: Vancomycin Trough 11.3 mcg/mL (10.0-20.0)
--- NOTE | 2022-08-27 10:59 | PM.CNNEP ---
History of Present Illness Reason for Consult Consult date: 08/27/22 Reason for consult: CKD Chief Complaint Chief complaint: S/P Revision Right TKA w/ abx Spacer History of Present Illness Narrative: 66-year-old man with a history of hepatitis-C which was treated 2 years ago. As of 2019 the hep C viral load was undetectable. He has history of IZAIAH about a year ago. He was treated with vancomycin at that time. Based on the lab data he has chronic kidney disease with a baseline creatinine of around 2.5 mg/dL. He is undergone a total knee replacement and is currently on IV vancomycin. This consultation is requested for the management of chronic kidney disease as well as possible clearance for PICC line. Review of Systems Constitutional: Denies anorexia and Denies fever(s) Eyes: Denies dry eyes Denies vertigo, Denies dry mouth, Denies nasal discharge and Denies sore throat Cardiovascular: Denies chest pain at rest, Denies pedal edema, Denies lightheadedness and Denies paroxysmal nocturnal dyspnea Respiratory: Denies chest congestion, Denies hemoptysis, Denies pain with cough and Denies wheezing Gastrointestinal: Denies belching, Denies dyspepsia, Denies diarrhea, Denies loose stools and Denies vomiting Genitourinary: Denies hematuria, Denies difficulty urinating, Denies dysuria, Denies flank pain and Denies urinary urgency Musculoskeletal: Denies back pain and Denies limited range of motion Skin/Breast: Denies alopecia and Denies erythema Denies confusion, Denies vertigo, Denies focal weakness and Denies Sensory deficit (Neuro) Psychiatric: Denies confusion Allergic/Immunologic: Denies wheezing PMFSH Past Medical History Medical History Cellulitis and abscess of hand Convulsion, non-epileptic Hx MRSA infection Hx of hepatitis C Hypertension Knee pain Morbid obesity Osteoarthritis of left knee Osteoarthritis of right knee Pancytopenia Family History Family History Father No problems noted. Mother No problems noted. Surgical History Surgical History History of right knee surgery History of right shoulder replacement History of surgery History of total right knee replacement Social History Social History Household Members: None Housing: House Are you a primary manager critical care to a significant other at home: No Do you presently have visiting nurse or other home services: No Unable to assess alcohol history related to: Unknown Alcohol intake: never Patient Tobacco Use Status: Former Tobacco user Quit Date: 6 months ago Tobacco use type: Cigarette Cigarettes Per Day: 4 Years Smoked: 20 e-Cigarette/Vaping Use: Currently Using Second Hand Smoke Exposure: No Substance Use Type: Heroin service: No Current occupational status: disabled Cognitive needs: No Hearing needs: No Vision needs: No Meds Allergies Allergy/AdvReac Type Severity Reaction Status Date / Time blueberry [BLUEBERRY] Allergy Severe ANAPHYLAXIS Verified 08/26/22 06:47 hydrocodone [Vicodin] Allergy Severe Anaphylaxis Verified 08/26/22 06:47 acetaminophen [Tylenol] Allergy Intermediate told to Verified 08/26/22 06:47 avoid Active Medications: Current Medications Acetaminophen (Acetaminophen 325 Mg Tablet) 650 mg PO Q6H PRN PRN Reason: Pain, Mild (Pain Scale 1-3) Celecoxib (Celecoxib 200 Mg Capsule) 200 mg PO BID MARTIN Last Admin: 08/27/22 07:41 Dose: 200 mg Enoxaparin Sodium (Enoxaparin Sodium 40 Mg/0.4 Ml Syringe) 40 mg SUBCUT Q24H MARTIN Hydromorphone HCl (Hydromorphone Hcl 0.5 Mg/0.5 Ml Syringe) 0.25 mg IVPUSH Q4H PRN; Protocol PRN Reason: Pain, Severe (Pain Scale 7-10) Last Admin: 08/26/22 16:43 Dose: 0.25 mg Lactated Ringer's (Lr) 1,000 mls @ 100 mls/hr IVCONT .Q10H MARTIN Last Admin: 08/27/22 02:23 Dose: 100 mls/hr Vancomycin HCl 1,250 mg/ (Sodium Chloride) 250 mls @ 166.667 mls/hr IV Q24H MARTIN Ondansetron HCl (Ondansetron Hcl 4 Mg/2 Ml Vial) 4 mg IVPUSH Q8H PRN PRN Reason: Nausea and Vomiting Oxycodone HCl (Oxycodone Hcl Immed Release 5 Mg Tablet) 10 mg PO Q4H PRN PRN Reason: Pain, Moderate(Pain Scale 4-6) Last Admin: 08/27/22 10:43 Dose: 10 mg Oxycodone HCl (Oxycodone Hcl Er 10 Mg Tab.Er.12h) 10 mg PO BID [facility] Last Admin: 08/27/22 07:41 Dose: 10 mg Pharmacy Consult (Consult Rx Vancomycin Dosing) 1 each MISCELLANE DAILY PRN PRN Reason: Consult order Sodium Chloride (0.9 % Sodium Chloride Flush 3 Ml Syringe) 3 ml IVFLUSH QSHIFT [facility] Last Admin: 08/27/22 07:13 Dose: Not Given Physical Exam Vital Signs: Last Vital Signs Temp 97.4 F 08/27/22 07:53 Pulse 68 08/27/22 08:06 Resp 18 08/27/22 07:53 BP 131/76 08/27/22 08:06 Pulse Ox 98 08/27/22 08:06 O2 Del Method Room Air 08/27/22 07:53 O2 Flow Rate 2 08/26/22 14:52 BMI result Body Mass Index 32.5 Const General: comfortable, no acute distress, well developed, alert and awake; No confusion Orientation/consciousness: oriented to person, oriented to place, oriented to time and No confusion Neck Neck: Yes supple and Yes no JVD Resp Effort & Inspection: normal respiratory effort Auscultation: clear to auscultation bilaterally and no rhonchi Percussion: percussion normal Cardio Jugular venous distension: no JVD Palpation: no palpable S4 Heart sounds: no click, no murmurs and no rubs Bruits: no abdominal aortic bruits GI Inspection: Yes normal to inspection Palpation (GI): No Abdominal aortic bruit present and Soft to palpation Auscultation: normal bowel sounds General: Yes no CVA tenderness Back/Spine/Pelvis Back: no CVA tenderness Skin General skin exam: no rashes or lesions noted Neuro General: oriented to person, oriented to place, oriented to time, No no focal motor deficits and No confusion Motor exam (neuro): no asterixis Sensory Exam: No Sensory deficit (Neuro) Results Lab Results 08/27/22 08:40 08/27/22 05:33 Lab results: Chemistry 08/26/22 08/27/22 15:09 05:33 Sodium 134 L Potassium 5.7 H Carbon Dioxide 17 L BUN 44 H 45 H Creatinine 2.10 H 2.34 H Calcium 7.8 L D Hematology 08/26/22 08/27/22 06:56 08:40 WBC 9.2 Hgb 9.3 L 8.0 L Plt Count 223 Assessment and Plan (1) CKD (chronic kidney disease) stage 3, GFR 30-59 ml/min: Status: Acute (2) Hyperkalemia: Status: Acute (3) Anemia: Status: Acute Plan 66-year-old man with a history of hepatitis-C with chronic kidney disease Hep C has been treated. As of 2019 viral load was undetectable. . Baseline serum Creatinine around 2.5 mg/dL. In the past urinalysis did not reveal any significant proteinuria or hematuria by dipstick. He could have a component of acute kidney injury from hypoperfusion. Anemia. Metabolic acidosis. Hyperkalemia. Recommendation Check urinalysis, urine sodium, creatinine, protein. Check renal ultrasonogram. Lokelma 10 g p.o. x1 and recheck potassium. Avoid NSAIDs and Faulkner 2 inhibitors. Add sodium bicarbonate 650 mg p.o. t.i.d.. OK to have PICC Change LR to NS Keep intake more than the output. Watch urine output. Further workup will be based on the above investigations and further clinical course. Adjust dose of vancomycin based on renal function. Check vanco trough level before next dose and Follow vanco levels closely. If creatinine continues to increase further we might need to switch vanco to a different agent. We will follow him along with the team. Thank you Time Spent With Patient Time: Total time managing care of this patient today ____ minutes. Procedures Date of Service Date of Service: 08/27/22
[2022-08-27] MEDS: 0.9 % Sodium Chloride 1,000 ML 999 ML IV (11:57)
--- NOTE | 2022-08-27 12:31 | HO.POSTANES ---
Post Anesthesia Evaluation Post Anesthesia Evaluation Vital Signs: Vital Signs Temp Pulse Resp BP Pulse Ox O2 Del Method 08/27/22 11:47 97.5 F 80 18 156/72 H 98 Room Air 08/27/22 08:06 68 131/76 98 08/27/22 07:53 97.4 F 68 18 131/76 98 Room Air 08/27/22 04:00 97.2 F 69 72 H 139/75 97 Room Air Anesthesia: Nerve Block and General Mental Status: Awake Pain Control: Satisfactory Nausea/Vomiting: None Hydration: Adequate Anesthesia-Related Issues: No Anes. Related Issues
--- NOTE | 2022-08-27 13:04 | P.CONHOSP_ITS ---
History of Present Illness Data of Consult Service Date: 08/27/22 Primary Care Provider: Cristian Cardoza MD [facility] Reason for consult: Medical management Patient is a 67-year-old male with a PMH significant for HTN, CKD stage 3, and right knee TKA 08/12/2021 with I&D of right knee on 09/05/2021 who is admitted to the hospital with abscess of right knee. Pt was admitted to orthopedic services and pt received a revision of his right TKA with placement of antibiotic-eluting spacer. Medical consult for medical management. Patient states he has a past history of HTN and used to be on lisinopril 20 mg daily and atenolol 50 mg daily but stopped taking his medications 3 months ago when he had a brief incarceration. Patient currently only complains of right knee pain at surgical site. Denies headache, lightheadedness, dizziness. No chest pain/pressure, palpitations. Denies shortness of breath. No fever, chills, nausea, vomiting, diarrhea, abdominal pain. Patient's labs significant for 8.0/26.4, slightly b elow baseline of 9.5/31.0, potassium 5.7, creatinine of 2.34 (around baseline). Review of Systems Review of Systems: Right knee pain at surgical site Patient was has no acute medical complaints Denies lightheadedness, dizziness, headache Yes all other systems are reviewed and are negative [facility] Medical History (Updated 08/27/22 @ 14:28 by FARRAH Ham) Cellulitis and abscess of hand Convulsion, non-epileptic Hx MRSA infection Hx of hepatitis C Hypertension Knee pain Morbid obesity Osteoarthritis of left knee Osteoarthritis of right knee Pancytopenia Family History Father No problems noted. Mother No problems noted. Surgical History History of right knee surgery History of right shoulder replacement History of surgery History of total right knee replacement Social History Household Members: None Housing: House Are you a primary healthcare interpreter to a significant other at home: No Do you presently have visiting nurse or other home services: No Unable to assess alcohol history related to: Unknown Alcohol intake: never Patient Tobacco Use Status: Former Tobacco user Quit Date: 6 months ago Tobacco use type: Cigarette Cigarettes Per Day: 4 Years Smoked: 20 e-Cigarette/Vaping Use: Currently Using Second Hand Smoke Exposure: No Substance Use Type: Heroin service: No Current occupational status: disabled Cognitive needs: No Hearing needs: No Vision needs: No Meds Allergies Allergy/AdvReac Type Severity Reaction Status Date / Time blueberry [BLUEBERRY] Allergy Severe ANAPHYLAXIS Verified 08/26/22 06:47 hydrocodone [Vicodin] Allergy Severe Anaphylaxis Verified 08/26/22 06:47 acetaminophen [Tylenol] Allergy Intermediate told to Verified 08/26/22 06:47 avoid Active Medications: Current Medications Acetaminophen (Acetaminophen 325 Mg Tablet) 650 mg PO Q6H PRN PRN Reason: Pain, Mild (Pain Scale 1-3) Enoxaparin Sodium (Enoxaparin Sodium 40 Mg/0.4 Ml Syringe) 40 mg SUBCUT Q24H MARTIN Hydromorphone HCl (Hydromorphone Hcl 0.5 Mg/0.5 Ml Syringe) 0.25 mg IVPUSH Q4H PRN; Protocol PRN Reason: Pain, Severe (Pain Scale 7-10) Last Admin: 08/26/22 16:43 Dose: 0.25 mg Vancomycin HCl 1,250 mg/ (Sodium Chloride) 250 mls @ 166.667 mls/hr IV Q24H MARTIN Ondansetron HCl (Ondansetron Hcl 4 Mg/2 Ml Vial) 4 mg IVPUSH Q8H PRN PRN Reason: Nausea and Vomiting Oxycodone HCl (Oxycodone Hcl Immed Release 5 Mg Tablet) 10 mg PO Q4H PRN PRN Reason: Pain, Moderate(Pain Scale 4-6) Last Admin: 08/27/22 10:43 Dose: 10 mg Oxycodone HCl (Oxycodone Hcl Er 10 Mg Tab.Er.12h) 10 mg PO BID [facility] Last Admin: 08/27/22 07:41 Dose: 10 mg Pharmacy Consult (Consult Rx Vancomycin Dosing) 1 each MISCELLANE DAILY PRN PRN Reason: Consult order Sodium Bicarbonate (Sodium Bicarbonate 650 Mg Tablet) 650 mg PO TID [facility] Sodium Chloride (0.9 % Sodium Chloride Flush 3 Ml Syringe) 3 ml IVFLUSH QSHIFT [facility] Last Admin: 08/27/22 07:13 Dose: Not Given Home Medications Medication Instructions Recorded Confirmed Last Taken Type No Known Home Meds 08/27/22 08/27/22 Unknown History Physical Exam Vital Signs and Narrative: Vital Signs: Last Vital Signs Temp 97.5 F 08/27/22 11:47 Pulse 80 08/27/22 11:47 Resp 18 08/27/22 11:47 BP 156/72 H 08/27/22 11:47 Pulse Ox 98 08/27/22 11:47 O2 Del Method Room Air 08/27/22 11:47 O2 Flow Rate 2 08/26/22 14:52 BMI result Body Mass Index 32.5 General: AOx3, no acute distress Resp: CTA bilaterally CVS: S1, S2, RRR GI: +BS, NT, no distention Skin: No rash Neuro: Cranial nerves II-XII grossly intact bilaterally. Motor grossly intact bilaterally Extremities: No edema. Pt with pneumatic boots bilaterally, and clean bandages with wound VAC on right knee.. Psych: Appropriate affect Results Labs 08/27/22 08:40 08/27/22 05:33 Labs: Laboratory Results - last 24 hr 08/26/22 08/26/22 08/27/22 15:09 18:08 05:33 MCV MCH MCHC RDW Plt Count MPV Immature Gran % (Auto) Neut % (Auto) Lymph % (Auto) [place] % (Auto) Eos % (Auto) Baso % (Auto) Lymph # (Auto) [place] # (Auto) Eos # (Auto) Baso # (Auto) Abs Immat Gran (auto) Absolute Neuts (auto) Absolute Nucleated RBC Nucleated RBC % (auto) Anion Gap 12 Estim Creat Clear Calc 46.2 41.5 Estimated GFR 32 28 Fasting Glucose 117 H Calcium 7.8 L D Vancomycin Trough < 2.0 L 08/27/22 08/27/22 08/27/22 08:40 08:40 09:05 MCV 77.9 L MCH 23.6 L MCHC 30.3 L RDW 16.0 Plt Count 223 MPV 10.9 Immature Gran % (Auto) 0.7 H Neut % (Auto) 68.0 Lymph % (Auto) 21.9 [place] % (Auto) 7.5 Eos % (Auto) 1.4 Baso % (Auto) 0.5 Lymph # (Auto) 2.0 [place] # (Auto) 0.7 Eos # (Auto) 0.1 Baso # (Auto) 0.1 Abs Immat Gran (auto) 0.06 H Absolute Neuts (auto) 6.3 Absolute Nucleated RBC 0.000 Nucleated RBC % (auto) 0.0 Anion Gap Estim Creat Clear Calc Estimated GFR Fasting Glucose Calcium Vancomycin Trough 11.7 11.3 Assessment and Plan (1) Status post revision of total replacement of right knee: Status: Acute (2) Abscess of right knee: Status: Acute (3) Anemia: Status: Acute Plan Patient is a 67-year-old male with a PMH significant for HTN, CKD stage 3, and right knee TKA 08/12/2021 with I&D of right knee on 09/05/2021 who is admitted to the hospital with abscess of right knee. Pt was admitted to orthopedic services and pt received a revision of his right TKA with placement of antibiotic-eluting spacer. Medical consult for medical management. Revision of right TKA with placement of antibiotic eluting stent Plan as per Orthopedics Hyperkalemia Patient's potassium 5.7 EKG shows normal sinus rhythm with no evidence of tall peaked T waves Pt given Lokelma Follow BMP Anemia Likely chronic disease, secondary to CKD Patient's H&H 8.0/26.4, slightly below baseline Patient asymptomatic: Denies lightheadedness, dizziness Follow CBC HTN Patient states he used to be on lisinopril 20 mg daily and atenolol 50 mg daily Patient currently not on meds d/t incarceration Patient currently hypertensive at 156/72 Restart atenolol 50 mg daily Monitor BP, restart lisinopril 20 mg daily as necessary CKD stage 3 Patient's creatinine 2.34, around baseline Nephrology has been consulted Thank you for allowing us to participate in the care of this patient. Will continue to follow at this time. Please let us know if there are any acute complaints or questions. Time Spent With Patient Time: Total time managing care of this patient today ____ minutes.
[2022-08-27] MEDS: Enoxaparin Sodium 40 MG/0.4 ML SYRINGE SUBCUT (13:11)
--- NOTE | 2022-08-27 14:20 | PHA.MEDREC ---
Pharmacy Consult ? Medication Reconciliation Pharmacy has completed the medication reconciliation.
[2022-08-27] MEDS: Sodium Bicarbonate 650 MG TABLET PO ×2 (14:40→20:13)
[2022-08-27] MEDS: atenoloL 50 MG TABLET PO (14:40)
[2022-08-27] MEDS: 0.9 % Sodium Chloride Flush 3 ML SYRINGE IVFLUSH ×2 (14:40→19:31)
--- NOTE | 2022-08-27 16:04 | MHC.CM.PN ---
Male 67 S/P TKA w ABX spacers A wound vac is in place. IV ABX 6 weeks. He lives with a family member. He used a cane prior to surgery. A walker is needed now. PT recommends STR. Referrals have been sent. A HCP has been documented, copied, placed on chart and scanned into EMR. Patient has been vaccinated. DP STR via BLS.
[2022-08-27] MEDS: vancomycin HCL 1,250 MG in 0.9 % Sodium Chloride 250 ML 166.67 MG IV (20:14)
[2022-08-28] VITALS (12 sets, daily range): BP systolic 99–141; BP diastolic 50–67; PULSE 71–78; RESP 14–20; TEMP 36.4–37.2; O2SAT 94–97
[2022-08-28] MEDS: oxyCODONE HCl Immed Release 5 MG TABLET 10 MG PO ×5 (01:02→22:03)
[2022-08-28 06:07] LABS: MANUAL DIFF FLAG NO
[2022-08-28 06:14] LABS: Basophils Absolute Auto 0.1 X10*3/uL (0.0-0.2); Basophils Percent Auto 0.7 % (0-2); Eosinophils Absolute Auto 0.2 X10*3/uL (0.0-0.4); Eosinophils Percent Auto 2.2 % (0-4); Hematocrit 21.5 % (42.0-52.0); Imm Gran Abs Auto 0.03 X10*3/uL (0.00-0.03); Imm Gran Pct Auto 0.4 % (0.0-0.4); Lymphocytes Absolute Auto 1.6 X10*3/uL (1.2-4.9); Mean Corpuscular HGB Conc 30.2 g/dl (31.0-36.0); Mean Corpuscular Hemoglobin 24.1 pg (27.0-33.0); Mean Corpuscular Volume 79.6 fL (80.0-98.0); Mean Platelet Volume 12.3 fL (9.4-12.4); Monocytes Absolute Auto 0.6 X10*3/uL (0.1-1.2); Monocytes Percent Auto 9.2 % (2-11); Neutrophils Absolute Auto 4.3 x10*3/uL (2.0-8.3); Neutrophils Percent Auto 63.5 % (45-73); Platelet Count 162 X10*3/uL (160-400); Red Cell Distribution Width 16.2 % (11.0-16.0); White Blood Count 6.7 X10*3/uL (4.8-10.8)
[2022-08-28 06:31] LABS: Hemoglobin 6.5 g/dl (14.0-18.0)
--- NOTE | 2022-08-28 06:34 | PM.EVENT ---
Event Note Date of Service: 08/28/22 Event Note: Hgn <7, will tranfuse1 unit of prbc Time Spent With Patient Time: Total time managing care of this patient today ____ minutes.
--- NOTE | 2022-08-28 06:37 | PC.NURSE ---
Pt Hgb 6.5, Dr. Flores notified, type and screen and PRBC 1 unit ordered.
[2022-08-28 06:51] LABS: Anion Gap 12 (12-20); Blood Urea Nitrogen 46 mg/dL (9-16); Calcium 7.6 mg/dL (8.4-10.2); Carbon Dioxide 19 mmol/L (22-29); Chloride 112 mmol/L (96-108); Estimated Glomerular Filt Rate 34; Glucose Fasting 91 mg/dL (60-99); Potassium 4.7 mmol/L (3.3-5.1); Sodium 138 mmol/L (135-145)
[2022-08-28] MEDS: oxyCODONE HCl ER 10 MG TAB.ER.12H PO ×2 (07:24→19:43)
[2022-08-28] MEDS: Sodium Bicarbonate 650 MG TABLET PO ×3 (07:25→19:44)
[2022-08-28] MEDS: 0.9 % Sodium Chloride Flush 3 ML SYRINGE IVFLUSH ×5 (07:25→19:58)
[2022-08-28] MEDS: atenoloL 50 MG TABLET PO (07:25)
--- NOTE | 2022-08-28 08:05 | PM.PNORT ---
Subjective Subjective Date of Service: 08/28/22 Interval history: POD2 s/p Revision RTKA with abx spacer. No overnight events. Pain is well managed. Patient is resting in bed comfortably. Denies lightheadedness, dizziness, abd pain, CP. No additional complaints. Physical Exam Vital Signs: Vital Signs: Last Vital Signs Temp 97.6 F 08/28/22 07:00 Pulse 74 08/28/22 07:00 Resp 18 08/28/22 07:00 BP 99/50 L 08/28/22 07:00 Pulse Ox 95 08/28/22 07:00 O2 Del Method Room Air 08/28/22 07:00 O2 Flow Rate 2 08/26/22 14:52 BMI result Body Mass Index 32.5 Const: General: cooperative, healthy appearing and no acute distress Resp: Effort & Inspection: normal respiratory effort and able to speak in complete sentences Cardio: Rate: regular rate Peripheral pulses: Peripheral pulses 2+ throughout GI: Palpation (GI): Soft to palpation Skin: Lesions: no lesions Rashes: no rashes Extrem: Other: Right knee Prevena intact and working appropriately. Able to dorsi/plantar flex. NVI. Procedures Date of Service Date of Service: 08/28/22 Progress Note: A&P Assessment and plan (1) Status post revision of total replacement of right knee: Status: Acute Plan Continue pain mgmnt ID consult placed PICC line placement today Continue dvt ppx Lovenox H&H 6.5/21.5 - 2 units of pRBCs ordered stat Continue PT for revision rt TKA with abx spacer - WBAT - Ambulate in the brace unlocked. Dispo planning-Pending PT eval, pain mgmnt Time Spent With Patient Time: Total time managing care of this patient today ____ minutes. Quality Stroke Does the patient have a stroke diagnosis?: No VTE Prior VTE?: No VTE Risk Level:: Medical - moderate - high VTE Device Contraindication: N/A - Device Ordered VTE Drug Contraindication: N/A - Med Ordered
--- NOTE | 2022-08-28 10:56 | P.PICC_ITS ---
PICC Line Insertion NPICC Diagnosis: Right Knee infection Indication: continuous churn buttermaker antibiotics Pertinent Labs: Reviewed Technique: Following informed consent including risks, benefits and alternatives and using sterile technique including cap and mask, sterile gown, glove and drape, the left arm was prepped and draped in the usual sterile fashion of full barrier technique with CHG. Following completion of [place] Protocol the skin and soft tissues were anesthetized with 1% Lidocaine plain. Using ultrasound guidance, the left brachial vein access was obtained in a single attempt by Dr. Chapis Samson and a single attempt at the left basilic vein by this RN. The vein was access but needle clotted and I was unable to wire it Over an 0.018 wire through peel-away sheath, a Single lumen 4 russian PASV PICC line was positioned. Catheter length is 46 cm internal length, 0 cm external length, for a total trimmed length of 46 cm. The procedure was performed in S272. Tip verification was performed by Stanton Vuong with Sherlock 3CG. Tip located in SVC. Ultrasound was used to document vein patency and for needle entry. A formal ultrasound picture and cardiac rhythm strip was recorded. Vascular Needle Punch Machine Operator Helper has released the line for use and it is currently dressed with a StatLock, Tegaderm, and CHG disc. Verification has been performed for blood return and line patency. Arm Circumference: 37 cm Equipment: SparkLix PowerPICC Solo Catheter Type: 4 r[place]ian single lumen PASV PICC Lot #: [id number]
[2022-08-28] MEDS: Enoxaparin Sodium 40 MG/0.4 ML SYRINGE SUBCUT (11:49)
--- NOTE | 2022-08-28 14:10 | P.DS_ITS ---
DS: Providers Provider Date of Service: 09/01/22 Date of admission: 08/26/22 06:41 Primary care physician: Cristian Cardoza MD Consults: 08/26/22 08:26 Consult to Infectious Diseases Stat Consulting [place] [facility] [place] Reason for consultation: right knee removal TKA with replacement of antibiotic spacer 08/26/22 14:33 Consult to Hospitalist Routine Comment: Consulting Provider: Hospitalist Reason For Exam: Routine medical management 08/27/22 08:53 Consult to Nephrology Stat Consulting Provider: Alexandro Biggs Reason for consultation: Poor kidney fx DS: Diagnosis Discharge Diagnosis (1) Status post revision of total replacement of right knee: Status: Acute DS: Summary Hospital Course Hospital Course: The patient underwent a successful revision right total knee arthroplasty with placement of abx spacer on 08/26/22, was transferred to PACU and then to the floor to recover. During their stay, their vitals were stable, afebrile at . Labs were unremarkable on discharge H/H 7.8/25.6, . POD 1 he was started on Lovenox for DVT ppx, they also received Physical Therapy services twice a day. He also had a 4 urdu single lumen PASV PICC placed for administration of IV abx Vancomycin for 6 weeks. Physical therapy should include gait training, ROM to tolerance and quad strength. He is WBAT. Knee brace should be worn with ambulation only - if needed to provide stability while walking. Ok to remove while at rest. Prior to discharge, his dressing was changed, incision clean dry and intact The Prevena wound device should remain on and intact at all times: if there are any concerns in regards to function of the unit- please contact orthopedics immediately. Infectious Disease recommendations: Plan Six weeks IV Vancomycin ( start date 08/26/22) goal trough therapeutic and weekly creatinine and vancomycin trough. Picc Line / iv abx Orders: * Check Vanco trough levels after 4th dose--labs should be reported to Tamara Garcia, Infectious Disease * [address] [place] [address] ? * Monitor BUN/Cr with weekly labs * Monitor H/H with weekly labs * Keep Vanco trough level between 10 and 20 * Flush PICC line with 10 cc of normal saline 3 times a day * Routine discharge flushing with 10 mL of normal saline after blood specimen withdrawal, medication administration or post transfusion flushing Nephrology consult recommendation: Plan 1. Izaiah -? peak SCr 2.4 and now back to BSL ( 1.5-2.0) 2. CKD -3 3. Hyperkalemia: resolved 4. s/p TKR - with infection REC: avoid NSAIDs, track vanco and switch to alt if possible given risk of IZAIAH from vanco Time Spent with Patient Time attestation: Total time managing care of this patient today ____ minutes. Discharge coordination time: Less than 30 minutes Quality: Safe Use of Opioids Does Pt have an Active Cancer Diagnosis on the Problem List?: No Quality: Stroke Does the patient have a stroke diagnosis?: No Physical Exam Vital Signs: Vital Signs: Last Vital Signs Temp 98.4 F 08/28/22 12:54 Pulse 75 08/28/22 12:54 Resp 18 08/28/22 12:54 BP 128/67 08/28/22 12:54 Pulse Ox 96 08/28/22 10:38 O2 Del Method Room Air 08/28/22 10:38 O2 Flow Rate 2 08/26/22 14:52 BMI result Body Mass Index 32.5 Const: General: cooperative, healthy appearing and no acute distress Resp: Effort & Inspection: normal respiratory effort and able to speak in complete sentences Cardio: Rate: regular rate Peripheral pulses: Peripheral pulses 2+ throughout GI: Palpation (GI): Soft to palpation Skin: Lesions: no lesions Rashes: no rashes Extrem: Other: Right knee Prevena is intact. functioning appropriately, Able to dorsi/plantar flex. NVI. DS: Data Data Completed and Pending Completed studies during hospitalization [Text1]: Procedures Drainage of Right Hand Subcutaneous Tissue and Fascia, Open Approach (09/17/20) Excision of Right Lower Leg Subcutaneous Tissue and Fascia, Open Approach (09/04/21) Extirpation of Matter from Right Lower Leg Subcutaneous Tissue and Fascia, Open Approach (09/04/21) Insertion of Infusion Device into Superior Vena Cava, Percutaneous Approach (09/04/21) Removal of Liner from Right Knee Joint, Open Approach (09/04/21) Repair Right Lower Leg Subcutaneous Tissue and Fascia, Open Approach (09/04/21) Replacement of Right Knee Joint with Synthetic Substitute, Uncemented, Open Approach (08/12/21) Supplement Right Knee Joint, Tibial Surface with Liner, Open Approach (09/04/21) Ultrasonography of Superior Vena Cava, Guidance (09/04/21) Labs on day of discharge: Laboratory Results - last 24 hr 08/26/22 08/28/22 08/28/22 06:56 05:35 05:35 WBC 6.7 RBC 2.70 L D Hgb 6.5 L* Hct 21.5 L MCV 79.6 L MCH 24.1 L MCHC 30.2 L RDW 16.2 H Plt Count 162 D MPV 12.3 Immature Gran % (Auto) 0.4 Neut % (Auto) 63.5 Lymph % (Auto) 24.0 [place] % (Auto) 9.2 Eos % (Auto) 2.2 Baso % (Auto) 0.7 Lymph # (Auto) 1.6 [place] # (Auto) 0.6 Eos # (Auto) 0.2 Baso # (Auto) 0.1 Abs Immat Gran (auto) 0.03 Absolute Neuts (auto) 4.3 Absolute Nucleated RBC 0.000 Nucleated RBC % (auto) 0.0 Sodium 138 Potassium 4.7 Chloride 112 H Carbon Dioxide 19 L Anion Gap 12 BUN 46 H Creatinine 1.98 H Estim Creat Clear Calc 49.0 Estimated GFR 34 Fasting Glucose 91 Calcium 7.6 L Blood Type B Positive Antibody Screen NEGATIVE Crossmatch See Detail 08/28/22 10:52 WBC RBC Hgb Hct MCV MCH MCHC RDW Plt Count MPV Immature Gran % (Auto) Neut % (Auto) Lymph % (Auto) [place] % (Auto) Eos % (Auto) Baso % (Auto) Lymph # (Auto) [place] # (Auto) Eos # (Auto) Baso # (Auto) Abs Immat Gran (auto) Absolute Neuts (auto) Absolute Nucleated RBC Nucleated RBC % (auto) Sodium Potassium Chloride Carbon Dioxide Anion Gap BUN Creatinine Estim Creat Clear Calc Estimated GFR Fasting Glucose Calcium Blood Type B Positive Antibody Screen NEGATIVE Crossmatch See Detail Preliminary micro results at discharge 08/26/22 09:11 Routine Culture - Preliminary Knee,Right Gram positive cocci 08/26/22 09:10 Routine Culture - Preliminary Knee,Right Staphylococcus aureus 08/26/22 09:09 Routine Culture - Preliminary Knee,Right Staphylococcus aureus Discharge Plan Discharge Anticipated Discharge Date/Time: 09/01/22 10:30 Patient Disposition: Xfer SNF Discharge Diagnosis: Revision rt tka Referrals: [facility] [Other] - 1 Week Esperanza Velasquez PA-C [Physician Fire Chief'S Aide] - 1 Week (09/07/22 10:15 [facility] [facility] [facility] Esperanza Velasquez PA-C) Discharge Medications: New oxycodone 10 mg tablet 10 mg PO Q4H PRN (Reason: Pain, Moderate(Pain Scale 4-6)) 7 Days Qty: 42 0RF Rx Instructions: Partial Fill upon patient request. acetaminophen 325 mg Tablet 650 mg PO Q6H PRN (Reason: Pain, Mild (Pain Scale 1-3)) 30 Days Qty: 240 0RF enoxaparin 40 mg/0.4 mL Syringe 40 mg subcut Q24H 42 Days Qty: 16.8 0RF vancomycin in 0.9 % sodium chl 1.25 gram/250 mL solution 1.25 g IV Q24H 42 Days Qty: 70133 0RF Discharge Orders: Discharge Order (Routine); Ordered 09/01/22 Ordered By: Esperanza Velasquez Diet: Regular diet Activity on Discharge: Use cane or walker Stand Alone Forms: Patient Portal Discharge page Care Plan Goals: Restore function of joint Health Concerns: Monitor cbc w diff, bun/cr,vanco trough Plan of Treatment: Physical Therapy Pain management DVT prophylaxis Assessment: Physical Therapy for Total knee arthroplasty: WBAT, gait training, ROM 0-12, quad strength * Limit stair climbing * No showering, no tub bath-keep dressing clean, dry and intact * No driving x6 weeks * Continue Lovenox once a day x 6 weeks * Keep prevena on and intact at all times-any concerns contact our office immediately
--- NOTE | 2022-08-28 14:54 | MHC.CM.PN ---
per rounds no dc date at this time dc plans remains home w/iv antibiotics
--- NOTE | 2022-08-28 15:41 | W.PM.IDCN ---
History of Present Illness Data of Consult Service Date: 08/28/22 Requesting physician: Edmar Sood Primary Care Provider: Cristian Cardoza MD HPI Reason for consult: right TKR staph infection He presents to hospital with right knee swelling and discomfort. He had right TKR due to arthritis 08/12/2021 and area had swelling and redness. He had 08/2021 staph aureus knee . He did have Vancomycin for six weeks and then po Doxcycline for four months. He said knee always felt tight and before admission reports some redness and heat. He had resection arthroplasty on 08/26. He also had Vancomycin and gentamicin impregnated beads in spacer which was placed. Review of Systems Review of Systems: Yes all other systems are reviewed and are negative PMFSH Past Medical History Medical History Cellulitis and abscess of hand Convulsion, non-epileptic Hx MRSA infection Hx of hepatitis C Hypertension Knee pain Morbid obesity Osteoarthritis of left knee Osteoarthritis of right knee Pancytopenia Family History Family History Father No problems noted. Mother No problems noted. Family history: reviewed and not pertinent Surgical History Surgical History History of right knee surgery History of right shoulder replacement History of surgery History of total right knee replacement Social History Social History Household Members: None Housing: House Are you a primary pet care technician to a significant other at home: No Do you presently have visiting nurse or other home services: No Unable to assess alcohol history related to: Unknown Alcohol intake: never Patient Tobacco Use Status: Former Tobacco user Quit Date: 6 months ago Tobacco use type: Cigarette Cigarettes Per Day: 4 Years Smoked: 20 e-Cigarette/Vaping Use: Currently Using Second Hand Smoke Exposure: No Substance Use Type: Heroin service: No Current occupational status: disabled Cognitive needs: No Hearing needs: No Vision needs: No Meds Allergies Allergy/AdvReac Type Severity Reaction Status Date / Time blueberry [BLUEBERRY] Allergy Severe ANAPHYLAXIS Verified 08/26/22 06:47 hydrocodone [Vicodin] Allergy Severe Anaphylaxis Verified 05/03/23 06:47 acetaminophen [Tylenol] Allergy Intermediate told to Verified 08/26/22 06:47 avoid Active Medications: Current Medications Acetaminophen (Acetaminophen 325 Mg Tablet) 650 mg PO Q6H PRN PRN Reason: Pain, Mild (Pain Scale 1-3) Atenolol (Atenolol 50 Mg Tablet) 50 mg PO DAILY [facility]; Protocol Last Admin: 08/28/22 07:25 Dose: 50 mg Enoxaparin Sodium (Enoxaparin Sodium 40 Mg/0.4 Ml Syringe) 40 mg SUBCUT Q24H [facility] [place] Last Admin: 08/28/22 11:49 Dose: 40 mg Hydromorphone HCl (Hydromorphone Hcl 0.5 Mg/0.5 Ml Syringe) 0.25 mg IVPUSH Q4H PRN; Protocol PRN Reason: Pain, Severe (Pain Scale 7-10) Last Admin: 08/26/22 16:43 Dose: 0.25 mg Vancomycin HCl 1,250 mg/ (Sodium Chloride) 250 mls @ 166.667 mls/hr IV Q24H [facility] [place] Last Infusion: 08/27/22 22:00 Dose: Infused Ondansetron HCl (Ondansetron Hcl 4 Mg/2 Ml Vial) 4 mg IVPUSH Q8H PRN PRN Reason: Nausea and Vomiting Oxycodone HCl (Oxycodone Hcl Immed Release 5 Mg Tablet) 10 mg PO Q4H PRN PRN Reason: Pain, Moderate(Pain Scale 4-6) Last Admin: 08/28/22 11:56 Dose: 10 mg Oxycodone HCl (Oxycodone Hcl Er 10 Mg Tab.Er.12h) 10 mg PO BID [facility] [place] Last Admin: 08/28/22 07:24 Dose: 10 mg Pharmacy Consult (Consult Rx Vancomycin Dosing) 1 each MISCELLANE DAILY PRN PRN Reason: Consult order Pharmacy Consult (Consult Rx Perform Med Rec) 1 each MISCELLANE ONCE PRN PRN Reason: Consult order Sodium Bicarbonate (Sodium Bicarbonate 650 Mg Tablet) 650 mg PO TID [facility] [place] Last Admin: 08/28/22 07:25 Dose: 650 mg Sodium Chloride (0.9 % Sodium Chloride Flush 3 Ml Syringe) 3 ml IVFLUSH QSHIFT [facility] [place] Last Admin: 08/28/22 07:25 Dose: 3 ml Sodium Chloride (0.9 % Sodium Chloride Flush 3 Ml Syringe) 3 ml IVFLUSH QSHIFT [facility] [place] Home Medications Medication Instructions Recorded Confirmed Last Taken Type No Known Home Meds 08/27/22 08/27/22 Unknown History Physical Exam Vital Signs: Vital Signs: Last Vital Signs Temp 98.6 F 08/28/22 15:38 Pulse 75 08/28/22 15:38 Resp 17 08/28/22 15:38 BP 115/62 08/28/22 15:38 Pulse Ox 96 08/28/22 15:38 O2 Del Method Room Air 08/28/22 15:38 O2 Flow Rate 2 08/26/22 14:52 BMI result Body Mass Index 32.5 Const: General: cooperative HEENT: Head: Yes normal to inspection Face and sinus: Yes normal facial exam Mouth: Normal oral and palatal mucosa present Teeth and gingiva: dentition normal Eyes: General: appearance normal, both eyes and all related structures Pupils: Equal, round and reactive pupils present Resp: Effort & Inspection: normal respiratory effort Cardio: Rate: regular rate Rhythm: regular rhythm GI: Palpation (GI): Soft to palpation and nontender : General: Yes no CVA tenderness Back/Spine/Pelvis: Back: no CVA tenderness Skin: General skin exam: no rashes or lesions noted Neuro: General: moves all extremities Cranial nerves: Yes Equal, round and reactive pupils present Extrem: Other: some swelling /redness right knee General: Yes normal to inspection Psych: Appearance: grossly normal Results Labs 08/28/22 05:35 08/28/22 05:35 Labs: Short CBC 08/28/22 Range/Units 05:35 WBC 6.7 (4.8-10.8) X10*3/uL Hgb 6.5 L* (14.0-18.0) g/dl Hct 21.5 L (42.0-52.0) % Plt Count 162 D (160-400) X10*3/uL BMP 08/28/22 05:35 Sodium 138 Potassium 4.7 Chloride 112 H Carbon Dioxide 19 L BUN 46 H Creatinine 1.98 H Calcium 7.6 L Microbiology Microbiology Results: Microbiology 08/26/22 09:11 Knee,Right Gram Stain - Final 08/26/22 09:11 Knee,Right Routine Culture - Preliminary Gram positive cocci 08/26/22 09:10 Knee,Right Gram Stain - Final 08/26/22 09:10 Knee,Right Routine Culture - Preliminary Staphylococcus aureus 08/26/22 09:09 Knee,Right Gram Stain - Final 08/26/22 09:09 Knee,Right Routine Culture - Preliminary Staphylococcus aureus Assessment and Plan (1) Status post revision of total replacement of right knee: Status: Acute He has staph aureus from wound from knee sensitivities pending THere is not concern over Vancomycin beads or Gentamicin beads causing renal failure. Plan Continue IV Vancomycin,likely six weeks weekly trough and creatinine and then possible po Doxycycline after if sensitive,duration to be determined. Change to another medication if needed. Time Spent With Patient Time: Total time managing care of this patient today ____ minutes.
--- NOTE | 2022-08-28 17:45 | PC.NURSE ---
Assumed care at 0700. Pt taken down for PICC around 0745. Unable to start blood until this afternoon due to invalid blood consent, no blood band and needing new type and screen. Pauly Mohr made aware. Hospital medicine obtained blood consent at bedside and reordered blood. Pt receiving 2nd unit RBC as ordered.
[2022-08-28 19:05] LABS: Vancomycin Random 11.6 mcg/mL (15-20)
[2022-08-28] MEDS: vancomycin HCL 1,250 MG in 0.9 % Sodium Chloride 250 ML 166.67 MG IV (19:57)
--- NOTE | 2022-08-28 20:37 | PM.PNNEP ---
Subjective Subjective Date of Service: 08/29/22 Principal diagnosis: Pt resting in the bed Interval history: Knee pain Physical Exam Vital Signs: Vital Signs: Last Vital Signs Temp 98.4 F 08/28/22 20:34 Pulse 78 08/28/22 20:34 Resp 18 08/28/22 20:34 BP 118/63 08/28/22 20:34 Pulse Ox 97 08/28/22 19:17 O2 Del Method Room Air 08/28/22 19:17 O2 Flow Rate 2 08/26/22 14:52 BMI result Body Mass Index 32.5 Const: General: cooperative, healthy appearing and no acute distress Resp: Effort & Inspection: normal respiratory effort and able to speak in complete sentences Cardio: Rate: regular rate Peripheral pulses: Peripheral pulses 2+ throughout GI: Palpation (GI): Soft to palpation Skin: Lesions: no lesions Rashes: no rashes Objective Data Labs 08/28/22 05:35 08/28/22 05:35 Labs: Laboratory Results - last 24 hr 08/26/22 08/28/22 08/28/22 06:56 05:35 05:35 WBC 6.7 RBC 2.70 L D Hgb 6.5 L* Hct 21.5 L MCV 79.6 L MCH 24.1 L MCHC 30.2 L RDW 16.2 H Plt Count 162 D MPV 12.3 Immature Gran % (Auto) 0.4 Neut % (Auto) 63.5 Lymph % (Auto) 24.0 [place] % (Auto) 9.2 Eos % (Auto) 2.2 Baso % (Auto) 0.7 Lymph # (Auto) 1.6 [place] # (Auto) 0.6 Eos # (Auto) 0.2 Baso # (Auto) 0.1 Abs Immat Gran (auto) 0.03 Absolute Neuts (auto) 4.3 Absolute Nucleated RBC 0.000 Nucleated RBC % (auto) 0.0 Smear Path Review SEE NOTE Sodium 138 Potassium 4.7 Chloride 112 H Carbon Dioxide 19 L Anion Gap 12 BUN 46 H Creatinine 1.98 H Estim Creat Clear Calc 49.0 Estimated GFR 34 Fasting Glucose 91 Calcium 7.6 L Random Vancomycin Blood Type B Positive Antibody Screen NEGATIVE Crossmatch See Detail 08/28/22 08/28/22 10:52 18:15 WBC RBC Hgb Hct MCV MCH MCHC RDW Plt Count MPV Immature Gran % (Auto) Neut % (Auto) Lymph % (Auto) [place] % (Auto) Eos % (Auto) Baso % (Auto) Lymph # (Auto) [place] # (Auto) Eos # (Auto) Baso # (Auto) Abs Immat Gran (auto) Absolute Neuts (auto) Absolute Nucleated RBC Nucleated RBC % (auto) Smear Path Review Sodium Potassium Chloride Carbon Dioxide Anion Gap BUN Creatinine Estim Creat Clear Calc Estimated GFR Fasting Glucose Calcium Random Vancomycin 11.6 L Blood Type B Positive Antibody Screen NEGATIVE Crossmatch See Detail Microbiology Microbiology Results: Microbiology 08/26/22 09:11 Knee,Right Gram Stain - Final 08/26/22 09:11 Knee,Right Routine Culture - Preliminary Gram positive cocci 08/26/22 09:10 Knee,Right Gram Stain - Final 08/26/22 09:10 Knee,Right Routine Culture - Preliminary Staphylococcus aureus 08/26/22 09:09 Knee,Right Gram Stain - Final 08/26/22 09:09 Knee,Right Routine Culture - Preliminary Staphylococcus aureus Procedures Date of Service Date of Service: 08/29/22 Assessment & Plan Assessment and plan (1) CKD (chronic kidney disease) stage 3, GFR 30-59 ml/min: Status: Acute (2) Abscess of right knee: Status: Acute (3) Hyperkalemia: Status: Acute Plan 1. Lakshmi - Due to renal hypoperfusion 2. XKD -3 3. H/o Hep C 4. s/p TKR - with infection Avoid Nephrotoxins F/u Vanco levels Off Celebrex thx Time Spent With Patient Time: Total time managing care of this patient today ____ minutes. Progress Note: Quality Stroke Does the patient have a stroke diagnosis?: No
[2022-08-28] MEDS: Acetaminophen 325 MG TABLET 650 MG PO (22:03)
[2022-08-29 01:29] VITALS: RESP 16
[2022-08-29 03:17] VITALS: BP 115/54; PULSE 71; RESP 16; TEMP 36.8; O2SAT 95
[2022-08-29 07:12] LABS: MANUAL DIFF FLAG NO
[2022-08-29 07:20] LABS: Basophils Percent Auto 0.6 % (0-2); Eosinophils Absolute Auto 0.2 X10*3/uL (0.0-0.4); Eosinophils Percent Auto 2.5 % (0-4); Hematocrit 25.7 % (42.0-52.0); Hemoglobin 8.1 g/dl (14.0-18.0); Imm Gran Abs Auto 0.04 X10*3/uL (0.00-0.03); Imm Gran Pct Auto 0.6 % (0.0-0.4); Lymphocytes Absolute Auto 1.6 X10*3/uL (1.2-4.9); Mean Corpuscular HGB Conc 31.5 g/dl (31.0-36.0); Mean Corpuscular Hemoglobin 25.2 pg (27.0-33.0); Mean Corpuscular Volume 79.8 fL (80.0-98.0); Mean Platelet Volume 11.7 fL (9.4-12.4); Monocytes Absolute Auto 0.6 X10*3/uL (0.1-1.2); Monocytes Percent Auto 9.5 % (2-11); Neutrophils Absolute Auto 3.9 x10*3/uL (2.0-8.3); Neutrophils Percent Auto 61.8 % (45-73); Platelet Count 143 X10*3/uL (160-400); Red Blood Count 3.22 X10*6/uL (4.60-5.80); Red Cell Distribution Width 16.3 % (11.0-16.0); White Blood Count 6.3 X10*3/uL (4.8-10.8)
[2022-08-29 07:36] LABS: Anion Gap 8 (12-20); Blood Urea Nitrogen 36 mg/dL (9-16); Calcium 7.9 mg/dL (8.4-10.2); Carbon Dioxide 22 mmol/L (22-29); Chloride 111 mmol/L (96-108); Creatinine Clr Calc Pharmacy 55.2; Estimated Glomerular Filt Rate 39; Glucose Fasting 127 mg/dL (60-99); Potassium 4.9 mmol/L (3.3-5.1); Sodium 136 mmol/L (135-145)
[2022-08-29 08:19] VITALS: BP 135/62; PULSE 75; RESP 18; TEMP 36.3; O2SAT 96
[2022-08-29 08:20] LABS: Vancomycin Trough 16.5 mcg/mL (10.0-20.0)
[2022-08-29] MEDS: oxyCODONE HCl ER 10 MG TAB.ER.12H PO ×2 (08:20→20:28)
[2022-08-29] MEDS: 0.9 % Sodium Chloride Flush 3 ML SYRINGE IVFLUSH ×6 (08:20→20:31)
[2022-08-29] MEDS: atenoloL 50 MG TABLET PO (08:21)
[2022-08-29] MEDS: Sodium Bicarbonate 650 MG TABLET PO ×3 (08:24→20:29)
[2022-08-29] MEDS: oxyCODONE HCl Immed Release 5 MG TABLET 10 MG PO ×3 (09:52→21:28)
--- NOTE | 2022-08-29 10:14 | PM.PNORT ---
Subjective Subjective Date of Service: 08/29/22 Principal diagnosis: Pt Interval history: POD3 s/p Revision RTKA with abx spacer. No overnight events. Pain is well managed. Patient is resting in bed comfortably. Denies lightheadedness, dizziness, abd pain, CP. No additional complaints. Physical Exam Vital Signs: Vital Signs: Last Vital Signs Temp 97.4 F 08/29/22 08:19 Pulse 75 08/29/22 08:19 Resp 18 08/29/22 08:19 BP 135/62 08/29/22 08:19 Pulse Ox 96 08/29/22 08:19 O2 Del Method Room Air 08/29/22 08:19 O2 Flow Rate 2 08/26/22 14:52 BMI result Body Mass Index 32.5 Const: General: cooperative, healthy appearing and no acute distress Resp: Effort & Inspection: normal respiratory effort and able to speak in complete sentences Cardio: Rate: regular rate Peripheral pulses: Peripheral pulses 2+ throughout GI: Palpation (GI): Soft to palpation Skin: Lesions: no lesions Rashes: no rashes Procedures Date of Service Date of Service: 08/29/22 Progress Note: A&P Assessment and plan (1) Status post revision of total replacement of right knee: Status: Acute Plan Continue pain mgmnt PICC line in place - flush orders placed Continue dvt ppx Lovenox H&H 6.5/21.5 - 2 units of pRBCs ordered stat Continue to monitor vanco trough Continue PT for revision rt TKA with abx spacer - WBAT - Ambulate in the brace unlocked. Dispo planning-Pending PT eval, pain mgmnt Time Spent With Patient Time: Total time managing care of this patient today ____ minutes. Quality Stroke Does the patient have a stroke diagnosis?: No VTE Prior VTE?: No VTE Risk Level:: Medical - moderate - high VTE Device Contraindication: N/A - Device Ordered VTE Drug Contraindication: N/A - Med Ordered
[2022-08-29] MEDS: Enoxaparin Sodium 40 MG/0.4 ML SYRINGE SUBCUT (11:29)
--- NOTE | 2022-08-29 15:03 | P.PNNP_ITS ---
Subjective Subjective Date of Service: 08/29/22 Principal diagnosis: Pt resting in the bed Interval history: Knee pain Physical Exam Vital Signs: Vital Signs: Last Vital Signs Temp 97.4 F 08/29/22 08:19 Pulse 75 08/29/22 08:19 Resp 18 08/29/22 08:19 BP 135/62 08/29/22 08:19 Pulse Ox 96 08/29/22 08:19 O2 Del Method Room Air 08/29/22 08:19 O2 Flow Rate 2 08/26/22 14:52 BMI result Body Mass Index 32.5 Const: General: cooperative, healthy appearing and no acute distress Resp: Effort & Inspection: normal respiratory effort and able to speak in complete sentences Cardio: Rate: regular rate Peripheral pulses: Peripheral pulses 2+ th roughout GI: Palpation (GI): Soft to palpation Skin: Lesions: no lesions Rashes: no rashes Objective Data Labs 08/29/22 06:57 08/29/22 06:57 Labs: Laboratory Results - last 24 hr 08/28/22 08/28/22 08/29/22 10:52 18:15 06:57 WBC RBC Hgb Hct MCV MCH MCHC RDW Plt Count MPV Immature Gran % (Auto) Neut % (Auto) Lymph % (Auto) [place] % (Auto) Eos % (Auto) Baso % (Auto) Lymph # (Auto) [place] # (Auto) Eos # (Auto) Baso # (Auto) Abs Immat Gran (auto) Absolute Neuts (auto) Absolute Nucleated RBC Nucleated RBC % (auto) Sodium 136 Potassium 4.9 Chloride 111 H Carbon Dioxide 22 Anion Gap 8 L BUN 36 H Creatinine 1.76 H Estim Creat Clear Calc 55.2 Estimated GFR 39 Fasting Glucose 127 H Calcium 7.9 L Vancomycin Trough Random Vancomycin 11.6 L Blood Type B Positive Antibody Screen NEGATIVE Crossmatch See Detail 08/29/22 08/29/22 06:57 07:59 WBC 6.3 RBC 3.22 L Hgb 8.1 L D Hct 25.7 L MCV 79.8 L MCH 25.2 L MCHC 31.5 RDW 16.3 H Plt Count 143 L MPV 11.7 Immature Gran % (Auto) 0.6 H Neut % (Auto) 61.8 Lymph % (Auto) 25.0 [place] % (Auto) 9.5 Eos % (Auto) 2.5 Baso % (Auto) 0.6 Lymph # (Auto) 1.6 [place] # (Auto) 0.6 Eos # (Auto) 0.2 Baso # (Auto) 0.0 Abs Immat Gran (auto) 0.04 H Absolute Neuts (auto) 3.9 Absolute Nucleated RBC 0.000 Nucleated RBC % (auto) 0.0 Sodium Potassium Chloride Carbon Dioxide Anion Gap BUN Creatinine Estim Creat Clear Calc Estimated GFR Fasting Glucose Calcium Vancomycin Trough 16.5 Random Vancomycin Blood Type Antibody Screen Crossmatch Microbiology Microbiology Results: Microbiology 08/26/22 09:10 Knee,Right Gram Stain - Final 08/26/22 09:10 Knee,Right Routine Culture - Final Staphylococcus aureus 08/26/22 09:11 Knee,Right Gram Stain - Final 08/26/22 09:11 Knee,Right Routine Culture - Final Staphylococcus aureus 08/26/22 09:09 Knee,Right Gram Stain - Final 08/26/22 09:09 Knee,Right Routine Culture - Final Staphylococcus aureus Procedures Date of Service Date of Service: 08/29/22 Assessment & Plan Assessment and plan (1) CKD (chronic kidney disease) stage 3, GFR 30-59 ml/min: Status: Acute (2) Abscess of right knee: Status: Acute (3) Hyperkalemia: Status: Acute Plan 1. Lakshmi - Due to renal hypoperfusion 2. CKD -3 3. Hyperkalemia 4. s/p TKR - with infection Avoid Nephrotoxins F/u Vanco levels Off Celebrex Low K Diet Cr is better thx Time Spent With Patient Time: Total time managing care of this patient today ____ minutes. Progress Note: Quality Stroke Does the patient have a stroke diagnosis?: No
[2022-08-29 15:34] VITALS: BP 116/62; PULSE 73; RESP 18; TEMP 36.9; O2SAT 95
[2022-08-29 19:46] VITALS: BP 127/59; PULSE 77; RESP 20; TEMP 37.2; O2SAT 95
[2022-08-29 19:53] LABS: Vancomycin Trough 11.7 mcg/mL (10.0-20.0)
[2022-08-29] MEDS: vancomycin HCL 1,250 MG in 0.9 % Sodium Chloride 250 ML 166.67 MG IV (20:28)
[2022-08-29] MEDS: Acetaminophen 325 MG TABLET 650 MG PO (21:28)
[2022-08-29 23:42] VITALS: BP 127/60; PULSE 73; RESP 16; TEMP 36.8; O2SAT 94
[2022-08-30] MEDS: oxyCODONE HCl Immed Release 5 MG TABLET 10 MG PO ×5 (01:08→20:17)
[2022-08-30 03:13] VITALS: BP 110/56; PULSE 70; RESP 16; TEMP 36.1; O2SAT 93
[2022-08-30] MEDS: atenoloL 50 MG TABLET PO (07:22)
[2022-08-30] MEDS: Sodium Bicarbonate 650 MG TABLET PO ×3 (07:22→19:48)
[2022-08-30] MEDS: 0.9 % Sodium Chloride Flush 3 ML SYRINGE IVFLUSH ×6 (07:22→19:49)
[2022-08-30 07:32] LABS: MANUAL DIFF FLAG NO
[2022-08-30 07:35] LABS: Basophils Percent Auto 0.7 % (0-2); Eosinophils Absolute Auto 0.2 X10*3/uL (0.0-0.4); Eosinophils Percent Auto 4.1 % (0-4); Hematocrit 25.3 % (42.0-52.0); Hemoglobin 7.8 g/dl (14.0-18.0); Imm Gran Abs Auto 0.03 X10*3/uL (0.00-0.03); Imm Gran Pct Auto 0.5 % (0.0-0.4); Lymphocytes Absolute Auto 1.4 X10*3/uL (1.2-4.9); Lymphocytes Percent Auto 24.6 % (20-40); Mean Corpuscular HGB Conc 30.8 g/dl (31.0-36.0); Mean Corpuscular Volume 81.1 fL (80.0-98.0); Mean Platelet Volume 11.8 fL (9.4-12.4); Monocytes Absolute Auto 0.6 X10*3/uL (0.1-1.2); Monocytes Percent Auto 10.3 % (2-11); Neutrophils Absolute Auto 3.3 x10*3/uL (2.0-8.3); Neutrophils Percent Auto 59.8 % (45-73); Platelet Count 163 X10*3/uL (160-400); Red Blood Count 3.12 X10*6/uL (4.60-5.80); Red Cell Distribution Width 16.6 % (11.0-16.0); White Blood Count 5.6 X10*3/uL (4.8-10.8)
[2022-08-30 07:40] VITALS: BP 127/59; PULSE 66; RESP 18; TEMP 36.4; O2SAT 96
[2022-08-30 07:51] LABS: Anion Gap 8 (12-20); Blood Urea Nitrogen 36 mg/dL (9-16); Carbon Dioxide 23 mmol/L (22-29); Chloride 112 mmol/L (96-108); Creatinine Clr Calc Pharmacy 55.2; Estimated Glomerular Filt Rate 39; Glucose Fasting 101 mg/dL (60-99); Potassium 4.8 mmol/L (3.3-5.1); Sodium 138 mmol/L (135-145)
[2022-08-30] MEDS: oxyCODONE HCl ER 10 MG TAB.ER.12H PO ×2 (09:09→19:47)
--- NOTE | 2022-08-30 09:23 | PM.PNORT ---
Subjective Subjective Date of Service: 08/30/22 Principal diagnosis: Pt resting in the bed Interval history: POD4 s/p Revision RTKA with abx spacer. No overnight events. Pain is well managed. Patient is resting in bed comfortably. Denies lightheadedness, dizziness, abd pain, CP. No additional complaints. Physical Exam Vital Signs: Vital Signs: Last Vital Signs Temp 97.5 F 08/30/22 07:40 Pulse 66 08/30/22 07:40 Resp 18 08/30/22 07:40 BP 127/59 L 08/30/22 07:40 Pulse Ox 96 08/30/22 07:40 O2 Del Method Room Air 08/30/22 07:40 O2 Flow Rate 2 08/26/22 14:52 BMI result Body Mass Index 32.5 Const: General: cooperative, healthy appearing and no acute distress Resp: Effort & Inspection: normal respiratory effort and able to speak in complete sentences Cardio: Rate: regular rate Peripheral pulses: Peripheral pulses 2+ throughout GI: Palpation (GI): Soft to palpation Skin: Lesions: no lesions Rashes: no rashes Extrem: Other: Right knee Prevena is intact. functioning appropriately, Able to dorsi/plantar flex. NVI. Procedures Date of Service Date of Service: 08/30/22 Progress Note: A&P Assessment and plan (1) Status post revision of total replacement of right knee: Status: Acute Plan Continue pain mgmnt PICC line in place - flush orders placed Continue dvt ppx Lovenox H&H 7.8/25.3 - continue to follow Continue to monitor vanco trough Continue PT for revision rt TKA with abx spacer - WBAT - Ambulate in the brace unlocked. Dispo planning-Pending PT eval, pain mgmnt Time Spent With Patient Time: Total time managing care of this patient today ____ minutes. Quality Stroke Does the patient have a stroke diagnosis?: No VTE Prior VTE?: No VTE Risk Level:: Medical - moderate - high VTE Device Contraindication: N/A - Device Ordered VTE Drug Contraindication: N/A - Med Ordered
[2022-08-30 10:35] VITALS: BP 123/59; PULSE 69; RESP 18; TEMP 36.3; O2SAT 94
[2022-08-30] MEDS: Enoxaparin Sodium 40 MG/0.4 ML SYRINGE SUBCUT (11:03)
[2022-08-30] MEDS: Acetaminophen 325 MG TABLET 650 MG PO ×2 (11:07→19:47)
[2022-08-30 15:17] VITALS: BP 137/64; PULSE 69; RESP 17; TEMP 36.6; O2SAT 97
--- NOTE | 2022-08-30 15:27 | PC.NURSE ---
This nurse assumed care of pt at 15:00, vitals are stable, no complaints of pain, Pt lying in bed comfortably.
--- NOTE | 2022-08-30 17:23 | PM.PNNEP ---
Subjective Subjective Date of Service: 08/30/22 Principal diagnosis: Pt resting in the bed Interval history: Knee pain Physical Exam Vital Signs: Vital Signs: Last Vital Signs Temp 97.8 F 08/30/22 15:17 Pulse 69 08/30/22 15:17 Resp 17 08/30/22 15:17 BP 137/64 08/30/22 15:17 Pulse Ox 97 08/30/22 15:17 O2 Del Method Room Air 08/30/22 15:17 O2 Flow Rate 2 08/26/22 14:52 BMI result Body Mass Index 32.5 Const: General: cooperative, healthy appearing and no acute distress Resp: Effort & Inspection: normal respiratory effort and able to speak in complete sentences Cardio: Rate: regular rate Peripheral pulses: Peripheral pulses 2+ throughout GI: Palpation (GI): Soft to palpation Skin: Lesions: no lesions Rashes: no rashes Extrem: Other: Right knee Prevena is intact. functioning appropriately, Able to dorsi/plantar flex. NVI. Objective Data Labs 08/30/22 07:15 08/30/22 07:15 Labs: Laboratory Results - last 24 hr 08/29/22 08/30/22 08/30/22 18:53 07:15 07:15 WBC 5.6 RBC 3.12 L Hgb 7.8 L Hct 25.3 L MCV 81.1 MCH 25.0 L MCHC 30.8 L RDW 16.6 H Plt Count 163 MPV 11.8 Immature Gran % (Auto) 0.5 H Neut % (Auto) 59.8 Lymph % (Auto) 24.6 [place] % (Auto) 10.3 Eos % (Auto) 4.1 H Baso % (Auto) 0.7 Lymph # (Auto) 1.4 [place] # (Auto) 0.6 Eos # (Auto) 0.2 Baso # (Auto) 0.0 Abs Immat Gran (auto) 0.03 Absolute Neuts (auto) 3.3 Absolute Nucleated RBC 0.000 Nucleated RBC % (auto) 0.0 Sodium 138 Potassium 4.8 Chloride 112 H Carbon Dioxide 23 Anion Gap 8 L BUN 36 H Creatinine 1.76 H Estim Creat Clear Calc 55.2 Estimated GFR 39 Fasting Glucose 101 H Calcium 8.0 L Vancomycin Trough 11.7 Microbiology Microbiology Results: Microbiology 08/26/22 09:10 Knee,Right Gram Stain - Final 08/26/22 09:10 Knee,Right Routine Culture - Final Staphylococcus aureus 08/26/22 09:11 Knee,Right Gram Stain - Final 08/26/22 09:11 Knee,Right Routine Culture - Final Staphylococcus aureus 08/26/22 09:09 Knee,Right Gram Stain - Final 08/26/22 09:09 Knee,Right Routine Culture - Final Staphylococcus aureus Procedures Date of Service Date of Service: 08/30/22 Assessment & Plan Assessment and plan (1) CKD (chronic kidney disease) stage 3, GFR 30-59 ml/min: Status: Acute (2) Abscess of right knee: Status: Acute (3) Hyperkalemia: Status: Acute Plan 1. Lakshmi - Due to renal hypoperfusion 2. CKD -3 3. Hyperkalemia 4. s/p TKR - with infection Avoid Nephrotoxins F/u Vanco levels Off Celebrex Low K Diet Cr is stable thx Time Spent With Patient Time: Total time managing care of this patient today ____ minutes. Progress Note: Quality Stroke Does the patient have a stroke diagnosis?: No
[2022-08-30] MEDS: vancomycin HCL 1,250 MG in 0.9 % Sodium Chloride 250 ML 166.67 MG IV (19:46)
[2022-08-30 20:00] VITALS: BP 114/63; PULSE 71; RESP 19; TEMP 36.3; O2SAT 96
[2022-08-31] VITALS (7 sets, daily range): BP systolic 110–148; BP diastolic 53–77; PULSE 67–78; RESP 16–20; TEMP 36.2–36.8; O2SAT 94–97
[2022-08-31] MEDS: oxyCODONE HCl Immed Release 5 MG TABLET 10 MG PO ×3 (01:01→09:59)
[2022-08-31] MEDS: Acetaminophen 325 MG TABLET 650 MG PO ×2 (03:37→09:59)
[2022-08-31 05:26] LABS: MANUAL DIFF FLAG NO
[2022-08-31 05:31] LABS: Basophils Percent Auto 0.7 % (0-2); Eosinophils Absolute Auto 0.3 X10*3/uL (0.0-0.4); Eosinophils Percent Auto 5.3 % (0-4); Hematocrit 25.6 % (42.0-52.0); Hemoglobin 7.8 g/dl (14.0-18.0); Imm Gran Abs Auto 0.06 X10*3/uL (0.00-0.03); Imm Gran Pct Auto 1.1 % (0.0-0.4); Lymphocytes Absolute Auto 1.6 X10*3/uL (1.2-4.9); Lymphocytes Percent Auto 27.9 % (20-40); Mean Corpuscular HGB Conc 30.5 g/dl (31.0-36.0); Mean Corpuscular Hemoglobin 24.9 pg (27.0-33.0); Mean Corpuscular Volume 81.8 fL (80.0-98.0); Mean Platelet Volume 12.2 fL (9.4-12.4); Monocytes Absolute Auto 0.6 X10*3/uL (0.1-1.2); Monocytes Percent Auto 10.5 % (2-11); Neutrophils Absolute Auto 3.1 x10*3/uL (2.0-8.3); Neutrophils Percent Auto 54.5 % (45-73); Platelet Count 173 X10*3/uL (160-400); Red Blood Count 3.13 X10*6/uL (4.60-5.80); Red Cell Distribution Width 16.9 % (11.0-16.0); White Blood Count 5.6 X10*3/uL (4.8-10.8)
[2022-08-31 05:40] LABS: Anion Gap 9 (12-20); Blood Urea Nitrogen 35 mg/dL (9-16); Calcium 8.2 mg/dL (8.4-10.2); Carbon Dioxide 24 mmol/L (22-29); Chloride 111 mmol/L (96-108); Creatinine Clr Calc Pharmacy 52.8; Estimated Glomerular Filt Rate 37; Glucose Fasting 105 mg/dL (60-99); Sodium 139 mmol/L (135-145)
[2022-08-31] MEDS: 0.9 % Sodium Chloride Flush 3 ML SYRINGE IVFLUSH ×4 (07:13→15:18)
[2022-08-31] MEDS: oxyCODONE HCl ER 10 MG TAB.ER.12H PO (07:13)
[2022-08-31] MEDS: atenoloL 50 MG TABLET PO (07:13)
[2022-08-31] MEDS: Sodium Bicarbonate 650 MG TABLET PO ×3 (07:13→19:59)
[2022-08-31 08:35] LABS: Vancomycin Trough 17.9 mcg/mL (10.0-20.0)
[2022-08-31] MEDS: Enoxaparin Sodium 40 MG/0.4 ML SYRINGE SUBCUT (12:18)
--- NOTE | 2022-08-31 14:00 | P.PNNP_ITS ---
Subjective Subjective Date of Service: 08/31/22 Principal diagnosis: Pt resting in the bed Interval history: Seen and examined, events noted Physical Exam Vital Signs: Vital Signs: Last Vital Signs Temp 97.8 F 08/31/22 12:00 Pulse 68 08/31/22 12:00 Resp 16 08/31/22 12:00 BP 113/58 L 08/31/22 12:00 Pulse Ox 94 08/31/22 12:00 O2 Del Method Room Air 08/31/22 12:00 O2 Flow Rate 2 08/26/22 14:52 BMI result Body Mass Index 32.5 Const: General: cooperative, healthy appearing, comfortable, no acute distress, well developed, alert and awake; No confusion Orie ntation/consciousness: oriented to person, oriented to place, oriented to time and No confusion Neck: Neck: Yes supple and Yes no JVD Resp: Effort & Inspection: normal respiratory effort and able to speak in complete sentences Auscultation: clear to auscultation bilaterally and no rhonchi Percussion: percussion normal Cardio: Jugular venous distension: no JVD Palpation: no palpable S4 Rate: regular rate Heart sounds: no click, no murmurs and no rubs Bruits: no abdominal aortic bruits Peripheral pulses: Peripheral pulses 2+ throughout GI: Inspection: Yes normal to inspection Palpation (GI): No Abdominal aortic bruit present and Soft to palpation Auscultation: normal bowel sounds : General: Yes no CVA tenderness Back/Spine/Pelvis: Back: no CVA tenderness Skin: General skin exam: no rashes or lesions noted Lesions: no lesions Rashes: no rashes Neuro: General: oriented to person, oriented to place, oriented to time, No no focal motor deficits and No confusion Motor exam (neuro): no asterixis Sensory Exam: No Sensory deficit (Neuro) Extrem: Other: Right knee Prevena is intact. functioning appropriately, Able to dorsi/plantar flex. NVI. Objective Data Labs 08/31/22 05:13 08/31/22 05:13 Labs: Laboratory Results - last 24 hr 08/31/22 08/31/22 08/31/22 05:13 05:13 07:49 WBC 5.6 RBC 3.13 L Hgb 7.8 L Hct 25.6 L MCV 81.8 MCH 24.9 L MCHC 30.5 L RDW 16.9 H Plt Count 173 MPV 12.2 Immature Gran % (Auto) 1.1 H Neut % (Auto) 54.5 Lymph % (Auto) 27.9 [place] % (Auto) 10.5 Eos % (Auto) 5.3 H Baso % (Auto) 0.7 Lymph # (Auto) 1.6 [place] # (Auto) 0.6 Eos # (Auto) 0.3 Baso # (Auto) 0.0 Abs Immat Gran (auto) 0.06 H Absolute Neuts (auto) 3.1 Absolute Nucleated RBC 0.000 Nucleated RBC % (auto) 0.0 Sodium 139 Potassium 5.0 Chloride 111 H Carbon Dioxide 24 Anion Gap 9 L BUN 35 H Creatinine 1.84 H Estim Creat Clear Calc 52.8 Estimated GFR 37 Fasting Glucose 105 H Calcium 8.2 L Vancomycin Trough 17.9 Microbiology Microbiology Results: Microbiology 08/26/22 09:10 Knee,Right Gram Stain - Final 08/26/22 09:10 Knee,Right Routine Culture - Final Staphylococcus aureus 08/26/22 09:11 Knee,Right Gram Stain - Final 08/26/22 09:11 Knee,Right Routine Culture - Final Staphylococcus aureus 08/26/22 09:09 Knee,Right Gram Stain - Final 08/26/22 09:09 Knee,Right Routine Culture - Final Staphylococcus aureus Procedures Date of Service Date of Service: 08/31/22 Assessment & Plan Assessment and plan (1) CKD (chronic kidney disease) stage 3, GFR 30-59 ml/min: Status: Acute (2) Abscess of right knee: Status: Acute (3) Hyperkalemia: Status: Acute Plan 1. Lakshmi - peak SCr 2.4 and now back to BSL ( 1.5-2.0) 2. CKD -3 3. Hyperkalemia: resolved 4. s/p TKR - with infection REC: avoid NSAIDs, track vanco and switch to alt if possible given risk of LAKSHMI from vanco will follow with team Time Spent With Patient Time: Total time managing care of this patient today ____ minutes. Progress Note: Quality Stroke Does the patient have a stroke diagnosis?: No
[2022-08-31] MEDS: HYDROmorphone HCl 0.5 MG/0.5 ML SYRINGE 0.25 MG IVPUSH ×2 (15:13→23:41)
--- NOTE | 2022-08-31 15:57 | MHC.CM.PN ---
pt accepted at [facility] will have a bed for tomorrow mds completed sana have rn sign in am
[2022-08-31 18:40] LABS: Vancomycin Random 13.5 mcg/mL (15-20)
--- NOTE | 2022-08-31 18:50 | HE.PHANOTE ---
Vancomycin Dosing Addendum Vancomycin Trough 13.5. Continue with current regimen. Next trough 09/02/22 @1800
[2022-08-31] MEDS: vancomycin HCL 1,250 MG in 0.9 % Sodium Chloride 250 ML 166.67 MG IV (19:59)
[2022-09-01 03:50] VITALS: BP 142/73; PULSE 70; RESP 16; TEMP 36.3; O2SAT 97
[2022-09-01] MEDS: HYDROmorphone HCl 0.5 MG/0.5 ML SYRINGE 0.25 MG IVPUSH ×2 (04:05→07:56)
[2022-09-01 07:28] VITALS: BP 147/78; PULSE 69; RESP 18; TEMP 36.7; O2SAT 95
[2022-09-01] MEDS: Sodium Bicarbonate 650 MG TABLET PO (07:55)
[2022-09-01] MEDS: atenoloL 50 MG TABLET PO (07:55)
[2022-09-01 08:40] VITALS: BP 147/78; PULSE 69; O2SAT 95
[2022-09-01 09:43] LABS: COVID-19 Test Negative (Negative); IDNOW Serial# BCCEAD1C
[2022-09-01] MEDS: oxyCODONE HCl Immed Release 5 MG TABLET PO (11:10)
[2022-09-01 11:21] LABS: Creatinine Clr Calc Pharmacy 57.1; Estimated Glomerular Filt Rate 41
[2022-09-01 12:09] LABS: Creatinine Clr Calc Pharmacy 57.5; Estimated Glomerular Filt Rate 41
--- NOTE | 2022-09-03 13:36 | P.OP_ITS ---
Operative Note Operative Note Date of Service: 09/03/22 Narrative: Date of Service: 08/26/22 Pre-op diagnosis: Infected right knee prosthesis Post-op diagnosis: same Procedure: 1) resection arthroplasty 2) removal of hardware 3) placement of antibiotic spacer Implants: Biomet antibiotic spacer Surgeon: Edmar Sood MD Anesthesia: GETA and regional Was an Circular Knitter Helper used for this Procedure?: Yes Circular Knitter Helper: Pauly Mohr Estimated blood loss (mL): 200 Tourniquet time (min): 95 IV fluids (mL): 1,200 Pathology: other Condition: stable Disposition: PACU Procedure in detail: The patient was brought to the operating room and prepped and draped in standard sterile fashion. A time-out was called to identify proper site proper procedure proper surgeon and IV antibiotics were administered. 1 g of IV tranexamic acid was administered. I began by making a midline incision through the prior incision. There was a lateral sinus that was draining as well. Full-thickness flaps were developed and a medial parapatellar arthrotomy was performed. Deep cultures were taken. There was purulence fluid expressed mostly from around the anteromedial tibia. I performed a medial peel resected some of the infrapatellar fat pad and fibrous tissue and was able to flex the knee. I removed the polyethylene insert. The femoral component was well fixed. I used a combination of flexible and not flexible osteotomes and was able to remove the femur with minimal bone loss over the condyles. There was [id number] bone loss over the distal anterior femur. Once the femoral component was removed I placed a dull Hohmann in the posterior aspect of the tibia and resected the excess fibrous tissue around the knee and began to slowly and circumferentially removed the tibial component from the tibial plateau. Again I used a combination of flexible non flexible osteotomes and was able to remove this with again minimal bone loss. Once this was done I used a combination of rongeur and round sure and sharp debridement to remove all nonviable necrotic tissue from the intra-articular portion of the knee. I then irrigated copiously and removed all unhealthy bone from the tibia and the femur. Most notable was some purulence over the anteromedial tibia. Once I felt confident that all fibrous and necrotic tissue had been removed and the bony surfaces had been irrigated copiously with saline I used a saw to remove the patella. This was done without incident and the patellar logs were also removed. The patella was irrigated copiously. Of note there was a ACL reconstruction button over the prior up proximal lateral distal femur which was removed and there was some associated FiberWire and some graft tissue that was removed. In addition I extended my incision distally and removed 1 tibial metal interference screw without difficulty. I then measured a large spacer on the back table and then opened the prefabricated gentamicin cement prosthesis. I mixed 2 bags of [place] bone cement with gentamicin and added an additional 6 g of vancomycin powder to the max. Once the cement was firm but not hard the prostheses were implanted into the knee while the knee was in extension. I had full but not hyperextension I was stable to varus and valgus stress. Once the cement had fully dried I was able to take the knee through gentle 0-90 degree range of motion without instability or dislocation. The tourniquet was let down and active bleeding was controlled with a werewolf device. I then removed all necrotic and fibrous excess tissue from around the capsule in the suprapatellar pouch and then closed the capsule with 1. Prolene. I then turned my attention to the sinus. I excised all the beltran of the sinus until I had a nickel shaped opening. I then used warm saline and mechanical debridement to remove all fibrous and necrotic tissue until I was down to bleeding healthy skin. I then closed this with nylon in a horizontal mattress configuration. I then returned to the main incision where I closed with nylon and a Provena VAC assisted dressing. Patient was restarted on IV antibiotics and awakened from anesthesia brought to recovery room in stable condition. There were no known complications.
== END 2022-09-01 12:37 | disposition skilled nursing facility (03) | DRG 464 ==
LOC: HO.SSSA 06:44 → HO.S3 12:39
PROVIDERS: Physician Assistant; Admitting Provider Orthopaedic Surgery; PCP Internal Medicine; Visit Provider Orthopaedic Surgery
PROC: 0SPC0JZ Removal of Synthetic Substitute from Right Knee Joint, Open Approach (ICD-10-PCS; CPT 27487; principal; 2022-08-26 08:40)
DX: T84.53XA Infection and inflammatory reaction due to internal right knee prosthesis, initial encounter (principal); E87.20 Acidosis, unspecified; D63.1 Anemia in chronic kidney disease; Y79.2 Prosthetic and other implants, materials and accessory orthopedic devices associated with adverse incidents; E87.5 Hyperkalemia; I12.9 Hypertensive chronic kidney disease with stage 1 through stage 4 chronic kidney disease, or unspecified chronic kidney disease; B95.61 Methicillin susceptible Staphylococcus aureus infection as the cause of diseases classified elsewhere; G89.18 Other acute postprocedural pain; N18.30 Chronic kidney disease, stage 3 unspecified; Z20.822 Contact with and (suspected) exposure to COVID-19; Z87.891 Personal history of nicotine dependence; Z86.19 Personal history of other infectious and parasitic diseases; Z86.14 Personal history of Methicillin resistant Staphylococcus aureus infection; Z91.148 Patient's other noncompliance with medication regimen for other reason; Z79.899 Other long term (current) drug therapy
CPT/HCPCS: 36415; 36573; 80048; 80202; 82565; 84520; 85014; 85018; 85025; 86850; 86900; 86901; 86923; 87070; 87077; 87147; 87186; 87205; 87635; 93005; 97110; 97116; 97162; C1713; C1751; C1776; J0131; J0690; J1100; J1170; J1650; J2250; J2370; J2405; J2795; J3010; J3370; J3371; P9016

== ENCOUNTER → 2022-09-07 13:44 | Outpatient (BNVA) | payer MEDICARE, MEDICAID, SELFPAY | PROVIDERS: PCP Internal Medicine; Visit Provider Physician Assistant | DX: L02.415 Cutaneous abscess of right lower limb (principal); Z96.651 Presence of right artificial knee joint | CPT/HCPCS: 99212 ==

== ENCOUNTER → 2022-09-14 14:15 | Outpatient (BNVA) | payer MEDICARE, MEDICAID, SELFPAY | PROVIDERS: PCP Internal Medicine; Visit Provider Physician Assistant | DX: Z47.1 Aftercare following joint replacement surgery (principal); Z96.651 Presence of right artificial knee joint | CPT/HCPCS: 99212 ==

== ENCOUNTER → 2022-09-17 10:17 | Outpatient (BNVA) | payer MEDICARE, MEDICAID, SELFPAY | PROVIDERS: PCP Internal Medicine; Visit Provider Physician Assistant | DX: Z96.651 Presence of right artificial knee joint (principal) | CPT/HCPCS: 99212 ==

== ENCOUNTER → 2022-09-23 12:24 | Outpatient (BNVA) | payer MEDICARE, MEDICAID, SELFPAY | PROVIDERS: PCP Internal Medicine; Visit Provider Physician Assistant | DX: Z47.1 Aftercare following joint replacement surgery (principal); Z96.651 Presence of right artificial knee joint | CPT/HCPCS: 99212 ==

== ENCOUNTER → 2022-10-07 11:30 | Outpatient (BNVA) | payer MEDICARE, MEDICAID, SELFPAY | PROVIDERS: PCP Internal Medicine; Visit Provider Internal Medicine | DX: M17.12 Unilateral primary osteoarthritis, left knee (principal) | CPT/HCPCS: 99212 ==

== ENCOUNTER → 2022-10-15 10:14 | Outpatient (BNVA) | payer MEDICARE, MEDICAID, SELFPAY | PROVIDERS: PCP Internal Medicine; Visit Provider Physician Assistant | DX: Z47.1 Aftercare following joint replacement surgery (principal); L02.415 Cutaneous abscess of right lower limb; Z96.651 Presence of right artificial knee joint | CPT/HCPCS: 99212 ==

== ENCOUNTER 2022-11-12 11:35 | Outpatient (REF) | payer MEDICARE, MEDICAID, SELFPAY ==
[2022-11-12 15:05] LABS: Erythrocyte Sedimentation Rate 14 MM/HR (0-15)
[2022-11-16 17:48] LABS: CRP High Sensitivity 1.9 mg/L
== END 2022-11-12 11:36 | disposition home or self-care (01) ==
LOC: HO.LAB 11:35
PROVIDERS: PCP Internal Medicine; Visit Provider Physician Assistant
DX: L02.415 Cutaneous abscess of right lower limb (principal); Z96.651 Presence of right artificial knee joint
CPT/HCPCS: 36415; 85652; 86141

== ENCOUNTER 2022-11-12 11:35 | Outpatient (AMB) | payer MEDICAID, SELFPAY ==
--- NOTE | 2022-11-12 11:42 | MHC.OFFVIS ---
Intake Vital Signs 11/12/22 11:44 Height 6 ft 1.5 in Weight 290 lb BMI 37.7 Intake Visit Reasons: RT TKA revision w/spacer insertion 08/26/22 NE Intake Note: Cristobal a 67 year old male who presents today for a post operative right TKA revision with spacer insertion 08/26/22 NE. Patient reports he continues to work with PT. He hopes to discuss status of next surgery. He continues to have swelling but states having improvement in swelling. He hears grinding with extension of knee. Allergies blueberry [BLUEBERRY] Allergy (Severe, Verified 11/12/22 11:46) ANAPHYLAXIS hydrocodone [Vicodin] Allergy (Severe, Verified 11/12/22 11:46) Anaphylaxis acetaminophen [Tylenol] Allergy (Intermediate, Verified 11/12/22 11:46) told to avoid HPI RT TKA revision w/spacer insertion 08/26/22 NE HPI Details 67-year-old male who returns to the office today for post-op right TKA revision with spacer insertion, 08/26/[address] Sood. He continues to have swelling in his knee which is currently improved. He also c/o grinding of his knee with extension. He continues to work with physical therapy and performs icing 2-3 times a day with benefits. He has discontinued taking antibiotics for 2 weeks without any concerns. [facility] Medical History Abscess of right knee Cellulitis and abscess of hand CKD (chronic kidney disease) stage 3, GFR 30-59 ml/min Convulsion, non-epileptic Hx MRSA infection Hx of hepatitis C Hyperkalemia Hypertension Knee pain Morbid obesity Osteoarthritis of left knee Osteoarthritis of right knee Pancytopenia Surgical History History of right knee surgery History of right shoulder replacement History of surgery History of total right knee replacement Status post revision of total replacement of right knee Family History Father No problems noted. Mother No problems noted. Social History Household Members: None Housing: House Are you a primary acute care surgeon to a significant other at home: No Do you presently have visiting nurse or other home services: No Unable to assess alcohol history related to: Unknown Alcohol intake: never Patient Tobacco Use Status: Former Tobacco user Quit Date: 6 months ago Tobacco use type: Cigarette Cigarettes Per Day: 4 Years Smoked: 20 e-Cigarette/Vaping Use: Currently Using Second Hand Smoke Exposure: No Substance Use Type: Heroin service: No Current occupational status: disabled Cognitive needs: No Hearing needs: No Vision needs: No Review of Systems Const All systems reviewed & are unremarkable except as noted in HPI and below Physical Exam Vital Signs: BMI result Body Mass Index 37.7 Extrem Other: Right knee: Incision clean, dry and intact. No open area along the incision and no drainage. Calf supple, nontender. NVI. Assessment & Plan Assessment & Plan (1) Abscess of right knee: Code(s): L02.415 - Cutaneous abscess of right lower limb (2) Status post revision of total replacement of right knee: Code(s): Z96.651 - Presence of right artificial knee joint Plan I reviewed the case with Dr. Sood. The plan is to obtain some labs- a CRP and an ESR. Once these are obtained and are WNL, we will consider a joint aspiration to plan for reimplantation of the right total knee. The patient is content with this plan. Orders: Orders CRP High Sensitivity Today L02.415 - Cutaneous abscess of right lower limb Erythrocyte Sedimentation Rate Today L02.415 - Cutaneous abscess of right lower limb Patient Instructions: Scribed for Esperanza Velasquez PA-C, by Devante Gamez medical insurance coding specialist, on 11/12/2022 at 12:30 PM EST. IEsperanza PA-C, have personally reviewed and agree with the information entered by the scribe. Coding Level of Care Code Global (97307) Diagnoses Abscess of right knee L02.415 Status post revision of total replacement of right knee Z96.651
[2022-11-12 11:44] VITALS: BMI 37.7
== END 2022-11-12 12:01 | disposition home or self-care (01) ==
PROVIDERS: PCP Internal Medicine; Visit Provider Physician Assistant
DX: L02.415 Cutaneous abscess of right lower limb (principal); Z96.651 Presence of right artificial knee joint
CPT/HCPCS: 99024

== ENCOUNTER 2022-11-18 08:28 | Outpatient (REF) | payer MEDICARE, MEDICAID, SELFPAY ==
[2022-11-18 11:26] LABS: C Reactive Protein 0.24 mg/dL (< or = 0.50)
== END 2022-11-18 08:29 | disposition home or self-care (01) ==
LOC: HO.LAB 08:28
PROVIDERS: PCP Internal Medicine; Visit Provider Physician Assistant
DX: L02.415 Cutaneous abscess of right lower limb (principal)
CPT/HCPCS: 36415; 86140

== ENCOUNTER 2022-11-20 14:32 | Outpatient (AMB) | payer MEDICARE, MEDICAID, SELFPAY ==
--- NOTE | 2022-11-20 14:34 | A.OFFPC_ITS ---
Vital Signs 11/20/22 14:37 Height 6 ft 1.5 in Weight 301 lb 13.005 oz BMI 39.3 BP 130/70 Blood Pressure Location Lt brachial Position Sitting Pulse 64 Pulse Source Pulse Oximeter Pulse Oximetry (%) 97 Oxygen Delivery Method Room Air Intake Visit Reasons: [facility]-Infection Right Knee Intake Note: Patient is here for hospital discharge follow up. Patient was discharged from [facility] on 11/17/22. Legal Administrator Required: No Air Deodorizer Servicer: Present Accompanied by: Sister Allergies blueberry [BLUEBERRY] Allergy (Severe, Verified 11/20/22 14:36) ANAPHYLAXIS hydrocodone [Vicodin] Allergy (Severe, Verified 11/20/22 14:36) Anaphylaxis acetaminophen [Tylenol] Allergy (Intermediate, Verified 11/20/22 14:36) told to avoid Medication List - Last Reconciled 11/20/22 by Cristian Cardoza MD atenolol 50 mg PO DAILY oxycodone 10 mg PO Q4H PRN 7 days Tobacco use date assessed: 11/20/22 Fall risk assessment: No Falls in past year Last assessed Fall Risk: 11/20/22 Dental Screening Dental Screen Date: 11/20/22 Did you have a dental visit in the last 12 months?: No Did you have a dental problem in the last 6 months where you did not have access to dental care?: No Was dental information given to patient?: No HPI [facility]11/17/22-Infection Right Knee HPI Details multiple knee surgeries and rehabs more planned; has knee infections PFSH Medical History Abscess of right knee Cellulitis and abscess of hand CKD (chronic kidney disease) stage 3, GFR 30-59 ml/min Convulsion, non-epileptic Hx MRSA infection Hx of hepatitis C Hyperkalemia Hypertension Knee pain Morbid obesity Osteoarthritis of left knee Osteoarthritis of right knee Pancytopenia Surgical History History of right knee surgery History of right shoulder replacement History of surgery History of total right knee replacement Status post revision of total replacement of right knee Family History (Updated 11/20/22 @ 14:35 by TAMARA Blanco) Father No problems noted. Mother No problems noted. Social History Household Members: None Housing: House Are you a primary managed care analyst to a significant other at home: No Do you presently have visiting nurse or other home services: No Unable to assess alcohol history related to: Unknown Alcohol intake: never Patient Tobacco Use Status: Former Tobacco user Quit Date: 6 months ago Tobacco use type: Cigarette Cigarettes Per Day: 4 Years Smoked: 20 e-Cigarette/Vaping Use: Former Use Second Hand Smoke Exposure: No Substance Use Type: Heroin service: No Current occupational status: disabled Cognitive needs: Yes (cane) Hearing needs: No Vision needs: Yes (glasses) Questionnaire PHQ-9 Over the last 2 weeks, how often have you been bothered by any of the following problems? 1. Little interest or pleasure in doing things: not at all 2. Feeling down, depressed, or hopeless: not at all 3. Trouble falling or staying asleep, or sleeping too much: not at all 4. Feeling tired or having little energy: not at all 5. Poor appetite or overeating: not at all 6. Feeling bad about yourself - or that you are a failure or have let yourself or your family down: not at all 7. Trouble concentrating on things, such as reading the newspaper or watching television: not at all 8. Moving or speaking so slowly that other people could have noticed. Or the opposite - being so fidgety or restless that you have been moving around a lot more than usual: not at all 9. Thoughts that you would be better off or of hurting yourself in some way: not at all Total score: 0 Depression Screening Interpretation: Negative Source: Developed by Drs. Lui Smart, Jia Brannon, Torey Yost and colleagues, with an educational delmy from [employer]. Thrive Questionnaire Date Thrive assessed: 11/20/22 I am a: Patient What is your living situation today?: I have a steady place to live Within the past 12 months, did the food you bought not last and you didn't have the money to get more?: Never true Within the past 12 months, did you worry whether your food would run out before you got money to buy more?: Never true Do you have trouble paying for medicines?: No Do you have trouble getting transportation to medical appointments?: No Do you have trouble paying your heating and electricity bill?: No Do you have trouble taking care of your child, family member or friend?: No Do you have trouble with day-to-day activities such as bathing, preparing meals, shopping, managing finances, etc.?: No Are you currently unemployed and looking for a job?: No Are you interested in more education?: No Currently or been in a relationship where the following occur: no concerns reported AUDIT C Alcohol Use Questionnaire (AUDIT-C) 1. How often do you have a drink containing alcohol?: Never Total Score: 0 FÁTIMA-7 AMB Questionnaire FÁTIMA-7 Date FÁTIMA - 7 assessed: 11/20/22 Feeling nervous, anxious, or on edge: 0 = Not at all Not being able to stop or control worryin = Not at all Worrying too much about different things: 0 = Not at all Trouble relaxin = Not at all Being so restless that it is hard to sit still: 0 = Not at all Becoming easily annoyed or irritable: 0 = Not at all Feeling afraid as if something awful might happen: 0 = Not at all Total FÁTIMA-7 score (0-4 normal; 5-9 mild; 10-14 moderate; 15-21 severe): 0 Source: Developed by Drs. Lui Smart, Jia Brannon, Torey Yost and colleagues, with an educational delmy from [employer]. Review of Systems Const Denies chills, Denies headache(s) and Denies weight loss ENT Denies headache(s) Card Denies chest pain, Denies syncope, Denies irregular heart rhythm and Denies d yspnea Resp Denies chest congestion, Denies cough and Denies dyspnea GI Denies abdominal pain, Denies change in stool character, Denies nausea and Den ies vomiting Musc Denies deformity and Denies joint swelling Neuro Denies syncope and Denies headache(s) Physical exam (Primary Care) Vital Signs: Last Vital Signs Pulse 64 11/20/22 14:37 BP 130/70 11/20/22 14:37 Pulse Ox 97 11/20/22 14:37 Oxygen Delivery Method Room Air 11/20/22 14:37 BMI result Body Mass Index 39.3 obesity BMI Assessment/Plan discussion: High BMI High, discussed plan: lifestyle, weight reduction, dietary and physical activity Tobacco/Smoking Status: Tobacco use Status Tobacco use date assessed 11/20/22 11/20/22 14:45 Patient Tobacco Use Status Former Tobacco user 11/20/22 14:45 Tobacco use type Cigarette 11/20/22 14:45 e-Cigarette/Vaping Use Former Use 11/20/22 14:45 PHQ-9: PHQ-9 Score PHQ-9: Total score 0 11/20/22 14:45 Depression Screening Interpretation: Negative Thrive Assessment: Date of Thrive Assessment Date Thrive assessed 11/20/22 11/20/22 14:45 Currently or been in a relationship where the following occur: no concerns reported Const General: cooperative, comfortable and no acute distress Resp Effort & Inspection: normal respiratory effort Auscultation: clear to auscultation bilaterally Percussion: percussion normal Cardio Jugular venous distension: no JVD Rate: regular rate Rhythm: regular rhythm GI Inspection: Yes normal to inspection Percussion: Yes normal to percussion Assessment and Plan Assessment & Plan (1) Abscess of right knee: Code(s): L02.415 - Cutaneous abscess of right lower limb Plan: as per ortho Medications: New atenolol 50 mg PO DAILY 90 tabs 4RF Refilled oxycodone Partial Fill upon patient request. 10 mg PO Q4H 7 days PRN 42 tabs 0RF Pain, Moderate(Pain Scale 4-6) Coding Level of Care Code Est Pt Level 4 (15869) Diagnoses Abscess of right knee L02.415
[2022-11-20 14:37] VITALS: BP 130/70; PULSE 64; O2SAT 97; BMI 39.3
== END 2022-11-20 14:56 | disposition home or self-care (01) ==
PROVIDERS: PCP Internal Medicine; Visit Provider Internal Medicine
DX: L02.415 Cutaneous abscess of right lower limb (principal)
CPT/HCPCS: 99214

== ENCOUNTER → 2022-12-04 10:37 | Outpatient (BNVA) | payer MEDICARE, MEDICAID, SELFPAY | PROVIDERS: PCP Internal Medicine; Visit Provider Orthopaedic Surgery | DX: L02.415 Cutaneous abscess of right lower limb (principal); Z96.651 Presence of right artificial knee joint | CPT/HCPCS: 20610 ==

== ENCOUNTER 2022-12-04 10:38 | Outpatient (AMB) | payer MEDICARE, MEDICAID, SELFPAY ==
--- NOTE | 2022-12-04 10:54 | A.OFFVIS_ITS ---
Intake Intake Visit Reasons: Aspirate RT Knee Allergies blueberry [BLUEBERRY] Allergy (Severe, Verified 11/20/22 14:36) ANAPHYLAXIS hydrocodone [Vicodin] Allergy (Severe, Verified 11/20/22 14:36) Anaphylaxis acetaminophen [Tylenol] Allergy (Intermediate, Verified 11/20/22 14:36) told to avoid HPI Aspirate RT Knee HPI Details Cristobal is a 67 year old man ~3 months S/P right TKA revision with spacer insertion, 08/26/22. He presents for a knee aspiration prior to a rTKA. He says he is doing well, has been more active, and has been reducing his smoking and trying to quit. He denies any symptoms of infection and is no longer on Abx. He says he has been taking 10mg Oxycodone since his DOS and asked for a refill. [facility] Medical History Abscess of right knee Cellulitis and abscess of hand CKD (chronic kidney disease) stage 3, GFR 30-59 ml/min Convulsion, non-epileptic Hx MRSA infection Hx of hepatitis C Hyperkalemia Hypertension Knee pain Morbid obesity Osteoarthritis of left knee Osteoarthritis of right knee Pancytopenia Surgical History History of right knee surgery History of right shoulder replacement History of surgery History of total right knee replacement Status post revision of total replacement of right knee Family History (Updated 11/20/22 @ 14:35 by TAMARA Blanco) Father No problems noted. Mother No problems noted. Social History Household Members: None Housing: House Are you a primary respiratory care specialist to a significant other at home: No Do you presently have visiting nurse or other home services: No Unable to assess alcohol history related to: Unknown Alcohol intake: never Patient Tobacco Use Status: Former Tobacco user Quit Date: 6 months ago Tobacco use type: Cigarette Cigarettes Per Day: 4 Years Smoked: 20 e-Cigarette/Vaping Use: Former Use Second Hand Smoke Exposure: No Substance Use Type: Heroin service: No Current occupational status: disabled Cognitive needs: Yes (cane) Hearing needs: No Vision needs: Yes (glasses) Review of Systems Const All systems reviewed & are unremarkable except as noted in HPI and below Physical Exam Const General: no acute distress and alert Orientation/consciousness: patient oriented x3 Neuro General: patient oriented x3 Extrem Other: Right Knee: Incision C/D/I Psych Appearance: grossly normal Affect: normal affect Attitude: cooperative Office Procedures Joint Injection/Drain Joint Injection/Drain Details: Aspirated 20 ml nl appearing SS fluid right knee Primary Site: right knee Approach Used: lateral parapatellar Coding - Large joint Procedure code (CPT) selection complete Assessment & Plan Assessment & Plan (1) Abscess of right knee: Code(s): L02.415 - Cutaneous abscess of right lower limb (2) Status post revision of total replacement of right knee: Code(s): Z96.651 - Presence of right artificial knee joint Plan: Cristobal is a 66 year old man who presents S/P right TKA revision with spacer insertion, 08/26/22. He is S/P right TKA, DOS: 08/12/21, & right TKA I&D, DOS: 09/05/21, which was complicated by wound breakdown & poor post-op compliance. He says he is doing well today, he has been more active and has been working on reducing his smoking in an effort to quit. There is no evidence of infection and he is not on any Abx. I aspirated his right knee today. If this is negative I anticipate we move forward with a right rTKA in the next few weeks. I refilled his Oxycodone, 10mg QD, which he has been taking since his most recent surgery. Plan Scribed for Edmar Sood MD by Umer Burt, senior medical billing specialist, on 12/04/22 at 11:00 AM, EST. Medications: Refilled oxycodone Partial Fill upon patient request. 5 mg PO Q8H PRN 21 tabs 0RF Pain, Moderate(Pain Scale 4-6) 7 days Coding Level of Care Code Global (53537) Diagnoses Abscess of right knee L02.415 Status post revision of total replacement of right knee Z96.651 CPT Codes Coding - Large joint: 96357 - Large joint ([id number])
== END 2022-12-04 11:52 | disposition home or self-care (01) ==
PROVIDERS: PCP Internal Medicine; Visit Provider Orthopaedic Surgery
DX: L02.415 Cutaneous abscess of right lower limb (principal); Z47.1 Aftercare following joint replacement surgery; Z96.651 Presence of right artificial knee joint
CPT/HCPCS: 20610; 99024

== ENCOUNTER 2023-01-01 10:28 | Outpatient (AMB) | payer MEDICARE, SELFPAY ==
[2023-01-01 10:30] VITALS: BMI 39.7
--- NOTE | 2023-01-01 10:30 | MHC.OFFVIS ---
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 He had a knee aspiration on 12/04/22 to assess for infection prior to a rTKA. This was mildly positive for infection. He says he is doing well, has been more active, and has been reducing his smoking and trying to quit. He says his leg feels tight occasionally but he denies any pain when walking. He uses his cane when walking as he is worried about overextending his knee. He denies any symptoms of infection. [facility] Medical History Abscess of right knee Cellulitis and abscess of hand CKD (chronic kidney disease) stage 3, GFR 30-59 ml/min Convulsion, non-epileptic Hx MRSA infection Hx of hepatitis C Hyperkalemia Hypertension Knee pain Morbid obesity Osteoarthritis of left knee Osteoarthritis of right knee Pancytopenia Surgical History History of right knee surgery History of right shoulder replacement History of surgery History of total right knee replacement Status post revision of total replacement of right knee Family History (Updated 11/20/22 @ 14:35 by TAMARA Blanco) Father No problems noted. Mother No problems noted. Social History Household Members: None Housing: House Are you a primary wild animal caretaker to a significant other at home: No Do you presently have visiting nurse or other home services: No Unable to assess alcohol history related to: Unknown Alcohol intake: never Patient Tobacco Use Status: Former Tobacco user Quit Date: 6 months ago Tobacco use type: Cigarette Cigarettes Per Day: 4 Years Smoked: 20 e-Cigarette/Vaping Use: Former Use Second Hand Smoke Exposure: No Substance Use Type: Heroin service: No Current occupational status: disabled Cognitive needs: Yes (cane) Hearing needs: No Vision needs: Yes (glasses) Review of Systems Const All systems reviewed & are unremarkable except as noted in HPI and below Physical Exam Vital Signs: BMI result Body Mass Index 39.7 Const General: no acute distress and alert Orientation/consciousness: patient oriented x3 HEENT Head: Yes normocephalic and Yes atraumatic Eyes EOM: EOMs intact bilaterally Resp Effort & Inspection: normal respiratory effort and able to speak in complete sentences Cardio Jugular venous distension: no JVD Skin General skin exam: turgor normal Rashes: no rashes Neuro General: patient oriented x3 Extrem Other: Right Knee: Incision C/D/I Psych Appearance: grossly normal Affect: normal affect Attitude: cooperative Assessment & Plan Assessment & Plan (1) Abscess of right knee: Code(s): L02.415 - Cutaneous abscess of right lower limb (2) Status post revision of total replacement of right knee: Code(s): Z96.651 - Presence of right artificial knee joint Plan: Cristobal is a 66 year old man who presents S/P right TKA revision with spacer insertion, 08/26/22. He is S/P right TKA, DOS: 08/12/21, & right TKA I&D, DOS: 09/05/21, which was complicated by wound breakdown & poor post-op compliance. He says he is doing well today, he has been more active and has been working on reducing his smoking in an effort to quit. There is no visible evidence of infection, however his knee aspiration from 12/04/22 was + for neutrophil elastase with 4000 PMNs, 89% pmns. we cannot proceed with revision TKA I reached out to Dr. Garcia in [place] to discuss his case and she recommended 4 weeks of Linezolid. Plan Scribed for Edmar Sood MD by Umer Burt, medical reception specialist, on 01/01/23 at 10:45 AM, EST. Coding Level of Care Code Est Pt Level 4 (69579) Diagnoses Abscess of right knee L02.415 Status post revision of total replacement of right knee Z96.651
== END 2023-01-01 11:58 | disposition home or self-care (01) ==
PROVIDERS: PCP Internal Medicine; Visit Provider Orthopaedic Surgery
DX: L02.415 Cutaneous abscess of right lower limb (principal); Z96.651 Presence of right artificial knee joint
CPT/HCPCS: 99214

== ENCOUNTER → 2023-01-01 10:28 | Outpatient (BNVA) | payer MEDICARE, SELFPAY | PROVIDERS: PCP Internal Medicine; Visit Provider Orthopaedic Surgery | DX: L02.415 Cutaneous abscess of right lower limb (principal); Z96.651 Presence of right artificial knee joint | CPT/HCPCS: 99212 ==

== ENCOUNTER → 2023-01-14 | Outpatient (RCR) | payer OTHER, SELFPAY ==
--- NOTE | 2021-06-19 14:20 | HE.ONCSEC ---
INFORMED PATIENT WE NEED HIS [facility] INSURANCE CARD . HE STATES HE DOESN'T HAVE [facility] . I SCANNED IN HIS [employer] CARD .
[2021-06-19 14:24] VITALS: PULSE 85; RESP 22; TEMP 35.8; O2SAT 98; BMI 41.1
--- NOTE | 2021-06-19 14:28 | PM.HEMONCCN ---
Subjective - Subjective Chief complaint: Consult for: Pancytopenia. Patient: new to practice Consult date: 06/19/21 Requesting Physician: Sony Primary Care Provider: Cristian Cardoza MD Medical Summary: DIAGNOSIS: PANCYTOPENIA. HPI - Consult Narrative Reason for consult: consult for: Pancytopenia. Narrative: Cristobal Ayoub is apleasant 65 year old gentleman. He has been noted to be pancytopenic. CBC from 06/17/2021: WBC 5.1, HGB 13.2, HCT 41.7, MCV 81, PLT 91. FAMILY HISTORY: Most family members had heart condition. Mom of a brain tumor. 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 He is . Now has a girlfriend. He has 2 children. He smokes 1-2 cigarettes a day. He used to drink heavily. None for the past 20 years. ROS: He does feel rather tired. Sometimes he notices a fever. Appetite is good. His weight is stable. He gets occasional headaches and dizziness. Denies any chest pain or trouble breathing. No cough no sputum. He does get occasional heartburn. No abdominal pain. He is constipated. He has had a colonoscopy. Denies dysuria or hematuria. He does have joint pains. History of arthritis. Denies any focal weakness. Does have depression. No skin rashes nor pruritus. Review of Systems - Constitutional Reports system reviewed and no additional complaints, except as documented, Reports lack of energy, Denies weight loss - Eyes Reports system reviewed and no additional complaints, except as documented - ENT Reports system reviewed and no additional complaints, except as documented - Cardiovascular Reports system reviewed and no additional complaints, except as documented - Respiratory Reports no additional respiratory complaints - Gastrointestinal Reports system reviewed and no additional complaints, except as documented, Reports dyspepsia, Reports heartburn - Genitourinary Genitourinary: Reports no additional male genitourinary complaints - Musculoskeletal Reports system reviewed and no additional complaints, except as documented, Reports back pain, Reports joint pain - Integumentary/Breasts Skin/Breast: Reports no additional skin complaints - Neurologic Reports system reviewed and no additional complaints, except as documented - Psychiatric Reports system reviewed and no additional complaints, except as documented - Endocrine Reports no additional endocrine complaints - Hematologic/Lymphatic Reports system reviewed and no additional complaints, except as documented - Allergic/Immunologic Reports system reviewed and no additional complaints, except as documented Oncology Screenings - ECOG Performance Status ECOG Performance Status: 0 PMFSH Medical History: Medical History (Last Reviewed 06/24/21 @ 12:44 by Maricarmen Walker RN) Cellulitis and abscess of hand Convulsion, non-epileptic Hx MRSA infection Hx of hepatitis C Hypertension Knee pain Morbid obesity Osteoarthritis of left knee Pancytopenia Functional capacity: independent ambulation Patient : No Family History: Family History (Last Reviewed 06/11/21 @ 13:04 by TAMARA Rose) Father No problems noted. Mother No problems noted. Surgical History: Surgical History (Last Reviewed 06/24/21 @ 12:44 by Maricarmen Walker RN) History of right knee surgery History of right shoulder replacement History of surgery Social History: Social History (Last Updated 06/19/21 @ 14:31 by Shruti Cardenas RN) Living Situation History: Household Members: Family Housing: House Are you a primary home care consultant to a significant other at home: No Do you presently have visiting nurse or other home services: No Tobacco History: Patient Tobacco Use Status: Current everyday Tobacco Tobacco use type: Cigarette Years Smoked: 20 Smoked in Last 30 Days: Yes e-Cigarette/Vaping Use: Never Used Patient Interested in Nicotine Replacement: No Patient Given Instructions on How to Stop Smoking: No Second Hand Smoke Exposure: No Substance Use History: Use of substances other than those prescribed or required for medical reasons: No Substance Use Type: Heroin Domestic Abuse History: Have you been hit, kicked, punched, or otherwise hurt by someone within the past year? If so, by whom?: No Healthcare Practices: Spiritual Healthcare Practices: none Mandaeism Healthcare Practices: none Cultural Healthcare Practices: none Advance Directives: Advance Directives: No Advance Directives Information Provided: Yes Advance Directives on File: No Nutrition Assessment: Recently lost weight without trying: No Nutrition Risks: No Nutritional Risk Poor oral hygiene: Yes Poor oral hygiene comment: cracked teeth, nothing loose Occupation Assessmet: service: No Current occupational status: disabled Home Medications and Allergies Home Medications Medication Instructions Recorded Confirmed Type amlodipine 10 mg tablet 20 mg PO DAILY 06/19/21 06/19/21 History Allergies Allergy/AdvReac Type Severity Reaction Status Date / Time blueberry [BLUEBERRY] Allergy Severe ANAPHYLAXIS Verified 06/24/21 12:45 hydrocodone [Vicodin] Allergy Severe Anaphylaxis Verified 06/24/21 12:45 acetaminophen [Tylenol] Allergy Intermediate told to Verified 06/24/21 12:45 avoid Physical Exam - Constitutional Present: no acute distress - Routine HEENT Exam Head: Present: normal inspection ENT: Present: mucous membranes moist - Routine Neck Exam Present: supple - Routine Respiratory Exam Present: CTAB - Routine Cardiovascular Exam Cardiovascular: Present: RRR, S1, S2 - Routine Abdominal Exam Present: soft, nontender - Routine Extremities Exam Present: nontender - Routine Skin Exam Present: intact, normal turgor - Routine Neurological Exam Present: alert, oriented X3 - Detailed Neurological Exam: Coma Scale Eye Opening: Spontaneous (4) Verbal Response: Oriented (5) - Routine Psychiatric Exam Present: normal affect Hem/Onc Consult Result - Labs CBC & Chem 7: 06/19/21 15:16 06/19/21 15:16 Assessment and Plan Patient Active problem list reviewed?: Yes (1) Pancytopenia Status: Acute Assessment and plan: This is a pleasant 65-year-old gentleman with a history of pancytopenia. This is mild and improving. DIFFERENTIAL DIAGNOSIS: 1. LIVER DISEASE, CIRRHOSIS, SPLENOMEGALY: On the basis of hypersplenism. This is most likely. He does have a history of some alcohol. The possibility is of hepatitis-C. 2.RELATED TO AN INFECTION: Chronic infection like hepatitis or HIV. 3. MEDICATION RELATED: Is always a possibility. 4. COLLAGEN VASCULAR DISORDER: Rheumatoid arthritis versus lupus. 5. UNDERLYING MYELO INFILTRATIVE DISORDER: Lymphoma, MDS versus multiple myeloma. 6. B12 OR FOLATE LEVELS: B12 408. Folate 14. Iron studies: 39/392//. PLAN: Will proceed with further evaluation. Check hepatitis studies and HIV: Negative however hep C is positive. Check collagen vascular profile. Check LDH:210 and SIEP: No monoclonal spike. In the meantime, the patient the is being cleared for his upcoming knee replacement by Dr. Sood. He will return in 2 months for follow-up visit. Thank you, Cc: Dr. Sony Sood. 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 Will refer to GI for further evaluation. - Time Spent With Patient Time Spent with Patient (in minutes): 30
[2021-06-19 15:22] LABS: Eos%MD 1.4 %; PLT CLUMP 1
[2021-06-19 15:23] LABS: Baso%MD 0.5 %; Hemoglobin 13.3 g/dl (14.0-18.0); IG%MD 0.2 %; Lymph%MD 17.3 %; Mean Corpuscular HGB Conc 32.4 g/dl (31.0-36.0); Mean Corpuscular Hemoglobin 25.7 pg (27.0-33.0); Mean Corpuscular Volume 79.2 fL (80.0-98.0); Mean Platelet Volume 11.7 fL (9.4-12.4); Mono%MD 7.1 %; Neut%MD 73.5 %; Red Blood Count 5.18 X10*6/uL (4.60-5.80)
--- NOTE | 2021-06-19 15:35 | MHC.HEMONC ---
Patient present for consult with Dr Jain. Vital signs done, medications reviewed and labs drawn. Patient states that he is having R Knee replacement on 06/23/21. Dr Jain in to see the patient.
[2021-06-19 15:44] LABS: Platelet Count 98 X10*3/uL (160-400); White Blood Count 5.6 X10*3/uL (4.8-10.8)
[2021-06-19 15:48] LABS: Alanine Aminotransferase 20 U/L (0-40); Albumin Level 3.8 g/dL (3.5-5.0); Alkaline Phosphatase 87 U/L (39-117); Aspartate Amino Transferase 25 U/L (5-37); Bilirubin Total 0.5 mg/dL (0.0-1.0); Blood Urea Nitrogen 13 mg/dL (9-16); Calcium 9.2 mg/dL (8.4-10.2); Creatinine Clr Calc Pharmacy 127.9; Estimated Glomerular Filt Rate > 60; Glucose Random 103 mg/dL (60-115); Iron 39 mcg/dL (45-160); Lactate Dehydrogenase 210 U/L (118-273); Total Protein 7.8 g/dL (6.5-8.0)
[2021-06-19 15:55] LABS: Eosinophils Absolute Manual 0.1 X10*3/uL (0.0-0.4); Eosinophils Percent Manual 1 % (0-4); Lymphocytes Absolute Manual 0.7 X10*3/uL (1.2-4.9); Lymphocytes Percent Manual 12 % (20-40); Monocytes Absolute Manual 0.3 X10*3/uL (0.1-1.2); Monocytes Percent Manual 6 % (2-11); Neutrophils Percent Manual 81 % (45-73)
[2021-06-19 15:56] LABS: Anion Gap 11 (12-20); Carbon Dioxide 26 mmol/L (22-29); Chloride 105 mmol/L (96-108); Neutrophils Absolute Manual 4.5 X10*3/uL (2.0-8.3); Platelet Estimate DECREASED (NORMAL); Platelet Morphology Comment NORMAL; Potassium 4.3 mmol/L (3.3-5.1); RBC Morphology NORMAL; Sodium 138 mmol/L (135-145)
[2021-06-19 16:05] LABS: Ferritin 84 ng/mL (20-250)
[2021-06-19 16:11] LABS: Percent Iron Saturation 11 % (15-50); Total Iron Binding Capacity 342 mcg/dL (228-428); Unsaturated Iron Binding 303 ug/dL
[2021-06-19 16:18] LABS: Folate 14.2 ng/mL (> or = 4.0); Vitamin B12 408 pg/mL (200-900)
[2021-06-20 07:51] LABS: HBS Num1 0.13 mIU/mL (0-7.99); Hepatitis B Core Antibody Nonreactive (Nonreactive); ~HepC Num1 15.82 S/CO (0.00-0.79); ~Hepatitis B Surface Antibody NONREACTIVE (Nonreactive); ~Hepatitis C Antibody Reactive (Nonreactive)
[2021-06-20 08:02] LABS: HIV AB/AG Nonreactive (Nonreactive); HIV Num 1 0.08 S/CO (0.00-0.99); Hepatitis B Surface Antigen Negative (Negative)
[2021-06-21 18:26] LABS: IgA 266 mg/dL (70-320); IgG 1947 mg/dL (600-1540); IgM 384 mg/dL (50-300)
--- NOTE | 2021-07-31 16:11 | HO.HEMONCSCH ---
Referral to GI was sent.
== END | disposition home or self-care (01) ==
LOC: HO.ONC 06-19 14:04
PROVIDERS: PCP Internal Medicine; Referring Provider Internal Medicine; Visit Provider Internal Medicine Medical Oncology
DX: D61.818 Other pancytopenia (principal)
CPT/HCPCS: 36415; 80053; 82607; 82728; 82746; 82784; 83540; 83615; 85007; 85027; 86334; 86704; 86706; 86803; 87340; 87389; 99204